=== PATIENT | female | born 1935 | race Caucasian/White ===

== ENCOUNTER 2020-10-29 13:35 | Emergency (ER) | payer MEDICARE, SELFPAY ==
--- NOTE | ~2020-10-29 | XR_ITS ---
EXAMINATION: XR chest 2V 10/29/2020 16:36 INDICATION: Weakness PROCEDURE: PA and lateral views of the chest COMPARISON: 12/28/2015 FINDINGS: . Left basilar atelectasis. No focal pneumonia, edema or pneumothorax. The cardiomediastina l silhouette is within normal limits. There are no pleural effusions. There is no pneumothorax susp ected. IMPRESSION: 1: Left basilar atelectasis. Reviewed, dictated and finalized at location B.
[2020-10-29 13:56] VITALS: BP 146/75; PULSE 70; RESP 18; TEMP 36.6; O2SAT 98
--- NOTE | 2020-10-29 14:00 | ECG_ITS ---
Measurements Intervals [place] Rate: 65 P: 24 DE: 171 QRS: -21 QRSD: 96 T: 19 QT: 384 QTc: 402 Interpretive Statements SINUS RHYTHM DELAYED PRECORDIAL R/S TRANSITION LOW QRS VOLTAGE IN PRECORDIAL LEADS VOLTAGE CRITERIA FOR LVH BORDERLINE ECG Electronically Signed On 10-29-2020 14:27:01 CDT by Jerrell Valdez D.O.
[2020-10-29 16:41] LABS: Add Urine Microscopic? YES; Appearance Urine Clear (Clear); Bilirubin Urine Negative (Negative); Blood Urine 1+ (Negative); Color Urine Yellow (Yellow); Glucose Urine UA Negative (Negative); Ketones Urine Negative (Negative); Leukocyte Esterase Ur Negative LEU/UL (Negative); Nitrate Urine Negative (Negative); Protein Urine Negative (Negative); Specific Grav Ur 1.014 (1.001-1.035); Squamous Epithelial Cell Urine Few /hpf (Few); Urobilinogen Urine Negative mg/dL (<2.0); WBC Urine 0-3 /hpf
--- NOTE | 2020-10-29 17:33 | ED.GENADULT ---
HPI - General Adult General Chief complaint: Unspecified Stated complaint: tired, l arm pain Time Seen by Provider: 10/29/20 16:06 History of Present Illness HPI narrative: 85 yo female presents with vague symptoms. She reports that she just hasn't felt right today. This includes fatigue and nausea. She also had some pain in the left side of her neck and shoulder. She ws concerned that this may be heart related. The pain is worse with arm and head movement. No SOB, chest pain. Related Data Home Medications Medication Instructions Recorded Confirmed atorvastatin 10 mg tablet 10 mg PO DAILY 05/29/19 01/06/20 isosorbide mononitrate 30 mg 30 mg PO DAILY 05/29/19 01/06/20 tablet,extended release 24 hr warfarin 5 mg tablet 5 mg PO [id number] 05/29/19 01/06/20 Allergies Allergy/AdvReac Type Severity Reaction Status Date / Time No Known Allergies Allergy Unknown Verified 02/03/20 14:39 Review of Systems Review of Systems: All systems reviewed & are unremarkable except as noted in HPI and below Constitutional: Constitutional: Denies chills and Denies fever(s) ENT: Reports dizziness Cardiovascular: Cardiovascular: Denies chest pain Respiratory: Respiratory: Denies dyspnea Gastrointestinal: Gastrointestinal: Denies diarrhea and Reports nausea Genitourinary: Genitourinary: Reports no additional female genitourinary complaints Musculoskeletal: Musculoskeletal: Denies back pain Neurologic: Reports weakness PMFSH Past Medical History Medical History Anemia, unspecified Chronic kidney disease, stage 3 (moderate) Essential (primary) hypertension Hypothyroidism Leg ulcer, left Lymphedema Mixed hyperlipidemia Onychomycosis Paroxysmal atrial fibrillation Type 2 diabetes mellitus without complications Family History Family History Mother Cerebrovascular accident Family history of coronary artery disease Other Family history of cardiovascular disease Social History Social History Smoking status: Never smoker Second hand tobacco smoke exposure: No Alcohol intake: never Gender identity (if verbalized by the patient): Female Exam Const: General: healthy appearing and no acute distress Nutritional Appearance: overweight Orientation/consciousness: patient oriented x3 HENMT: Head: normal to inspection Neck: Neck: normal visual inspection Chest: Chest palpation & inspection: tenderness Resp: Effort & Inspection: normal respiratory effort Auscultation: clear to auscultation bilaterally Cardio: Rate: regular rate Rhythm: regular rhythm GI: Inspection: non-distended GI Palp: No Tenderness to palpation present (GI) Skin: General skin exam: normal color Neuro: General: patient oriented x3 Cranial nerves: Yes CN's II-XII intact bilaterally Cognition (Neuro): normal cognition Speech: normal speech Motor exam (neuro): 5/5 motor strength present throughout Extrem: General: normal to inspection Course Vital Signs Vital signs: Vital Signs Temperature 36.6 C 10/29/20 13:56 Pulse Rate 70 10/29/20 13:56 Respiratory Rate 18 10/29/20 13:56 Blood Pressure 146/75 H 10/29/20 13:56 Pulse Oximetry 98 10/29/20 13:56 Temperature 36.6 C 10/29/20 13:56 Pulse Rate 63 10/29/20 18:03 Respiratory Rate 12 10/29/20 18:03 Blood Pressure 145/70 H 10/29/20 18:03 Pulse Oximetry 99 10/29/20 18:03 Medical Decision Making MDM Narrative Medical decision making narrative: Symptoms do not sound cardiac. Labs and vitals reassuring Vital Signs Vital Signs: Vital Signs Temperature 36.6 C 10/29/20 13:56 Pulse Rate 70 10/29/20 13:56 Respiratory Rate 18 10/29/20 13:56 Blood Pressure 146/75 H 10/29/20 13:56 Pulse Oximetry 98 10/29/20 13:56 Temperature 36.6 C 10/29/20 13:56 Pulse Rate
[2020-10-29 17:42] LABS: Basophils Percent Auto 0.4 % (0.2-1.2); Eosinophils Absolute Auto 0.2 K/mm3 (0-0.3); Hematocrit 40.6 % (37.0-47.0); Hemoglobin 12.5 g/dL (12.0-15.0); Immature Granulocyte Absolute 0.02 K/mm3 (0.00-0.031); Immature Granulocyte Percent A 0.3 % (0-0.5); Lymphocytes Absolute Auto 1.29 K/mm3 (0.9-3.2); Lymphocytes Percent Auto 16.3 % (18.3-44.2); Mean Corpuscular HGB Conc 30.8 g/dl (32-36); Mean Corpuscular Hemoglobin 26.4 pg (26-34); Mean Corpuscular Volume 85.7 fl (80-100); Mean Platelet Volume 11.1 fl (7.4-10.4); Monocytes Absolute Auto 0.5 K/mm3 (0.1-0.6); Monocytes Percent Auto 6.3 % (2.6-8.5); Neutrophils Absolute Auto 5.9 K/mm3 (1.3-6.7); Neutrophils Percent Auto 74.7 % (45.5-73.1); Platelet Count Result 220 k/mm3 (150-375); Red Blood Count 4.74 M/mm3 (4.2-5.4); Red Cell Distribution Width 15.6 % (11.5-14.5); White Blood Count 7.9 K/mm3 (4.5-10.0)
[2020-10-29 17:51] LABS: Alanine Aminotransferase 14 U/L (4-35); Albumin Level 4.1 g/dL (3.5-5.1); Alkaline Phosphatase 127 U/L (38-126); Anion Gap 5 mmol/L (8-16); Aspartate Amino Transferase 24 U/L (14-36); Bilirubin,Total 0.4 mg/dL (0.2-1.3); Blood Urea Nitrogen 24 mg/dL (7-17); Carbon Dioxide 31 mmol/L (22-30); Chloride 107 mmol/L (98-107); Estimated CRCL calculation 41 ml/min; Estimated Glomerular Filt Rate 53; Glucose 88 mg/dL (65-105); Potassium 4.3 mmol/L (3.4-5.0); Sodium 143 mmol/L (137-145)
[2020-10-29 17:53] LABS: INR 1.9; Prothrombin Time 22.2 Seconds (11.1-14.7)
[2020-10-29 17:54] LABS: Partial Thromboplastin Time 31.3 SECONDS (22.3-36.8)
[2020-10-29 18:03] VITALS: BP 145/70; PULSE 63; RESP 12; O2SAT 99
[2020-10-29 18:03] LABS: Troponin I < 0.012 ng/mL (0.000-0.034)
== END 2020-10-29 19:23 | disposition home or self-care (01) ==
PROVIDERS: Emergency Provider Emergency Medicine; PCP Family Medicine
DX: M79.602 Pain in left arm (principal); E11.22 Type 2 diabetes mellitus with diabetic chronic kidney disease; I12.9 Hypertensive chronic kidney disease with stage 1 through stage 4 chronic kidney disease, or unspecified chronic kidney disease; N18.30 Chronic kidney disease, stage 3 unspecified; Z79.84 Long term (current) use of oral hypoglycemic drugs; E03.9 Hypothyroidism, unspecified; I89.0 Lymphedema, not elsewhere classified; I48.0 Paroxysmal atrial fibrillation; Z79.01 Long term (current) use of anticoagulants; Z86.2 Personal history of diseases of the blood and blood-forming organs and certain disorders involving the immune mechanism; R94.31 Abnormal electrocardiogram [ECG] [EKG]; R91.8 Other nonspecific abnormal finding of lung field
CPT/HCPCS: 36415; 71046; 80053; 81001; 84484; 85025; 85610; 85730; 93005; 99283

== ENCOUNTER 2020-12-19 14:22 | Emergency (ER) | payer MEDICARE, SELFPAY ==
[2020-12-19 14:40] VITALS: BP 138/62; PULSE 90; RESP 16; TEMP 36.1; O2SAT 98
--- NOTE | 2020-12-19 15:49 | ED.GENADULT ---
HPI - General Adult General Chief complaint: Wound/Laceration Stated complaint: cut my hand 1.5 days ago, on blood thinners Time Seen by Provider: 12/19/20 14:35 Source: patient and RN notes reviewed Mode of arrival: ambulatory Limitations: no limitations History of Present Illness HPI narrative: Patient is a 85-year-old female who presents with wound to the right hand dorsal surface base of thumb where her puppy bit her causing a skin tear, patient notes mild aching pain and notes that she has had some oozing of blood secondary to being on warfarin which she checks at home and was 2 in the last week. Patient denies other complaints notes her tetanus is not up-to-date Related Data Home Medications Medication Instructions Recorded Confirmed atorvastatin 12/19/20 12/19/20 gabapentin 12/19/20 glimepiride mg 12/19/20 isosorbide mononitrate mg PO 12/19/20 levothyroxine 12/19/20 oxybutynin chloride mg PO 12/19/20 quinapril mg 12/19/20 warfarin 12/19/20 warfarin 12/19/20 Allergies Allergy/AdvReac Type Severity Reaction Status Date / Time No Known Allergies Allergy Unknown Verified 11/09/20 15:10 Review of Systems Review of Systems: All systems reviewed & are unremarkable except as noted in HPI and below PMFSH Past Medical History Medical History Anemia, unspecified BMI greater than 40 Chronic ITP (idiopathic thrombocytopenia) Chronic kidney disease, stage 3 (moderate) Essential (primary) hypertension Hypothyroidism Leg ulcer, left Lymphedema Mixed hyperlipidemia Onychomycosis Paroxysmal atrial fibrillation Type 2 diabetes mellitus without complications Family History Family History Mother Cerebrovascular accident Family history of coronary artery disease Other Family history of cardiovascular disease Social History Social History Smoking status: Never smoker Second hand tobacco smoke exposure: No Alcohol intake: never Gender identity (if verbalized by the patient): Female Exam Narrative: GENERAL: Well-appearing, well-nourished, and in no acute distress. HEAD: Normocephalic, atraumatic. EYES: PERRLA and EOMI. ENT: Nares clear, no rhinorrhea or epistaxis. Mucous membranes moist. CHEST: Clear to auscultation. No respiratory distress. No wheezes rales or rhonchi HEART: Regular rate and rhythm. No murmur heard. EXTREMITIES: Normal range of motion. No edema. SKIN: Warm, dry, no rash. Half centimeter flap skin tear of the dorsal surface right hand proximal of the thumb no erythema no lymphangitic streaking NEURO: No focal deficits. Alert and oriented x3. Neurovascularly intact. Capillary refill less than 2 PSYCH: Normal mood and affect. Course Course Emergency Course: Patient in the room in no distress aware of case findings treatment plan and diagnosis agreeing to follow-up as instructed Vital Signs Vital signs: Vital Signs Temperature 97 F L 12/19/20 14:40 Pulse Rate 90 12/19/20 14:40 Respiratory Rate 16 12/19/20 14:40 Blood Pressure 138/62 12/19/20 14:40 Pulse Oximetry 98 12/19/20 14:40 Temperature 97 F L 12/19/20 14:40 Pulse Rate 90 12/19/20 14:40 Respiratory Rate 16 12/19/20 14:40 Blood Pressure 138/62 12/19/20 14:40 Pulse Oximetry 98 12/19/20 14:40 Procedures Other Procedure Procedure 1: Other Procedure: Patient with skin tear that had Surgicel placed on it hemostasis achieved Lukas wrap and Coban applied Medical Decision Making MDM Narrative Medical decision making narrative: Patients injury or pain is consistent with musculoskeletal etiology. No signs of neurological or vascular compromise on exam. Compartments and tisues are soft without signs of compartment syndrome. Pain is felt appropriate for further evaluation on an outpatient basis. Tetanus update
[2020-12-19] MEDS: TETANUS,DIPHTHERIA,AC PERTUSSIS ADULT (0.5 ML) BOOSTRIX IM (16:08)
== END 2020-12-19 16:15 | disposition home or self-care (01) ==
PROVIDERS: Emergency Provider Emergency Medicine; PCP Family Medicine
DX: S61.451A Open bite of right hand, initial encounter (principal); Z23 Encounter for immunization; I12.9 Hypertensive chronic kidney disease with stage 1 through stage 4 chronic kidney disease, or unspecified chronic kidney disease; E11.22 Type 2 diabetes mellitus with diabetic chronic kidney disease; N18.30 Chronic kidney disease, stage 3 unspecified; I48.0 Paroxysmal atrial fibrillation; D69.3 Immune thrombocytopenic purpura; E03.9 Hypothyroidism, unspecified; E78.2 Mixed hyperlipidemia; Z79.01 Long term (current) use of anticoagulants; Z86.2 Personal history of diseases of the blood and blood-forming organs and certain disorders involving the immune mechanism; W54.0XXA Bitten by dog, initial encounter
CPT/HCPCS: 12001; 90471; 90715; 99282

== ENCOUNTER 2021-02-04 17:52 | Emergency (ER) | payer MEDICARE, SELFPAY ==
--- NOTE | ~2021-02-04 | XR_ITS ---
XR toe 2nd LT min 2V DATE: 02/04/2021 20:38 INDICATION: Wound after stubbing toe TECHNIQUE: 3 views COMPARISON: None FINDINGS: There is diffuse osteopenia. There is soft tissue swelling of the forefoot. There is osteoarthritis at first metatarsophalangeal joint and multiple interphalangeal joints. No fracture or dislocation, periosteal reaction or bone destruction of the second toe is detected. IMPRESSION: Osteopenia, soft tissue swelling Osteoarthritis No fracture or dislocation, periosteal reaction or bone destruction is detected Reviewed, dictated and finalized at location A.
[2021-02-04 18:20] VITALS: BP 221/69; PULSE 60; RESP 20; TEMP 36.6; O2SAT 97
--- NOTE | 2021-02-04 19:15 | PC.NURSE ---
Pt's son Timothy Luna called by this RN at pt's request. Will call him for ride home for pt on d/c. [phone]
--- NOTE | 2021-02-04 20:31 | ED.LOWEXIN ---
HPI - Extremity Injury (Lower) General Chief Complaint: Extremity Injury, Lower Stated Complaint: l foot bleeding Time Seen by Provider: 02/04/21 19:52 Source: patient Mode of arrival: wheelchair Limitations: no limitations History of Present Illness HPI Narrative: This is an 85 year old female who presents for evaluation of left second toe bleeding. She thinks she hit her toe on her wheel chair today. She noticed bleeding from a blood blister under her left 2nd toe nail . She takes warfarin and she reports her INR today was 2.2. She denies weakness, dizziness. She has mild pain to her toe. Related Data Home Medications Medication Instructions Recorded Confirmed atorvastatin 12/19/20 01/07/21 gabapentin 12/19/20 01/07/21 glimepiride mg 12/19/20 01/07/21 isosorbide mononitrate mg PO 12/19/20 01/07/21 levothyroxine 12/19/20 01/07/21 oxybutynin chloride mg PO 12/19/20 01/07/21 quinapril mg 12/19/20 01/07/21 warfarin 12/19/20 01/07/21 warfarin 12/19/20 01/07/21 Allergies Allergy/AdvReac Type Severity Reaction Status Date / Time No Known Allergies Allergy Unknown Verified 02/04/21 14:50 Review of Systems Review of Systems: All systems reviewed & are unremarkable except as noted in HPI and below PMFSH Past Medical History Medical History Anemia, unspecified BMI greater than 40 Chronic ITP (idiopathic thrombocytopenia) Chronic kidney disease, stage 3 (moderate) Essential (primary) hypertension Hematochezia Hypothyroidism Leg ulcer, left Lymphedema Mixed hyperlipidemia Onychomycosis Paroxysmal atrial fibrillation Type 2 diabetes mellitus without complications Family History Family History Mother Cerebrovascular accident Family history of coronary artery disease Other Family history of cardiovascular disease Social History Social History Smoking status: Never smoker Second hand tobacco smoke exposure: No Alcohol intake: never Substance use: never Substance use type: does not use Gender identity (if verbalized by the patient): Female Spiritual care concerns: No Exam Const: General: alert Nutritional Appearance: obese Orientation/consciousness: patient oriented x3 Eyes: EOM: EOMs intact bilaterally Resp: Effort & Inspection: normal respiratory effort Neuro: General: patient oriented x3 and moves all extremities Extrem: Other: long toe nails, left second toe with blister with blood. Psych: Mental Status: mental status grossly normal Affect: normal affect Course Reevaluation(s) Reevaluation #1: I discussed with patient xray did not show any fractures. She has not acute bleeding. I discussed with patient she will need to follow up with a photographic laboratory technician for evaluation of her toe nail. . She will need to watch for infection. She reports INR 2.2 . She understands that toe nail is likely going to fall off. Date: 02/04/21 Time: 21:49 Vital Signs Vital signs: Vital Signs Temperature 97.9 F 02/04/21 18:20 Pulse Rate 60 02/04/21 18:20 Respiratory Rate 20 02/04/21 18:20 Blood Pressure 221/69 H 02/04/21 18:20 Pulse Oximetry 97 02/04/21 18:20 Temperature 97.9 F 02/04/21 18:20 Pulse Rate 63 02/04/21 22:42 Respiratory Rate 18 02/04/21 22:42 Blood Pressure 189/89 H 02/04/21 22:42 Pulse Oximetry 97 02/04/21 22:42 MDM - Extremity Injury (Lower) Imaging Data Radiologist's impression: ITS Impressions Toe X-Ray 02/04/21 20:43 IMPRESSION: Osteopenia, soft tissue swelling Osteoarthritis No fracture or dislocation, periosteal reaction or bone destruction is detected Discharge Plan Discharge Clinical Impression: Hematoma of toe of left foot Patient Disposition: Home, Self-Care Condition: Stable Instructions: Antibio
[2021-02-04 22:42] VITALS: BP 189/89; PULSE 63; RESP 18; O2SAT 97
== END 2021-02-04 22:44 | disposition home or self-care (01) ==
PROVIDERS: Emergency Provider General Practice; PCP Family Medicine
DX: S90.32XA Contusion of left foot, initial encounter (principal); I12.9 Hypertensive chronic kidney disease with stage 1 through stage 4 chronic kidney disease, or unspecified chronic kidney disease; E11.22 Type 2 diabetes mellitus with diabetic chronic kidney disease; N18.30 Chronic kidney disease, stage 3 unspecified; E03.9 Hypothyroidism, unspecified; E78.2 Mixed hyperlipidemia; I48.0 Paroxysmal atrial fibrillation; Z79.01 Long term (current) use of anticoagulants; Z79.899 Other long term (current) drug therapy; X58.XXXA Exposure to other specified factors, initial encounter
CPT/HCPCS: 73660; 99283

== ENCOUNTER 2021-02-14 01:00 | Day surgery (SDC) | payer MEDICARE, SELFPAY ==
[2021-02-04 14:43] VITALS: BMI 41.2
[2021-02-14 09:12] LABS: Glucose Point of Care 105 mg/dl (65-105)
--- NOTE | 2021-02-14 09:12 | P.PNAN_ITS ---
Anes - Initial Pre Proc Eval Procedure: Operation Date: 02/14/21 09:45 Proposed Procedures p Colonoscopy - Walker Alejandro MD Date/Time: 02/14/21 09:12 Surgeon: Walker Alejandro MD Pre Op Diagnosis: constipation, positive cologuard Patient Data Age: 85 Gender: F Height: 1.63 m Weight: 109 kg Allergies Allergy/AdvReac Type Severity Reaction Status Date / Time No Known Allergies Allergy Unknown Verified 02/14/21 09:13 Home Medications Medication Instructions Recorded Confirmed Type atorvastatin 10 mg PO DAILY 12/19/20 02/09/21 History gabapentin 300 mg PO BID 12/19/20 02/09/21 History glimepiride 2 mg PO DAILY 12/19/20 02/09/21 History isosorbide mononitrate 30 mg PO DAILY 12/19/20 02/09/21 History levothyroxine 50 mcg PO DAILY 12/19/20 02/09/21 History oxybutynin chloride 5 mg PO DAILY 12/19/20 02/09/21 History quinapril 20 mg PO DAILY 12/19/20 02/09/21 History warfarin 1 mg PO DIRECTED 12/19/20 02/09/21 History warfarin 4 mg PO DIRECTED 12/19/20 02/09/21 History alprazolam 0.25 mg PO BID PRN 02/09/21 02/09/21 History Laboratory Tests 02/14/21 09:06 POC Capillary Glucose 105 mg/dl mg/dl (65-105) Patient hx anesthesia problems: none Family hx anesthesia problems: none Results Review: All pre-operative results and documents have been reviewed as part of the pre-operative evaluation. [facility] Past Medical History Medical History Anemia, unspecified BMI greater than 40 Chronic ITP (idiopathic thrombocytopenia) Chronic kidney disease, stage 3 (moderate) Essential (primary) hypertension Hematochezia Hypothyroidism Leg ulcer, left Lymphedema Mixed hyperlipidemia Onychomycosis Paroxysmal atrial fibrillation Type 2 diabetes mellitus without complications Family History Family History Mother Cerebrovascular accident Family history of coronary artery disease Other Family history of cardiovascular disease Social History Social History Smoking status: Never smoker Second hand tobacco smoke exposure: No Alcohol intake: never Substance use: never Substance use type: does not use Living arrangements: alone Gender identity (if verbalized by the patient): Female Spiritual care concerns: No Anes - Eval Final PreProcedure Day of Procedure 02/14/21 09:12 Patient weight: morbidly obese Heart: regular rate and rhythm Lungs: clear to auscultation Airway: Mallampati scale class II Neurological: alert and oriented Last oral intake: >/= 8 hours ASA classification: III Emergent: no Anesthetic plan: proceed Anesthesia type and monitoring: general GIVS and standard monitoring Results Review: All pre-operative results and documents have been reviewed as part of the pre-operative evaluation. Informed Consent: The patient's anesthetic plan and its attendant risks and benefits were discussed with the patient/family/POA. Questions were solicited and answers provided to the satisfaction of the patient/family/POA.
[2021-02-14] MEDS: LACTATED RINGERS 1,000 ML 150 ML IV CONT (09:13)
[2021-02-14 09:15] VITALS: BP 195/76; PULSE 63; RESP 18; TEMP 36.2; O2SAT 89; BMI 41.4
--- NOTE | 2021-02-14 09:18 | SUR.PREOP ---
Pt's blood pressure elevated. Dr. Pittman (anesthesiologist) notified. No new orders recieved.
--- NOTE | 2021-02-14 09:30 | PM.HPGS ---
History of Present Illness History of Present Illness Consent: Risks, benefits, and alternatives have been discussed and questions answered. Patient agrees to proceed with procedure. Chief complaint: constipation, positive cologuard Narrative: Maria Luna is a 85 year old female with change in bowel habits lately more constipation and also occult blood in stool. Last colonoscopy 20 years ago. Review of Systems Constitutional: Constitutional: Denies headache(s) and Denies weakness Eyes: Eyes: Denies blurry vision ENT: Reports Normal hearing present, Denies headache(s) and Denies neck pain Cardiovascular: Cardiovascular: Denies chest pain and Denies dyspnea Respiratory: Respiratory: Denies dyspnea Gastrointestinal: Gastrointestinal: Reports no additional gastrointestinal complaints Genitourinary: Genitourinary: Denies dysuria Musculoskeletal: Musculoskeletal: Denies neck pain Integumentary/Breasts: Skin/Breast: Denies dry skin Neurologic: Reports Normal hearing present, Denies headache(s) and Denies weakness Psychiatric: Psychiatric: Denies anxiety Endocrine: Endocrine: Denies change in body appearance Hematologic/Lymphatic: Hematologic/Lymphatic: Denies easy bleeding Allergic/Immunologic: Allergic/Immunologic: Denies urticaria PMFSH Past Medical History Medical History (Updated 02/14/21 @ 09:31 by Walker Alejandro MD) Anemia, unspecified BMI greater than 40 Change in bowel movement Chronic ITP (idiopathic thrombocytopenia) Chronic kidney disease, stage 3 (moderate) Essential (primary) hypertension Hematochezia Hypothyroidism Leg ulcer, left Lymphedema Mixed hyperlipidemia Occult blood in stools Onychomycosis Paroxysmal atrial fibrillation Type 2 diabetes mellitus without complications Family History Family History Mother Cerebrovascular accident Family history of coronary artery disease Other Family history of cardiovascular disease Social History Social History Smoking status: Never smoker Second hand tobacco smoke exposure: No Alcohol intake: never Substance use: never Substance use type: does not use Living arrangements: alone Gender identity (if verbalized by the patient): Female Spiritual care concerns: No Meds Home Medications and Allergies Home Medications Medication Instructions Recorded Confirmed Type atorvastatin 10 mg PO DAILY 12/19/20 02/09/21 History gabapentin 300 mg PO BID 12/19/20 02/09/21 History glimepiride 2 mg PO DAILY 12/19/20 02/09/21 History isosorbide mononitrate 30 mg PO DAILY 12/19/20 02/09/21 History levothyroxine 50 mcg PO DAILY 12/19/20 02/09/21 History oxybutynin chloride 5 mg PO DAILY 12/19/20 02/09/21 History quinapril 20 mg PO DAILY 12/19/20 02/09/21 History warfarin 1 mg PO DIRECTED 12/19/20 02/09/21 History warfarin 4 mg PO DIRECTED 12/19/20 02/09/21 History alprazolam 0.25 mg PO BID PRN 02/09/21 02/09/21 History Allergies Allergy/AdvReac Type Severity Reaction Status Date / Time No Known Allergies Allergy Unknown Verified 02/14/21 09:13 Vital Signs Vital Signs - 24 hr 02/14/21 09:15 Temperature 97.1 F L Pulse Rate 63 Respiratory Rate 18 Blood Pressure 195/76 H Pulse Oximetry 89 L Exam Const: General: comfortable and no acute distress HENMT: General nose exam: Normal nares present Eyes: General: appearance normal, both eyes and all related structures Neck: Neck: no JVD Resp: Auscultation: clear to auscultation bilaterally Cardio: Rate: regular rate Rhythm: regular rhythm GI: Inspection: non-distended GI Palp: Yes Soft to palpation Skin: General skin exam: normal color Neuro: General: gait normal Speech: normal speech Extrem: General: normal to inspection Psych: Mental Status: mental status grossly normal Assessment and Plan Assessment and plan (1) Rafaela
[2021-02-14 09:54] VITALS: BP 117/79; PULSE 65; RESP 16; O2SAT 100
[2021-02-14 10:04] VITALS: BP 133/82; PULSE 68; RESP 23; O2SAT 100
[2021-02-14 10:14] VITALS: BP 184/99; PULSE 61; RESP 26; O2SAT 100
== END 2021-02-14 10:28 | disposition home or self-care (01) ==
PROVIDERS: PCP Family Medicine; Visit Provider Internal Medicine Gastroenterology
PROC: 0DJD8ZZ Inspection of Lower Intestinal Tract, Via Natural or Artificial Opening Endoscopic (ICD-10-PCS; CPT 45378; principal; 2021-02-14 09:45)
DX: R19.4 Change in bowel habit (principal); R19.5 Other fecal abnormalities; K57.30 Diverticulosis of large intestine without perforation or abscess without bleeding; K64.8 Other hemorrhoids; D64.9 Anemia, unspecified; E03.9 Hypothyroidism, unspecified; Z79.01 Long term (current) use of anticoagulants; I48.0 Paroxysmal atrial fibrillation; I89.0 Lymphedema, not elsewhere classified; D69.3 Immune thrombocytopenic purpura; B35.1 Tinea unguium; E78.2 Mixed hyperlipidemia; E11.22 Type 2 diabetes mellitus with diabetic chronic kidney disease; I12.9 Hypertensive chronic kidney disease with stage 1 through stage 4 chronic kidney disease, or unspecified chronic kidney disease; N18.30 Chronic kidney disease, stage 3 unspecified; E66.01 Morbid (severe) obesity due to excess calories; Z68.41 Body mass index [BMI] 40.0-44.9, adult
CPT/HCPCS: 45378; 82948; J2704; J7120

== ENCOUNTER 2022-03-28 13:17 | Outpatient (CLI) | payer MEDICARE, SELFPAY ==
--- NOTE | ~2022-03-28 | XR_ITS ---
EXAMINATION: XR chest 2V Exam Date/Time: 03/28/2022 13:45 ENTERPRISE RECORDS ANALYST HISTORY: R05.9 - Cough, SINUS DRAINAGE Comparison: 10/29/2020. RESULT: Lines, tubes, and devices: Cholecystectomy clips. Lungs and pleura: Senescent and possibly emphysematous change. No focal consolidation. Bibasilar sca r/atelectasis. Cardiomediastinal silhouette: Stable. Other: No acute osseous or upper abdominal finding. IMPRESSION: No acute cardiopulmonary process. Reviewed, dictated and finalized at location K. RPRISE RECORDS ANALYST
== END 2022-03-28 13:18 | disposition home or self-care (01) ==
PROVIDERS: PCP Family Medicine; Visit Provider Nurse Practitioner Family
DX: R05.9 Cough, unspecified (principal)
CPT/HCPCS: 71046

== ENCOUNTER 2023-03-28 10:00 | Outpatient (RCR) | payer MEDICARE, SELFPAY ==
--- NOTE | 2023-02-28 11:50 | OPREHPOC ---
Outpatient Therapy Plan of Care This is a Multidisciplinary Plan of Care that may contain components documented by all disciplines (PT, OT, and ST.) ST Problem 1 ST Problem #[address] Goal 1 Goal Patient will participate in home program in order to increase carryover of compensatory strategies into natural environment. Target Visit 4 ST Goal 2 Goal Patient will participate in stroke education due to increased risk factors (i.e. family history, HTN, diabetes). Target Visit [address] Problem #[address] Goal 1 Goal Patient will participate in short term memory tasks with 70% accuracy when provided with verbal cues and use of compensatory memory strategies. Target Visit 4 ST Goal 2 Goal Patient will learn compensatory memory strategies and implement in tasks with 80% accuracy independently. Target Visit [address] Problem #[address] Goal 1 Goal Patient will participate in word-finding tasks with 70% accuracy when provided verbal cues and use of word-finding compensatory strategies. Target Visit 4 ST Goal 2 Goal Patient will learn and implement word-finding strategies (describe appearance, function, location, etc) with 80% accuracy independently Target Visit 4
--- NOTE | 2023-02-28 11:51 | STOPEVAL1 ---
Assessment and note entered by Kianna Allen INSTRUMENTATION AND CONTROL TECHNICIAN Evaluation Information Assessment Status Evaluation Diagnosis Cognitive impairment Onset 3-4 months ago Subjective Information Patient arrived to the clinic with her daughter and was propelled to treatment room by wheelchair. Patient alert and attentive throughout entire evaluation. Reported Pain Level Pain Score 0: Self Report Assessment ST Clinical Summary Maria Luna is an 87 year old female who was referred for a speech-language evaluation due to recent cognitive decline. Patient lives independently and completes most cleaning and laundry at home. Her severe visual deficits are a barrier to other ADLs she can complete independently. Her daughter lives next door and her son also lives close; patient is dependent on her children to complete medication and finance tasks as well as provide meals, do shopping, etc. Patient accompanied to evaluation with her daughter who lives next door. Per self and daughter's report, patient has had a significant decline in word-finding and memory loss within the last 3-4 months. Patient and daughter deny any stroke or trauma to the brain. Patient reports her decline started at the time of her last sinus infection, but her daughter believes it started before that time. Patient has a family history of Alzheimer's disease and CVA; while patient has not had a stroke, her doctor reported that a small TIA could have happened and resulted in cognitive impairment. A dementia diagnosis has also been explored, but she has never been formally diagnosed. Patient and daughter were educated on normal age-related cognitive decline vs. rapid cognitive decline caused by other factors ( dementia, CVA, etc). Patient's daughter was also encouraged to explore any medication changes that occurred at the time of cognitive decline; side effects of medications could be a contributing factor to deficits and other medications could be explored. Patient completed informal testing to determine strengths and weaknesses in language and cognition . Patient was within n
[2023-03-07 10:00] VITALS: O2SAT 80
--- NOTE | 2023-03-28 11:46 | STOPDC ---
Assessment and note entered by [facility] [place] Evaluation Information Assessment Status Discharge Reported Pain Level Pain Score 0: Self Report Assessment ST Clinical Summary Maria Luna is an 87 year old female who was referred for a speech-language evaluation due to recent cognitive decline. Patient lives independently and completes most cleaning and laundry at home. Maria and her son and daughter have received education regarding dementia and compensatory memory strategies to use to improve verbal expression and cognitive functioning. Additionally , Maria and her family have received education regarding signs and symptoms of strokes due to her having several risk factors. Maria will discharge from skilled ST services on this date due to meeting all set goals in use of compensatory memory and word-finding strategies. Per self report and report from her son, patient is able to carry over strategies at home when communicating to family and friends on the phone. Recommended to consult with physician about dementia diagnosis and any subsequent treatment. Thank you for this referral. Plan of Care ST Services Indicated No
== END 2023-03-28 14:53 | disposition home or self-care (01) ==
LOC: ANHST 10:00
PROVIDERS: PCP Family Medicine; Visit Provider Family Medicine
DX: R47.01 Aphasia (principal); R41.3 Other amnesia
CPT/HCPCS: 92507; 92523

== ENCOUNTER 2023-06-28 18:28 | Inpatient (IN) | payer MEDICARE, SELFPAY ==
[2023-06-28] VITALS (11 sets, daily range): BP systolic 119–208; BP diastolic 63–102; PULSE 57–66; RESP 16–26; TEMP 36.7; O2SAT 100
--- NOTE | ~2023-06-28 | MR_ITS ---
MRI of the brain Clinical History: Confusion Technique: Axial and sagittal T1-weighted images were acquired. These were followed by axial T2-weigh mary anne, diffusion weighted, gradient, and FLAIR images. Findings: There is no acute infarct, intracranial hemorrhage, or mass lesion. There are moderate painter bottom can microvascular ischemic changes in the periventricular white matter bilaterally. Ventricles and subarachnoid spaces are dilated. No intraluminal mass seen. Paranasal sinuses and mast oid air cells are clear. Major intracranial flow voids are intact. Sagittal midline structures are intact. IMPRESSION: No acute abnormality. Moderate chronic microvascular ischemic change. Reviewed, dictated and finalized at location . DEVELOPER FOR DEAF ADULTS
--- NOTE | ~2023-06-28 | US_ITS ---
EXAMINATION: US carotid duplex BI DATE: 06/29/2023 16:09 INDICATION: Syncope TECHNIQUE: Grayscale, color Doppler, and pulsed Doppler images of the cervical carotid arteries were obtained. The degree of vessel stenosis is placed in one of the following categories: normal, <50%, 5 0-69%, >=70% but less than near-occlusion, near-occlusion, or total occlusion. Note that percent sten osis relative to normal distal artery lumen diameter is indirectly measured from velocity measurement s as described by Melvin, et al. Radiology 2003; 229:340-346. COMPARISON: CT dated 04/27/2024 FINDINGS: RIGHT: The right common carotid artery (CCA) peak systolic velocity (PSV) is 76 cm/s. The right internal car otid artery (ICA) PSV is 124 cm/s. The right ICA end-diastolic velocity (EDV) is 124 cm/s. The right ICA/CCA PSV ratio is 1.6. Grayscale and color Doppler images yield an estimate of <50% diameter reduc tion from plaque in the ICA. The external carotid artery (ECA) PSV is 115 cm/s. There is antegrade fl ow in the right vertebral artery. LEFT: The left CCA PSV is 95 cm/s. The left ICA PSV is 102 cm/s. The left ICA EDV is 16 cm/s. The left ICA/ CCA PSV ratio is 1.1. Grayscale and color Doppler images yield an estimate of <50% diameter reduction from plaque in the ICA. The ECA PSV is 104 cm/s. There is antegrade flow in the left vertebral arter y. IMPRESSION: 1. <50% stenosis in the right internal carotid artery. 2. <50% stenosis in the left internal carotid artery. 3. Cardiac arrhythmia is present. Correlate with EKG. Reviewed, dictated and finalized at location A. ER REPAIRER
--- NOTE | ~2023-06-28 | XR_ITS ---
Right ankle Technique: AP and lateral views were obtained. Clinical History: Pain Findings: No acute fracture or dislocation is seen. Osseous alignment is anatomic. Ankle mortise and other visualized joint spaces are preserved. Questionable small linear foreign bodies at the plantar aspect of the foot at the proximal fifth metatarsal region. Impression: No acute fracture or dislocation seen. Possible small linear foreign bodies versus calcifications in the plantar aspect of the foot at the p roximal fifth metatarsal region. Reviewed, dictated and finalized at location M. T FERMENTATION ATTENDANT Impression: No acute fracture or dislocation seen. Possible small linear foreign bodies versus calcifications in the plantar aspec t of the foot at the proximal fifth metatarsal region.
--- NOTE | ~2023-06-28 | CT_ITS ---
EXAMINATION: CT facial & cervical spine wo DATE: 06/28/2023 19:37 INDICATION: Head injury. TECHNIQUE: Computed tomography (CT) of the maxillofacial region and cervical spine was performed with out intravenous contrast. Automated exposure control and iterative reconstruction technique were empl oyed. The dose-length product was 543.29 mGy-cm. COMPARISON: None FINDINGS: MAXILLOFACIAL CT: There is left frontal scalp soft tissue swelling. There is anteroposterior elongation of the ocular g lobes. There are changes of right-sided scleral banding procedure. There are likely changes of ocular lens replacement surgeries. There is mild mucosal thickening in the paranasal sinuses. The mastoid a ir cells are normal. Bone alignment is normal. No fracture. CERVICAL SPINE CT: There is 5 degrees levocurvature of cervicothoracic spine. Vertebral body heights are normal. There i s mildly decreased disc height at C3-C4 and C4-C5 and severely decreased disc height at C5-C6 and C6- C7. The following disc levels are specifically discussed: C2-C3: There is mild bilateral uncovertebral joint osteoarthritis. There is mild right facet joint os teoarthritis. There is ankylosis of left facet joint with mild hypertrophy. There is mild left neural foraminal stenosis. There is no central canal stenosis. C3-C4: There is mild bilateral uncovertebral joint hypertrophy. There is mild right facet joint osteo arthritis. There is ankylosis of left facet joint with moderate hypertrophy. There is mild left neura l foraminal stenosis. There is no central canal stenosis. C4-C5: There is mild bilateral uncovertebral joint osteoarthritis. There is severe bilateral facet kiara int osteoarthritis. There is mild bilateral neural foraminal stenosis. There is mild central canal st enosis. C5-C6: There is severe bilateral uncovertebral joint osteoarthritis. There is mild right and severe l eft facet joint osteoarthritis. There is mild bilateral neural foraminal stenosis. There is mild cent ral canal stenosis. C6-C7: There is ankylosis of the uncovertebral joints with severe hypertrophy. There is mild bilatera l facet joint osteoarthritis. There is mild bilateral neural foraminal stenosis. There is no central canal stenosis. C7-T1: There is no uncovertebral joint osteoarthritis. There is severe bilateral facet joint osteoart hritis. There is mild bilateral neural foraminal stenosis. There is no central canal stenosis. IMPRESSION: 1. No fracture. I called this result to Vaishnavi Molina at 7:49 PM. 2. Severe cervical spondylosis. Reviewed, dictated and finalized at location E. O TAPE DUPLICATOR
--- NOTE | ~2023-06-28 | XR_ITS ---
EXAMINATION: XR chest 1V portable DATE: 06/28/2023 21:21 INDICATION: Cough. Weakness. TECHNIQUE: A single frontal view of the chest was obtained. COMPARISON: Chest 2 views 03/28/2022 FINDINGS: There is no pneumonia, pleural effusion, or pneumothorax. The heart size is normal. There i s a small hiatal hernia. Surgical clips in the right upper quadrant are likely from cholecystectomy. IMPRESSION: 1. Small hiatal hernia. Reviewed, dictated and finalized at location E. LUTION REP IMPRESSION: 1. Small hiatal hernia.
--- NOTE | ~2023-06-28 | CT_ITS ---
EXAMINATION: CT brain wo con DATE: 06/28/2023 19:36 INDICATION: Syncope. TECHNIQUE: Computed tomography (CT) of the head was performed without intravenous contrast. The mA wa s adjusted according to patient size. Iterative reconstruction technique was employed. The dose-lengt h product was 681.00 mGy-cm. COMPARISON: Head CT 02/14/16 FINDINGS: There is no intracranial hemorrhage, acute infarction, or abnormal intracranial mass lesion . There are scattered areas of low attenuation in the cerebral white matter. The ventricles are ora l in size. There is left frontal scalp soft tissue swelling. There is anteroposterior elongation of t he ocular globes. There are changes of right-sided scleral banding procedure. There are likely change s of ocular lens replacement surgeries. The mastoid air cells are normal. There is mild mucosal thick ening in the ethmoid sinuses. IMPRESSION: 1. Moderate nonspecific cerebral white matter disease, which likely represents chronic small vessel i schemic disease, worsened from 02/14/2016. I called this result to Vaishnavi Molina at 7:49 PM. Reviewed, dictated and finalized at location E. EE SAMPLER IMPRESSION: 1. Moderate nonspecific cerebral white matter disease, which likely represents chronic small vessel ischemic disease, worsened from 02/14/2016. I called this r esult to Vaishnavi Molina at 7:49 PM.
--- NOTE | 2023-06-28 18:49 | ECG_ITS ---
Measurements Intervals Branch Rate: 60 P: -40 DE: 150 QRS: -21 QRSD: 92 T: 16 QT: 418 QTc: 421 Interpretive Statements SINUS RHYTHM MODERATE VOLTAGE CRITERIA FOR LVH, CONSIDER NORMAL VARIANT [MEETS CRITERIA IN ONE OF: R(aVL), S(V1), R(V5), R(V5/V6)+S(V1)] CONSIDER PREVIOUS INFERIOR CA ABNORMAL ECG COMPARED TO ECG 10/29/2020 14:07:12 NO SIGNIFICANT CHANGE Electronically Signed On 06-29-2023 7:11:43 LASTING MACHINE OPERATOR by Mario Quiroz M.D.
[2023-06-28 19:19] LABS: Basophils Absolute Auto 0.1 K/mm3 (0.0-0.1); Basophils Percent Auto 0.4 % (0.2-1.2); Eosinophils Percent Auto 0.2 % (0-4.4); Hematocrit 40.9 % (37.0-47.0); Hemoglobin 12.8 g/dL (12.0-15.0); Immature Granulocyte Absolute 0.03 K/mm3 (0.00-0.031); Immature Granulocyte Percent A 0.3 % (0-0.5); Lymphocytes Absolute Auto 0.96 K/mm3 (0.9-3.2); Lymphocytes Percent Auto 8.5 % (18.3-44.2); Mean Corpuscular HGB Conc 31.3 g/dl (32-36); Mean Corpuscular Hemoglobin 26.2 pg (26-34); Mean Corpuscular Volume 83.8 fl (80-100); Monocytes Absolute Auto 0.5 K/mm3 (0.1-0.6); Monocytes Percent Auto 4.2 % (2.6-8.5); Neutrophils Absolute Auto 9.8 K/mm3 (1.3-6.7); Neutrophils Percent Auto 86.4 % (45.5-73.1); Platelet Count Result 234 k/mm3 (150-375); Red Blood Count 4.88 M/mm3 (4.2-5.4); Red Cell Distribution Width 14.2 % (11.5-14.5); White Blood Count 11.3 K/mm3 (4.5-10.0)
[2023-06-28 19:28] LABS: Alanine Aminotransferase 19 U/L (6-35); Albumin Level 4.2 g/dL (3.5-5.1); Alkaline Phosphatase 133 U/L (38-126); Anion Gap 12 mmol/L (8-16); Aspartate Amino Transferase 32 U/L (14-36); Bilirubin,Total 0.8 mg/dL (0.2-1.3); Blood Urea Nitrogen 47 mg/dL (7-17); Calcium 9.8 mg/dL (8.4-10.2); Carbon Dioxide 20 mmol/L (22-30); Chloride 106 mmol/L (98-107); Creatine Kinase 90 U/L (30-135); Estimated CRCL calculation 20 ml/min; Estimated Glomerular Filt Rate 25; Glucose 162 mg/dL (65-110); Magnesium 1.9 mg/dL (1.6-2.3); Potassium 4.3 mmol/L (3.4-5.0); Sodium 138 mmol/L (137-145)
[2023-06-28 19:38] LABS: Troponin I < 0.012 ng/mL (0.000-0.034)
[2023-06-28 21:04] LABS: INR 3.2; Partial Thromboplastin Time 36.7 SECONDS (22.3-36.8); Prothrombin Time 35.7 Seconds (11.1-14.7)
[2023-06-28] MEDS: SODIUM CHLORIDE 0.9% IV 500 ML 999 ML IV CONT (21:55)
[2023-06-28 21:56] LABS: Appearance Urine Clear (Clear); Bacteria Urine None Seen /hpf; Bilirubin Urine Negative (Negative); Blood Urine Negative (Negative); Color Urine Yellow (Yellow); Glucose Urine UA Negative (Negative); Hyaline Casts Urine Present /lpf; Ketones Urine Negative (Negative); Leukocyte Esterase Ur Negative LEU/UL (Negative); Need Manual Microscopic Reviewed; Nitrate Urine Negative (Negative); Protein Urine Trace mg/dL (Negative); RBC Urine 0-2 /hpf (0-2); Specific Grav Ur 1.016 (1.001-1.035); Squamous Epithelial Cell Urine None seen /hpf (Few); WBC Urine 0-5 /hpf; pH Urine 5.5 (5.0-9.0)
[2023-06-28 21:57] LABS: Add Urine Microscopic? YES
[2023-06-28 21:59] LABS: Influenza A QL RT-PCR Negative (Negative); Influenza B QL RT-PCR Negative (Negative); RSV RNA, RT-PCR Negative (Negative); SARS-CoV-2 RNA PCR Negative (Negative)
--- NOTE | 2023-06-28 23:29 | PM.IMHP ---
H&P: HPI History of Present Illness Date/Time: 06/28/23 23:29 Chief Complaint: syncope Narrative: This is an 87-year-old female with past medical history significant for hypertension, congestive heart failure, type 2 diabetes mellitus, on chronic anticoagulation. For paroxysmal atrial fibrillation. Patient presents to the emergency room after having a syncopal episode while sitting at the table. Patient sustained trauma to the forehead on her weight down and developed hematoma. She is unsure if there was any loss of consciousness, patient has been her usual state of health up until this point denies any lightheadedness, vertigo, palpitations, chest pain, no fevers no rigors no chills no nausea no vomiting no diarrhea. Preliminary workup was significant for chemistry panel BUN [address] of the head neck and chest x-ray did not show acute abnormalities. Patient is been placed in observation for further evaluation management and treatment. EXAMINATION: CT brain wo con DATE: 06/28/2023 19:36 INDICATION: Syncope. TECHNIQUE: Computed tomography (CT) of the head was performed without intravenous contrast. The mA was adjusted according to patient size. Iterative reconstruction technique was employed. The dose-length product was 681.00 mGy-cm. COMPARISON: Head CT 02/14/16 FINDINGS: There is no intracranial hemorrhage, acute infarction, or abnormal intracranial mass lesion. There are scattered areas of low attenuation in the cerebral white matter. The ventricles are normal in size. There is left frontal scalp soft tissue swelling. There is anteroposterior elongation of the ocular globes. There are changes of right-sided scleral banding procedure. There are likely changes of ocular lens replacement surgeries. The mastoid air cells are normal. There is mild mucosal thickening in the ethmoid sinuses. IMPRESSION: 1. Moderate nonspecific cerebral white matter disease, which likely represents chronic small vessel ischemic disease, worsened from 02/14/2016. I called this result to Vaishnavi Molina at 7:49 PM. EXAMINATION: XR chest 1V portable DATE: 06/28/2023 21:21 INDICATION: Cough. Weakness. TECHNIQUE: A single frontal view of the chest was obtained. COMPARISON: Chest 2 views 03/28/2022 FINDINGS: There is no pneumonia, pleural effusion, or pneumothorax. The heart size is normal. There is a small hiatal hernia. Surgical clips in the right upper quadrant are likely from cholecystectomy. IMPRESSION: 1. Small hiatal hernia. EXAMINATION: CT facial & cervical spine wo DATE: 06/28/2023 19:37 INDICATION: Head injury. TECHNIQUE: Computed tomography (CT) of the maxillofacial region and cervical spine was performed without intravenous contrast. Automated exposure control and iterative reconstruction technique were employed. The dose-length product was 543.29 mGy-cm. COMPARISON: None FINDINGS: MAXILLOFACIAL CT: There is left frontal scalp soft tissue swelling. There is anteroposterior elongation of the ocular globes. There are changes of right-sided scleral banding procedure. There are likely changes of ocular lens replacement surgeries. There is mild mucosal thickening in the paranasal sinuses. The mastoid air cells are normal. Bone alignment is normal. No fracture. CERVICAL SPINE CT: There is 5 degrees levocurvature of cervicothoracic spine. Vertebral body heights are normal. There is mildly decreased disc height at C3-C4 and C4-C5 and severely decreased disc height at C5-C6 and C6-C7. The following disc levels are specifically discussed: C2-C3: There is mild bilateral uncovertebral joint osteoarthritis. There is mild right facet joint osteoarthritis. There is ankylosis of left facet joint with mild hypertrophy. There is mild left neural foraminal stenosis. There is no central canal stenosis. C3-C4: There is mild bilateral uncovertebral joint hypertrophy. There is mild right facet joint osteoarthritis. There is ankyl
--- NOTE | 2023-06-28 23:52 | ED.GENADULT ---
HPI - General Adult General Chief complaint: Syncope Stated complaint: syncopal episode. Found on floor unknown down time Time Seen by Provider: 06/28/23 20:41 History of Present Illness HPI narrative: Patient is a 87-year-old female who presents emergency department with chief complaint of syncopal episode. The patient was sitting at her kitchen table started feel lightheaded and then fell to the ground patient reports that then she felt as though she needs some nutrition and decided to start eating blueberries the patient reports that she has had another episode of passing out recently but was not seen after worse. Patient states that she has a contusion to her forehead and reports that she has had no chest pain no shortness of breath no urinary symptoms. Related Data Allergies Allergy/AdvReac Type Severity Reaction Status Date / Time nitrofurantoin Allergy Intermediate Rash Verified 06/07/23 10:13 Review of Systems Review of Systems: A 10 system review of systems was completed on the patient and is negative except for what is stated in the HPI. Nursing and ancillary documentation was reviewed. [facility] Past Medical History Medical History Adult BMI 39.0-39.9 kg/sq m Anemia, unspecified Aphasia BMI 38.0-38.9,adult BMI greater than 40 Change in bowel movement Chronic ITP (idiopathic thrombocytopenia) Chronic kidney disease, stage 3 (moderate) Colonoscopy planned Depression Diabetes with neurologic complications Diabetic neuropathy Essential (primary) hypertension Forgetfulness Hematochezia Hematuria Hx of idiopathic thrombocytopenic purpura Hypothyroidism Left knee DJD Leg ulcer, left Lymphedema Memory loss Mixed hyperlipidemia Morbid (severe) obesity due to excess calories Occult blood in stools Onychomycosis Paroxysmal atrial fibrillation 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 Family History Family History Mother Cerebrovascular accident Family history of coronary artery disease Heart disease Father Cancer Tobacco abuse Sibling Acute myocardial infarction Heart disease Tobacco abuse Alcohol abuse Other Family history of cardiovascular disease Social History Social History Smoking status: Never smoker Second hand tobacco smoke exposure: Yes Alcohol intake: never Substance use: never Substance use type: does not use Do You Feel Safe in your Home?: Yes Lack of Transportation: No Lack of Food: Never True Current Housing: I Have Housing Concerned About Future Housing: No Difficulty Paying Gas/Electric Bills: No Difficulty Paying for Meds: No Currently Unemployed: No Education: High School Diploma/GED Difficulty w/ Childcare or Family Care: No Living arrangements: alone Occupation/Education: retired 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 Gender identity (if verbalized by the patient): Female Spiritual care concerns: No Exam Narrative: GENERAL: Well-appearing, well-nourished, and in no acute distress. HEAD: Normocephalic, contusion present to the left forehead. EYES: PERRLA and EOMI. ENT: Nares clear, no rhinorrhea or epistaxis. Mucous membranes moist. NECK: Supple. CHEST: Clear to auscultation. No respiratory distress. HEART: Regular rate and rhythm. No murmur heard. Normal peripheral pulses. ABDOMEN: Soft, nontender, nondistended, normal active bowel sounds. EXTREMITIES: Normal range of motion. No edema. SKIN: Warm, dry, no rash. NEURO: No focal deficits. Alert and oriented x3. PSYCH: Normal mood and affect. Course Vital Signs Vital signs: Vital Signs Temperature 36.7 C 06/28/23 18:33 Pulse Rate 60 06/28/23 18:33 Respira
[2023-06-29] VITALS (14 sets, daily range): BP systolic 121–180; BP diastolic 53–72; PULSE 58–84; RESP 16–17; TEMP 36.4–36.8; O2SAT 98–100; BMI 39.2
[2023-06-29] MEDS: SODIUM CHLORIDE 0.9% IV 1,000 ML 100 ML IV CONT ×2 (00:59→19:24)
--- NOTE | 2023-06-29 02:34 | ADMGEN ---
This patient, Maria Luna, was admitted to 2 Medical Room 249-01. Patient/family oriented to hospital policies and general routines including ID bracelet, bed and alarms, visiting hours, pain management, procedures, bathroom and other care routines, personal items, smoking policy, room service/diet, and visiting hours. Information on how to activate the Rapid Response Team has been discussed. Patient/Family are encouraged to report perceived risks to care and to ask questions if they do not understand what they are told or what they should do.
[2023-06-29 08:36] LABS: Hematocrit 36.3 % (37.0-47.0); Hemoglobin 11.3 g/dL (12.0-15.0); Mean Corpuscular HGB Conc 31.1 g/dl (32-36); Mean Corpuscular Hemoglobin 26.3 pg (26-34); Mean Corpuscular Volume 84.6 fl (80-100); Mean Platelet Volume 11.6 fl (7.4-10.4); Platelet Count Result 205 k/mm3 (150-375); Red Blood Count 4.29 M/mm3 (4.2-5.4); Red Cell Distribution Width 14.3 % (11.5-14.5); White Blood Count 8.5 K/mm3 (4.5-10.0)
[2023-06-29 08:45] LABS: INR 3.1; Prothrombin Time 34.9 Seconds (11.1-14.7)
[2023-06-29 08:57] LABS: Alanine Aminotransferase 17 U/L (6-35); Albumin Level 3.3 g/dL (3.5-5.1); Alkaline Phosphatase 100 U/L (38-126); Anion Gap 8 mmol/L (8-16); Aspartate Amino Transferase 30 U/L (14-36); Blood Urea Nitrogen 44 mg/dL (7-17); Calcium 8.8 mg/dL (8.4-10.2); Carbon Dioxide 23 mmol/L (22-30); Chloride 109 mmol/L (98-107); Estimated CRCL calculation 22 ml/min; Estimated Glomerular Filt Rate 30; Glucose 116 mg/dL (65-110); Potassium 3.9 mmol/L (3.4-5.0); Sodium 140 mmol/L (137-145)
[2023-06-29] MEDS: oxyBUTYnin CHLORIDE XL 5 MG TAB.ER.24 PO (09:35)
[2023-06-29] MEDS: busPIRone HCL 10 MG TABLET PO ×2 (09:35→18:30)
[2023-06-29] MEDS: LEVOTHYROXINE SODIUM 50 MCG TABLET PO (09:35)
[2023-06-29] MEDS: ISOSORBIDE MONONITRATE 30 MG TAB.ER.24H PO (09:35)
[2023-06-29] MEDS: GABAPENTIN 300 MG CAPSULE 600 MG PO ×2 (09:35→18:31)
--- NOTE | 2023-06-29 11:37 | PM.IMPN ---
Progress Note: A&P Assessment and Plan (1) Syncope: Code(s): R55 - Syncope and collapse Status: Acute (2) Paroxysmal atrial fibrillation: Code(s): I48.0 - Paroxysmal atrial fibrillation Status: Acute (3) Chronic kidney disease, stage 3 (moderate): Qualifiers: Chronic kidney disease stage 3 subtype: stage 3a (GFR 45-59) Qualified Code(s): N18.31 - Chronic kidney disease, stage 3a Code(s): N18.3 - Chronic kidney disease, stage 3 (moderate) Status: Acute (4) Chronic venous stasis: Code(s): I87.8 - Other specified disorders of veins Status: Acute (5) Chronic ITP (idiopathic thrombocytopenia): Code(s): D69.3 - Immune thrombocytopenic purpura Status: Acute (6) Diabetic neuropathy: Qualifiers: Diabetes mellitus type: type 2 Diabetes mellitus complication detail: diabetic polyneuropathy Qualified Code(s): E11.42 - Type 2 diabetes mellitus with diabetic polyneuropathy Code(s): E11.40 - Type 2 diabetes mellitus with diabetic neuropathy, unspecified Status: Acute (7) CHESTER (acute kidney injury): Code(s): N17.9 - Acute kidney failure, unspecified Status: Acute Plan Syncope/worsening confusion -TIA?? -CT head no acute issues/small vessel -Carotid Doppler pending -orthostatics -neurology consulted -MRI head? -may need event monitor at discharge -PT/OT evaulation CKD 3 Acute on chronic renal failure -Gentle IV hydration. -Avoid nephrotoxic drugs. -Monitor antihypertensive drug therapy. -Avoid NSAIDs. -Routine CMP monitoring GFR. -Monitor electrolytes especially potassium. -Antibiotic doses depending on creatinine clearance. -Pharmacy does medications. -Cr close to baseline -Routine follow-up with Nephrology as an outpatient. Paroxysomal AFIB -Holding Warfarin due to head injury from fall Diabetes -Accu-Cheks a.c. HS -sliding scale insulin -hold oral diabetic medications -lipid panel pending -Diabetic diet -consult to dietitian -encourage lifestyle modifications and weight loss -Optimize Lukas inhibitors and statins. -Watch for hypoglycemia/hypoglycemic protocol ordered Code status: Full code per patient DVT prophylaxis: Coumadin held/SCD Stress ulcer prophylaxis: Protonix 40 daily PT/OT notes: PT/OT Pending Disposition: Patient admitted to the medical-surgical unit due to syncopal episode at home with fall and worsening confusion. Spoke with patient's daughter states patient is becoming more confused over the last few months and fall risk and home PT OT pending evaluation daughter would prefer the patient go home with home health states she lives next door. neurology to see for any further recommendations also may need an event monitor at discharge. -Patient's previous records reviewed on admission -ER notes reviewed in detail on admission -discussed all findings and current treatment plan with patient/Family/POA -Consultations reviewed for recommendations -Patient's disposition for safe discharge discussed with family independence case manager Dictation performed by [employer] direct speech recognition software, therefore consulting technical manager variants and typographical errors may occur. Time Spent With Patient Time with patient: 25 - 35 minutes Subjective Date/time seen: 06/29/23 11:37 Interval history: Chief Complaint: syncope Narrative: This is an 87-year-old female with past medical history significant for hypertension, congestive heart failure, type 2 diabetes mellitus, on chronic anticoagulation.? For paroxysmal atrial fibrillation.? Patient presents to the emergency room after having a syncopal episode while sitting at the table.? Patient sustained trauma to the forehead on her weight down and developed hematoma.? She is unsure if there was any loss of consciousness, patient has been her usual state of health up until this point denies any lightheadedness, v
[2023-06-29 12:31] LABS: Glucose Point of Care 138 mg/dl (65-105)
[2023-06-29 12:38] LABS: Cholesterol 110 mg/dL (0-200); HDL Direct 53 mg/dL; Triglycerides 69 mg/dL (<150)
[2023-06-29 12:49] LABS: LDL Cholesterol Direct 46 mg/dL
[2023-06-29] MEDS: LACTULOSE 20 GM/30 ML UDC PO ×2 (13:09→18:30)
[2023-06-29 17:15] LABS: Glucose Point of Care 149 mg/dl (65-105)
[2023-06-29 20:03] LABS: Glucose Point of Care 142 mg/dl (65-105)
[2023-06-30] VITALS (9 sets, daily range): BP systolic 138–155; BP diastolic 58–63; PULSE 60–68; RESP 14–18; TEMP 36.4–37.1; O2SAT 98–100
[2023-06-30 05:06] LABS: Basophils Absolute Auto 0.1 K/mm3 (0.0-0.1); Basophils Percent Auto 0.7 % (0.2-1.2); Eosinophils Absolute Auto 0.1 K/mm3 (0-0.3); Eosinophils Percent Auto 1.9 % (0-4.4); Hematocrit 35.5 % (37.0-47.0); Immature Granulocyte Absolute 0.02 K/mm3 (0.00-0.031); Immature Granulocyte Percent A 0.3 % (0-0.5); Lymphocytes Absolute Auto 1.58 K/mm3 (0.9-3.2); Lymphocytes Percent Auto 21.7 % (18.3-44.2); Mean Corpuscular Hemoglobin 26.6 pg (26-34); Monocytes Absolute Auto 0.6 K/mm3 (0.1-0.6); Monocytes Percent Auto 8.5 % (2.6-8.5); Neutrophils Absolute Auto 4.9 K/mm3 (1.3-6.7); Neutrophils Percent Auto 66.9 % (45.5-73.1); Platelet Count Result 205 k/mm3 (150-375); Red Blood Count 4.13 M/mm3 (4.2-5.4); Red Cell Distribution Width 14.4 % (11.5-14.5); White Blood Count 7.3 K/mm3 (4.5-10.0)
[2023-06-30 05:26] LABS: Anion Gap 5 mmol/L (8-16); Blood Urea Nitrogen 33 mg/dL (7-17); Calcium 8.3 mg/dL (8.4-10.2); Carbon Dioxide 23 mmol/L (22-30); Chloride 110 mmol/L (98-107); Estimated CRCL calculation 29 ml/min; Estimated Glomerular Filt Rate 42; Glucose 107 mg/dL (65-110); Potassium 3.6 mmol/L (3.4-5.0); Sodium 138 mmol/L (137-145)
[2023-06-30] MEDS: LACTULOSE 20 GM/30 ML UDC PO ×2 (05:42→11:26)
[2023-06-30] MEDS: LEVOTHYROXINE SODIUM 50 MCG TABLET PO (05:42)
[2023-06-30] MEDS: SODIUM CHLORIDE 0.9% IV 1,000 ML 100 ML IV CONT (05:42)
[2023-06-30 07:49] LABS: Glucose Point of Care 107 mg/dl (65-105)
[2023-06-30] MEDS: ISOSORBIDE MONONITRATE 30 MG TAB.ER.24H PO (09:00)
[2023-06-30] MEDS: GABAPENTIN 300 MG CAPSULE 600 MG PO ×2 (09:00→17:08)
[2023-06-30] MEDS: busPIRone HCL 10 MG TABLET PO ×2 (09:00→17:08)
[2023-06-30] MEDS: oxyBUTYnin CHLORIDE XL 5 MG TAB.ER.24 PO (09:00)
--- NOTE | 2023-06-30 11:17 | PM.IMPN ---
Progress Note: A&P Assessment and Plan (1) Syncope: Code(s): R55 - Syncope and collapse Status: Acute (2) Paroxysmal atrial fibrillation: Code(s): I48.0 - Paroxysmal atrial fibrillation Status: Acute (3) Chronic kidney disease, stage 3 (moderate): Qualifiers: Chronic kidney disease stage 3 subtype: stage 3a (GFR 45-59) Qualified Code(s): N18.31 - Chronic kidney disease, stage 3a Code(s): N18.3 - Chronic kidney disease, stage 3 (moderate) Status: Acute (4) Chronic venous stasis: Code(s): I87.8 - Other specified disorders of veins Status: Acute (5) Chronic ITP (idiopathic thrombocytopenia): Code(s): D69.3 - Immune thrombocytopenic purpura Status: Acute (6) Diabetic neuropathy: Qualifiers: Diabetes mellitus type: type 2 Diabetes mellitus complication detail: diabetic polyneuropathy Qualified Code(s): E11.42 - Type 2 diabetes mellitus with diabetic polyneuropathy Code(s): E11.40 - Type 2 diabetes mellitus with diabetic neuropathy, unspecified Status: Acute (7) CHESTER (acute kidney injury): Code(s): N17.9 - Acute kidney failure, unspecified Status: Acute Plan Syncope/worsening confusion -TIA vs worsening dementia -CT head no acute issues/small vessel -Carotid Doppler <50% bilateral -MR brain pending -orthostatics -neurology consulted -may need event monitor at discharge -PT/OT evaluation CKD 3 Acute on chronic renal failure -Gentle IV hydration. -Avoid nephrotoxic drugs. -Monitor antihypertensive drug therapy. -Avoid NSAIDs. -Routine CMP monitoring GFR. -Monitor electrolytes especially potassium. -Antibiotic doses depending on creatinine clearance. -Pharmacy does medications. -Cr at baseline -Routine follow-up with Nephrology as an outpatient. Paroxysomal AFIB -Holding Warfarin due to head injury from fall -need to discuss risk vs benefits of continued AC due to frequent falls Diabetes -Accu-Cheks a.c. HS -sliding scale insulin -hold oral diabetic medications -lipid panel pending -Diabetic diet -consult to dietitian -encourage lifestyle modifications and weight loss -Optimize Lukas inhibitors and statins. -Watch for hypoglycemia/hypoglycemic protocol ordered Code status: Full code per patient DVT prophylaxis: Coumadin held/SCD Stress ulcer prophylaxis: Protonix 40 daily PT/OT notes: PT/OT Pending Disposition: Patient admitted to the medical-surgical unit due to syncopal episode at home with fall (blacking out) and worsening confusion. Spoke with patient's daughter states patient is becoming more confused over the last few months and fall risk and home PT OT pending evaluation daughter would prefer the patient go home with home health states she lives next door. neurology to see for any further recommendations also may need an event monitor at discharge. -Patient's previous records reviewed on admission -ER notes reviewed in detail on admission -discussed all findings and current treatment plan with patient/Family/POA -Consultations reviewed for recommendations -Patient's disposition for safe discharge discussed with case aide Dictation performed by [employer] direct speech recognition software, therefore photo equipment technician variants and typographical errors may occur. Time Spent With Patient Time with patient: 15 - 25 minutes Subjective Date/time seen: 06/30/23 11:17 Interval history: Chief Complaint: syncope Narrative: This is an 87-year-old female with past medical history significant for hypertension, congestive heart failure, type 2 diabetes mellitus, on chronic anticoagulation.? For paroxysmal atrial fibrillation.? Patient presents to the emergency room after having a syncopal episode while sitting at the table.? Patient sustained trauma to the forehead on her weight down and developed hematoma.? She is unsure if there was any
[2023-06-30 11:41] LABS: Glucose Point of Care 168 mg/dl (65-105)
--- NOTE | 2023-06-30 12:57 | WPDNEURCNPN ---
Assessment and Plan Assessment and plan (1) Syncope: Code(s): R55 - Syncope and collapse Status: Acute (2) Diabetes with neurologic complications: Qualifiers: Diabetes mellitus type: type 2 Diabetes mellitus custodial insulin use: without custodial use Diabetes mellitus complication detail: with polyneuropathy Qualified Code(s): E11.42 - Type 2 diabetes mellitus with diabetic polyneuropathy Code(s): E11.49 - Type 2 diabetes mellitus with other diabetic neurological complication Status: Acute (3) Memory loss: Code(s): R41.3 - Other amnesia Status: Acute (4) Paroxysmal atrial fibrillation: Code(s): I48.0 - Paroxysmal atrial fibrillation Status: Acute Plan syncopal episode, could very well be vasovagal ,paroxysmal atrial fibrillation by history and is already on Coumadin,Ongoing history of immune thrombocytopenic purpura but the CT scan of the head is negative the bleed, MRI is pending. Consult date: 06/30/23 HPI: Maria Luna is a 87 year old female Admitted to the hospital through the emergency room with syncopal episode when she was found on floor for unclear duration. Reportedly she was sitting at her kitchen table, started feeling lightheaded and then she fell to the ground she has had another episode of passing out recently when she says sustained a small contusion to her forehead, she is allergic to nitrofurantoin she has ongoing history of chronic ITP, diabetes mellitus, with diabetic neuropathy, hypertension, she is never a smoker never alcohol intake , initial exam in the emergency room grossly nonfocal with normal vital signs, EKG without atrial fibrillation CT of the head without bleed CT of the cervical spine without fracture routine CBC normal BMP with bloody BUN 47 creatinine 1.9 blood sugar 162 negative for influenza a influenza B RSV and COVID, carotid Doppler study negative except the cardiac arrhythmia and MRI pending, CT of the cervical spine with severe cervical spondylosis [facility] Past Medical History Medical History Adult BMI 39.0-39.9 kg/sq m Anemia, unspecified Aphasia BMI 38.0-38.9,adult BMI greater than 40 Change in bowel movement Chronic ITP (idiopathic thrombocytopenia) Chronic kidney disease, stage 3 (moderate) Colonoscopy planned Depression Diabetes with neurologic complications Diabetic neuropathy Essential (primary) hypertension Forgetfulness Hematochezia Hematuria Hx of idiopathic thrombocytopenic purpura Hypothyroidism Left knee DJD Leg ulcer, left Lymphedema Memory loss Mixed hyperlipidemia Morbid (severe) obesity due to excess calories Occult blood in stools Onychomycosis Paroxysmal atrial fibrillation 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 Family History Family History Mother Cerebrovascular accident Family history of coronary artery disease Heart disease Father Cancer Tobacco abuse Sibling Acute myocardial infarction Heart disease Tobacco abuse Alcohol abuse Other Family history of cardiovascular disease Social History Social History Smoking status: Never smoker Second hand tobacco smoke exposure: Yes Alcohol intake: never Substance use: never Substance use type: does not use Do You Feel Safe in your Home?: Yes Lack of Transportation: No Lack of Food: Never True Current Housing: I Have Housing Concerned About Future Housing: No Difficulty Paying Gas/Electric Bills: No Difficulty Paying for Meds: No Currently Unemployed: No Education: High School Diploma/GED Difficulty w/ Childcare or Family Care: No Living arrangements: alone Occupation/Education: retired 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 Gender giovanni
[2023-06-30 17:08] LABS: Glucose Point of Care 125 mg/dl (65-105)
[2023-06-30 21:19] LABS: Glucose Point of Care 167 mg/dl (65-105)
[2023-07-01] VITALS (7 sets, daily range): BP systolic 148–166; BP diastolic 60; PULSE 57–81; RESP 18–20; TEMP 36.6; O2SAT 98
[2023-07-01] MEDS: SODIUM CHLORIDE 0.9% IV 1,000 ML 100 ML IV CONT ×2 (03:40→15:01)
[2023-07-01] MEDS: LEVOTHYROXINE SODIUM 50 MCG TABLET PO (05:52)
[2023-07-01 07:44] LABS: Glucose Point of Care 105 mg/dl (65-105)
[2023-07-01] MEDS: GABAPENTIN 300 MG CAPSULE 600 MG PO (08:44)
[2023-07-01] MEDS: ISOSORBIDE MONONITRATE 30 MG TAB.ER.24H PO (08:44)
[2023-07-01] MEDS: oxyBUTYnin CHLORIDE XL 5 MG TAB.ER.24 PO (08:44)
[2023-07-01] MEDS: busPIRone HCL 10 MG TABLET PO (08:44)
--- NOTE | 2023-07-01 12:04 | PM.IMPN ---
Progress Note: A&P Assessment and Plan (1) Syncope: Code(s): R55 - Syncope and collapse Status: Acute (2) Paroxysmal atrial fibrillation: Code(s): I48.0 - Paroxysmal atrial fibrillation Status: Acute (3) Chronic kidney disease, stage 3 (moderate): Qualifiers: Chronic kidney disease stage 3 subtype: stage 3a (GFR 45-59) Qualified Code(s): N18.31 - Chronic kidney disease, stage 3a Code(s): N18.3 - Chronic kidney disease, stage 3 (moderate) Status: Acute (4) Chronic venous stasis: Code(s): I87.8 - Other specified disorders of veins Status: Acute (5) Chronic ITP (idiopathic thrombocytopenia): Code(s): D69.3 - Immune thrombocytopenic purpura Status: Acute (6) Diabetic neuropathy: Qualifiers: Diabetes mellitus type: type 2 Diabetes mellitus complication detail: diabetic polyneuropathy Qualified Code(s): E11.42 - Type 2 diabetes mellitus with diabetic polyneuropathy Code(s): E11.40 - Type 2 diabetes mellitus with diabetic neuropathy, unspecified Status: Acute (7) CHESTER (acute kidney injury): Code(s): N17.9 - Acute kidney failure, unspecified Status: Acute Plan Syncope/worsening confusion -TIA vs worsening dementia -CT head no acute issues/small vessel -Carotid Doppler <50% bilateral -MR brain pending -orthostatics -neurology consulted -may need event monitor at discharge -PT/OT evaluation CKD 3 Acute on chronic renal failure -Gentle IV hydration. -Avoid nephrotoxic drugs. -Monitor antihypertensive drug therapy. -Avoid NSAIDs. -Routine CMP monitoring GFR. -Monitor electrolytes especially potassium. -Antibiotic doses depending on creatinine clearance. -Pharmacy does medications. -Cr at baseline -Routine follow-up with Nephrology as an outpatient. Paroxysomal AFIB -Holding Warfarin due to head injury from fall -need to discuss risk vs benefits of continued AC due to frequent falls Diabetes -Accu-Cheks a.c. HS -sliding scale insulin -hold oral diabetic medications -lipid panel pending -Diabetic diet -consult to dietitian -encourage lifestyle modifications and weight loss -Optimize Lukas inhibitors and statins. -Watch for hypoglycemia/hypoglycemic protocol ordered Code status: Full code per patient DVT prophylaxis: Coumadin held/SCD Stress ulcer prophylaxis: Protonix 40 daily PT/OT notes: PT/OT Pending Disposition: Patient admitted to the medical-surgical unit due to syncopal episode at home with fall (blacking out) and worsening confusion. Spoke with patient's daughter states patient is becoming more confused over the last few months and fall risk and home PT OT pending evaluation daughter would prefer the patient go home with home health states she lives next door. neurology to see for any further recommendations also may need an event monitor at discharge. -Patient's previous records reviewed on admission -ER notes reviewed in detail on admission -discussed all findings and current treatment plan with patient/Family/POA -Consultations reviewed for recommendations -Patient's disposition for safe discharge discussed with test case developer Dictation performed by [employer] direct speech recognition software, therefore tool design drafter variants and typographical errors may occur. Subjective Date/time seen: 07/01/23 12:04 Interval history: Chief Complaint: syncope Narrative: This is an 87-year-old female with past medical history significant for hypertension, congestive heart failure, type 2 diabetes mellitus, on chronic anticoagulation.? For paroxysmal atrial fibrillation.? Patient presents to the emergency room after having a syncopal episode while sitting at the table.? Patient sustained trauma to the forehead on her weight down and developed hematoma.? She is unsure if there was any loss of consciousness, patient has been her usual state of h
[2023-07-01 12:27] LABS: Glucose Point of Care 149 mg/dl (65-105)
[2023-07-01 13:37] LABS: Hematocrit 35.8 % (37.0-47.0); Hemoglobin 10.7 g/dL (12.0-15.0); Mean Corpuscular HGB Conc 29.9 g/dl (32-36); Mean Corpuscular Hemoglobin 26.8 pg (26-34); Mean Corpuscular Volume 89.7 fl (80-100); Mean Platelet Volume 11.7 fl (7.4-10.4); Platelet Count Result 218 k/mm3 (150-375); Red Blood Count 3.99 M/mm3 (4.2-5.4); Red Cell Distribution Width 14.5 % (11.5-14.5); White Blood Count 8.1 K/mm3 (4.5-10.0)
[2023-07-01 13:47] LABS: Alanine Aminotransferase 21 U/L (6-35); Albumin Level 3.2 g/dL (3.5-5.1); Alkaline Phosphatase 79 U/L (38-126); Anion Gap 4 mmol/L (8-16); Aspartate Amino Transferase 27 U/L (14-36); Bilirubin,Total 0.8 mg/dL (0.2-1.3); Blood Urea Nitrogen 25 mg/dL (7-17); Calcium 8.2 mg/dL (8.4-10.2); Carbon Dioxide 22 mmol/L (22-30); Chloride 112 mmol/L (98-107); Estimated CRCL calculation 32 ml/min; Estimated Glomerular Filt Rate 47; Glucose 165 mg/dL (65-110); Potassium 4.2 mmol/L (3.4-5.0); Sodium 138 mmol/L (137-145)
--- NOTE | 2023-07-01 15:48 | PM.DS ---
DS: Admitting Diagnosis Discharge Date 07/01/2023 Admitting Diagnosis Fall/AMS DS: Discharge Diagnosis Discharge Diagnosis (1) Syncope: Code(s): R55 - Syncope and collapse Status: Acute (2) Paroxysmal atrial fibrillation: Code(s): I48.0 - Paroxysmal atrial fibrillation Status: Acute (3) Chronic kidney disease, stage 3 (moderate): Qualifiers: Chronic kidney disease stage 3 subtype: stage 3a (GFR 45-59) Qualified Code(s): N18.31 - Chronic kidney disease, stage 3a Code(s): N18.3 - Chronic kidney disease, stage 3 (moderate) Status: Acute (4) Chronic venous stasis: Code(s): I87.8 - Other specified disorders of veins Status: Acute (5) Chronic ITP (idiopathic thrombocytopenia): Code(s): D69.3 - Immune thrombocytopenic purpura Status: Acute (6) Diabetic neuropathy: Qualifiers: Diabetes mellitus type: type 2 Diabetes mellitus complication detail: diabetic polyneuropathy Qualified Code(s): E11.42 - Type 2 diabetes mellitus with diabetic polyneuropathy Code(s): E11.40 - Type 2 diabetes mellitus with diabetic neuropathy, unspecified Status: Acute (7) CHESTER (acute kidney injury): Code(s): N17.9 - Acute kidney failure, unspecified Status: Acute (8) Dementia: Qualifiers: Dementia type: vascular dementia Dementia severity: moderate Dementia behavioral or psychological symptom: without behavioral, psychotic, or mood disturbance or anxiety Qualified Code(s): F01.B0 - Vascular dementia, moderate, without behavioral disturbance, psychotic disturbance, mood disturbance, and anxiety Code(s): F03.90 - Unspecified dementia, unspecified severity, without behavioral disturbance, psychotic disturbance, mood disturbance, and anxiety Status: Acute DS: Summary Hospital Course Reason for hospitalization: Fall/AMS Hospital Course: This is an 87-year-old female with past medical history significant for hypertension, congestive heart failure, type 2 diabetes mellitus, on chronic anticoagulation.? For paroxysmal atrial fibrillation.? Patient presents to the emergency room after having a syncopal episode while sitting at the table.? Patient sustained trauma to the forehead on her weight down and developed hematoma.? She is unsure if there was any loss of consciousness, patient has been her usual state of health up until this point denies any lightheadedness, vertigo, palpitations, chest pain, no fevers no rigors no chills no nausea no vomiting no diarrhea.? Preliminary workup was significant for chemistry panel BUN [address] of the head neck and chest x-ray did not show acute abnormalities.? Patient is been placed in observation for further evaluation management and treatment. 06/29: Patient in no acute distress but does report she is having difficulty urinating and defecating.? Patient with mild to moderate confusion spoke with patient daughter Colette, patient does have some confusion but reports it has worsened over the last few months.? Colette also reported patient was ambulatory living on own but has had a decline in her activity and ability to ambulate.? Patient states she doesn't remember falling or hitting her head.? CT does show small vessel ischemia, neurology consulted MRI brain??.? Patient multiple blackout episodes per daughter. 06/30: Patient continues with confusion, worsening dementia vs worsening vessel ischemia.? Neurology consulted will get MRI.? Will need to discuss with daughter risk vs benefits of patient continuing AC (coumadin) if patient returning home due to frequent falls. 07/01: Discharge Patient back to baseline peer daughter MRI with no acute issues showed Moderate chronic microvascular ischemic change. Spoke with daughter regarding patient confusion still requested to bring patient home with home health and will get an aid to assist if patient continues to decline mentally recommended
[2023-07-01 17:01] LABS: Glucose Point of Care 137 mg/dl (65-105)
== END 2023-07-01 18:20 | disposition home health service (06) | DRG 312 ==
LOC: ANHED 06-29 → ANH2MED 06-29 00:50
PROVIDERS: Emergency Medicine; Admitting Provider Internal Medicine; Emergency Provider Emergency Medicine; PCP Family Medicine; Visit Provider Nurse Practitioner Family
DX: R55 Syncope and collapse (principal); D69.3 Immune thrombocytopenic purpura; I13.0 Hypertensive heart and chronic kidney disease with heart failure and stage 1 through stage 4 chronic kidney disease, or unspecified chronic kidney disease; N17.9 Acute kidney failure, unspecified; I48.0 Paroxysmal atrial fibrillation; E11.22 Type 2 diabetes mellitus with diabetic chronic kidney disease; N18.31 Chronic kidney disease, stage 3a; E11.42 Type 2 diabetes mellitus with diabetic polyneuropathy; S00.83XA Contusion of other part of head, initial encounter; W19.XXXA Unspecified fall, initial encounter; F03.90 Unspecified dementia, unspecified severity, without behavioral disturbance, psychotic disturbance, mood disturbance, and anxiety; Z20.822 Contact with and (suspected) exposure to COVID-19; I50.9 Heart failure, unspecified; D64.9 Anemia, unspecified; E03.9 Hypothyroidism, unspecified; M17.12 Unilateral primary osteoarthritis, left knee; I87.8 Other specified disorders of veins; E78.2 Mixed hyperlipidemia; E66.01 Morbid (severe) obesity due to excess calories; Z68.39 Body mass index [BMI] 39.0-39.9, adult; Z79.01 Long term (current) use of anticoagulants
CPT/HCPCS: 36415; 70450; 70486; 70551; 71045; 72125; 73600; 80048; 80053; 80061; 81001; 82550; 82948; 83735; 84484; 85025; 85027; 85610; 85730; 87637; 93005; 93880; 96360; 97110; 97161; 97166; 97530; 97535; 99285; A9270; G0378; J7030; J7040

== ENCOUNTER 2024-02-02 16:57 | Inpatient (IN) | payer MEDICARE, SELFPAY ==
[2024-02-02] VITALS (18 sets, daily range): BP systolic 92–182; BP diastolic 45–135; PULSE 58–82; RESP 13–33; TEMP 36.6; O2SAT 96–100
--- NOTE | ~2024-02-02 | XR_ITS ---
EXAMINATION: XR hip BI 2V w AP pelvis DATE: 02/03/2024 13:02 INDICATION: Hip pain and bruising post fall TECHNIQUE: Anteroposterior view of the pelvis and anteroposterior and frog-leg lateral views of the l eft hip and anteroposterior and frog-leg lateral views of the right hip and were obtained. COMPARISON: None. FINDINGS: Bone alignment is normal. No fracture. Moderate osteoarthritis at the right hip and sacroiliac joint and mild osteoarthritis at the left hip and sacroiliac joint. Severe lower lumbar spondylosis. Multip le phleboliths in the pelvis. IMPRESSION: 1. No acute osseous abnormality. 2. 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 Reviewed, dictated and finalized at location A.
--- NOTE | ~2024-02-02 | CT_ITS ---
CT brain wo con Ordering provider: Landon Salvador MD History: 88 years Female with . glf . Comparison: None. Technique: CT of the head without contrast. Radiation reduction technique utilized.The dose-length product was 681 mGy-cm. FINDINGS: BRAIN PARENCHYMA AND CSF SPACES: Mild leukoaraiosis and diffuse cortical atrophy. Mild atheromatous d isease. No midline shift, mass effect or hemorrhage. The brain parenchyma and CSF spaces are otherwi se normal. VISUALIZED PARANASAL SINUSES: Well aerated. MASTOIDS: Well aerated. BONES: The bones appear intact. SOFT TISSUES: Visualized nasopharynx is normal. Superficial soft tissues are normal. Right orbital band is seen. IMPRESSION: No acute intracranial findings. Reviewed, dictated and finalized at location A.
--- NOTE | ~2024-02-02 | XR_ITS ---
XR chest 1V portable Ordering provider: Jet Sanabria MD History: 88 years Female with . weakness, falls . Comparison: June 28, 2023 FINDINGS: MEDIASTINUM: The cardiac silhouette is slightly enlarged. Prominent franklin. LUNGS: No pneumothorax. Blunting of the left costophrenic angle which may indicate atelectasis with p leural effusion. OTHER: No free air under the diaphragm. Degenerative changes of the spine. Dextroscoliosis. IMPRESSION: Blunting of the left costophrenic angle suggestive of atelectasis versus pleural effusion. Reviewed, dictated and finalized at location A. IMPRESSION: Blunting of the left costophrenic angle suggestive of atelectasis versus pleura l effusion.
--- NOTE | ~2024-02-02 | XR_ITS ---
EXAMINATION: XR knee RT 3V DATE: 02/03/2024 13:02 INDICATION: Right knee pain post fall TECHNIQUE: AP, oblique and crosstable lateral views of the right knee were obtained COMPARISON: 08/01/2022 FINDINGS: Alignment is normal. No fracture. Osteoarthritis with at least moderate to severe joint space narrow ing and small marginal osteophytes at the medial compartment. Mild osteoarthritis at the patellofemor al compartment. Moderate-sized right knee joint effusion without layering lipohemarthrosis. Soft tiss ues are otherwise unremarkable. IMPRESSION: 1. Moderate to severe medial compartment and mild patellofemoral compartment osteoarthritis with no a cute osseous abnormality. 2. Moderate-sized right knee joint effusion. Reviewed, dictated and finalized at location A. IMPRESSION: 1. Moderate to severe medial compartment and mild patellofemoral compartment os teoarthritis with no acute osseous abnormality. 2. Moderate-sized right knee joint effusion.
--- NOTE | ~2024-02-02 | CT_ITS ---
CT cervical spine wo con Ordering provider: Landon Salvador History: . glf . Comparison: None. Technique: CT of the cervical spine was performed without contrast. Sagittal and coronal reformatted images were also obtained and reviewed. Automated exposure control and iterative reconstruction barb hnique were employed. The dose-length product was 363.12 mGy-cm. FINDINGS: VERTEBRAE: No subluxation or acute fracture. The occipital condyles are intact. DISC SPACES: Narrowing of the disc C3-C4, C5-C6 and C6-C7. Multilevel facet joint disease. Multilevel uncovertebral joint osteoarthritic changes. Bilateral narrowing of the foramina at the level of C5-C 6 and C6-C7. PARASPINOUS SOFT TISSUES: Bilateral atheromatous calcifications IMPRESSION: No acute osseous abnormality cervical spine. Reviewed, dictated and finalized at location A.
--- NOTE | ~2024-02-02 | CT_ITS ---
CT abdomen pelvis wo con Ordering provider: Jet Sanabria MD History: 88 years Female with . abdominal pain . Comparison: December 28, 2015 Technique: CT abdomen and pelvis without IV and without oral contrast. Automated exposure control and iterative reconstruction technique were employed. The dose-length product was 1066.59 mGy-cm. Findings: VISUALIZED LOWER CHEST: Normal. UPPER ABDOMINAL ORGANS: Liver: Normal. Gallbladder: Status post cholecystectomy. Spleen: Normal. Stomach/duodenum: Small sliding hiatus hernia. Pancreas: Atrophic. Adrenals: Normal. Kidneys: Normal. PELVIC ORGANS: The bladder is normal. BOWEL AND MESENTERY: Colon: Mild sigmoid diverticulosis without diverticulitis. Normal appendix. Small Bowel: Normal. No obstruction. Peritoneum/mesentery: No free air or free fluid. No mesenteric lymphadenopathy. RETROPERITONEUM: Mild atheromatous disease of the abdominal aorta. IVC filter is seen. No retroperit miguel lymphadenopathy. MUSCULOSKELETAL: Superficial soft tissues defect in the anterior abdominal wall with fat content: Prominent vessels in the area anterior to the symphysis pubis and labia area. Otherwise, The superficial soft tissues are normal. Bones: Age appropriate degenerative changes of the spine. Bilateral hip osteoarthritic changes. IMPRESSION: 1. No acute abdominal process with no evidence of appendicitis, diverticulitis or intestinal obstruc tion. 2. Prominent vessels in the area of the symphysis pubis and labia. Clinical correlation advised. 3. Sliding hiatus hernia. 4. Atrophic pancreas. Reviewed, dictated and finalized at location A. IMPRESSION: 1. No acute abdominal process with no evidence of appendicitis, diverticulitis or intestinal obstruction. 2. Prominent vessels in the area of the symphysis pubis and labia. Clinical co rrelation advised. 3. Sliding hiatus hernia. 4. Atrophic pancreas.
--- NOTE | 2024-02-02 17:29 | PC.NURSE ---
patient arrived with soiled pants. while doing nima-care on patient, bruising was noted to the anterior right thigh. patient also now complains of pain to right buttock area and bilateral knees. no increased pain on palpation and does not complain of pain elsewhere. skin breakdown was also noted to the coccyx area. new depends applied to patient after doing nima-care.
[2024-02-02 20:09] LABS: Basophils Absolute Auto 0.1 K/mm3 (0.0-0.1); Basophils Percent Auto 0.3 % (0.2-1.2); Immature Granulocyte Absolute 0.06 K/mm3 (0.00-0.031); Immature Granulocyte Percent A 0.3 % (0-0.5); Lymphocytes Absolute Auto 0.94 K/mm3 (0.9-3.2); Lymphocytes Percent Auto 5.4 % (18.3-44.2); Mean Corpuscular HGB Conc 32.4 g/dl (32-36); Mean Corpuscular Hemoglobin 27.3 pg (26-34); Mean Corpuscular Volume 84.1 fl (80-100); Mean Platelet Volume 11.3 fl (7.4-10.4); Monocytes Absolute Auto 0.9 K/mm3 (0.1-0.6); Monocytes Percent Auto 5.3 % (2.6-8.5); Neutrophils Absolute Auto 15.3 K/mm3 (1.3-6.7); Neutrophils Percent Auto 88.7 % (45.5-73.1); Platelet Count Result 250 k/mm3 (150-375); Red Cell Distribution Width 14.3 % (11.5-14.5); White Blood Count 17.3 K/mm3 (4.5-10.0)
[2024-02-02 20:19] LABS: Sodium 134 mmol/L (137-145)
[2024-02-02 20:20] LABS: INR 2.2; Lactic Acid Reflex 1.8 mmol/L (0.7-2.0); Partial Thromboplastin Time 29.4 Seconds (22.3-36.8); Prothrombin Time 25.1 Seconds (11.1-14.7)
[2024-02-02 20:33] LABS: Alanine Aminotransferase 16 U/L (6-35); Alkaline Phosphatase 119 U/L (38-126); Anion Gap 7 mmol/L (4-12); Aspartate Amino Transferase 45 U/L (14-36); Bilirubin,Total 1.2 mg/dL (0.2-1.3); Blood Urea Nitrogen 35 mg/dL (7-17); Calcium 9.3 mg/dL (8.4-10.2); Carbon Dioxide 28 mmol/L (22-30); Chloride 99 mmol/L (98-107); Creatine Kinase 529 U/L (30-135); Estimated CRCL calculation 27 ml/min; Estimated Glomerular Filt Rate 35; Glucose 120 mg/dL (65-110); Magnesium 1.8 mg/dL (1.6-2.3); NT Pro B Type Natriuretic Pept 1490 pg/mL (19.9-100); Troponin I 0.065 ng/mL (0.000-0.034)
[2024-02-02 20:43] LABS: Procalcitonin 0.1 ng/mL
[2024-02-02 21:19] LABS: Add Urine Microscopic? YES; Appearance Urine Clear (Clear); Bacteria Urine None Seen /hpf; Bilirubin Urine Negative (Negative); Blood Urine Negative (Negative); Color Urine Yellow (Yellow); Glucose Urine UA Negative (Negative); Ketones Urine Negative (Negative); Leukocyte Esterase Ur Trace LEU/UL (Negative); Nitrate Urine Negative (Negative); Protein Urine Negative (Negative); RBC Urine 0-2 /hpf (0-2); Squamous Epithelial Cell Urine None Seen /hpf (Few); Urobilinogen Urine 0.2 mg/dL (<2.0); WBC Urine 0-5 /hpf (0-3)
--- NOTE | 2024-02-02 23:00 | ED.GENADULT ---
HPI - General Adult General Chief complaint: Fall Stated complaint: hypotensive, glf Time Seen by Provider: 02/02/24 19:18 History of Present Illness HPI narrative: patient 88-year-old female who presents emergency department with chief complaint of fall patient was walking and had a ground level fall may have had a syncopal episode the patient does have prior history of dementia is on anticoagulants for prior blood clot patient reports he has had no chest pain reports no shortness of breath reports she did lay on the ground for a period of time Related Data Allergies Allergy/AdvReac Type Severity Reaction Status Date / Time nitrofurantoin Allergy Intermediate Rash Verified 08/30/23 09:32 Review of Systems Review of Systems: A 10 system review of systems was completed on the patient and is negative except for what is stated in the HPI. Nursing and ancillary documentation was reviewed. [facility] Past Medical History Medical History Adult BMI 39.0-39.9 kg/sq m Anemia, unspecified Aphasia BMI 37.0-37.9, adult BMI 38.0-38.9,adult BMI greater than 40 Change in bowel movement Chronic ITP (idiopathic thrombocytopenia) Chronic kidney disease, stage 3 (moderate) Colonoscopy planned Depression Diabetes with neurologic complications Diabetic neuropathy Essential (primary) hypertension Forgetfulness Head trauma Hematochezia Hematuria Hx of idiopathic thrombocytopenic purpura Hypothyroidism Left knee DJD Leg ulcer, left Lymphedema Memory loss Mixed hyperlipidemia Morbid (severe) obesity due to excess calories Occult blood in stools Onychomycosis Paroxysmal atrial fibrillation Recurrent UTI Rhinorrhea 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 Family History Family History Mother Cerebrovascular accident Family history of coronary artery disease Heart disease Father Cancer Tobacco abuse Sibling Acute myocardial infarction Heart disease Tobacco abuse Alcohol abuse Other Family history of cardiovascular disease Social History Social History Smoking status: Never smoker Second hand tobacco smoke exposure: Yes Alcohol intake: never Substance use: never Substance use type: does not use Do You Feel Safe in your Home?: Yes Lack of Transportation: No Lack of Food: Never True Current Housing: I Have Housing Concerned About Future Housing: No Difficulty Paying Gas/Electric Bills: No Difficulty Paying for Meds: No Currently Unemployed: No Education: High School Diploma/GED Difficulty w/ Childcare or Family Care: No Living arrangements: alone Occupation/Education: retired 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 Gender identity (if verbalized by the patient): Female Spiritual care concerns: No Exam Narrative: GENERAL: Well-appearing, well-nourished, and in no acute distress. HEAD: Normocephalic, abrasion present to the scalp. EYES: PERRLA and EOMI. ENT: Nares clear, no rhinorrhea or epistaxis. Mucous membranes moist. NECK: Supple. CHEST: Clear to auscultation. No respiratory distress. HEART: Regular rate and rhythm. No murmur heard. Normal peripheral pulses. ABDOMEN: Soft, nontender, nondistended, normal active bowel sounds. EXTREMITIES: Normal range of motion. No edema. SKIN: Warm, dry, no rash. NEURO: No focal deficits. Alert and oriented to baseline, confused. PSYCH: Normal mood and affect. Course Vital Signs Vital signs: Vital Signs Temperature 36.6 C 02/02/24 16:55 Pulse Rate 65 02/02/24 16:55 Respiratory Rate 18 02/02/24 16:55 Blood Pressure 92/45 L 02/02/24 16:55 Pulse Oximetry 96 02/02/24 16:55 Oxygen Delivery Room Air
--- NOTE | 2024-02-02 23:28 | ECG_ITS ---
Test Date: 2024-02-02 23:54:25 Measurements Intervals [place] Rate: 81 P: 8 HI: 179 QRS: -22 QRSD: 89 T: -1 QT: 368 QTc: 428 Interpretive Statements SINUS RHYTHM WITH OCCASIONAL SUPRAVENTRICULAR PREMATURE COMPLEXES VOLTAGE CRITERIA FOR LVH CONSIDER ANTERIOR INFARCT, AGE INDETERMINATE INFERIOR INFARCT, AGE INDETERMINATE BORDERLINE T WAVE ABNORMALITY- LATERAL LEADS BASELINE ARTIFACT- I, II, III, AVR, AVL, AVF, V1, V4-V6 ABNORMAL ECG No previous ECG available for comparison Electronically Signed On 02-03-2024 06:40:21 CDT by Jerrell Valdez D.O.
--- NOTE | 2024-02-02 23:45 | PC.NURSE ---
care and report given to TIO Edward. all questions answered.
[2024-02-03] VITALS (18 sets, daily range): BP systolic 116–182; BP diastolic 47–81; PULSE 60–96; RESP 16–20; TEMP 36.4–37.2; O2SAT 91–100; BMI 38.5
--- NOTE | 2024-02-03 01:03 | PM.IMHP ---
H&P: HPI History of Present Illness Date/Time: 02/03/24 01:03 Chief Complaint: Fall at home Narrative: Ms. Luna is a pleasant 88-year-old female who presents after a fall at home. She carries a diagnosis of multiple medical comorbidities including hypertension, CHF, CKD stage 3, pem-armmesv-qiwjddyla diabetes mellitus, paroxysmal atrial fibrillation on chronic warfarin. In the ER her son and daughter Mati and Maria T are present. Maria T provides history. The patient also has vision problems due to cataracts and retinal detachment, hearing problems, dementia, functioning independently at home but becoming intermittently confused. Daughter down lives next door. Patient uses a walker at baseline for ambulation. The patient was sitting on the toilet and when she got up she does not know she tripped or fainted, denies seizure activity, however she did fall and hit the back of her head. She does not remember anything other than crawling around in eventually calling her daughter. Daughter reports it must have been about an hour that the patient was on the floor. Patient currently has no complaints except for generalized body aches from falling. ER evaluation demonstrated comfortable female elderly with blood pressure 144/70, heart rate rate 64, pulse ox 100% on room air. WBC 17.3, hemoglobin 12.0, INR 2.2, sodium 134, BUN 35, serum creatinine 1.4, glucose 120, lactic acid 1.8, magnesium 1.8, AST 45, CK 529, troponin 0.065, BNP 1 490, EKG without acute ischemia, procalcitonin 0.1, urinalysis unremarkable, head CT without acute intracranial findings, chest x-ray with blunting of the left costophrenic angle, cervical spine CT no osseous abnormalities, CT abdomen pelvis with sliding hiatal hernia, atrophic pancreas, otherwise no acute abdominal process. She had abrasion on the back of her head superior to the occiput. She was given a Colace enema, placed on sodium chloride 100 cc/hour. Review of Systems Review of Systems: All systems reviewed & are unremarkable except as noted in HPI and below (Subjective) [facility] Past Medical History Medical History Adult BMI 39.0-39.9 kg/sq m Anemia, unspecified Aphasia BMI 37.0-37.9, adult BMI 38.0-38.9,adult BMI greater than 40 Change in bowel movement Chronic ITP (idiopathic thrombocytopenia) Chronic kidney disease, stage 3 (moderate) Colonoscopy planned Depression Diabetes with neurologic complications Diabetic neuropathy Essential (primary) hypertension Forgetfulness Head trauma Hematochezia Hematuria Hx of idiopathic thrombocytopenic purpura Hypothyroidism Left knee DJD Leg ulcer, left Lymphedema Memory loss Mixed hyperlipidemia Morbid (severe) obesity due to excess calories Occult blood in stools Onychomycosis Paroxysmal atrial fibrillation Recurrent UTI Rhinorrhea 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 Family History Family History Mother Cerebrovascular accident Family history of coronary artery disease Heart disease Father Cancer Tobacco abuse Sibling Acute myocardial infarction Heart disease Tobacco abuse Alcohol abuse Other Family history of cardiovascular disease Social History Social History Smoking status: Never smoker Second hand tobacco smoke exposure: Yes Alcohol intake: never Substance use: never Substance use type: does not use Do You Feel Safe in your Home?: Yes Lack of Transportation: No Lack of Food: Never True Current Housing: I Have Housing Concerned About Future Housing: No Difficulty Paying Gas/Electric Bills: No Difficulty Paying for Meds: No Currently Unemployed: No Education: High School Diploma/GED Difficulty w/ Childcare or Family Care: No
[2024-02-03] MEDS: SODIUM CHLORIDE 0.9% IV 1,000 ML 100 ML IV CONT ×2 (01:23→11:25)
--- NOTE | 2024-02-03 02:21 | PC.NURSE ---
This patient, Maria Luna, was admitted to IMU Room 204-01 at 0045. Patient/family oriented to hospital policies and general routines including ID bracelet, bed and alarms, visiting hours, pain management, procedures, bathroom and other care routines, personal items, smoking policy, room service/diet, and visiting hours. Information on how to activate the Rapid Response Team has been discussed. Patient/Family are encouraged to report perceived risks to care and to ask questions if they do not understand what they are told or what they should do.
[2024-02-03 03:26] LABS: Troponin I 0.075 ng/mL (0.000-0.034)
[2024-02-03] MEDS: LEVOTHYROXINE SODIUM 50 MCG TABLET PO (06:23)
[2024-02-03 06:42] LABS: Anion Gap 6 mmol/L (4-12); Blood Urea Nitrogen 36 mg/dL (7-17); Calcium 8.6 mg/dL (8.4-10.2); Carbon Dioxide 27 mmol/L (22-30); Chloride 106 mmol/L (98-107); Creatine Kinase 674 U/L (30-135); Estimated CRCL calculation 24 ml/min; Estimated Glomerular Filt Rate 35; Glucose 122 mg/dL (65-110); Magnesium 1.9 mg/dL (1.6-2.3); Potassium 4.1 mmol/L (3.4-5.0); Sodium 139 mmol/L (137-145)
[2024-02-03 06:43] LABS: INR 2.1; Prothrombin Time 24.5 Seconds (11.1-14.7)
[2024-02-03 06:54] LABS: Troponin I 0.064 ng/mL (0.000-0.034)
[2024-02-03 08:16] LABS: Glucose Point of Care 109 mg/dl (65-105)
[2024-02-03] MEDS: GABAPENTIN 300 MG CAPSULE 600 MG PO ×2 (08:16→20:05)
[2024-02-03] MEDS: ASPIRIN 81 MG CHEWABLE TABLET PO (08:16)
[2024-02-03] MEDS: busPIRone HCL 10 MG TABLET PO ×2 (08:16→16:17)
[2024-02-03] MEDS: lisinopriL 20 MG TABLET PO (08:16)
[2024-02-03] MEDS: TOLNAFTATE 1% POWDER 45 GM BTL 1 APPLIC TOPICAL ×2 (08:17→20:06)
[2024-02-03] MEDS: ACETAMINOPHEN 325 MG TABLET 650 MG PO (08:17)
[2024-02-03] MEDS: ISOSORBIDE MONONITRATE 30 MG TAB.ER.24H PO (08:17)
[2024-02-03 09:43] LABS: Thyroid Stimulating Hormone Reflex 0.863 uIU/mL (0.465-4.68)
[2024-02-03 10:13] LABS: Folic Acid 14.4 ng/mL (2.76->20)
--- NOTE | 2024-02-03 11:50 | PM.IMPN ---
Progress Note: A&P Assessment and Plan (1) Ground-level fall: Code(s): W18.30XA - Fall on same level, unspecified, initial encounter Status: Acute Assessment and Plan: The patient was sitting on the toilet and when she got up and fell hitting the back of her head. Dtr reports that she was on the floor for about 1 hour. Patient has vision problems due to cataracts and retinal detachment, hearing problems and dementia. She lives alone with family nearby. Patient uses a walker at baseline for ambulation. Head CT without acute intracranial findings. CXR with blunting of the left costophrenic angle Cervical spine CT showing no osseous abnormalities CT abdomen pelvis with sliding hiatal hernia, atrophic pancreas but no acute abdominal process. Consider dehydration causing weakness or syncopal episode. Orthostatic vital signs. IV fluids started. Murmur appreciated so will check echo PT/OT ordered. Check right knee and hip xrays. Check TSH and B12. (2) Elevated troponin: Code(s): R79.89 - Other specified abnormal findings of blood chemistry Status: Acute Assessment and Plan: Elevated troponin at 0.065 which is likely due to demand ischemia. Could also be related to rhabdo No acute evidence of ischemia on EKG. Repeat troponin flat Continue tele Check Echo. (3) Dementia: Qualifiers: Dementia behavioral or psychological symptom: without behavioral, psychotic, or mood disturbance or anxiety Dementia severity: moderate Dementia type: vascular dementia Qualified Code(s): F01.B0 - Vascular dementia, moderate, without behavioral disturbance, psychotic disturbance, mood disturbance, and anxiety Code(s): F03.90 - Unspecified dementia, unspecified severity, without behavioral disturbance, psychotic disturbance, mood disturbance, and anxiety Status: Acute Assessment and Plan: Patient typically A&O x3 but this waxes and wanes and sometimes she becomes confused. Not on medical therapy for dementia (4) Paroxysmal atrial fibrillation: Code(s): I48.0 - Paroxysmal atrial fibrillation Status: Acute Assessment and Plan: She has pAFib on Coumadin. Not on rate or rhythm controlling agents. Patient previously saw Dr. Frey who has now left the [facility] cardiology group. The patient has not been able to arrange to see a new digital press operator She is certainly a fall risk. Dr. Frey was discussing Watchman device. INR 2.2. EKG showing normal sinus, LVH, age indeterminate anterior and inferior infarct and borderling lateral T wave changes. Warfarin was held. Resume Warfarin and will discuss options with patient and family (5) Rhabdomyolysis: Code(s): M62.82 - Rhabdomyolysis Status: Acute Assessment and Plan: The patient was sitting on the toilet and when she got up and fell hitting the back of her head. Dtr reports that she was on the floor for about 1 hour. TCK mildly elevated at 529. UA showing no blood. Repeat slightly higher at 674. Stop Lipitor. Trend (6) Diabetes with neurologic complications: Qualifiers: Diabetes mellitus type: type 2 Diabetes mellitus emt intermediate insulin use: without emt intermediate use Diabetes mellitus complication detail: with polyneuropathy Qualified Code(s): E11.42 - Type 2 diabetes mellitus with diabetic polyneuropathy Code(s): E11.49 - Type 2 diabetes mellitus with other diabetic neurological complication Status: Acute Assessment and Plan: The patient's blood glucose was reviewed on 02/02 Glucose remains reasonably well controlled. Continue AccuCheks covering with sliding scale. Hypoglycemia protocol available as needed. Continue to monitor (7) Chronic kidney disease, stage 3 (moderate): Qualifiers: Chronic kidney disease stage 3 subtype: stage 3a (GFR 45-59) Qualified Code(s): N18.31 - Chronic kidney disease, stage 3a Code(s): N18.3 - Chroni
[2024-02-03 13:32] LABS: Glucose Point of Care 202 mg/dl (65-105)
[2024-02-03] MEDS: INSULIN ASPART (*BKC) 100 UNITS/ML SUB-Q (16:17)
[2024-02-03] MEDS: EUCERIN CREAM 120 GM JAR 1 APPLIC TOPICAL (16:17)
[2024-02-03 16:36] LABS: Glucose Point of Care 129 mg/dl (65-105)
--- NOTE | 2024-02-03 16:36 | PCOTNOTE ---
Attempted to see pt. for occupational therapy evaluation. Pt. is confused and resistant to participate. Nursing present and aware. Following.
[2024-02-03] MEDS: WARFARIN (*PBKC) 4 MG TABLET PO (18:38)
[2024-02-03 20:35] LABS: Glucose Point of Care 129 mg/dl (65-105)
[2024-02-04] VITALS (17 sets, daily range): BP systolic 122–175; BP diastolic 45–78; PULSE 61–91; RESP 12–20; TEMP 36.3–38.3; O2SAT 91–98; BMI 38.5
--- NOTE | 2024-02-04 | ECHO_ITS ---
Patient Info Name: Maria Luna Age: 88 years : 1935 Gender: Female Ht: 60 in Wt: 198 lbs BSA: 2.00 m2 HR: 72 bpm BP: 175 / 78 mmHg Heart Rhythm: Sinus Rhythm Technical Quality: Fair Exam Date: 02/04/2024 11:08 AM Exam Location: Echo Lab Patient Status: Inpatient Admit Date: 02/02/2024 Staff Ordering Physician: Jet Ragsdale MD Do All Operator: Esa Lechuga RDCS Attending Provider: Vanessa Doty MD Exam Type: CA echo doppler color flow Study Info Indications - murmur, syncope Complete two-dimensional, color flow and Doppler transthoracic echocardiogram is performed. Summary 1. Complete two-dimensional, color flow and Doppler transthoracic echocardiogram is performed. 2. Left ventricular chamber dimension is normal. 3. Left ventricular systolic function is normal, estimated at 60-65%. 4. The left ventricular diastolic function is grade I diastolic dysfunction. 5. E/e' 10 is mildly elevated. 6. Left atrial chamber dimension is mildly enlarged. 7. The aortic valve is not well visualized. Cannot determine number of aortic valve leaflets. 8. There is mild aortic valve stenosis based on a peak velocity of 227 cm/s, mean gradient of 13 mmHg, and aortic valve area of 1.6 cm2. 9. The mitral valve has moderately calcified annulus. 10. No pulmonary hypertension, estimated pulmonary arterial systolic pressure is 26 mmHg. Left Ventricle E/e' 10 is mildly elevated. Left ventricular chamber dimension is normal. Left ventricular systolic function is normal, estimated at 60-65%. The left ventricular diastolic function is grade I diastolic dysfunction. Right Ventricle Right ventricular systolic function is normal. and with normal TAPSE 2.8 cm. Right ventricular chamber dimension is normal. Left Atria Left atrial chamber dimension is mildly enlarged. Right Atria Right atrial chamber dimension is normal. Aortic Valve The aortic valve is not well visualized. Cannot determine number of aortic valve leaflets. There is mild aortic valve stenosis based on a peak velocity of 227 cm/s, mean gradient of 13 mmHg, and aortic valve area of 1.6 cm2. There is moderate aortic valve sclerosis. There is no aortic valve regurgitation. Pulmonic Valve There is no pulmonic regurgitation. Mitral Valve The mitral valve has moderately calcified annulus. There is no mitral valve stenosis. There is no mitral valve regurgitation. Tricuspid Valve There is no tricuspid valve regurgitation. No pulmonary hypertension, estimated pulmonary arterial systolic pressure is 26 mmHg. Pericardium/Pleural There is no pericardial effusion. Inferior Vena Cava Normal inferior vena cava with >50% collapse upon inspiration consistent with normal right atrial pressure, 5 mmHg. Aorta The aortic root size at the sinus of Valsalva is normal. Left Ventricular Outflow Tract Name Value Normal LVOT 2D LVOT Diameter 1.8 cm LVOT Doppler LVOT Peak Gradient 6 mmHg LVOT Mean Gradient 4 mmHg LVOT VTI 32 cm LVOT VTI/AV VTI Ratio 0.6 LVOT Stroke Volume 82 ml LVOT CO
[2024-02-04 05:11] LABS: Basophils Percent Auto 0.3 % (0.2-1.2); Eosinophils Percent Auto 0.2 % (0-4.4); Hematocrit 35.1 % (37.0-47.0); Hemoglobin 10.9 g/dL (12.0-15.0); Immature Granulocyte Absolute 0.03 K/mm3 (0.00-0.031); Immature Granulocyte Percent A 0.3 % (0-0.5); Lymphocytes Absolute Auto 1.14 K/mm3 (0.9-3.2); Lymphocytes Percent Auto 12.2 % (18.3-44.2); Mean Corpuscular HGB Conc 31.1 g/dl (32-36); Mean Corpuscular Hemoglobin 26.7 pg (26-34); Mean Platelet Volume 11.5 fl (7.4-10.4); Monocytes Absolute Auto 0.9 K/mm3 (0.1-0.6); Monocytes Percent Auto 9.8 % (2.6-8.5); Neutrophils Absolute Auto 7.2 K/mm3 (1.3-6.7); Neutrophils Percent Auto 77.2 % (45.5-73.1); Platelet Count Result 198 k/mm3 (150-375); Red Blood Count 4.08 M/mm3 (4.2-5.4); Red Cell Distribution Width 14.5 % (11.5-14.5); White Blood Count 9.3 K/mm3 (4.5-10.0)
[2024-02-04 05:20] LABS: Hemoglobin A1C 6.2 % (<5.7); INR 2.5; Prothrombin Time 27.8 Seconds (11.1-14.7)
[2024-02-04 05:30] LABS: Alanine Aminotransferase 18 U/L (6-35); Albumin Level 3.4 g/dL (3.5-5.1); Alkaline Phosphatase 91 U/L (38-126); Anion Gap 7 mmol/L (4-12); Aspartate Amino Transferase 38 U/L (14-36); Bilirubin,Total 1.4 mg/dL (0.2-1.3); Blood Urea Nitrogen 25 mg/dL (7-17); Calcium 8.5 mg/dL (8.4-10.2); Carbon Dioxide 25 mmol/L (22-30); Chloride 107 mmol/L (98-107); Creatine Kinase 489 U/L (30-135); Estimated CRCL calculation 31 ml/min; Estimated Glomerular Filt Rate 47; Glucose 127 mg/dL (65-110); Potassium 3.7 mmol/L (3.4-5.0); Sodium 139 mmol/L (137-145)
[2024-02-04 05:40] LABS: Procalcitonin 0.3 ng/mL
[2024-02-04] MEDS: LEVOTHYROXINE SODIUM 50 MCG TABLET PO (06:37)
[2024-02-04 07:06] LABS: Glucose Point of Care 120 mg/dl (65-105)
[2024-02-04] MEDS: ISOSORBIDE MONONITRATE 30 MG TAB.ER.24H PO (09:38)
[2024-02-04] MEDS: ASPIRIN 81 MG CHEWABLE TABLET PO (09:38)
[2024-02-04] MEDS: lisinopriL 20 MG TABLET PO (09:38)
[2024-02-04] MEDS: busPIRone HCL 10 MG TABLET PO ×2 (09:38→17:33)
[2024-02-04] MEDS: GABAPENTIN 300 MG CAPSULE 600 MG PO ×2 (09:38→20:47)
[2024-02-04] MEDS: EUCERIN CREAM 120 GM JAR 1 APPLIC TOPICAL ×2 (09:39→17:34)
[2024-02-04] MEDS: TOLNAFTATE 1% POWDER 45 GM BTL 1 APPLIC TOPICAL ×2 (09:54→20:48)
[2024-02-04 10:47] LABS: Glucose Point of Care 157 mg/dl (65-105)
--- NOTE | 2024-02-04 11:19 | PCPTNOTE ---
attempted PT eval, pt is confused on situation and her current location stating she is in her kitchen and repeated tried to grab the bed rail stating her phone is caught , will follow as pt is less confused and able to participate in evaluation
[2024-02-04 16:19] LABS: Glucose Point of Care 165 mg/dl (65-105)
--- NOTE | 2024-02-04 16:57 | PM.IMPN ---
Progress Note: A&P Assessment and Plan (1) Ground-level fall: Code(s): W18.30XA - Fall on same level, unspecified, initial encounter Status: Acute Assessment and Plan: The patient was sitting on the toilet and when she got up and fell hitting the back of her head. Dtr reports that she was on the floor for about 1 hour. Patient has vision problems due to cataracts and retinal detachment, hearing problems and dementia. She lives alone with family nearby. Patient uses a walker at baseline for ambulation. Head CT without acute intracranial findings. CXR with blunting of the left costophrenic angle Cervical spine CT showing no osseous abnormalities CT abdomen pelvis with sliding hiatal hernia, atrophic pancreas but no acute abdominal process. No lower lung issues by CT TSH okay. B12 low end of normal. Folate normal. Consider dehydration causing HoTN (BP 92/45 on admission). Orthostatic? May have fallen due to pain from severe Rt knee OA resulting in fall. She is confused to unclear what transpired exactly. Orthostatic vital signs. IV fluids started. Murmur appreciated; Echo showing normal systolic function with EF of 60-65%, grade 1 diastolic dysfunction mild aortic stenosis. The aortic valve was not well visualized. PT/OT ordered. SNF vs home with home health Discussed with dtr (2) Elevated troponin: Code(s): R79.89 - Other specified abnormal findings of blood chemistry Status: Acute Assessment and Plan: Elevated troponin at 0.065 which is likely due to demand ischemia. Could also be related to rhabdo No acute evidence of ischemia on EKG. Echo as above. Repeat troponin flat Continue tele (3) Dementia: Qualifiers: Dementia type: vascular dementia Dementia severity: moderate Dementia behavioral or psychological symptom: without behavioral, psychotic, or mood disturbance or anxiety Qualified Code(s): F01.B0 - Vascular dementia, moderate, without behavioral disturbance, psychotic disturbance, mood disturbance, and anxiety Code(s): F03.90 - Unspecified dementia, unspecified severity, without behavioral disturbance, psychotic disturbance, mood disturbance, and anxiety Status: Acute Assessment and Plan: Patient typically A&O x3 but this waxes and wanes and sometimes she becomes confused. Not on medical therapy for dementia She is more confused here due to change in environment. (4) Paroxysmal atrial fibrillation: Code(s): I48.0 - Paroxysmal atrial fibrillation Status: Acute Assessment and Plan: She has pAFib on Coumadin. Not on rate or rhythm controlling agents. Patient previously saw Dr. Frey who has now left the [facility] cardiology group. The patient has not been able to arrange to see a new steam shovel engineer She is certainly a fall risk. Dr. Frey was discussing Watchman device. INR 2.2. EKG showing normal sinus, LVH, age indeterminate anterior and inferior infarct and borderling lateral T wave changes. Warfarin was held. Warfarin resumed and INR therapeutic. Will discuss options with patient and family (5) Rhabdomyolysis: Code(s): M62.82 - Rhabdomyolysis Status: Acute Assessment and Plan: The patient was sitting on the toilet and when she got up and fell hitting the back of her head. Dtr reports that she was on the floor for about 1 hour. TCK mildly elevated at 529. UA showing no blood. Repeat TCK 489 Holding Lipitor. Trend (6) Diabetes with neurologic complications: Qualifiers: Diabetes mellitus type: type 2 Diabetes mellitus ocean transportation intermediary insulin use: without ocean transportation intermediary use Diabetes mellitus complication detail: with polyneuropathy Qualified Code(s): E11.42 - Type 2 diabetes mellitus with diabetic polyneuropathy Code(s): E11.49 - Type 2 diabetes mellitus with other diabetic neurological complication Status: Acute Assessment and Plan: A1c 6.2. The patient's blood glucose was revi
[2024-02-04] MEDS: WARFARIN (*PBKC) 4 MG TABLET PO (17:33)
[2024-02-04] MEDS: ACETAMINOPHEN 325 MG TABLET 650 MG PO (17:42)
[2024-02-04 20:49] LABS: Glucose Point of Care 140 mg/dl (65-105)
[2024-02-05] VITALS (13 sets, daily range): BP systolic 145–208; BP diastolic 57–107; PULSE 61–79; RESP 16–20; TEMP 36.4–36.6; O2SAT 92–100; BMI 10.0
[2024-02-05 05:25] LABS: INR 2.7; Prothrombin Time 29.3 Seconds (11.1-14.7)
[2024-02-05 05:30] LABS: Anion Gap 10 mmol/L (4-12); Blood Urea Nitrogen 22 mg/dL (7-17); Carbon Dioxide 25 mmol/L (22-30); Chloride 105 mmol/L (98-107); Estimated CRCL calculation 32 ml/min; Estimated Glomerular Filt Rate 47; Glucose 110 mg/dL (65-110); Potassium 3.8 mmol/L (3.4-5.0); Sodium 140 mmol/L (137-145)
[2024-02-05] MEDS: amLODIPine BESYLATE 5 MG TABLET PO (08:31)
[2024-02-05] MEDS: ISOSORBIDE MONONITRATE 30 MG TAB.ER.24H PO (08:31)
[2024-02-05] MEDS: GABAPENTIN 300 MG CAPSULE 600 MG PO ×2 (08:31→20:29)
[2024-02-05] MEDS: busPIRone HCL 10 MG TABLET PO ×2 (08:31→17:20)
[2024-02-05] MEDS: lisinopriL 20 MG TABLET PO (08:31)
[2024-02-05] MEDS: ASPIRIN 81 MG CHEWABLE TABLET PO (08:31)
[2024-02-05] MEDS: TOLNAFTATE 1% POWDER 45 GM BTL 1 APPLIC TOPICAL ×2 (08:32→20:30)
[2024-02-05] MEDS: EUCERIN CREAM 120 GM JAR 1 APPLIC TOPICAL ×2 (08:33→17:22)
[2024-02-05 08:48] LABS: Glucose Point of Care 106 mg/dl (65-105)
[2024-02-05] MEDS: ACETAMINOPHEN 325 MG TABLET 650 MG PO (09:52)
[2024-02-05 11:33] LABS: Glucose Point of Care 205 mg/dl (65-105)
[2024-02-05] MEDS: INSULIN ASPART (*BKC) 100 UNITS/ML SUB-Q (11:58)
--- NOTE | 2024-02-05 15:38 | PM.IMPN ---
Progress Note: A&P Assessment and Plan (1) Fever: Code(s): R50.9 - Fever, unspecified Status: Acute Assessment and Plan: Patient had fever to 101 last night. WBC was 17K on admisison but normalized without abx. UA negative on admission. CXR showing blunting of the left costophrenic angle o/w clear. CT Abd/Pelvis negative for acute process. Doubt VTE since on Coumadin with therapeutic INR. Consider atelectasis. Right knee clinically does not appear inflamed. Follow off abx for now. (2) Ground-level fall: Code(s): W18.30XA - Fall on same level, unspecified, initial encounter Status: Acute Assessment and Plan: The patient was sitting on the toilet and when she got up and fell hitting the back of her head. Dtr reports that she was on the floor for about 1 hour. Patient has vision problems due to cataracts and retinal detachment, hearing problems and dementia. She lives alone with family nearby. Patient uses a walker at baseline for ambulation. Head CT without acute intracranial findings. CXR with blunting of the left costophrenic angle Cervical spine CT showing no osseous abnormalities CT abdomen pelvis with sliding hiatal hernia, atrophic pancreas but no acute abdominal process. No lower lung issues by CT TSH okay. B12 low end of normal (MMA ordered). Folate normal. Consider dehydration causing HoTN (BP 92/45 on admission). Orthostatic? May have fallen due to pain from severe Rt knee OA resulting in fall. She is confused to unclear what transpired exactly. Orthostatic vital signs. She received IV fluids but now off. Echo showing normal systolic function with EF of 60-65%, grade 1 diastolic dysfunction mild aortic stenosis. PT/OT. Plan for home with home health (3) Elevated troponin: Code(s): R79.89 - Other specified abnormal findings of blood chemistry Status: Acute Assessment and Plan: Elevated troponin at 0.065 which is likely due to demand ischemia. Could also be related to rhabdo No acute evidence of ischemia on EKG. Echo as above. Repeat troponin flat Continue tele (4) Dementia: Qualifiers: Dementia behavioral or psychological symptom: without behavioral, psychotic, or mood disturbance or anxiety Dementia severity: moderate Dementia type: vascular dementia Qualified Code(s): F01.B0 - Vascular dementia, moderate, without behavioral disturbance, psychotic disturbance, mood disturbance, and anxiety Code(s): F03.90 - Unspecified dementia, unspecified severity, without behavioral disturbance, psychotic disturbance, mood disturbance, and anxiety Status: Acute Assessment and Plan: Patient typically A&O x3 but this waxes and wanes and sometimes she becomes confused. Not on medical therapy for dementia She is more confused here due to change in environment. (5) Paroxysmal atrial fibrillation: Code(s): I48.0 - Paroxysmal atrial fibrillation Status: Acute Assessment and Plan: She has pAFib on Coumadin. Not on rate or rhythm controlling agents. Patient previously saw Dr. Frey who has now left the [facility] cardiology group. The patient has not been able to arrange to see a new gas producer She is certainly a fall risk. Dr. Frey was discussing Watchman device. INR 2.7. EKG showing normal sinus, LVH, age indeterminate anterior and inferior infarct and borderling lateral T wave changes. Warfarin resumed and INR therapeutic. Discuss options with patient and family about risks/benefits of Coumadin (6) Rhabdomyolysis: Code(s): M62.82 - Rhabdomyolysis Status: Acute Assessment and Plan: The patient was sitting on the toilet and when she got up and fell hitting the back of her head. Dtr reports that she was on the floor for about 1 hour. TCK mildly elevated at 529. UA showing no blood. Repeat TCK 489 Holding Lipitor. (7) Diabetes with neurologic complications: Qualifiers: Diab
[2024-02-05 16:29] LABS: Glucose Point of Care 133 mg/dl (65-105)
[2024-02-05] MEDS: WARFARIN (*PBKC) 5 MG TABLET PO (17:22)
[2024-02-05 21:19] LABS: Glucose Point of Care 118 mg/dl (65-105)
[2024-02-06] VITALS (11 sets, daily range): BP systolic 120–174; BP diastolic 56–68; PULSE 58–76; RESP 16–20; TEMP 36.1–37.1; O2SAT 97–100
[2024-02-06] MEDS: LEVOTHYROXINE SODIUM 50 MCG TABLET PO (05:22)
[2024-02-06 05:34] LABS: Basophils Percent Auto 0.6 % (0.2-1.2); Eosinophils Absolute Auto 0.1 K/mm3 (0-0.3); Immature Granulocyte Absolute 0.02 K/mm3 (0.00-0.031); Immature Granulocyte Percent A 0.3 % (0-0.5); Lymphocytes Absolute Auto 0.93 K/mm3 (0.9-3.2); Lymphocytes Percent Auto 13.2 % (18.3-44.2); Mean Corpuscular HGB Conc 30.3 g/dl (32-36); Mean Corpuscular Hemoglobin 27.3 pg (26-34); Mean Corpuscular Volume 90.2 fl (80-100); Mean Platelet Volume 11.8 fl (7.4-10.4); Monocytes Absolute Auto 0.5 K/mm3 (0.1-0.6); Monocytes Percent Auto 7.2 % (2.6-8.5); Neutrophils Absolute Auto 5.4 K/mm3 (1.3-6.7); Neutrophils Percent Auto 76.7 % (45.5-73.1); Platelet Count Result 216 k/mm3 (150-375); Red Blood Count 3.66 M/mm3 (4.2-5.4); Red Cell Distribution Width 14.3 % (11.5-14.5)
[2024-02-06 05:46] LABS: INR 2.8; Prothrombin Time 29.4 Seconds (11.1-14.7)
[2024-02-06 05:54] LABS: Albumin Level 3.4 g/dL (3.5-5.1); Anion Gap 8 mmol/L (4-12); Blood Urea Nitrogen 24 mg/dL (7-17); Calcium 8.5 mg/dL (8.4-10.2); Carbon Dioxide 23 mmol/L (22-30); Chloride 107 mmol/L (98-107); Estimated CRCL calculation 37 ml/min; Estimated Glomerular Filt Rate 59; Glucose 117 mg/dL (65-110); Phosphorus 3.1 mg/dL (2.5-4.5); Potassium 3.7 mmol/L (3.4-5.0); Sodium 138 mmol/L (137-145)
[2024-02-06 06:19] LABS: CRP 14.3 mg/dL (<1.0)
[2024-02-06 06:42] LABS: Procalcitonin 0.2 ng/mL
[2024-02-06] MEDS: GABAPENTIN 300 MG CAPSULE 600 MG PO ×2 (08:11→20:58)
[2024-02-06] MEDS: ISOSORBIDE MONONITRATE 30 MG TAB.ER.24H PO (08:11)
[2024-02-06] MEDS: lisinopriL 20 MG TABLET PO (08:11)
[2024-02-06] MEDS: amLODIPine BESYLATE 5 MG TABLET PO (08:11)
[2024-02-06] MEDS: ASPIRIN 81 MG CHEWABLE TABLET PO (08:11)
[2024-02-06] MEDS: busPIRone HCL 10 MG TABLET PO ×2 (08:11→17:16)
[2024-02-06] MEDS: EUCERIN CREAM 120 GM JAR 1 APPLIC TOPICAL ×2 (08:12→17:16)
[2024-02-06] MEDS: TOLNAFTATE 1% POWDER 45 GM BTL 1 APPLIC TOPICAL ×2 (08:12→20:59)
[2024-02-06 08:20] LABS: Glucose Point of Care 114 mg/dl (65-105)
[2024-02-06 09:34] LABS: Creatine Kinase 140 U/L (30-135)
--- NOTE | 2024-02-06 10:13 | WPDCDIQUERY2 ---
CDI Query Clarification Request Documentation Clarification Request Rhabdomyolysis was documented. Please clarify type of rhabdomyolysis if known: -Traumatic or muscle compression -Non-traumatic exertional -Non-traumatic nonexertional -Unknown/other-please specify <Hina Gallagher RN - Last Filed: 02/06/24 10:17> Clarified Diagnosis Clarified Diagnosis: Dx: Traumatic rhabdomyolysis <Richard Wilder MD - Last Filed: 02/06/24 17:26>
[2024-02-06 11:53] LABS: Glucose Point of Care 115 mg/dl (65-105)
[2024-02-06 16:55] LABS: Glucose Point of Care 118 mg/dl (65-105)
[2024-02-06] MEDS: WARFARIN (*PBKC) 4 MG TABLET PO (17:16)
--- NOTE | 2024-02-06 17:45 | PC.NURSE ---
This patient, Maria Luna, was received from [ ] on 02/06/24 at 1835. Patient/family oriented to unit policies and routines
--- NOTE | 2024-02-06 17:45 | PC.NURSE ---
This patient, Maria Luna, was received from IMU on 02/06/24 at 1745. Patient/family oriented to unit policies and routines
--- NOTE | 2024-02-06 18:24 | PM.IMPN ---
Progress Note: A&P Assessment and Plan (1) Fever: Code(s): R50.9 - Fever, unspecified Status: Acute Assessment and Plan: Resolved... Patient has been afebrile over last 24 hrs UA negative on admission. CXR showing blunting of the left costophrenic angle o/w clear. CT Abd/Pelvis negative for acute process. Doubt VTE since on Coumadin with therapeutic INR. Consider atelectasis. Right knee clinically does not appear inflamed. Follow off abx for now. Leukocytosis has resolved 17.3 -> 7 (2) Ground-level fall: Code(s): W18.30XA - Fall on same level, unspecified, initial encounter Status: Acute Assessment and Plan: The patient was sitting on the toilet and when she got up and fell hitting the back of her head. Dtr reports that she was on the floor for about 1 hour. Patient has vision problems due to cataracts and retinal detachment, hearing problems and dementia. She lives alone with family nearby. Patient uses a walker at baseline for ambulation. Head CT without acute intracranial findings. CXR with blunting of the left costophrenic angle Cervical spine CT showing no osseous abnormalities CT abdomen pelvis with sliding hiatal hernia, atrophic pancreas but no acute abdominal process. No lower lung issues by CT TSH okay. B12 low end of normal (MMA ordered). Folate normal. Consider dehydration causing HoTN (BP 92/45 on admission). Orthostatic? May have fallen due to pain from severe Rt knee OA resulting in fall. She is confused to unclear what transpired exactly. Orthostatic vital signs. She received IV fluids but now off. Echo showing normal systolic function with EF of 60-65%, grade 1 diastolic dysfunction mild aortic stenosis. PT/OT recommending fdc facility placement (3) Elevated troponin: Code(s): R79.89 - Other specified abnormal findings of blood chemistry Status: Acute Assessment and Plan: Elevated troponin at 0.065 which is likely due to demand ischemia. Could also be related to rhabdo No acute evidence of ischemia on EKG. Echo as above. Repeat troponin flat Continue tele (4) Dementia: Qualifiers: Dementia type: vascular dementia Dementia severity: moderate Dementia behavioral or psychological symptom: without behavioral, psychotic, or mood disturbance or anxiety Qualified Code(s): F01.B0 - Vascular dementia, moderate, without behavioral disturbance, psychotic disturbance, mood disturbance, and anxiety Code(s): F03.90 - Unspecified dementia, unspecified severity, without behavioral disturbance, psychotic disturbance, mood disturbance, and anxiety Status: Acute Assessment and Plan: Patient typically A&O x3 but this waxes and wanes and sometimes she becomes confused. Patient started on low-dose memantine for dementia She is more confused here due to change in environment (5) Paroxysmal atrial fibrillation: Code(s): I48.0 - Paroxysmal atrial fibrillation Status: Acute Assessment and Plan: She has pAFib on Coumadin. Not on rate or rhythm controlling agents. Patient previously saw Dr. Frey who has now left the [facility] cardiology group. The patient has not been able to arrange to see a new certified hyperbaric technologist She is certainly a fall risk. Dr. Frey was discussing Watchman device. INR 2.7. EKG showing normal sinus, LVH, age indeterminate anterior and inferior infarct and borderling lateral T wave changes. Warfarin resumed and INR therapeutic. Discuss options with patient and family about risks/benefits of Coumadin (6) Rhabdomyolysis: Code(s): M62.82 - Rhabdomyolysis Status: Acute Assessment and Plan: The patient was sitting on the toilet and when she got up and fell hitting the back of her head. Dtr reports that she was on the floor for about 1 hour. TCK mildly elevated at 529 on admission. UA showing no blood. CPK improved with gentle hydration CPK level today in 140 (7) Diab
[2024-02-06] MEDS: SODIUM CHLORIDE 0.9% IV 1,000 ML 75 ML IV CONT (18:42)
[2024-02-07] VITALS (9 sets, daily range): BP systolic 134–179; BP diastolic 53–68; PULSE 61–79; RESP 14–20; TEMP 36.8–37.1; O2SAT 98–100
[2024-02-07 05:29] LABS: Glucose Point of Care 139 mg/dl (65-105)
[2024-02-07] MEDS: LEVOTHYROXINE SODIUM 50 MCG TABLET PO (06:17)
[2024-02-07 08:00] LABS: Glucose Point of Care 110 mg/dl (65-105)
[2024-02-07] MEDS: amLODIPine BESYLATE 5 MG TABLET PO (08:26)
[2024-02-07] MEDS: TOLNAFTATE 1% POWDER 45 GM BTL 1 APPLIC TOPICAL ×2 (08:26→20:00)
[2024-02-07] MEDS: busPIRone HCL 10 MG TABLET PO ×2 (08:26→17:10)
[2024-02-07] MEDS: lisinopriL 20 MG TABLET PO (08:26)
[2024-02-07] MEDS: ASPIRIN 81 MG CHEWABLE TABLET PO (08:26)
[2024-02-07] MEDS: ISOSORBIDE MONONITRATE 30 MG TAB.ER.24H PO (08:26)
[2024-02-07] MEDS: GABAPENTIN 300 MG CAPSULE 600 MG PO ×2 (08:26→20:00)
[2024-02-07] MEDS: EUCERIN CREAM 120 GM JAR 1 APPLIC TOPICAL ×2 (08:27→17:11)
[2024-02-07 09:39] LABS: Basophils Percent Auto 0.6 % (0.2-1.2); Eosinophils Absolute Auto 0.3 K/mm3 (0-0.3); Hematocrit 33.9 % (37.0-47.0); Hemoglobin 10.6 g/dL (12.0-15.0); Immature Granulocyte Absolute 0.03 K/mm3 (0.00-0.031); Immature Granulocyte Percent A 0.4 % (0-0.5); Lymphocytes Absolute Auto 1.39 K/mm3 (0.9-3.2); Lymphocytes Percent Auto 20.1 % (18.3-44.2); Mean Corpuscular HGB Conc 31.3 g/dl (32-36); Mean Corpuscular Volume 86.5 fl (80-100); Monocytes Absolute Auto 0.4 K/mm3 (0.1-0.6); Monocytes Percent Auto 6.2 % (2.6-8.5); Neutrophils Absolute Auto 4.8 K/mm3 (1.3-6.7); Neutrophils Percent Auto 68.7 % (45.5-73.1); Platelet Count Result 280 k/mm3 (150-375); Red Blood Count 3.92 M/mm3 (4.2-5.4); Red Cell Distribution Width 14.4 % (11.5-14.5); White Blood Count 6.9 K/mm3 (4.5-10.0)
[2024-02-07 09:51] LABS: Anion Gap 6 mmol/L (4-12); Blood Urea Nitrogen 36 mg/dL (7-17); CRP 7.1 mg/dL (<1.0); Calcium 8.8 mg/dL (8.4-10.2); Carbon Dioxide 27 mmol/L (22-30); Chloride 103 mmol/L (98-107); Estimated CRCL calculation 31 ml/min; Estimated Glomerular Filt Rate 47; Glucose 135 mg/dL (65-110); Sodium 136 mmol/L (137-145)
[2024-02-07 09:58] LABS: INR 2.6; Prothrombin Time 28.2 Seconds (11.1-14.7)
[2024-02-07] MEDS: SODIUM CHLORIDE 0.9% IV 1,000 ML 75 ML IV CONT (10:41)
[2024-02-07 11:37] LABS: Creatine Kinase 61 U/L (30-135)
[2024-02-07 12:07] LABS: Glucose Point of Care 180 mg/dl (65-105)
--- NOTE | 2024-02-07 15:50 | PM.IMPN ---
Progress Note: A&P Assessment and Plan (1) Fever: Code(s): R50.9 - Fever, unspecified Status: Acute Assessment and Plan: Resolved... Patient has been afebrile over last 60+ hrs UA negative on admission. CXR showing blunting of the left costophrenic angle o/w clear. CT Abd/Pelvis negative for acute process. Doubt VTE since on Coumadin with therapeutic INR. Consider atelectasis. Right knee clinically does not appear inflamed. Follow off abx for now. Leukocytosis has resolved 17.3 -> 6.9 (2) Ground-level fall: Code(s): W18.30XA - Fall on same level, unspecified, initial encounter Status: Acute Assessment and Plan: The patient was sitting on the toilet and when she got up and fell hitting the back of her head. Dtr reports that she was on the floor for about 1 hour. Patient has vision problems due to cataracts and retinal detachment, hearing problems and dementia. She lives alone with family nearby. Patient uses a walker at baseline for ambulation. Head CT without acute intracranial findings. CXR with blunting of the left costophrenic angle Cervical spine CT showing no osseous abnormalities CT abdomen pelvis with sliding hiatal hernia, atrophic pancreas but no acute abdominal process. No lower lung issues by CT TSH okay. B12 low end of normal (MMA ordered). Folate normal. Consider dehydration causing HoTN (BP 92/45 on admission). Orthostatic? May have fallen due to pain from severe Rt knee OA resulting in fall. She is confused to unclear what transpired exactly. Orthostatic vital signs. She received IV fluids but now off. Echo showing normal systolic function with EF of 60-65%, grade 1 diastolic dysfunction mild aortic stenosis. PT/OT recommending intermediate facility placement which family is adamantly refusing Multiple DMEs are being arranged for patient transfer to daughter's home with home healthcare (3) Elevated troponin: Code(s): R79.89 - Other specified abnormal findings of blood chemistry Status: Acute Assessment and Plan: Elevated troponin at 0.065 which is likely due to demand ischemia. Could also be related to rhabdo No acute evidence of ischemia on EKG. Echo as above. Repeat troponin flat Continue tele (4) Dementia: Qualifiers: Dementia type: vascular dementia Dementia severity: moderate Dementia behavioral or psychological symptom: without behavioral, psychotic, or mood disturbance or anxiety Qualified Code(s): F01.B0 - Vascular dementia, moderate, without behavioral disturbance, psychotic disturbance, mood disturbance, and anxiety Code(s): F03.90 - Unspecified dementia, unspecified severity, without behavioral disturbance, psychotic disturbance, mood disturbance, and anxiety Status: Acute Assessment and Plan: Patient typically A&O x3 but this waxes and wanes and sometimes she becomes confused. Patient started on low-dose memantine for dementia She is more confused here due to change in environment (5) Paroxysmal atrial fibrillation: Code(s): I48.0 - Paroxysmal atrial fibrillation Status: Acute Assessment and Plan: She has pAFib on Coumadin. Not on rate or rhythm controlling agents. Patient previously saw Dr. Frey who has now left the [facility] cardiology group. The patient has not been able to arrange to see a new product director She is certainly a fall risk. Dr. Frey was discussing Watchman device. INR therapeutic at 2.6. EKG showing normal sinus, LVH, age indeterminate anterior and inferior infarct and borderling lateral T wave changes. Warfarin resumed and INR therapeutic. Discussed options with patient and family about risks/benefits of Coumadin (6) Rhabdomyolysis: Code(s): M62.82 - Rhabdomyolysis Status: Acute Assessment and Plan: The patient was sitting on the toilet and when she got up and fell hitting the back of her head. Dtr reports that she was on the floor for a
[2024-02-07 16:51] LABS: Glucose Point of Care 145 mg/dl (65-105)
[2024-02-07] MEDS: MEMANTINE 5 MG TABLET PO (17:10)
[2024-02-07] MEDS: WARFARIN (*PBKC) 5 MG TABLET PO (17:13)
[2024-02-07] MEDS: ACETAMINOPHEN 325 MG TABLET 650 MG PO (19:59)
[2024-02-08] VITALS (7 sets, daily range): BP systolic 120–158; BP diastolic 55–74; PULSE 60–74; RESP 14–22; TEMP 37.1–37.2; O2SAT 99–100
[2024-02-08] MEDS: SODIUM CHLORIDE 0.9% IV 1,000 ML 75 ML IV CONT (01:55)
[2024-02-08] MEDS: LEVOTHYROXINE SODIUM 50 MCG TABLET PO (06:06)
[2024-02-08 06:49] LABS: Anion Gap 5 mmol/L (4-12); Blood Urea Nitrogen 53 mg/dL (7-17); CRP 4.2 mg/dL (<1.0); Calcium 8.6 mg/dL (8.4-10.2); Carbon Dioxide 27 mmol/L (22-30); Chloride 102 mmol/L (98-107); Estimated CRCL calculation 29 ml/min; Estimated Glomerular Filt Rate 42; Glucose 127 mg/dL (65-110); Potassium 4.3 mmol/L (3.4-5.0); Sodium 134 mmol/L (137-145)
[2024-02-08 06:56] LABS: INR 2.7; Prothrombin Time 28.9 Seconds (11.1-14.7)
[2024-02-08 07:55] LABS: Glucose Point of Care 162 mg/dl (65-105)
[2024-02-08 08:07] LABS: Glucose Point of Care 138 mg/dl (65-105)
[2024-02-08] MEDS: ASPIRIN 81 MG CHEWABLE TABLET PO (09:33)
[2024-02-08] MEDS: GABAPENTIN 300 MG CAPSULE 600 MG PO (09:33)
[2024-02-08] MEDS: lisinopriL 20 MG TABLET PO (09:33)
[2024-02-08] MEDS: busPIRone HCL 10 MG TABLET PO (09:33)
[2024-02-08] MEDS: ISOSORBIDE MONONITRATE 30 MG TAB.ER.24H PO (09:33)
[2024-02-08] MEDS: MEMANTINE 5 MG TABLET PO (09:33)
[2024-02-08] MEDS: EUCERIN CREAM 120 GM JAR 1 APPLIC TOPICAL (09:34)
[2024-02-08] MEDS: TOLNAFTATE 1% POWDER 45 GM BTL 1 APPLIC TOPICAL (09:34)
[2024-02-08] MEDS: amLODIPine BESYLATE 5 MG TABLET PO (09:34)
[2024-02-08 10:57] LABS: Methylmalonic Acid 194 nmol/L (85-423)
[2024-02-08 11:57] LABS: Glucose Point of Care 188 mg/dl (65-105)
--- NOTE | 2024-02-08 13:55 | PM.DS ---
DS: Admitting Diagnosis Discharge Date 02/08/2024 Admitting Diagnosis fall DS: Discharge Diagnosis Discharge Diagnosis (1) Fever: Code(s): R50.9 - Fever, unspecified Status: Acute (2) Ground-level fall: Code(s): W18.30XA - Fall on same level, unspecified, initial encounter Status: Acute (3) Elevated troponin: Code(s): R79.89 - Other specified abnormal findings of blood chemistry Status: Acute (4) Dementia: Qualifiers: Dementia type: vascular dementia Dementia severity: moderate Dementia behavioral or psychological symptom: without behavioral, psychotic, or mood disturbance or anxiety Qualified Code(s): F01.B0 - Vascular dementia, moderate, without behavioral disturbance, psychotic disturbance, mood disturbance, and anxiety Code(s): F03.90 - Unspecified dementia, unspecified severity, without behavioral disturbance, psychotic disturbance, mood disturbance, and anxiety Status: Acute (5) Paroxysmal atrial fibrillation: Code(s): I48.0 - Paroxysmal atrial fibrillation Status: Acute (6) Rhabdomyolysis: Code(s): M62.82 - Rhabdomyolysis Status: Acute (7) Diabetes with neurologic complications: Qualifiers: Diabetes mellitus type: type 2 Diabetes mellitus long lines operator insulin use: without shelter use Diabetes mellitus complication detail: with polyneuropathy Qualified Code(s): E11.42 - Type 2 diabetes mellitus with diabetic polyneuropathy Code(s): E11.49 - Type 2 diabetes mellitus with other diabetic neurological complication Status: Acute (8) Chronic kidney disease, stage 3 (moderate): Qualifiers: Chronic kidney disease stage 3 subtype: stage 3a (GFR 45-59) Qualified Code(s): N18.31 - Chronic kidney disease, stage 3a Code(s): N18.3 - Chronic kidney disease, stage 3 (moderate) Status: Acute (9) Essential (primary) hypertension: Code(s): I10 - Essential (primary) hypertension Status: Acute DS: Summary Hospital Course Hospital Course: This is a an 88-year-old female who presented with a fall. the patient was sitting on the toilet and when she got up and fell hitting the back of her head. Daughter reported that she was on the floor for about an hour. Patient had vision problems due to cataracts and retinal detachment hearing problems and dementia. She lives alone with family nearby. Patient uses a walker at baseline for ambulation. Head CT without acute intracranial abnormalities. Chest x-ray with blunting of the left costophrenic angle. Cervical spine CT showed no osseous abnormalities. CT abdomen pelvis with sliding hiatal hernia atrophy pancreatic as but no acute abdominal process. No lower lung issues by CT. TSH was okay. B12 lower end of normal. methylmalonic acid normal Folate normal. Echo showing normal systolic function with EF 60 65% grade 1 diastolic dysfunction and mild aortic stenosis. PT OT was consulted and recommended fdc facility however family adamantly refusing. Multiple DME is arranged for patient discharge home with home healthcare. The patient was also febrile initially. Leukocytosis of 17.3 on admission which resolved. Was monitored off antibiotics as no infectious source was evident. Elevated troponin at 0.065 likely demand ischemia. Echo as noted above. Repeat troponin remained flat. Dementia patient started on low-dose memantine. Proximal atrial fibrillation on Coumadin. Consideration of Watchman device as an outpatient basis INR therapeutic. Discussion of the risk and benefits of Coumadin with fall risk discussed with the family Rhabdomyolysis CPK mildly elevated at 529 on admission. Type 2 diabetes with neuropathy A1c at 6.2 CKD stage 3 continue to be monitored during the hospital stay and remained stable. Hypertension blood pressure monitored and adjustment of the blood pressure medication were done DVT prophylaxis on Coumadin
[2024-02-08 15:42] LABS: Toxigenic C. Diff NEGATIVE (NEGATIVE)
--- NOTE | 2024-02-08 16:47 | PC.NURSE ---
Discharge instructions given over the phone. This RN spoke to daughter Maria T about, medications, home health, DC instructions and notified daughter that EMS was putting patient on stretcher and patient would be headed home shortly.
== END 2024-02-08 16:40 | disposition home health service (06) | DRG 565 ==
LOC: ANHED 23:30 → ANHIMU 23:57 → ANH3MEDSUR 02-06 17:51
PROVIDERS: Family Medicine; Internal Medicine; Physician Assistant; Admitting Provider General Practice; Emergency Provider Emergency Medicine; PCP Family Medicine; Visit Provider Internal Medicine
DX: T79.6XXA Traumatic ischemia of muscle, initial encounter (principal); I13.0 Hypertensive heart and chronic kidney disease with heart failure and stage 1 through stage 4 chronic kidney disease, or unspecified chronic kidney disease; I24.89 Other forms of acute ischemic heart disease; W18.12XA Fall from or off toilet with subsequent striking against object, initial encounter; R50.9 Fever, unspecified; E11.22 Type 2 diabetes mellitus with diabetic chronic kidney disease; E66.01 Morbid (severe) obesity due to excess calories; E03.9 Hypothyroidism, unspecified; E11.40 Type 2 diabetes mellitus with diabetic neuropathy, unspecified; E78.2 Mixed hyperlipidemia; F03.90 Unspecified dementia, unspecified severity, without behavioral disturbance, psychotic disturbance, mood disturbance, and anxiety; H91.90 Unspecified hearing loss, unspecified ear; I35.0 Nonrheumatic aortic (valve) stenosis; I87.8 Other specified disorders of veins; I50.9 Heart failure, unspecified; I48.0 Paroxysmal atrial fibrillation; K44.9 Diaphragmatic hernia without obstruction or gangrene; N18.31 Chronic kidney disease, stage 3a; Z68.39 Body mass index [BMI] 39.0-39.9, adult; Z79.01 Long term (current) use of anticoagulants; Z79.84 Long term (current) use of oral hypoglycemic drugs
CPT/HCPCS: 36415; 70450; 71045; 72125; 73521; 73562; 74176; 80048; 80053; 80069; 81001; 82550; 82607; 82746; 82948; 83036; 83605; 83735; 83880; 83921; 84145; 84443; 84484; 85025; 85610; 85730; 86140; 87493; 93005; 93306; 97110; 97162; 97165; 97530; 97535; 99285; A9270; G0378; J1815; J7030

== ENCOUNTER 2024-02-18 11:18 | Inpatient (IN) | payer MEDICARE, SELFPAY ==
[2024-02-18] VITALS (7 sets, daily range): BP systolic 131–190; BP diastolic 58–78; PULSE 59–115; RESP 16–20; TEMP 36.2–36.5; O2SAT 96–100; BMI 34.7
--- NOTE | ~2024-02-18 | XR_ITS ---
EXAMINATION: XR chest 2V DATE: 02/18/2024 12:09 INDICATION: Syncope. TECHNIQUE: Frontal and lateral views of the chest were obtained. COMPARISON: Chest view 02/02/2024, CT abdomen and pelvis 02/02/2024 FINDINGS: There is stable mild elevation of left hemidiaphragm. There are trace pleural effusions. No pneumothorax. The heart size is normal. Surgical clips in the right upper quadrant are likely from c holecystectomy. IMPRESSION: 1. Trace pleural effusions. Reviewed, dictated and finalized at location A. IMPRESSION: 1. Trace pleural effusions.
--- NOTE | ~2024-02-18 | CT_ITS ---
Noncontrast CT scan of the cervical spine Technique: Multiple contiguous axial [address] images of the cervical spine were obtained and rec onstructed in 2D sagittal and coronal planes on the acquisition scanner. Dose reduction technique was used on this scan by utilizing automated exposure control, adjustment of the mA and/or kV according to patient size. The dose-length product (DLP) was 389.83 mGy-cm. Clinical History: Pain COMPARISON: 02/02/2024 Findings: No fractures or dislocations. There is fusion of the left C2-C3 and C3-C4 facet joints. Th ere is advanced degenerative disc narrowing at C5-C6 and C6-C7. There is moderate degenerative disc n arrowing at C3-C4 and C4-C5. There are moderate to advanced facet joint degenerative changes in the r emainder of the facet joints and cervical spine. Possible minimal left neural foraminal narrowing at C3-C4. Probable mild right neural foraminal narrowing at C4-C5. There is bilateral neural foraminal n arrowing at C5-C6. No prevertebral soft tissue swelling. Impression: No fracture or subluxation of the cervical spine. Stable degenerative changes, as noted above. Reviewed, dictated and finalized at location . Impression: No fracture or subluxation of the cervical spine. Stable degenerative changes, as noted above.
--- NOTE | ~2024-02-18 | CT_ITS ---
CTA brain carotid Ordering provider: Pastor Cartwright MD History: . syncope, left neck echymosis . Comparison: February 02, 2024 Technique: CT angiogram head and neck was performed following timed intravenous injection of contrast . Thin slice axial images and reformatted coronal images were obtained. Three dimensional reformatted images of the brain were also obtained using a [email or web address] workstation. Radiation reduction technique ut ilized.The dose-length product was 1650.52 mGy-- FINDINGS: HEAD: --ANTERIOR AND MIDDLE CEREBRAL ARTERIES AND BRANCHES: Normal caliber and contour. --INTERNAL CAROTID ARTERIES: Mild atheromatous disease but no significant stenosis. No occlusion. --BASILAR ARTERY AND BRANCHES: Normal caliber and contour. No atheromatous disease. --POSTERIOR CEREBRAL ARTERIES: The distal branches are not well demonstrated. Otherwise, Normal calib er and contour --POSTERIOR COMMUNICATING ARTERIES: Not visualized which is probably related to congenital absence or small size. --ANEURYSM: None visualized. --BRAIN: Brain atrophy with deep white matter ischemic changes. --BONES AND SUPERFICIAL SOFT TISSUES: Normal --PARANASAL SINUSES AND MASTOIDS: Well aerated. Increased anteroposterior diameter of both thyroid lobes. Band is seen in the right orbit. Congenital ly NECK: --RIGHT CERVICAL CAROTID SYSTEM: Mild atheromatous disease of the carotid bulb and proximal internal carotid artery without significant stenosis. Percent stenosis per NASCET criteria is 70% No carotid dissection. Otherwise, no significant atheromatous disease or stenosis of the cervical carotid system . --LEFT CERVICAL CAROTID SYSTEM: Mild atheromatous disease of the carotid bulb and proximal internal c arotid artery without significant stenosis. Percent stenosis per NASCET criteria is 40% No carotid d issection. Otherwise, no significant atheromatous disease or stenosis of the cervical carotid system. --VERTEBRAL ARTERIES: Normal caliber and contour. There is --VISUALIZED AORTIC ARCH AND BRANCHING VESSELS: Mild atheromatous disease but no significant stenosis . --SOFT TISSUES: Normal. --CERVICAL SPINE: Age appropriate degenerative changes. IMPRESSION: 1. CTA neck. Percent stenosis per NASCET criteria is 70% on the right side and 40% on the left side . 2. No intracranial occlusion or significant stenosis seen. 3. The distal branches of the posterior cerebral arteries are not well demonstrated. Reviewed, dictated and finalized at location A. IMPRESSION: 1. CTA neck. Percent stenosis per NASCET criteria is 70% on the right side an d 40% on the left side. 2. No intracranial occlusion or significant stenosis seen. 3. The distal branches of the posterior cerebral arteries are not well demonst rated.
--- NOTE | 2024-02-18 11:27 | ECG_ITS ---
Test Date: 2024-02-18 12:15:40 Measurements Intervals [place] Rate: 65 P: -14 HI: 192 QRS: -19 QRSD: 88 T: 1 QT: 389 QTc: 407 Interpretive Statements SINUS RHYTHM VOLTAGE CRITERIA FOR LV INFERIOR INFARCT, AGE INDETERMINATE CONSIDER ANTERIOR INFARCT, AGE INDETERMINATE BASELINE ARTIFACT- I, II, III, AVR, AVL, AVF, V1-V6 ABNORMAL ECG Compared to ECG 02/02/2024 23:54:25 NO SIGNIFICANT CHANGE Electronically Signed On 02-18-2024 13:40:54 CDT by Jerrell Valdez D.O.
[2024-02-18 11:58] LABS: Basophils Absolute Auto 0.1 K/mm3 (0.0-0.1); Basophils Percent Auto 0.4 % (0.2-1.2); Eosinophils Absolute Auto 0.1 K/mm3 (0-0.3); Eosinophils Percent Auto 1.2 % (0-4.4); Immature Granulocyte Absolute 0.05 K/mm3 (0.00-0.031); Immature Granulocyte Percent A 0.4 % (0-0.5); Lymphocytes Absolute Auto 1.55 K/mm3 (0.9-3.2); Lymphocytes Percent Auto 13.7 % (18.3-44.2); Mean Corpuscular HGB Conc 31.4 g/dl (32-36); Mean Corpuscular Hemoglobin 27.4 pg (26-34); Mean Corpuscular Volume 87.3 fl (80-100); Mean Platelet Volume 10.8 fl (7.4-10.4); Monocytes Absolute Auto 0.5 K/mm3 (0.1-0.6); Monocytes Percent Auto 4.6 % (2.6-8.5); Neutrophils Percent Auto 79.7 % (45.5-73.1); Platelet Count Result 348 k/mm3 (150-375); Red Blood Count 4.01 M/mm3 (4.2-5.4); Red Cell Distribution Width 15.4 % (11.5-14.5); White Blood Count 11.3 K/mm3 (4.5-10.0)
[2024-02-18 12:09] LABS: Alanine Aminotransferase 15 U/L (6-35); Albumin Level 3.8 g/dL (3.5-5.1); Alkaline Phosphatase 115 U/L (38-126); Anion Gap 8 mmol/L (4-12); Aspartate Amino Transferase 23 U/L (14-36); Bilirubin,Total 0.5 mg/dL (0.2-1.3); Blood Urea Nitrogen 27 mg/dL (7-17); Carbon Dioxide 24 mmol/L (22-30); Chloride 107 mmol/L (98-107); Estimated CRCL calculation 31 ml/min; Estimated Glomerular Filt Rate 47; Glucose 166 mg/dL (65-110); Potassium 4.2 mmol/L (3.4-5.0); Sodium 139 mmol/L (137-145)
--- NOTE | 2024-02-18 12:35 | ED.DIZZY ---
HPI - Dizziness General Chief Complaint: Syncope Stated Complaint: possible syncope Time Seen by Provider: 02/18/24 11:59 History of Present Illness HPI Narrative: 88-year-old female presented to the emergency department for evaluation for frequent syncopal episodes including an episode today. Patient states that she woke up this morning and had no complaints. Patient states she was able to get a breakfast and dress herself. Patient reports she was sitting at table with her daughter when she rested her head on the table. She states that her daughter was unable to wake her up and ultimately called 911. Daughter states that the patient was having some confusion last night, the patient did complain of burning with urination this morning and states that the syncopal episode this morning lasted approximately 1 minute but states the patient remained in her wheelchair and had no falls or injuries. Patient had a recent hospital admission from 02/02-02/07 and patient has been at home and doing well since that Related Data Home Medications Medication Instructions Recorded Confirmed gabapentin 300 mg capsule 600 mg PO Q12H 02/03/24 02/18/24 metformin 500 mg tablet,extended 500 mg PO QPM 02/03/24 02/18/24 release 24 hr warfarin 1 mg tablet 1 mg PO QTUTHSA 02/03/24 02/18/24 warfarin 4 mg tablet 4 mg PO QPM 02/03/24 02/18/24 Allergies Allergy/AdvReac Type Severity Reaction Status Date / Time nitrofurantoin Allergy Intermediate Rash Verified 02/18/24 17:41 Review of Systems Review of Systems: All systems reviewed & are unremarkable except as noted in HPI and below PMFSH Past Medical History Medical History Anemia Anticoagulant long-term use Aphasia Bilateral carotid artery stenosis 70% right and 40% left internal carotid artery stenosis on CTA of the neck on 02/18/2024. Chronic idiopathic thrombocytopenia Chronic kidney disease, stage 3 (moderate) Deep venous thrombosis (2010) Degenerative disc disease Dementia Depression Diabetic neuropathy Diastolic dysfunction Echocardiogram 02/08/2024 showed normal LV function with an EF estimated at 60 to 65% and grade 1 diastolic dysfunction. Essential (primary) hypertension Hypothyroidism Mixed hyperlipidemia Onychomycosis Paroxysmal atrial fibrillation Type 2 diabetes mellitus Surgical History Surgical History History of cholecystectomy History of hysterectomy Family History Family History Mother Cerebrovascular accident Family history of coronary artery disease Heart disease Father Cancer Tobacco abuse Sibling Acute myocardial infarction Heart disease Tobacco abuse Alcohol abuse Other Family history of cardiovascular disease Social History Social History Social History: Surrogate medical decision maker: Maria T Luna, daughter Code status: Full code. Smoking status: Never smoker Second hand tobacco smoke exposure: Yes Alcohol intake: never Substance use: never Substance use type: does not use Do You Feel Safe in your Home?: Yes Lack of Transportation: No Lack of Food: Never True Current Housing: I Have Housing Concerned About Future Housing: No Difficulty Paying Gas/Electric Bills: No Difficulty Paying for Meds: No Currently Unemployed: No Education: High School Diploma/GED Difficulty w/ Childcare or Family Care: No Living arrangements: alone Additional living arrangements comments: Lives in [place]. 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 Spiritual care concerns: No Exam Narrative: APPEARANCE: Ill-appearing HEAD: normocephalic, atraumatic.
[2024-02-18 15:09] LABS: Add Urine Microscopic? YES; Appearance Urine Clear (Clear); Bacteria Urine None Seen /hpf; Bilirubin Urine Negative (Negative); Blood Urine 1+ (Negative); Color Urine Yellow (Yellow); Glucose Urine UA Negative (Negative); Ketones Urine Negative (Negative); Leukocyte Esterase Ur 2+ LEU/UL (Negative); Nitrate Urine Negative (Negative); Protein Urine Trace mg/dL (Negative); Squamous Epithelial Cell Urine None Seen /hpf (Few); Urobilinogen Urine 0.2 mg/dL (<2.0); WBC Urine >100 /hpf (0-3)
--- NOTE | 2024-02-18 16:40 | PM.IMHP ---
H&P: HPI History of Present Illness Date/Time: 02/18/24 16:40 Chief Complaint: Syncope. Narrative: This is an 88-year-old female with history of syncope, dementia, paroxysmal atrial fibrillation on chronic anticoagulation, bilateral carotid artery stenosis, diastolic dysfunction, hypertension, hyperlipidemia, hypothyroidism, type 2 diabetes mellitus, and chronic kidney disease stage 3 who presented to the emergency department via EMS from home for evaluation after syncopal episode. The patient provides the following history. She was discharged from the hospital about a week and half ago after being admitted with rhabdomyolysis after a fall. She has reportedly been in her usual state of health since that time. Today she ate breakfast and while still seated the table she put her head on the table to rest. Daughter states that she was unable to wake the patient up for a brief period of time and she called 911. The patient being she may have felt a bit lightheaded before this occurred but cannot say for certain. She denies lightheadedness, dizziness, chest pain, shortness of breath, nausea, vomiting, and sweats. UA was abnormal and she thinks she may have had some dysuria. In the ED: Vital signs were stable on arrival to the emergency department. Labs were significant for WBC count of 11.3, hemoglobin 11.0, platelet 348, BUN 27, creatinine 1.10. Urinalysis was positive for 1+ blood, 2+ leukocyte esterase, 3 to 5 RBC, and greater than 100 WBCs. No bacteria was seen on microscopy. Head and neck CTA showed no intracranial occlusion or significant stenosis and 70% right and 40% left-sided internal carotid artery stenosis. Cervical spine CT was without acute findings and showed stable degenerative changes. Chest x-ray revealed trace pleural effusions. She was given ceftriaxone 1 g for possible UTI and is being admitted in this setting for close monitoring. Review of Systems Review of Systems: 12 systems were reviewed and are negative except for as per HPI. [facility] Past Medical History Medical History Anemia Anticoagulant long-term use Aphasia Bilateral carotid artery stenosis 70% right and 40% left internal carotid artery stenosis on CTA of the neck on 02/18/2024. Chronic idiopathic thrombocytopenia Chronic kidney disease, stage 3 (moderate) Deep venous thrombosis (2010) Degenerative disc disease Dementia Depression Diabetic neuropathy Diastolic dysfunction Echocardiogram 02/08/2024 showed normal LV function with an EF estimated at 60 to 65% and grade 1 diastolic dysfunction. Essential (primary) hypertension Hypothyroidism Mixed hyperlipidemia Onychomycosis Paroxysmal atrial fibrillation Type 2 diabetes mellitus Surgical History Surgical History History of cholecystectomy History of hysterectomy Family History Family History Mother Cerebrovascular accident Family history of coronary artery disease Heart disease Father Cancer Tobacco abuse Sibling Acute myocardial infarction Heart disease Tobacco abuse Alcohol abuse Other Family history of cardiovascular disease Social History Social History Social History: Surrogate medical decision maker: Maria T Luna, daughter Code status: Full code. Smoking status: Never smoker Second hand tobacco smoke exposure: Yes Alcohol intake: never Substance use: never Substance use type: does not use Do You Feel Safe in your Home?: Yes Lack of Transportation: No Lack of Food: Never True Current Housing: I Have Housing Concerned About Future Housing: No Difficulty Paying Gas/Electric Bills: No Difficulty Paying for Meds: No Currently Unemployed: No Education: High School Dip
--- NOTE | 2024-02-18 17:29 | ADMGEN ---
This patient, Maria Luna, was admitted to Medical Room 349-01. Patient/family oriented to hospital policies and general routines including ID bracelet, bed and alarms, visiting hours, pain management, procedures, bathroom and other care routines, personal items, smoking policy, room service/diet, and visiting hours. Information on how to activate the Rapid Response Team has been discussed. Patient/Family are encouraged to report perceived risks to care and to ask questions if they do not understand what they are told or what they should do.
[2024-02-18 17:35] LABS: Glucose Point of Care 95 mg/dl (65-105)
[2024-02-18 19:38] LABS: INR 3.4; Prothrombin Time 34.4 Seconds (11.1-14.7)
[2024-02-19] VITALS (12 sets, daily range): BP systolic 113–171; BP diastolic 48–93; PULSE 63–85; RESP 16–20; TEMP 36.4–37.2; O2SAT 97–99
[2024-02-19] MEDS: LEVOTHYROXINE SODIUM 50 MCG TABLET PO (05:14)
[2024-02-19 05:29] LABS: Glucose Point of Care 117 mg/dl (65-105)
[2024-02-19 06:49] LABS: Hematocrit 35.7 % (37.0-47.0); Hemoglobin 10.9 g/dL (12.0-15.0); Mean Corpuscular HGB Conc 30.5 g/dl (32-36); Mean Corpuscular Hemoglobin 26.5 pg (26-34); Mean Corpuscular Volume 86.9 fl (80-100); Mean Platelet Volume 10.1 fl (7.4-10.4); Platelet Count Result 311 k/mm3 (150-375); Red Blood Count 4.11 M/mm3 (4.2-5.4); Red Cell Distribution Width 15.6 % (11.5-14.5); White Blood Count 8.3 K/mm3 (4.5-10.0)
[2024-02-19 07:00] LABS: Anion Gap 6 mmol/L (4-12); Blood Urea Nitrogen 22 mg/dL (7-17); Carbon Dioxide 25 mmol/L (22-30); Chloride 108 mmol/L (98-107); Estimated CRCL calculation 34 ml/min; Estimated Glomerular Filt Rate 52; Glucose 110 mg/dL (65-110); Magnesium 2.1 mg/dL (1.6-2.3); Potassium 4.3 mmol/L (3.4-5.0); Sodium 139 mmol/L (137-145)
[2024-02-19 07:04] LABS: INR 3.1; Prothrombin Time 32.6 Seconds (11.1-14.7)
[2024-02-19 08:17] LABS: Glucose Point of Care 110 mg/dl (65-105)
--- NOTE | 2024-02-19 09:19 | PM.CNCAR ---
Assessment and Plan Assessment and plan (1) Syncope and collapse: Code(s): R55 - Syncope and collapse Status: Acute Assessment and Plan: Presents to the hospital following a syncopal event. She reports more frequent syncope lately. No specific syncopal prodrome. She wore a traffic monitor specialist earlier this year which did not show any tachyarrhythmias, significant bradycardia, or pauses. Telemetry during this admission has been unrevealing as well. However, in the absence of another explanation for her syncope, recommend implantation of loop recorder for ongoing monitor for an arrhythmogenic etiology of her syncope. (2) Paroxysmal atrial fibrillation: Code(s): I48.0 - Paroxysmal atrial fibrillation Status: Acute Assessment and Plan: Longstanding history of paroxysmal atrial fibrillation. Not on any rate controlling agents. She takes coumadin for cardioembolic risk reduction. Since she has been having frequent syncope and falls she has been referred to Dr. Mosley for consideration of LAAO. (3) Anticoagulant long-term use: Code(s): Z79.01 - shelter (current) use of anticoagulants Status: Acute Assessment and Plan: As above. Continue warfarin for now, INR goal 2.0-3.0 (4) Diastolic dysfunction: Code(s): I51.89 - Other ill-defined heart diseases Status: Acute Assessment and Plan: No clinical signs of decompensated heart failure currently. History of Present Illness History of Present Illness Consult date/time: 02/19/24 09:19 Requesting physician: Ailin Johnson PA-C Consult reason: Other (syncope) Reason For Visit: Syncope/UTI Narrative: Maria Luna is an 88 year old female with paroxysmal atrial fibrillation, mild aortic stenosis, coronary artery disease, and syncope. This is a patient who follows in our office with Dr. Mosley. She comes to the hospital following a syncopal episode. Patient describes sitting at the table when she began to feel like she needed to lay her head down on the table and subsequently lost consciousness. Patient states her daughter who was present was unable to wake her. She does not recall any other symptoms associated with this though the patient is somewhat of a poor historian as she has some underlying dementia. However, she states she has been having episodes similar to this more frequently as of late. She wore a 30 day traffic monitor specialist in July of this year because of syncope but the monitor was unrevealing. At the time of my evaluation she is lying comfortably in bed and has no active complaints. Review of Systems Review of Systems: All systems reviewed & are unremarkable except as noted in HPI and below PMFSH Past Medical History Medical History Anemia Anticoagulant long-term use Aphasia Bilateral carotid artery stenosis 70% right and 40% left internal carotid artery stenosis on CTA of the neck on 02/18/2024. Chronic idiopathic thrombocytopenia Chronic kidney disease, stage 3 (moderate) Deep venous thrombosis (2010) Degenerative disc disease Dementia Depression Diabetic neuropathy Diastolic dysfunction Echocardiogram 02/08/2024 showed normal LV function with an EF estimated at 60 to 65% and grade 1 diastolic dysfunction. Essential (primary) hypertension Hypothyroidism Mixed hyperlipidemia Onychomycosis Paroxysmal atrial fibrillation Type 2 diabetes mellitus Surgical History Surgical History History of cholecystectomy History of hysterectomy Family History Family History Mother Cerebrovascular accident Family history of coronary artery disease Heart disease Father Cancer Tobacco abuse Sibling Acute myocardial infarction Heart disease Tobacco abuse Alcohol abuse
[2024-02-19] MEDS: amLODIPine BESYLATE 5 MG TABLET PO (09:57)
[2024-02-19] MEDS: MEMANTINE 5 MG TABLET PO (09:57)
[2024-02-19] MEDS: ATORVASTATIN 10 MG TABLET PO (09:57)
[2024-02-19] MEDS: busPIRone HCL 10 MG TABLET PO ×2 (09:57→17:51)
[2024-02-19] MEDS: GABAPENTIN 300 MG CAPSULE 600 MG PO ×2 (09:57→20:40)
[2024-02-19] MEDS: lisinopriL 20 MG TABLET PO (09:57)
[2024-02-19] MEDS: ISOSORBIDE MONONITRATE 30 MG TAB.ER.24H PO (09:57)
--- NOTE | 2024-02-19 11:13 | PM.IMPN ---
Progress Note: A&P Assessment and Plan (1) Syncope: Code(s): R55 - Syncope and collapse Status: Acute Assessment and Plan: The patient has a history of syncope and has had workups for that as recent as spring. She has bilateral internal carotid artery stenosis though it is not severe enough for surgery and it is unlikely that this is causing her episodes of syncope. Vertebral arteries were of normal caliber. Most recent echocardiogram showed normal LV systolic function and grade 1 diastolic dysfunction. It is plausible that she could be having cardiac dysrhythmias that were not caught on telemetry during previous hospitalizations and an event monitor may be appropriate on discharge however would consider loop recorder implantation as well as is seems to be a recurrent problem. Consult Cardiology for their opinion. Check orthostatic vital signs. 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 Mosley for consideration of LAAO -cardiology saw her and ok to Continue warfarin for now, INR goal 2.0-3.0 - she takes 4 mg at pm and 1 mg tu,th,sat for a total of 5 mg - since INR is a little high-3.1- for simplicity-will restart it at 4 mg - trend INR (3) Bilateral carotid artery stenosis: Code(s): I65.23 - Occlusion and stenosis of bilateral carotid arteries Status: Acute (4) Abnormal urinalysis: Code(s): R82.90 - Unspecified abnormal findings in urine Status: Acute Assessment and Plan: Urinalysis is abnormal and she has been started on ceftriaxone, pending urine culture, however it is difficult to say whether not she is truly symptomatic. (5) Chronic kidney disease, stage 3 (moderate): Qualifiers: Chronic kidney disease stage 3 subtype: stage 3a (GFR 45-59) Qualified Code(s): N18.31 - Chronic kidney disease, stage 3a Code(s): N18.3 - Chronic kidney disease, stage 3 (moderate) Status: Acute (6) Dementia: Qualifiers: Dementia behavioral or psychological symptom: without behavioral, psychotic, or mood disturbance or anxiety Dementia severity: moderate Dementia type: vascular dementia Qualified Code(s): F01.B0 - Vascular dementia, moderate, without behavioral disturbance, psychotic disturbance, mood disturbance, and anxiety Code(s): F03.90 - Unspecified dementia, unspecified severity, without behavioral disturbance, psychotic disturbance, mood disturbance, and anxiety Status: Acute (7) Diastolic dysfunction: Code(s): I51.89 - Other ill-defined heart diseases Status: Acute (8) Essential (primary) hypertension: Code(s): I10 - Essential (primary) hypertension Status: Acute (9) Hypothyroidism: Code(s): E03.9 - Hypothyroidism, unspecified Status: Acute Assessment and Plan: Continue levothyroxine and check TSH. (10) Paroxysmal atrial fibrillation: Code(s): I48.0 - Paroxysmal atrial fibrillation Status: Acute Assessment and Plan: The patient presented to the emergency department for evaluation after syncopal episode while sitting at the kitchen table as detailed in HPI. Labs, imaging, EKG, and all reports were personally reviewed. The patient has a history of syncope and has had workups for that as recent as spring. She has bilateral internal carotid artery stenosis though it is not severe enough for surgery and it is unlikely that this is causing her episodes of syncope. Vertebral arteries were of normal caliber. Most recent echocardiogram showed normal LV systolic function and grade 1 diastolic dysfunction. Her glucose was 133 EMS arrival. It is plausible that she could be having cardiac dysrhythmias that were not caught on telemetry during
[2024-02-19 11:49] LABS: Glucose Point of Care 235 mg/dl (65-105)
[2024-02-19] MEDS: INSULIN ASPART (*BKC) 100 UNITS/ML SUB-Q (12:26)
[2024-02-19 17:42] LABS: Glucose Point of Care 115 mg/dl (65-105)
[2024-02-19] MEDS: WARFARIN (*PBKC) 4 MG TABLET PO (17:53)
[2024-02-19 21:10] LABS: Glucose Point of Care 125 mg/dl (65-105)
[2024-02-20] VITALS (10 sets, daily range): BP systolic 151–192; BP diastolic 59–77; PULSE 64–98; RESP 18; TEMP 36.3–36.9; O2SAT 95–98
[2024-02-20] MEDS: ACETAMINOPHEN 325 MG TABLET 650 MG PO (05:13)
[2024-02-20] MEDS: LEVOTHYROXINE SODIUM 50 MCG TABLET PO (05:14)
[2024-02-20 06:36] LABS: INR 3.1; Prothrombin Time 31.9 Seconds (11.1-14.7)
[2024-02-20 08:01] LABS: Glucose Point of Care 115 mg/dl (65-105)
--- NOTE | 2024-02-20 09:19 | PM.IMPN ---
Progress Note: A&P Assessment and Plan (1) Syncope: Code(s): R55 - Syncope and collapse Status: Acute Assessment and Plan: Patient has a history of syncope and has had workups for that as recent as spring. - She has bilateral internal carotid artery stenosis though it is not severe enough for surgery and it is unlikely that this is causing her episodes of syncope. - Vertebral arteries were of normal caliber. - Head Neck CTA: 1. CTA neck. Percent stenosis per NASCET criteria is 70% on the right side and 40% on the left side. 2. No intracranial occlusion or significant stenosis seen. 3. The distal branches of the posterior cerebral arteries are not well demonstrated. - C spine CT: No fracture or subluxation of the cervical spine. Stable degenerative changes, as noted above. - echocardiogram 02/04/2024 showed normal LV systolic function of 60-65% and grade 1 diastolic dysfunction. Possible that she could be having cardiac dysrhythmias that were not caught on telemetry during previous hospitalizations and an event monitor may be appropriate on discharge however would consider loop recorder implantation as well as is seems to be a recurrent problem. Cardiology consulted She wore a hospital monitor earlier this year which did not show any tachyarrhythmias, significant bradycardia, or pauses. Telemetry during this admission has been unrevealing as well. However, in the absence of another explanation for her syncope, recommend implantation of loop recorder for ongoing monitor for an arrhythmogenic etiology of her syncope. Check orthostatic vital signs. Continue to monitor on telemetry 02/19: Patient is noted to be on a large dose of gabapentin. Reviewed EMR and she was started on 600 mg BID in Jun 2023, not long after starting this medication patient started presenting with syncope and increased confusion. (2) Paroxysmal atrial fibrillation: Code(s): I48.0 - Paroxysmal atrial fibrillation Status: Acute Assessment and Plan: Chronic, not on any rate controlling medications. However she is on warfarin for anticoagulation. Cardiology consulted, Since she has been having frequent syncope and falls she has been referred to Dr. Mosley for consideration of LAAO. -cardiology saw her and ok to Continue warfarin for now, INR goal 2.0-3.0 - she takes 4 mg at pm and 1 mg ,,sat for a total of 5 mg - since INR is a little high-3.1- for simplicity-will restart it at 4 mg - trend INR (3) Anticoagulant long-term use: Code(s): Z79.01 - longterm (current) use of anticoagulants Status: Acute Assessment and Plan: on coumadin at home Since she has been having frequent syncope and falls she has been referred to Dr. Mosley for consideration of LAAO -cardiology saw her and ok to Continue warfarin for now, INR goal 2.0-3.0 - she takes 4 mg at pm and 1 mg ,th,sat for a total of 5 mg - since INR is a little high-3.1- for simplicity-will restart it at 4 mg - trend INR (4) Acute UTI: Code(s): N39.0 - Urinary tract infection, site not specified Status: Acute Assessment and Plan: - UA:clear appearance with 1+ blood, negative nitrates, 2+ leukocytes, 3-5 RBC, >100 WBC - UC obtained on 02/17: Ecoli pansensitive - no previous micro to be reviewed - started on Rocephin, transitioned to PO Keflex on 02/19 (5) Chronic kidney disease, stage 3 (moderate): Qualifiers: Chronic kidney disease stage 3 subtype: stage 3a (GFR 45-59) Qualified Code(s): N18.31 - Chronic kidney disease, stage 3a Code(s): N18.3 - Chronic kidney disease, stage 3 (moderate) Status: Acute Assessment and Plan: BUN/Cr 27/1.10 on admission. Baseline Cr appears 1.0-1.4. - BUN/Cr 26/0.9 - Monitor I/O - Avoid nephrotoxic medications - Renally dose medications (6) Essential (primary) hypertension: Code(s): I10 - Essential (primary) hypertension Status:
[2024-02-20 09:22] LABS: Basophils Absolute Auto 0.1 K/mm3 (0.0-0.1); Basophils Percent Auto 0.6 % (0.2-1.2); Eosinophils Absolute Auto 0.1 K/mm3 (0-0.3); Eosinophils Percent Auto 1.1 % (0-4.4); Hematocrit 34.8 % (37.0-47.0); Hemoglobin 10.9 g/dL (12.0-15.0); Immature Granulocyte Absolute 0.05 K/mm3 (0.00-0.031); Immature Granulocyte Percent A 0.6 % (0-0.5); Lymphocytes Absolute Auto 1.07 K/mm3 (0.9-3.2); Lymphocytes Percent Auto 12.6 % (18.3-44.2); Mean Corpuscular HGB Conc 31.3 g/dl (32-36); Mean Corpuscular Hemoglobin 26.8 pg (26-34); Mean Corpuscular Volume 85.7 fl (80-100); Mean Platelet Volume 10.8 fl (7.4-10.4); Monocytes Absolute Auto 0.8 K/mm3 (0.1-0.6); Monocytes Percent Auto 9.2 % (2.6-8.5); Neutrophils Absolute Auto 6.5 K/mm3 (1.3-6.7); Neutrophils Percent Auto 75.9 % (45.5-73.1); Platelet Count Result 321 k/mm3 (150-375); Red Blood Count 4.06 M/mm3 (4.2-5.4); Red Cell Distribution Width 15.4 % (11.5-14.5); White Blood Count 8.5 K/mm3 (4.5-10.0)
[2024-02-20 09:56] LABS: Alanine Aminotransferase 14 U/L (6-35); Albumin Level 3.3 g/dL (3.5-5.1); Alkaline Phosphatase 106 U/L (38-126); Anion Gap 8 mmol/L (4-12); Aspartate Amino Transferase 21 U/L (14-36); Bilirubin,Total 0.7 mg/dL (0.2-1.3); Blood Urea Nitrogen 26 mg/dL (7-17); Calcium 8.8 mg/dL (8.4-10.2); Carbon Dioxide 23 mmol/L (22-30); Chloride 109 mmol/L (98-107); Estimated CRCL calculation 38 ml/min; Estimated Glomerular Filt Rate 59; Glucose 109 mg/dL (65-110); Potassium 4.3 mmol/L (3.4-5.0); Sodium 140 mmol/L (137-145)
--- NOTE | 2024-02-20 10:28 | PCPTNOTE ---
Attempted PT evaluation, pt going for procedure. Will follow.
--- NOTE | 2024-02-20 10:45 | PM.PNCARD ---
Progress Note: A&P Assessment and Plan (1) Syncope: Code(s): R55 - Syncope and collapse Status: Acute Plan 88-year-old lady with intermittent syncope. Outpatient Holter monitoring did not disclose any problematic arrhythmias and loop recorder has been recommended. The patient is taking warfarin for systemic anticoagulation and INR today is therapeutic. This needs to be held for least several days before implantation of a loop recorder in order to avoid pocket hematoma. The patient is otherwise seems to be stable hemodynamically and is in sinus rhythm. If she remains in the hospital we can do this LINQ implant when her INR is normal. She is stable otherwise for discharge to home and this can be done as an outpatient as well. Mario Quiroz MD [facility] Subjective Date/time seen: Date of service: 02/20/24 10:45 Interval history: 88-year-old female with history of syncope, dementia, paroxysmal atrial fibrillation on chronic anticoagulation, bilateral carotid artery stenosis, diastolic dysfunction, hypertension, hyperlipidemia, hypothyroidism, type 2 diabetes mellitus, and chronic kidney disease stage 3 who presented to the emergency department via EMS from home for evaluation after syncopal episode. 02/20/2024: Patient is comfortable in the cardiac cath technologist holding area anticipating implantation of [employer] LINQ loop recorder. She is in sinus rhythm and is comfortable although confused. Review of chart indicates INR is still therapeutic. Exam Const: General: comfortable, no acute distress, alert and awake Other: Memory deficit alert and responsive but not oriented HENMT: Head: normal to inspection Eyes: General: appearance normal, both eyes and all related structures Pupils: Equal, round and reactive pupils present Neck: Neck: normal visual inspection, supple and no JVD Carotids: bruit Resp: Effort & Inspection: normal respiratory effort Auscultation: clear to auscultation bilaterally Cardio: Rate: regular rate Rhythm: regular rhythm Heart sounds: S1 normal heart sound present, S2 normal heart sound present and Murmur heart sound present systolic GI: Auscultation: normal bowel sounds Skin: General skin exam: normal color Neuro: General: patient oriented x3 Cranial nerves: Yes Equal, round and reactive pupils present Extrem: General: normal to inspection Other: no edema Psych: Appearance: grossly normal Mental Status: mental status grossly normal Objective Data Vital Signs Vital Signs: Vital Signs - 24 hr 02/19/24 13:56 02/19/24 12:00 02/19/24 16:00 Temperature 36.4 C Pulse Rate 68 85 75 Respiratory Rate 16 Blood Pressure 113/48 L Pulse Oximetry 97 Oxygen Delivery 02/19/24 20:44 02/19/24 20:48 02/19/24 20:00 Temperature 37.2 C Pulse Rate 79 75 78 Respiratory Rate 16 Blood Pressure 148/58 H 158/90 H Pulse Oximetry 97 Oxygen Delivery 02/19/24 20:00 02/20/24 05:11 02/20/24 00:00 Temperature 36.6 C Pulse Rate 81 72 Respiratory Rate 18 Blood Pressure 158/76 H Pulse Oximetry 96 Oxygen Delivery Room Air 02/20/24 04:00 02/20/24 08:00 Temperature 36.3 C L Pulse Rate 92 82 Respiratory Rate 18 Blood Pressure 192/77 H Pulse Oximetry 98 Oxygen Delivery Intake/Output Intake/Output: Intake & Output 02/17/24 02/18/24 02/19/24 02/20/24 23:59 23:59 23:59 23:59 Intake Total 290 1246 400 Output Total 150 1900 Balance 290 1096 -1500 Meds/Results Medications: Active Medications Generic Name Dose Route Start Last Admin Trade Name Freq PRN Reason Stop Dose Admin Acetaminophen 650 mg 02/18/24 16:58 02/20/24 05:13 Acetaminophen 325 Mg Tablet PO 650 mg Q6H PRN Administration Mild Pain (1-3) or Fever Amlodipine Besylate 5 mg 02/19/24 09:00 02/19/24 09:57 Amlodipine Besylate 5 Mg Tablet PO 5 mg DAILY GAVIN Administration Atorvastatin Calcium 10 mg 02/19/24 09:00 02/19/24 09:57
[2024-02-20] MEDS: MEMANTINE 5 MG TABLET PO (11:23)
[2024-02-20] MEDS: ATORVASTATIN 10 MG TABLET PO (11:23)
[2024-02-20] MEDS: GABAPENTIN 300 MG CAPSULE 600 MG PO (11:23)
[2024-02-20] MEDS: ISOSORBIDE MONONITRATE 30 MG TAB.ER.24H PO (11:23)
[2024-02-20] MEDS: busPIRone HCL 10 MG TABLET PO ×2 (11:23→17:12)
[2024-02-20] MEDS: amLODIPine BESYLATE 5 MG TABLET PO (11:23)
[2024-02-20] MEDS: lisinopriL 20 MG TABLET PO (11:24)
[2024-02-20 11:25] LABS: Glucose Point of Care 126 mg/dl (65-105)
[2024-02-20 16:55] LABS: Glucose Point of Care 123 mg/dl (65-105)
[2024-02-20] MEDS: GABAPENTIN 300 MG CAPSULE PO (21:28)
[2024-02-20 22:39] LABS: Glucose Point of Care 150 mg/dl (65-105)
[2024-02-21] VITALS (10 sets, daily range): BP systolic 107–168; BP diastolic 48–63; PULSE 66–91; RESP 16–18; TEMP 36.3–37; O2SAT 96–100
[2024-02-21] MEDS: LEVOTHYROXINE SODIUM 50 MCG TABLET PO (05:30)
[2024-02-21 06:59] LABS: Basophils Percent Auto 0.4 % (0.2-1.2); Eosinophils Absolute Auto 0.1 K/mm3 (0-0.3); Eosinophils Percent Auto 0.6 % (0-4.4); Hematocrit 34.4 % (37.0-47.0); Hemoglobin 10.6 g/dL (12.0-15.0); Immature Granulocyte Absolute 0.03 K/mm3 (0.00-0.031); Immature Granulocyte Percent A 0.3 % (0-0.5); Lymphocytes Absolute Auto 1.18 K/mm3 (0.9-3.2); Lymphocytes Percent Auto 12.5 % (18.3-44.2); Mean Corpuscular HGB Conc 30.8 g/dl (32-36); Mean Corpuscular Hemoglobin 26.9 pg (26-34); Mean Corpuscular Volume 87.3 fl (80-100); Mean Platelet Volume 10.4 fl (7.4-10.4); Monocytes Absolute Auto 0.8 K/mm3 (0.1-0.6); Monocytes Percent Auto 8.4 % (2.6-8.5); Neutrophils Absolute Auto 7.3 K/mm3 (1.3-6.7); Neutrophils Percent Auto 77.8 % (45.5-73.1); Platelet Count Result 315 k/mm3 (150-375); Red Blood Count 3.94 M/mm3 (4.2-5.4); Red Cell Distribution Width 15.4 % (11.5-14.5); White Blood Count 9.4 K/mm3 (4.5-10.0)
[2024-02-21 07:11] LABS: Alanine Aminotransferase 13 U/L (6-35); Albumin Level 3.5 g/dL (3.5-5.1); Alkaline Phosphatase 102 U/L (38-126); Anion Gap 7 mmol/L (4-12); Aspartate Amino Transferase 21 U/L (14-36); Bilirubin,Total 0.7 mg/dL (0.2-1.3); Blood Urea Nitrogen 25 mg/dL (7-17); Calcium 8.8 mg/dL (8.4-10.2); Carbon Dioxide 26 mmol/L (22-30); Chloride 106 mmol/L (98-107); Estimated CRCL calculation 27 ml/min; Estimated Glomerular Filt Rate 39; Glucose 130 mg/dL (65-110); Potassium 4.4 mmol/L (3.4-5.0); Sodium 139 mmol/L (137-145)
[2024-02-21 07:20] LABS: INR 2.7; Prothrombin Time 29.2 Seconds (11.1-14.7)
[2024-02-21] MEDS: MEMANTINE 5 MG TABLET PO (08:05)
[2024-02-21] MEDS: ISOSORBIDE MONONITRATE 30 MG TAB.ER.24H PO (08:05)
[2024-02-21] MEDS: lisinopriL 20 MG TABLET PO (08:05)
[2024-02-21] MEDS: GABAPENTIN 300 MG CAPSULE PO ×2 (08:05→20:41)
[2024-02-21] MEDS: amLODIPine BESYLATE 5 MG TABLET PO ×2 (08:06→12:43)
[2024-02-21] MEDS: CEPHALEXIN 500 MG CAPSULE PO ×2 (08:06→20:41)
[2024-02-21] MEDS: busPIRone HCL 10 MG TABLET PO ×2 (08:06→17:10)
[2024-02-21] MEDS: ATORVASTATIN 10 MG TABLET PO (08:06)
[2024-02-21 08:34] LABS: Glucose Point of Care 109 mg/dl (65-105)
--- NOTE | 2024-02-21 08:47 | PM.IMPN ---
Progress Note: A&P Assessment and Plan (1) Syncope: Code(s): R55 - Syncope and collapse Status: Acute Assessment and Plan: Patient has a history of syncope and has had workups for that as recent as spring. - She has bilateral internal carotid artery stenosis though it is not severe enough for surgery and it is unlikely that this is causing her episodes of syncope. - Vertebral arteries were of normal caliber. - Head Neck CTA: 1. CTA neck. Percent stenosis per NASCET criteria is 70% on the right side and 40% on the left side. 2. No intracranial occlusion or significant stenosis seen. 3. The distal branches of the posterior cerebral arteries are not well demonstrated. - C spine CT: No fracture or subluxation of the cervical spine. Stable degenerative changes, as noted above. - echocardiogram 02/04/2024 showed normal LV systolic function of 60-65% and grade 1 diastolic dysfunction. Possible that she could be having cardiac dysrhythmias that were not caught on telemetry during previous hospitalizations and an event monitor may be appropriate on discharge however would consider loop recorder implantation as well as is seems to be a recurrent problem. Cardiology consulted She wore a monitor technician earlier this year which did not show any tachyarrhythmias, significant bradycardia, or pauses. Telemetry during this admission has been unrevealing as well. However, in the absence of another explanation for her syncope, recommend implantation of loop recorder for ongoing monitor for an arrhythmogenic etiology of her syncope. Check orthostatic vital signs. Continue to monitor on telemetry 02/19: Patient is noted to be on a large dose of gabapentin. Reviewed EMR and she was started on 600 mg BID in Jun 2023, not long after starting this medication patient started presenting with syncope and increased confusion. 02/20: Patient remains AOx1 but appears more awake per RN. Will continue her dose of gabapentin and monitor. (2) Paroxysmal atrial fibrillation: Code(s): I48.0 - Paroxysmal atrial fibrillation Status: Acute Assessment and Plan: Chronic, not on any rate controlling medications. However she is on warfarin for anticoagulation. Cardiology consulted, Since she has been having frequent syncope and falls she has been referred to Dr. Mosley for consideration of LAAO. -cardiology saw her and ok to Continue warfarin for now, INR goal 2.0-3.0 - she takes 4 mg at pm and 1 mg tu,th,sat for a total of 5 mg - since INR is a little high-3.1- for simplicity-will restart it at 4 mg - INR 2.7 on am labs (3) Anticoagulant long-term use: Code(s): Z79.01 - [facility] (current) use of anticoagulants Status: Acute Assessment and Plan: on coumadin at home Since she has been having frequent syncope and falls she has been referred to Dr. Mosley for consideration of LAAO -cardiology saw her and ok to Continue warfarin for now, INR goal 2.0-3.0 - she takes 4 mg at pm and 1 mg tu,th,sat for a total of 5 mg - since INR is a little high-3.1- for simplicity-will restart it at 4 mg - INR 2.7 on am labs (4) Acute UTI: Code(s): N39.0 - Urinary tract infection, site not specified Status: Acute Assessment and Plan: - UA:clear appearance with 1+ blood, negative nitrates, 2+ leukocytes, 3-5 RBC, >100 WBC - UC obtained on 02/17: Ecoli pansensitive - no previous micro to be reviewed - started on Rocephin, transitioned to PO Keflex on 02/19. Course to be completed on 02/23. (5) Chronic kidney disease, stage 3 (moderate): Qualifiers: Chronic kidney disease stage 3 subtype: stage 3a (GFR 45-59) Qualified Code(s): N18.31 - Chronic kidney disease, stage 3a Code(s): N18.3 - Chronic kidney disease, stage 3 (moderate) Status: Acute Assessment and Plan: BUN/Cr 27/1.10 on admission. Baseline Cr appears 1.0-1.4. - BUN/Cr 25/1.3 - Monitor I/O and elect
[2024-02-21 12:01] LABS: Glucose Point of Care 177 mg/dl (65-105)
[2024-02-21] MEDS: SODIUM CHLORIDE 0.9% IV 1,000 ML 75 ML IV CONT (12:44)
[2024-02-21 17:10] LABS: Glucose Point of Care 114 mg/dl (65-105)
[2024-02-21 20:46] LABS: Glucose Point of Care 183 mg/dl (65-105)
[2024-02-22] VITALS (9 sets, daily range): BP systolic 125–153; BP diastolic 49–70; PULSE 61–87; RESP 16–20; TEMP 36–36.8; O2SAT 98–100
[2024-02-22] MEDS: SODIUM CHLORIDE 0.9% IV 1,000 ML 75 ML IV CONT (00:50)
[2024-02-22] MEDS: LEVOTHYROXINE SODIUM 50 MCG TABLET PO (05:37)
[2024-02-22 06:01] LABS: Basophils Absolute Auto 0.1 K/mm3 (0.0-0.1); Basophils Percent Auto 0.6 % (0.2-1.2); Eosinophils Absolute Auto 0.2 K/mm3 (0-0.3); Eosinophils Percent Auto 1.7 % (0-4.4); Hematocrit 34.9 % (37.0-47.0); Hemoglobin 10.6 g/dL (12.0-15.0); Immature Granulocyte Absolute 0.03 K/mm3 (0.00-0.031); Immature Granulocyte Percent A 0.3 % (0-0.5); Lymphocytes Absolute Auto 1.54 K/mm3 (0.9-3.2); Lymphocytes Percent Auto 17.6 % (18.3-44.2); Mean Corpuscular HGB Conc 30.4 g/dl (32-36); Mean Corpuscular Hemoglobin 26.6 pg (26-34); Mean Corpuscular Volume 87.5 fl (80-100); Mean Platelet Volume 11.3 fl (7.4-10.4); Monocytes Absolute Auto 0.7 K/mm3 (0.1-0.6); Monocytes Percent Auto 8.4 % (2.6-8.5); Neutrophils Absolute Auto 6.3 K/mm3 (1.3-6.7); Neutrophils Percent Auto 71.4 % (45.5-73.1); Platelet Count Result 296 k/mm3 (150-375); Red Blood Count 3.99 M/mm3 (4.2-5.4); Red Cell Distribution Width 15.3 % (11.5-14.5); White Blood Count 8.8 K/mm3 (4.5-10.0)
[2024-02-22 06:10] LABS: Alanine Aminotransferase 13 U/L (6-35); Albumin Level 3.5 g/dL (3.5-5.1); Alkaline Phosphatase 106 U/L (38-126); Anion Gap 5 mmol/L (4-12); Aspartate Amino Transferase 19 U/L (14-36); Bilirubin,Total 0.7 mg/dL (0.2-1.3); Blood Urea Nitrogen 35 mg/dL (7-17); Calcium 8.7 mg/dL (8.4-10.2); Carbon Dioxide 25 mmol/L (22-30); Chloride 109 mmol/L (98-107); Estimated CRCL calculation 27 ml/min; Estimated Glomerular Filt Rate 39; Glucose 115 mg/dL (65-110); INR 2.2; Potassium 4.1 mmol/L (3.4-5.0); Prothrombin Time 24.3 Seconds (11.1-14.7); Sodium 139 mmol/L (137-145)
--- NOTE | 2024-02-22 07:48 | PM.IMPN ---
Progress Note: A&P Assessment and Plan (1) Syncope: Code(s): R55 - Syncope and collapse Status: Acute Assessment and Plan: Patient has a history of syncope and has had workups for that as recent as spring. - She has bilateral internal carotid artery stenosis though it is not severe enough for surgery and it is unlikely that this is causing her episodes of syncope. - Vertebral arteries were of normal caliber. - Head Neck CTA: 1. CTA neck. Percent stenosis per NASCET criteria is 70% on the right side and 40% on the left side. 2. No intracranial occlusion or significant stenosis seen. 3. The distal branches of the posterior cerebral arteries are not well demonstrated. - C spine CT: No fracture or subluxation of the cervical spine. Stable degenerative changes, as noted above. - echocardiogram 02/04/2024 showed normal LV systolic function of 60-65% and grade 1 diastolic dysfunction. Possible that she could be having cardiac dysrhythmias that were not caught on telemetry during previous hospitalizations and an event monitor may be appropriate on discharge however would consider loop recorder implantation as well as is seems to be a recurrent problem. Cardiology consulted She wore a cement and concrete plant worker earlier this year which did not show any tachyarrhythmias, significant bradycardia, or pauses. Telemetry during this admission has been unrevealing as well. However, in the absence of another explanation for her syncope, recommend implantation of loop recorder for ongoing monitor for an arrhythmogenic etiology of her syncope. Check orthostatic vital signs. Continue to monitor on telemetry 02/19: Patient is noted to be on a large dose of gabapentin. Reviewed EMR and she was started on 600 mg BID in Jun 2023, not long after starting this medication patient started presenting with syncope and increased confusion. 02/20: Patient remains AOx1 but appears more awake per RN. Will continue her dose of gabapentin and monitor. 02/21: Patient is AOx1. Very alert sitting up in her chair holding conversation. (2) Paroxysmal atrial fibrillation: Code(s): I48.0 - Paroxysmal atrial fibrillation Status: Acute Assessment and Plan: Chronic, not on any rate controlling medications. However she is on warfarin for anticoagulation. Cardiology consulted, Since she has been having frequent syncope and falls she has been referred to Dr. Mosley for consideration of LAAO. - she takes 4 mg at pm and 1 mg ,th,sat for a total of 5 mg - since INR is a little high-3.1- for simplicity-will restart it at 4 mg - INR 2.2 on am labs 02/21: Spoke with cardiology MARINE EQUIPMENT RESEARCH ENGINEER about patients warfarin. Will continue to hold at this time with plan for her to undergo loop recorder placement outpatient next week. Patient is to hold her warfarin until that time. (3) Anticoagulant long-term use: Code(s): Z79.01 - shelter (current) use of anticoagulants Status: Acute Assessment and Plan: on coumadin at home Since she has been having frequent syncope and falls she has been referred to Dr. Mosley for consideration of LAAO - INR 2.2 on am labs 02/21: Spoke with cardiology MARINE EQUIPMENT RESEARCH ENGINEER about patients warfarin. Will continue to hold at this time with plan for her to undergo loop recorder placement outpatient next week. Patient is to hold her warfarin until that time. (4) Acute UTI: Code(s): N39.0 - Urinary tract infection, site not specified Status: Acute Assessment and Plan: - UA:clear appearance with 1+ blood, negative nitrates, 2+ leukocytes, 3-5 RBC, >100 WBC - UC obtained on 02/17: Ecoli pansensitive - no previous micro to be reviewed - started on Rocephin, transitioned to PO Keflex on 02/19. Course to be completed on 02/23. (5) Chronic kidney disease, stage 3 (moderate): Qualifiers: Chronic kidney disease stage 3 subtype: stage 3a (GFR 45-59) Qualified Code(s): N18.31 - Chronic kidney disea
[2024-02-22 08:01] LABS: Glucose Point of Care 94 mg/dl (65-105)
[2024-02-22] MEDS: lisinopriL 20 MG TABLET PO (10:45)
[2024-02-22] MEDS: amLODIPine BESYLATE 10 MG TABLET PO (10:45)
[2024-02-22] MEDS: CEPHALEXIN 500 MG CAPSULE PO ×2 (10:46→20:24)
[2024-02-22] MEDS: GABAPENTIN 300 MG CAPSULE PO ×2 (10:46→20:25)
[2024-02-22] MEDS: ATORVASTATIN 10 MG TABLET PO (10:46)
[2024-02-22] MEDS: MEMANTINE 5 MG TABLET PO (10:46)
[2024-02-22] MEDS: ISOSORBIDE MONONITRATE 30 MG TAB.ER.24H PO (10:46)
[2024-02-22] MEDS: busPIRone HCL 10 MG TABLET PO ×2 (10:46→17:34)
[2024-02-22 11:53] LABS: Glucose Point of Care 159 mg/dl (65-105)
[2024-02-22 16:44] LABS: Glucose Point of Care 123 mg/dl (65-105)
[2024-02-22] MEDS: ACETAMINOPHEN 325 MG TABLET 650 MG PO (17:34)
[2024-02-23] VITALS: PULSE 56
[2024-02-23 04:00] VITALS: PULSE 60
[2024-02-23 05:49] LABS: Basophils Absolute Auto 0.1 K/mm3 (0.0-0.1); Basophils Percent Auto 0.7 % (0.2-1.2); Eosinophils Absolute Auto 0.2 K/mm3 (0-0.3); Eosinophils Percent Auto 2.7 % (0-4.4); Hematocrit 32.4 % (37.0-47.0); Hemoglobin 10.1 g/dL (12.0-15.0); Immature Granulocyte Absolute 0.02 K/mm3 (0.00-0.031); Immature Granulocyte Percent A 0.3 % (0-0.5); Lymphocytes Absolute Auto 1.16 K/mm3 (0.9-3.2); Lymphocytes Percent Auto 16.6 % (18.3-44.2); Mean Corpuscular HGB Conc 31.2 g/dl (32-36); Mean Corpuscular Hemoglobin 27.3 pg (26-34); Mean Corpuscular Volume 87.6 fl (80-100); Mean Platelet Volume 10.4 fl (7.4-10.4); Monocytes Absolute Auto 0.7 K/mm3 (0.1-0.6); Monocytes Percent Auto 9.5 % (2.6-8.5); Neutrophils Absolute Auto 4.9 K/mm3 (1.3-6.7); Neutrophils Percent Auto 70.2 % (45.5-73.1); Platelet Count Result 314 k/mm3 (150-375); Red Cell Distribution Width 15.3 % (11.5-14.5)
[2024-02-23] MEDS: LEVOTHYROXINE SODIUM 50 MCG TABLET PO (05:56)
[2024-02-23 05:59] LABS: INR 1.7; Prothrombin Time 20.2 Seconds (11.1-14.7)
[2024-02-23 06:00] VITALS: BP 152/72; PULSE 61; RESP 20; TEMP 36.1; O2SAT 100
[2024-02-23 06:01] LABS: Alanine Aminotransferase 13 U/L (6-35); Albumin Level 3.5 g/dL (3.5-5.1); Alkaline Phosphatase 96 U/L (38-126); Anion Gap 7 mmol/L (4-12); Aspartate Amino Transferase 22 U/L (14-36); Bilirubin,Total 0.6 mg/dL (0.2-1.3); Blood Urea Nitrogen 30 mg/dL (7-17); Calcium 8.9 mg/dL (8.4-10.2); Carbon Dioxide 23 mmol/L (22-30); Chloride 109 mmol/L (98-107); Estimated CRCL calculation 43 ml/min; Estimated Glomerular Filt Rate > 60; Glucose 112 mg/dL (65-110); Potassium 4.1 mmol/L (3.4-5.0); Sodium 139 mmol/L (137-145)
[2024-02-23 08:00] VITALS: PULSE 60
[2024-02-23 08:11] LABS: Glucose Point of Care 172 mg/dl (65-105)
[2024-02-23 08:40] LABS: Glucose Point of Care 117 mg/dl (65-105)
[2024-02-23] MEDS: MEMANTINE 5 MG TABLET PO (09:28)
[2024-02-23] MEDS: lisinopriL 20 MG TABLET PO (09:28)
[2024-02-23] MEDS: ATORVASTATIN 10 MG TABLET PO (09:29)
[2024-02-23] MEDS: amLODIPine BESYLATE 10 MG TABLET PO (09:29)
[2024-02-23] MEDS: ISOSORBIDE MONONITRATE 30 MG TAB.ER.24H PO (09:29)
[2024-02-23] MEDS: busPIRone HCL 10 MG TABLET PO ×2 (09:29→18:07)
[2024-02-23] MEDS: CEPHALEXIN 500 MG CAPSULE PO (09:29)
[2024-02-23] MEDS: GABAPENTIN 300 MG CAPSULE PO (09:29)
--- NOTE | 2024-02-23 09:39 | PM.IMPN ---
Progress Note: A&P Assessment and Plan (1) Syncope: Code(s): R55 - Syncope and collapse Status: Acute Assessment and Plan: Patient has a history of syncope and has had workups for that as recent as spring. - She has bilateral internal carotid artery stenosis though it is not severe enough for surgery and it is unlikely that this is causing her episodes of syncope. - Vertebral arteries were of normal caliber. - Head Neck CTA: 1. CTA neck. Percent stenosis per NASCET criteria is 70% on the right side and 40% on the left side. 2. No intracranial occlusion or significant stenosis seen. 3. The distal branches of the posterior cerebral arteries are not well demonstrated. - C spine CT: No fracture or subluxation of the cervical spine. Stable degenerative changes, as noted above. - echocardiogram 02/04/2024 showed normal LV systolic function of 60-65% and grade 1 diastolic dysfunction. Possible that she could be having cardiac dysrhythmias that were not caught on telemetry during previous hospitalizations and an event monitor may be appropriate on discharge however would consider loop recorder implantation as well as is seems to be a recurrent problem. Cardiology consulted She wore a per assessment nurse earlier this year which did not show any tachyarrhythmias, significant bradycardia, or pauses. Telemetry during this admission has been unrevealing as well. However, in the absence of another explanation for her syncope, recommend implantation of loop recorder for ongoing monitor for an arrhythmogenic etiology of her syncope. Check orthostatic vital signs. Continue to monitor on telemetry 02/19: Patient is noted to be on a large dose of gabapentin. Reviewed EMR and she was started on 600 mg BID in Jun 2023, not long after starting this medication patient started presenting with syncope and increased confusion. 02/20: Patient remains AOx1 but appears more awake per RN. Will continue her dose of gabapentin and monitor. 02/21: Patient is AOx1. Very alert sitting up in her chair holding conversation. (2) Paroxysmal atrial fibrillation: Code(s): I48.0 - Paroxysmal atrial fibrillation Status: Acute Assessment and Plan: Chronic, not on any rate controlling medications. However she is on warfarin for anticoagulation. Cardiology consulted, Since she has been having frequent syncope and falls she has been referred to Dr. Mosley for consideration of LAAO. - she takes 4 mg at pm and 1 mg ,th,sat for a total of 5 mg - since INR is a little high-3.1- for simplicity-will restart it at 4 mg - INR 2.2 on am labs 02/21: Spoke with cardiology SHOWER DOORS AND PANELS FABRICATOR about patients warfarin. Will continue to hold at this time with plan for her to undergo loop recorder placement outpatient next week. Patient is to hold her warfarin until that time. (3) Anticoagulant long-term use: Code(s): Z79.01 - alf (current) use of anticoagulants Status: Acute Assessment and Plan: on coumadin at home Since she has been having frequent syncope and falls she has been referred to Dr. Mosley for consideration of LAAO - INR 2.2 on am labs 02/21: Spoke with cardiology SHOWER DOORS [employer] PANELS FABRICATOR about patients warfarin. Will continue to hold at this time with plan for her to undergo loop recorder placement outpatient next week. Patient is to hold her warfarin until that time. (4) Acute UTI: Code(s): N39.0 - Urinary tract infection, site not specified Status: Acute Assessment and Plan: - UA:clear appearance with 1+ blood, negative nitrates, 2+ leukocytes, 3-5 RBC, >100 WBC - UC obtained on 02/17: Ecoli pansensitive - no previous micro to be reviewed - started on Rocephin, transitioned to PO Keflex on 02/19. Course to be completed on 02/23. (5) Chronic kidney disease, stage 3 (moderate): Qualifiers: Chronic kidney disease stage 3 subtype: stage 3a (GFR 45-59) Qualified Code(s): N18.31 - Chronic kidney disea
--- NOTE | 2024-02-23 11:36 | PM.DS ---
DS: Admitting Diagnosis Discharge Date 02/22 Admitting Diagnosis syncope DS: Discharge Diagnosis Discharge Diagnosis (1) Syncope: Code(s): R55 - Syncope and collapse Status: Acute Assessment and Plan: Patient has a history of syncope and has had workups for that as recent as spring. - She has bilateral internal carotid artery stenosis though it is not severe enough for surgery and it is unlikely that this is causing her episodes of syncope. - Vertebral arteries were of normal caliber. - Head Neck CTA: 1. CTA neck. Percent stenosis per NASCET criteria is 70% on the right side and 40% on the left side. 2. No intracranial occlusion or significant stenosis seen. 3. The distal branches of the posterior cerebral arteries are not well demonstrated. - C spine CT: No fracture or subluxation of the cervical spine. Stable degenerative changes, as noted above. - echocardiogram 02/04/2024 showed normal LV systolic function of 60-65% and grade 1 diastolic dysfunction. Possible that she could be having cardiac dysrhythmias that were not caught on telemetry during previous hospitalizations and an event monitor may be appropriate on discharge however would consider loop recorder implantation as well as is seems to be a recurrent problem. Cardiology consulted She wore a traffic monitor specialist earlier this year which did not show any tachyarrhythmias, significant bradycardia, or pauses. Telemetry during this admission has been unrevealing as well. However, in the absence of another explanation for her syncope, recommend implantation of loop recorder for ongoing monitor for an arrhythmogenic etiology of her syncope. Check orthostatic vital signs. Continue to monitor on telemetry 02/19: Patient is noted to be on a large dose of gabapentin. Reviewed EMR and she was started on 600 mg BID in Jun 2023, not long after starting this medication patient started presenting with syncope and increased confusion. 02/20: Patient remains AOx1 but appears more awake per RN. Will continue her dose of gabapentin and monitor. 02/21: Patient is AOx1. Very alert sitting up in her chair holding conversation. (2) Paroxysmal atrial fibrillation: Code(s): I48.0 - Paroxysmal atrial fibrillation Status: Acute Assessment and Plan: Chronic, not on any rate controlling medications. However she is on warfarin for anticoagulation. Cardiology consulted, Since she has been having frequent syncope and falls she has been referred to Dr. Mosley for consideration of LAAO. - she takes 4 mg at pm and 1 mg ,th,sat for a total of 5 mg - since INR is a little high-3.1- for simplicity-will restart it at 4 mg - INR 2.2 on am labs 02/21: Spoke with cardiology [employer] about patients warfarin. Will continue to hold at this time with plan for her to undergo loop recorder placement outpatient next week. Patient is to hold her warfarin until that time. (3) Anticoagulant long-term use: Code(s): Z79.01 - detention (current) use of anticoagulants Status: Acute Assessment and Plan: on coumadin at home Since she has been having frequent syncope and falls she has been referred to Dr. Mosley for consideration of LAAO - INR 2.2 on am labs 02/21: Spoke with cardiology [employer] about patients warfarin. Will continue to hold at this time with plan for her to undergo loop recorder placement outpatient next week. Patient is to hold her warfarin until that time. (4) Acute UTI: Code(s): N39.0 - Urinary tract infection, site not specified Status: Acute Assessment and Plan: - UA:clear appearance with 1+ blood, negative nitrates, 2+ leukocytes, 3-5 RBC, >100 WBC - UC obtained on 02/17: Ecoli pansensitive - no previous micro to be reviewed - started on Rocephin, transitioned to PO Keflex on 02/19. Course to be completed on 02/23. (5) Chronic kidney disease, stage 3 (moderate): Qualifiers: Chronic kidney disease sta
[2024-02-23 11:59] LABS: Glucose Point of Care 147 mg/dl (65-105)
[2024-02-23 12:00] VITALS: PULSE 60
[2024-02-23 13:45] VITALS: BP 121/56; PULSE 66; RESP 28; TEMP 36.1; O2SAT 100
--- NOTE | 2024-02-23 15:27 | PC.NURSE ---
Pt to travel to [facility] by [facility] trip #[id number]. ETA [id number] 02/23/24.
[2024-02-23 17:17] LABS: Glucose Point of Care 124 mg/dl (65-105)
== END 2024-02-23 19:38 | DRG 690 ==
LOC: ANHED 15:28 → ANH3MED 16:47
PROVIDERS: Emergency Medicine; Physician Assistant; Student in an Organized Health Care Education/Training Program; Admitting Provider General Practice; Emergency Provider Emergency Medicine; PCP Family Medicine; Visit Provider Nurse Practitioner
DX: N39.0 Urinary tract infection, site not specified (principal); Z16.30 Resistance to unspecified antimicrobial drugs; I65.23 Occlusion and stenosis of bilateral carotid arteries; I13.10 Hypertensive heart and chronic kidney disease without heart failure, with stage 1 through stage 4 chronic kidney disease, or unspecified chronic kidney disease; N18.31 Chronic kidney disease, stage 3a; R55 Syncope and collapse; B96.20 Unspecified Escherichia coli [E. coli] as the cause of diseases classified elsewhere; D63.1 Anemia in chronic kidney disease; E03.9 Hypothyroidism, unspecified; E11.22 Type 2 diabetes mellitus with diabetic chronic kidney disease; E11.42 Type 2 diabetes mellitus with diabetic polyneuropathy; E78.2 Mixed hyperlipidemia; F03.90 Unspecified dementia, unspecified severity, without behavioral disturbance, psychotic disturbance, mood disturbance, and anxiety; I48.0 Paroxysmal atrial fibrillation; Z79.01 Long term (current) use of anticoagulants; Z79.84 Long term (current) use of oral hypoglycemic drugs; Z86.718 Personal history of other venous thrombosis and embolism
CPT/HCPCS: 36415; 70496; 70498; 71046; 72125; 80048; 80053; 81001; 82948; 83735; 84443; 85025; 85027; 85610; 87077; 87086; 87088; 87186; 93005; 96361; 96365; 96376; 97110; 97161; 97165; 97530; 97535; 99285; A9270; G0378; J0696; J1815; J7030; Q9967

== ENCOUNTER 2024-03-12 03:57 | Day surgery (SDC) | payer MEDICARE, SELFPAY ==
[2024-03-11 18:56] VITALS: BMI 34.7
[2024-03-12 07:45] VITALS: BP 188/58; PULSE 60; RESP 16; TEMP 36.6; O2SAT 100
[2024-03-12 08:52] VITALS: BP 194/62; PULSE 57; RESP 16; O2SAT 100
[2024-03-12 08:57] VITALS: BP 192/57; PULSE 63; RESP 18; O2SAT 98
--- NOTE | 2024-03-12 09:07 | WPDCARDPROC ---
Cardiac Cath Procedure Note Date of procedure:: 03/12/24 Performing physician:: Mario Quiroz MD Indication:: Recurrent syncope Brief clinical history:: This is an 88-year-old woman with a history of paroxysmal atrial fib, currently in sinus rhythm. She has been having episodes of syncope with falling which have been unexplained. Outpatient monitor has not demonstrated any arrhythmias. Because of ongoing episodes of syncope with falling a loop recorder implant has been recommended and scheduled for this morning. Patient's anticoagulation with warfarin was stopped on 02/23/2024 Procedure Procedure performed:: Implantation of Medtronic LINQ loop recorder Sedation/Medication given:: No sedation Access site:: Left anterior chest wall Estimated blood loss:: None Procedure note:: Patient was brought to the cardiac nitriles lab technician holding area where the left anterior chest wall was prepped and draped in the sterile fashion. A bhavana was made using the sterile marker in the 4th intercostal space in the midclavicular line. Following a sterile prep 20 cc of 1% lidocaine was injected at the insertion site for local anesthesia. The LINQ insertion kit was then opened and the puncture blade was used to create the stab wound for the insertion. The insertion tool was then advanced through the puncture site inferior to that without difficulty. The Medtronic LINQ loop recorder was then deployed in this tracked easily and without difficulty. Following him with the deployment of the device the analyzer was used with a very good ECG quality and good telemetry R-wave amplitude is 0.38. Findings:: Patient received a Medtronic LINQ2 loop recorder [id number] serial number [id number]. Conclusion:: Successful uncomplicated implantation of Medtronic LINQ loop recorder for evaluation of recurrent syncope which has been unexplained in this 88-year-old lady who also has a diagnosis of paroxysmal atrial fib. Mario Quiroz MD [facility] Assessment and Plan Assessment and plan (1) Syncope: Code(s): R55 - Syncope and collapse Status: Acute
== END 2024-03-12 09:25 | disposition home or self-care (01) ==
PROVIDERS: PCP Family Medicine; Visit Provider Specialist
PROC: (CPT 33285; principal; 2024-03-12 08:30)
DX: R55 Syncope and collapse (principal); I48.0 Paroxysmal atrial fibrillation; E11.40 Type 2 diabetes mellitus with diabetic neuropathy, unspecified; I13.0 Hypertensive heart and chronic kidney disease with heart failure and stage 1 through stage 4 chronic kidney disease, or unspecified chronic kidney disease; N18.30 Chronic kidney disease, stage 3 unspecified; I50.30 Unspecified diastolic (congestive) heart failure; I11.9 Hypertensive heart disease without heart failure; E03.9 Hypothyroidism, unspecified; F32.A Depression, unspecified; E78.2 Mixed hyperlipidemia; K21.9 Gastro-esophageal reflux disease without esophagitis; D64.9 Anemia, unspecified; I65.23 Occlusion and stenosis of bilateral carotid arteries; D69.3 Immune thrombocytopenic purpura; I34.0 Nonrheumatic mitral (valve) insufficiency; I25.10 Atherosclerotic heart disease of native coronary artery without angina pectoris; F03.90 Unspecified dementia, unspecified severity, without behavioral disturbance, psychotic disturbance, mood disturbance, and anxiety; R29.6 Repeated falls; Z79.84 Long term (current) use of oral hypoglycemic drugs; Z79.01 Long term (current) use of anticoagulants; Z79.82 Long term (current) use of aspirin; Z98.890 Other specified postprocedural states; Z90.49 Acquired absence of other specified parts of digestive tract; Z86.718 Personal history of other venous thrombosis and embolism; Z86.79 Personal history of other diseases of the circulatory system; Z80.9 Family history of malignant neoplasm, unspecified; Z82.49 Family history of ischemic heart disease and other diseases of the circulatory system
CPT/HCPCS: 33285; C1764; J2003

== ENCOUNTER 2024-07-10 11:31 | Inpatient (IN) | payer MEDICARE, SELFPAY ==
[2024-07-10] VITALS (13 sets, daily range): BP systolic 123–182; BP diastolic 62–106; PULSE 62–99; RESP 11–28; TEMP 35.8–36.6; O2SAT 92–100; BMI 32.4
--- NOTE | ~2024-07-10 | US_ITS ---
EXAMINATION: US carotid duplex BI DATE: 07/10/2024 21:55 INDICATION: Syncope. TECHNIQUE: Grayscale, color Doppler, and pulsed Doppler images of the cervical carotid arteries were obtained. The degree of vessel stenosis is placed in one of the following categories: normal, <50%, 5 0-69%, >=70% but less than near-occlusion, near-occlusion, or total occlusion. Note that percent sten osis relative to normal distal artery lumen diameter is indirectly measured from velocity measurement s as described by Melvin, et al. Radiology 2003; [id number]. COMPARISON: Ultrasound 06/29/2023, CTA 02/18/24 FINDINGS: RIGHT: The right common carotid artery (CCA) peak systolic velocity (PSV) is 57 cm/s. The right internal car otid artery (ICA) PSV is 177 cm/s. The right ICA end-diastolic velocity (EDV) is 9 cm/s. The right IC A/CCA PSV ratio is 3.1. Grayscale and color Doppler images yield an estimate of >=50% diameter reduct ion from plaque in the ICA. There is antegrade flow in the right vertebral artery. LEFT: The left CCA PSV is 93 cm/s. The left ICA PSV is 91 cm/s. The left ICA EDV is 13 cm/s. The left ICA/C CA PSV ratio is 1.0. Grayscale and color Doppler images yield an estimate of <50% diameter reduction from plaque in the ICA. There is antegrade flow in the left vertebral artery. IMPRESSION: 1. 50-69% stenosis in the right internal carotid artery. 2. <50% stenosis in the left internal carotid artery. Reviewed, dictated and finalized at location A. R AND CHASSIS INSPECTOR
--- NOTE | ~2024-07-10 | CT_ITS ---
EXAMINATION: CT brain wo con DATE: 07/10/2024 12:29 INDICATION: Altered mental status TECHNIQUE: Computed tomography (CT) of the head was performed without intravenous contrast. Sagittal and coronal reconstructions were performed. The mA was adjusted according to patient size. Iterative reconstruction technique was employed. The dose-length product was 681.00 mGy-cm. COMPARISON: head CT dated 02/18/24 FINDINGS: No acute intracranial hemorrhage, acute infarction or abnormal extra axial fluid collection. There is moderate scattered white matter hypoattenuation consistent with chronic small vessel ischemic diseas e. Symmetric prominence of the sulci and ventricles consistent with mild age-appropriate diffuse cere bral volume loss. No mass/mass effect. Changes of bilateral intraocular lens replacement. There is al so been right-sided scleral banding procedure. Mild mucosal thickening the bilateral ethmoid sinuses. Mastoid air cells and middle ear cavities are clear. IMPRESSION: 1. Stable appearance of age-related changes in the brain. No acute intracranial process. Reviewed, dictated and finalized at location A. MENT STAPLER
--- NOTE | ~2024-07-10 | XR_ITS ---
XR chest 1V 07/10/2024 12:32 Indication: Weakness Procedure: AP portable chest Comparison: Comparison to multiple prior studies sequentially, with oldest reviewed study dated 12/2021. Findings: Heart size normal. No focal air space disease, pulmonary edema, pleural effusion or suspect ed pneumothorax. Impression: 1: No acute cardiopulmonary disease. Reviewed, dictated and finalized at location B. METER PROVER Impression: 1: No acute cardiopulmonary disease.
--- NOTE | ~2024-07-10 | CT_ITS ---
EXAMINATION: CT thoracic lumbar wo con DATE: 07/12/2024 06:49 INDICATION: TECHNIQUE: Computed tomography (CT) of the thoracic and lumbar spine was performed without intravenou s contrast. Sagittal and coronal reconstructions were performed. Automated exposure control and itera tive reconstruction technique were employed. The dose-length product was 1803.09 mGy-cm. COMPARISON: Two-view chest radiograph dated 02/18/[address] of the cervical spine as well as abdomen and pelvis dated 02/02/24 FINDINGS: Thoracic spine: 15 degree lower thoracic dextroscoliosis. Mild thoracic kyphosis. Chronic mild anterior wedging at T1 and minimally at T12. No acute fracture. Multilevel mild to moderate disc height loss throughout the thoracic spine with bridging osteophytes at multiple levels consistent with diffuse idiopathic skele scout hyperostosis (DISH). No central canal stenosis. Multilevel moderate to severe thoracic facet oste oarthritis with mild neural foraminal stenosis at a few neural foramina on both the left and right. P aravertebral soft tissues are unremarkable. Visualized portions of the lungs are clear. Heart size is normal. Atherosclerotic coronary artery calcifications and aortic valve calcification. Thoracic aort a is normal in caliber. Small sliding-type hiatal hernia. No pathologically enlarged mediastinal or h ilar lymphadenopathy. Lumbar spine: 15 degree lumbar levoscoliosis. 2 mm retrolisthesis L2 on L3. Vertebral body heights are normal. No f racture. Severe disc height loss at L2-L3 and L4-L5, moderate to severe disc height loss at L3-L4 and moderate disc height loss at L1-L2 and L5-S1. Disc bulges or posterior disc osteophyte complexes res ulting in mild central canal stenosis from T12-L1 through L4-L5. Disc bulge without significant centr al canal stenosis at L5-S1. Multilevel moderate to severe lumbar facet osteoarthritis. There is moder ate neural foraminal stenosis on the right at L1-L2 and bilaterally at L2-L3 through L4-L5. Mild sten osis at the remaining lumbar neural foramina. Moderate bilateral sacroiliac osteoarthritis. Cholecyst ectomy clips at the gallbladder fossa. Infrarenal IVC filter. Normal caliber abdominal aorta. There a re diverticula along the visualized sigmoid colon without adjacent from trace stranding to suggest di verticulitis. IMPRESSION: 1. Mild S-shaped scoliosis of the lumbar and lower thoracic spine with moderate thoracic and severe l umbar spondylosis. 2. Chronic compression fracture at T1 and minimal likely physiologic anterior wedging at T12. No acut e osseous abnormality. 3. Infrarenal IVC filter. Reviewed, dictated and finalized at location A. ER CONTROL SUPERVISOR IMPRESSION: 1. Mild S-shaped scoliosis of the lumbar and lower thoracic spine with moderate thoracic and severe lumbar spondylosis. 2. Chronic compression fracture at T1 and minimal likely physiologic anterior w edging at T12. No acute osseous abnormality. 3. Infrarenal IVC filter.
--- NOTE | ~2024-07-10 | MR_ITS ---
EXAMINATION: MR brain/brain stem wo/w con DATE: 07/11/2024 12:30 INDICATION: Syncope and confusion TECHNIQUE: Magnetic resonance imaging (MRI) of the brain and brainstem was performed without and with 18 mL Multihance intravenous contrast. Sequences included sagittal and axial T1-weighted SE, axial d iffusion-weighted FS SE, axial T2*-weighted GRE, axial T2-weighted FLAIR, and axial T2-weighted FSE. Postcontrast axial and coronal T1-weighted SE was obtained. Apparent diffusion coefficient (ADC) maps were created. COMPARISON: None. FINDINGS: There are no areas of restricted diffusion to suggest acute infarction. No intracranial hemorrhage or abnormal intracranial mass lesion. Moderate scattered areas of nonspecific increased T2-weighted sig nal intensity in the cerebral white matter, predominantly involving the deep and periventricular whit e matter which within normal limits for age and likely sequela of chronic small vessel ischemic disea se.. There are no intraparenchymal signal abnormalities seen on the other pulse sequences. The ventri cles are symmetric and normal in size. There are no abnormal extra-axial fluid collections. Flow void s are seen in the cerebral arteries on the T2-weighted sequences consistent with their expected paten cy. Changes of bilateral intraocular lens replacement. Mild mucosal thickening the bilateral ethmoid sinuses. There is a chronic 8 x 7 mm likely complex nonenhancing cystic lesion in the right carotid w ith dependently layering low signal noted of calcium high attenuation on prior noncontrast head CT da mary anne 07/10/2024 which is been present dating back to CT dated 02/14/2016. There are no areas of abnormal enhancement on the post contrast images. IMPRESSION: 1. Normal aging brain with moderate scattered nonspecific periventricular predominant white matter T2 hyperintensity consistent with chronic small vessel ischemic disease. No acute intracranial process or abnormally enhancing brain lesions. Reviewed, dictated and finalized at location A. AL COORDINATOR IMPRESSION: 1. Normal aging brain with moderate scattered nonspecific periventricular predo minant white matter T2 hyperintensity consistent with chronic small vessel isch emic disease. No acute intracranial process or abnormally enhancing brain lesio ns.
--- NOTE | ~2024-07-10 | US_ITS ---
EXAM: RENAL ULTRASOUND HISTORY: [place] COMPARISON: None FINDINGS: RIGHT KIDNEY: 10.2 x 4.7 x 4.5 cm. The parenchyma of the right kidney is increased in echogenicity. No hydronephrosis or bulky renal calculi. LEFT KIDNEY: 11.3 x 5.8 x 4.0 cm No hydronephrosis or renal calculi. The parenchyma of the left kidney is increased in echogenicity. BLADDER: Minimally distended, with bilateral ureteral jets visualized IMPRESSION: No hydronephrosis or renal calculi. Findings suggesting medical renal disease. Reviewed, dictated and finalized at location A. TYPE OPERATOR
--- NOTE | 2024-07-10 12:06 | ECG_ITS ---
Test Date: 2024-07-10 11:57:05 Measurements Intervals [place] Rate: 67 P: 0 [place]: 0 QRS: -27 QRSD: 89 T: 12 QT: 389 QTc: 413 Interpretive Statements SINUS RHYTHM VOLTAGE CRITERIA FOR LVH CONSIDER ANTERIOR INFARCT, AGE INDETERMINATE INFERIOR INFARCT, AGE INDETERMINATE BASELINE ARTIFACT- I, II, III, AVR, AVL, AVF, V1-V6 ABNORMAL ECG Compared to ECG 02/18/2024 12:15:40 NO SIGNIFICANT CHANGE Electronically Signed On 07-10-2024 12:50:16 TECHNICAL SUPPORT PROFESSIONAL by Jerrell Valdez D.O.
--- NOTE | 2024-07-10 12:07 | ED_ITS ---
HPI - Altered Mental Status General Chief Complaint: Altered Mental Status Stated Complaint: AMS Time Seen by Provider: 07/10/24 12:06 Source: patient and EMS Mode of arrival: EMS Limitations: no limitations History of Present Illness HPI narrative: 88 years old white female came from home by ambulance. Daughter called the ambulance, reporting that patient have change of mental status, patient had recent history of UTI and currently on cephalic seen for the last few days. Daughter reported that the patient been feeling weak, unable to stand daughter reports that patient been having history of multiple syncopal attacks and her family physician is aware of it, patient did not have any syncope in the last few days. 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 Patient was told by her family physician that she is probably need MRI of the brain Related Data Home Medications ?Medication ?Instructions ?Recorded ?Confirmed ?Last Taken ?Type gabapentin 300 mg capsule 600 mg PO Q12H 02/03/24 03/11/24 03/11/24 History Allergies Allergy/AdvReac Type Severity Reaction Status Date / Time nitrofurantoin Allergy Intermediate Rash Verified 03/11/24 18:26 aspirin AdvReac Other Verified 03/11/24 19:17 Review of Systems 2 Review of Systems: All systems reviewed & are unremarkable except as noted in HPI and below PMFSH Past Medical History Medical History Head trauma COVID Diastolic dysfunction Echocardiogram 02/08/2024 showed normal LV function with an EF estimated at 60 to 65% and grade 1 diastolic dysfunction. Bilateral carotid artery stenosis 70% right and 40% left internal carotid artery stenosis on CTA of the neck on 02/18/2024. Deep venous thrombosis (2010) Type 2 diabetes mellitus Degenerative disc disease Chronic idiopathic thrombocytopenia Anemia Dementia Depression Aphasia Diabetic neuropathy Anticoagulant long-term use Onychomycosis Chronic kidney disease, stage 3 (moderate) Essential (primary) hypertension Mixed hyperlipidemia Hypothyroidism Paroxysmal atrial fibrillation Surgical History Surgical History History of hysterectomy History of cholecystectomy Family History Family History Mother Cerebrovascular accident Family history of coronary artery disease Heart disease Father Cancer Tobacco abuse Sibling Acute myocardial infarction Heart disease Tobacco abuse Alcohol abuse Other Family history of cardiovascular disease Social History Social History Social History: Surrogate medical decision maker: Maria T Luna, daughter Code status: Full code. Smoking packs per day: 0 Smoking cigarettes per day: 0.0 Smoking status: Never smoker Second hand tobacco smoke exposure: Yes Alcohol intake: never Substance use: never Substance use type: does not use Do You Feel Safe in your Home?: Yes Lack of Transportation: No Lack of Food: Never True Current Housing: I Have Housing Concerned About Future Housing: No Difficulty Paying Gas/Electric Bills: No Difficulty Paying for Meds: No Currently Unemployed: No Education: High School Diploma/GED Difficulty w/ Childcare or Family Care: No Living arrangements: alone Additional living arrangements comments: in rehab stay currently. Lives next to daughter. 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 Spiritual care concerns: No Exam 2 Narrative: General appearance: Well-developed, well-nourished, not in any pain or distress Skin: Within normal limit Head: Normocephalic, nontraumatic Eyes: Clear conjunctiva ENT: Oropharynx normal, ears normal, nose normal Neck: Supple, nontender Chest and respiratory: Airway patent, no respiratory distress, no accessory muscle use Heart: Regular rate/rhythm Abdomen: Soft, nontender, no organomegaly, quiet bowel sounds Vascular: Normal peripheral pulses, normal capillary refill. Musculoskeletal: Limited range of motion of the right knee because of chronic pain, patient denies any new complaint today compared to the past. Neurologic: Alert and oriented to her name, age and the name of the president. Course Vital Signs Vital signs: Vital Signs Temperature 35.8 C L 07/10/24 11:45 Pulse Rate 68 07/10/24 11:45 Respiratory Rate 28 H 07/10/24 11:45 Blood Pressure 160/89 H 07/10/24 11:45 Pulse Oximetry 100 07/10/24 11:45 Oxygen Delivery Room Air 07/10/24 11:45 Temperature 35.8 C L 07/10/24 11:45 Pulse Rate 62 07/10/24 13:31 Respiratory Rate 11 L 07/10/24 13:31 Blood Pressure 182/82 H 07/10/24 13:31 Pulse Oximetry 99 07/10/24 12:35 Oxygen Delivery Room Air 07/10/24 12:02 MDM - Altered Mental Status MDM Narrative Medical decision making narrative: Patient came with weakness Vital signs showing blood pressure 160/89, respiration 28, temperature 35.8? otherwise within normal limit Physical examination showing trouble flexing removing right knee because of chronic pain/arthritis, legally blind patient, heard to hear Differential diagnosis include urinary tract infection upper respiratory viral infection pneumonia electrolyte imbalance dehydration Blood workup today includes CBC, CMP, troponin, blood culture, lactic acid showed INR 2.1, otherwise within normal limit Urinalysis showed no evidence of infection Chest x-ray showed no acute abnormalities Respiratory panel showed negative for COVID flu and RSV EKG on arrival showed normal sinus rhythm at 67 beats per minute consider anterior infarct care, age indeterminate, inferior infarct, age indeterminate, abnormal EKG compared to EKG on January [address] head without contrast showed no acute abnormalities Differential Diagnosis Differential diagnosis: Likely other (As above) Medical Records Attestation: I reviewed the patient's medical records. Lab Data Attestation: I reviewed the patient's lab results. 07/10/24 13:40 07/10/24 13:39 Labs: Lab Results 07/10/24 07/10/24 07/10/24 Range/Units 11:49 13:09 13:39 WBC (4.5-10.0) K/mm3 RBC (4.2-5.4) M/mm3 Hgb (12.0-15.0) g/dL Hct (37.0-47.0) % MCV (80-100) fl MCH (26-34) pg MCHC (32-36) g/dl RDW (11.5-14.5) % Plt Count (150-375) k/mm3 MPV (7.4-10.4) fl Immature Gran % (Auto) (0-0.5) % Neut % (Auto) (45.5-73.1) % Lymph % (Auto) (18.3-44.2) % [place] % (Auto) (2.6-8.5) % Eos % (Auto) (0-4.4) % Baso % (Auto) (0.2-1.2) % Lymph # (Auto) (0.9-3.2) K/mm3 [place] # (Auto) (0.1-0.6) K/mm3 Eos # (Auto) (0-0.3) K/mm3 Baso # (Auto) (0.0-0.1) K/mm3 Abs Immat Gran (auto) (0.00-0.031) K/mm3 Absolute Neuts (auto) (1.3-6.7) K/mm3 Absolute Nucleated RBC (0.0-0.012) K/mm3 Nucleated RBC % (0.0-0.2) % PT 23.5 H (11.1-14.7) Seconds INR 2.1 APTT 29.5 (22.3-36.8) Seconds Sodium 144 (137-145) mmol/L Potassium 4.4 (3.4-5.0) mmol/L Chloride 108 H (98-107) mmol/L Carbon Dioxide 23 (22-30) mmol/L Anion Gap 13 H (4-12) mmol/L BUN 22 H (7-17) mg/dL Creatinine 0.92 (0.7-1.0) mg/dL Estim Creat Clear Calc 39 ml/min Estimated GFR 57 L (59 - ) Glucose 105 (65-110) mg/dL POC Capillary Glucose 94 (65-105) mg/dl Lactic Acid (0.7-2.0) mmol/L Calcium 10.0 (8.4-10.2) mg/dL Total Bilirubin 1.1 (0.2-1.3) mg/dL AST 21 (14-36) U/L ALT 12 (6-35) U/L Alkaline Phosphatase 125 (38-126) U/L C-Reactive Protein < 0.5 (<1.0) mg/dL Total Protein 8.0 (6.3-8.2) g/dL Albumin 4.3 (3.5-5.1) g/dL Urine Color Yellow (Yellow) Urine Appearance Clear (Clear) Urine pH 5.5 (5.0-9.0) Ur Specific [place] 1.011 (1.001-1.035) Urine Protein Trace (Negative) mg/dL Urine Glucose (UA) Negative (Negative) mg/dL Urine Ketones Negative (Negative) mg/dL Ur Blood (Man) Negative (Negative) Urine Nitrate Negative (Negative) Urine Bilirubin Negative (Negative) Urine Urobilinogen 0.2 (<2.0) mg/dL Leukocyte Esterase Rfl Negative (Negative) CHRISTIANO/UL Urine RBC 0-2 (0-2) /hpf Urine WBC 0-5 (0-3) /hpf Ur Squamous Epith Cells None seen (Few) /hpf Urine Bacteria None seen /hpf Urine Casts 0-2 Influenza A (RT-PCR) Negative (Negative) Influenza B (RT-PCR) Negative (Negative) RSV (RT-PCR) Negative (Negative) SARS-CoV-2 RNA (RT-PCR) Negative (Negative) 07/10/24 Range/Units 13:40 WBC 8.7 (4.5-10.0) K/mm3 RBC 5.38 (4.2-5.4) M/mm3 Hgb 14.4 D (12.0-15.0) g/dL Hct 45.1 (37.0-47.0) % MCV 83.8 (80-100) fl MCH 26.8 (26-34) pg MCHC 31.9 L (32-36) g/dl RDW 15.0 H (11.5-14.5) % Plt Count 259 (150-375) k/mm3 MPV 11.7 H (7.4-10.4) fl Immature Gran % (Auto) 0.2 (0-0.5) % Neut % (Auto) 75.2 H (45.5-73.1) % Lymph % (Auto) 16.6 L (18.3-44.2) % [place] % (Auto) 6.4 (2.6-8.5) % Eos % (Auto) 1.0 (0-4.4) % Baso % (Auto) 0.6 (0.2-1.2) % Lymph # (Auto) 1.44 (0.9-3.2) K/mm3 [place] # (Auto) 0.6 (0.1-0.6) K/mm3 Eos # (Auto) 0.1 (0-0.3) K/mm3 Baso # (Auto) 0.1 (0.0-0.1) K/mm3 Abs Immat Gran (auto) 0.02 (0.00-0.031) K/mm3 Absolute Neuts (auto) 6.5 (1.3-6.7) K/mm3 Absolute Nucleated RBC 0.000 (0.0-0.012) K/mm3 Nucleated RBC % 0.0 (0.0-0.2) % PT (11.1-14.7) Seconds INR APTT (22.3-36.8) Seconds Sodium (137-145) mmol/L Potassium (3.4-5.0) mmol/L Chloride (98-107) mmol/L Carbon Dioxide (22-30) mmol/L Anion Gap (4-12) mmol/L BUN (7-17) mg/dL Creatinine (0.7-1.0) mg/dL Estim Creat Clear Calc ml/min Estimated GFR (59 - ) Glucose (65-110) mg/dL POC Capillary Glucose (65-105) mg/dl Lactic Acid 1.3 (0.7-2.0) mmol/L Calcium (8.4-10.2) mg/dL Total Bilirubin (0.2-1.3) mg/dL AST (14-36) U/L ALT (6-35) U/L Alkaline Phosphatase (38-126) U/L C-Reactive Protein (<1.0) mg/dL Total Protein (6.3-8.2) g/dL Albumin (3.5-5.1) g/dL Urine Color (Yellow) Urine Appearance (Clear) Urine pH (5.0-9.0) Ur Specific [place] (1.001-1.035) Urine Protein (Negative) mg/dL Urine Glucose (UA) (Negative) mg/dL Urine Ketones (Negative) mg/dL Ur Blood (Man) (Negative) Urine Nitrate (Negative) Urine Bilirubin (Negative) Urine Urobilinogen (<2.0) mg/dL Leukocyte Esterase Rfl (Negative) CHRISTIANO/UL Urine RBC (0-2) /hpf Urine WBC (0-3) /hpf Ur Squamous Epith Cells (Few) /hpf Urine Bacteria /hpf Urine Casts Influenza A (RT-PCR) (Negative) Influenza B (RT-PCR) (Negative) RSV (RT-PCR) (Negative) SARS-CoV-2 RNA (RT-PCR) (Negative) Imaging Data Attestation: I personally reviewed and interpreted this imaging study as follows: Radiologist's impression: Impressions Head CT 07/10/24 12:45 IMPRESSION: 1. Stable appearance of age-related changes in the brain. No acute intracranial process. Chest X-Ray 07/10/24 12:58 Impression: 1: No acute cardiopulmonary disease. ECG Data EKG #1: Attestation: I personally reviewed and interpreted this ECG as follows: ECG completion date: 07/10/24 Interpretation: Normal sinus rhythm at 67 beats per minute, consider anterior infarct, age indeterminate, inferior infarct, age indeterminate, abnormal EKG, compared to January 2024 no significant changes Critical Care Time Critical Care Time Critical Care Time: No Discharge Plan Discharge Patient Disposition: Still a Patient Patient Language: Bermudian Prescriptions: No Action gabapentin 300 mg capsule 600 mg PO Q12H levothyroxine 50 mcg tablet 50 mcg PO DAILY Qty: 90 3RF atorvastatin 10 mg tablet 10 mg PO DAILY Qty: 90 3RF isosorbide mononitrate 30 mg tablet extended release 24 hr 30 mg PO DAILY Qty: 90 3RF buspirone 10 mg tablet 10 mg PO BID Qty: 180 1RF benazepril 20 mg tablet 20 mg PO DAILY Qty: 90 3RF amlodipine [Norvasc] 5 mg tablet 5 mg PO DAILY Qty: 90 1RF warfarin [Jantoven] 1 mg tablet See Rx Instructions .ROUTE .COMPLEX Qty: 90 0RF Dose Instruction: TAKE 1 TABLET DAILY; TO BE TAKEN WITH THE 4MG Rx Instructions: TAKE 1 TABLET DAILY; TO BE TAKEN WITH THE 4MG metformin 500 mg tablet extended release 24 hr See Rx Instructions .ROUTE .COMPLEX Qty: 90 1RF Dose Instruction: TAKE 1 TABLET AT 5:00PM Rx Instructions: TAKE 1 TABLET AT 5:00PM warfarin [Jantoven] 4 mg tablet 4 mg PO DAILY Qty: 90 0RF memantine 10 mg tablet 10 mg PO BID Qty: 180 1RF cephalexin 500 mg tablet 500 mg PO TID 7 Days Qty: 21 0RF Follow-up/Referrals: Sundeep Sotelo MD [Primary Care Provider] - Quality Stroke Scale Stroke Scale 1: Stroke scale date:: 07/10/24 1a Level of consciousness: alert-0 1b Level of consciousness questions: answers both correctly-0 1c Level of consciousness commands: obeys both correctly-0 2 Best gaze: normal-0 3 Visual: bilateral hemianopia-3 4 Facial palsy: normal-0 5a Motor: left arm: no drift-0 5b Motor: right arm: no drift-0 6a Motor: left leg: no drift-0 6b Motor: right leg: no drift-0 7 Limb ataxia: absent-0 8 Sensory: normal-0 9 Best language: no aphasia-0 10 Dysarthria: normal-0 11 Extinction and inattention: no abnormality-0 Level:: 3 Comment: Patient is legally blind
--- OUTSIDE RECORDS SUMMARY | 2024-07-10 12:16 | XMS_ITS | Clinical Summary ---
Author Organization [facility] Address [address] [place] [address] Care Team Providers Care Tail Sawyer Name Role Phone Sundeep Sotelo MD Primary Care Provider [phone] Fariba Pearl RN Unavailable [phone] Source Comments [facility],non-owned Affiliates and Associated Physician Practices is amultiple site organization consisting of ambulatory clinics and hospital sitesin [place], [place], [place] and [place]. This disclosure is being madepursuant to the Care Everywhere program and may not contain all information available regarding this patient. Last updated 18.[facility] [employer] Allergies No known active allergies Medications * Be aware that medications may not be up to date on this document. Alwaysverify current medications with the patient. Medication Sig Dispensed Refills Start Date End Date Status atorvastatin (LIPITOR) 10 MG tablet 09/29/2015 Active glimepiride (AMARYL) 2 MG tablet 11/02/2013 Active metoprolol succinate XL 24hr (TOPROL XL) 25 MG tablet 25 mg every 2 days 10/13/2015 Active quinapril (ACCUPRIL) 20 MG tablet 10/11/2015 Active raNITIdine (ZANTAC) 300 MG tablet 300 mg at bedtime 10/13/2015 Acti ve trospium ER 24hr (SANCTURA XR) 60 MG capsule 12/01/2015 Active levothyroxine (SYNTHROID) 25 MCG tablet Take 1 Tab by mouth Active oxyCODONE-acetaminophe n (PERCOCET) 5-325 MG tablet Take 1 Tab by mouth every 6 hours as needed for Pain 50 Tab 0 01/30/2016 Active docusate sodium (COLACE) 100 MG capsule Take 1 Cap by mouth 2 times daily 60 Cap 0 01/30/2016 Active Active Problems Problem Noted Date Diagnosed Date Endometrial cancer Social History Tobacco Use Types Packs/Day Years Used Date Smoking Tobacco: Never Smokeless Tobacco: Never Alcohol Use Standard Drinks/Week Comments No 0 (1 standard drink = 0.6 oz pur e alcohol) Sex and Gender Information Value Date Recorded Sex Assigned at Not on file Gender Identity Not on file Sexual Orientation Not on file Last Filed Vital Signs Vital Sign Reading Time Taken Comments Blood Pressure 136/84 02/08/2016 9:37 AM CDT Pulse 80 01/30/2016 9:01 AM CDT Temperature 36.8 C (98.2 F) 01/30/2016 9:01 AM CDT Respiratory Rate 20 01/30/2016 9:01 AM CDT Oxygen Saturation 96% 01/30/2016 9:01 AM CDT Inhaled Oxygen Concentration - - Weight 112.5 kg (248 lb) 02/08/2016 9:37 AM CDT Height 162.6 cm (5' 4 ) 02/08/2016 9:37 AM CDT Body Mass Index 42.57 02/08/2016 9:37 AM CDT Plan of Treatment Health Maintenance Due Date Last Done Comments BONE DENSITY TESTING 1934 DTAP/TDAP/TD VACCINES (1 - Tdap) 1953 PNEUMOCOCCAL VACCINE 50+ (1 of 1 - PCV) 1984 ZOSTER VACCINE (1 of 2) 1984 Respiratory Syncytial Virus (RSV) Vaccine Pt: or over 60 yrs (1 - 1-dose 75+ series) 2009 COVID-19 VACCINE ( - 2023-2 5 season) 2024 INFLUENZA VACCINE (#1) 2024 DEPRESSION SCREENING 05/21/2024 MEDICARE AWV CALENDAR YEAR 2024 HEPATITIS B VACCINE Aged Out No longe r eligible based on patient's age to complete this topic HIB VACCINE Aged Out No longer eligi ble based on patient's age to complete this topic HPV VACCINE Aged Out No longer eligi ble based on patient's age to complete this topic MENINGOCOCCAL (Group B) VACCINE Aged Out No longer eligible based on patient's age to complete this topic MENINGOCOCCAL VACCINE Aged Out No bob jessica eligible based on patient's age to complete this topic Advance Directives Documents on File Type Date Recorded Patient Cashier Greeter Expl anation Adv Directive/Living Will/POA 01/31/2016 10:22 PM * Full Code (Latest Code Status on File) Date Activated Date Inactivated Comments 01/27/2016 8:57 PM 01/30/2016 2:13 PM Care Teams Tail Sawyer Relationship Specialty Start Date End Date Sundeep Sotelo MD [address] [place] [address] PCP - General Family Medicine 01/27/16 Fariba Pearl, RN External Grinder 01/28/16
--- OUTSIDE RECORDS SUMMARY | 2024-07-10 12:16 | XMS_ITS | Patient Health Summary ---
Author Organization [facility] Address [address] [place] [address] Care Team Providers Care Dietetics Professor Name Role Phone Sundeep Sotelo MD Primary Care Provider [phone] Fariba Pearl RN Unavailable [phone] Note from [facility],non-owned Affiliates and Associated Physician Practices is amultiple site organization consisting of ambulatory clinics and hospital sitesin [place], [place], [place] and [place]. This disclosure is being madepursuant to the Care Everywhere program and may not contain all information available regarding this patient. Last updated 18.[facility] Allergies No known active allergies Medications * Be aware that medications may not be up to date on this document. Alwaysverify current medications with the patient. * atorvastatin (LIPITOR) 10 MG tablet(Started 09/29/2015) * glimepiride (AMARYL) 2 MG tablet(Started 11/02/2013) * metoprolol succinate XL 24hr (TOPROL XL) 25 MG tablet(Started 10/13/2015) 25 mg every 2 days * quinapril (ACCUPRIL) 20 MG tablet(Started 10/11/2015) * raNITIdine (ZANTAC) 300 MG tablet(Started 10/13/2015) 300 mg at bedtime * trospium ER 24hr (SANCTURA XR) 60 MG capsule(Started 12/01/2015) * levothyroxine (SYNTHROID) 25 MCG tablet Take 1 Tab by mouth * oxyCODONE-acetaminophen (PERCOCET) 5-325 MG tablet(Started 01/30/2016) Take 1 Tab by mouth every 6 hours as needed for Pain * docusate sodium (COLACE) 100 MG capsule(Started 01/30/2016) Take 1 Cap by mouth 2 times daily Active Problems Problem Noted Date Diagnosed Date [...] Mass Index 42.57 02/08/2016 9:37 AM CDT Procedures * CARDIAC RHYTHM STRIP ORDER(Performed 02/05/2016) * CARDIAC EKG ORDER(Performed 02/01/2016) * APHERESIS/TRANSFUSION ORDER(Performed 02/01/2016) * IMAGING/RADIOLOGY/XRAY RESULTS ORDER(Performed 02/01/2016) * GLUCOSE - POINT OF CARE(Performed 01/30/2016) * LAB HISTORICAL RESULTS-ONBASE(Performed 01/30/2016) * GLUCOSE - POINT OF CARE(Performed 01/29/2016) * GLUCOSE - POINT OF CARE(Performed 01/29/2016) * GLUCOSE - POINT OF CARE(Performed 01/29/2016) * GLUCOSE - POINT OF CARE(Performed 01/29/2016) * GLUCOSE - POINT OF CARE(Performed 01/28/2016) * CREATININE URINE RANDOM(Performed 01/28/2016) * SODIUM URINE RANDOM(Performed 01/28/2016) * BASIC METABOLIC PANEL (CALCIUM TOTAL)(Performed 01/28/2016) * GLUCOSE - POINT OF CARE(Performed 01/28/2016) * GLUCOSE - POINT OF CARE(Performed 01/28/2016) * GLUCOSE - POINT OF CARE(Performed 01/28/2016) * BASIC METABOLIC PANEL (CALCIUM TOTAL)(Performed 01/28/2016) Performed for Endometrial cancer (HCC) * CBC W AUTO DIFFERENTIAL(Performed 01/28/2016) Performed for Endometrial cancer (HCC) * GLUCOSE - POINT OF CARE(Performed 01/27/2016) * GLUCOSE - POINT OF CARE(Performed 01/27/2016) * PATHOLOGY TISSUE EXAM (STL)(Performed 01/27/2016) Performed for Endometrial cancer (HCC) * HYSTERECTOMY VAGINAL (TVH)(Performed 01/27/2016) Performed for Endometrial cancer (HCC) * HYSTERECTOMY ABDOMINAL WITH SALPINGO/OOPHORECTOMY(Performed 01/27/2016) Performed for Endometrial cancer (HCC) * GLUCOSE - POINT OF CARE(Performed 01/27/2016) * TYPE + SCREEN PANEL(Performed 01/27/2016) * PATHOLOGY/GENETICS HISTORICAL-ONBASE(Performed 01/27/2016) * TYPE + SCREEN PANEL(Performed 01/06/2016) Performed for Preop testing * PT-INR(Performed 01/06/2016) Performed for Preop testing * CANCER ANTIGEN (CA)125 BLOOD(Performed 01/06/2016) Performed for Preop testing * COMPREHENSIVE METABOLIC PANEL(Performed 01/06/2016) Performed for Preop testing * CBC W AUTO DIFFERENTIAL(Performed 01/06/2016) Performed for Preop testing * BLOOD TYPE VERIFICATION(Performed 01/06/2016) * EKG 12-LEAD(Performed 01/06/2016) Performed for Preop testing * LAB HISTORICAL RESULTS-ONBASE(Performed 01/06/2016) * PATHOLOGY/GENETICS HISTORICAL-ONBASE(Performed 12/22/2015) * CULTURE FUNGUS SKIN HAIR NAILS(Performed 02/21/2013) * CULTURE AEROBIC(Performed 02/21/2013) * CULTURE AEROBIC(Performed 01/27/2013) * CULTURE AEROBIC(Performed 01/24/2013) * VAS CAROTID DUPLEX BILATERAL(Performed 01/21/2013) * CULTURE WOUND+GRAM STAIN(Performed 01/07/2013) Results * CARDIAC RHYTHM STRIP ORDER (02/05/2016 5:05 AM CDT) Narrative 02/05/2016 5:05 AM CDT Ordered by an unspecified provider. Scanned Document CARDIAC SERVICES ORD ERABLES * CARDIAC EKG ORDER (02/01/2016 2:44 AM CDT) Narrative 02/01/2016 2:44 AM CDT Ordered by an unspecified provider. Scanned Document CARDIAC SERVICES ORD ERABLES * IMAGING/RADIOLOGY/XRAY RESULTS ORDER (02/01/2016 2:43 AM CDT) Anatomical Region Laterality Modality Other Narrative 02/01/2016 2:43 AM CDT Ordered by an unspecified provider. Scanned Document IMAGING * APHERESIS/TRANSFUSION ORDER (02/01/2016 2:43 AM CDT) Narrative 02/01/2016 2:43 AM CDT Ordered by an unspecified provider. Scanned Document NURSING - VITAL SIGN S AND ASSESSMENT * (ABNORMAL) GLUCOSE - POINT OF CARE (01/30/2016 8:09 AM CDT) Only the most recent of12 resultswithin the time period is included. Glucose WB/POC 109(H) 70 - 106 mg/dL 01/30/2016 6:20 PM CDT [facility] Blood BLOOD SPECIMEN / Unknown 01/30/2016 8:09 AM CDT 01/30/2016 6:20 PM CDT Gómez Fu MD LAB - POINT OF CARE ORDERABLES Performing Organization Address City/[facility]/ZIP Co de Phone Number [facility] [address] [place] [address] * LAB HISTORICAL RESULTS-ONBASE (01/30/2016) Only the most recent of2 resultswithin the time period is included. 01/30/2016 Historical Provider LAB - CHEMISTRY O RDERABLES [place] [id number] [address] * SODIUM URINE RANDOM (01/28/2016 6:48 PM CDT) Sodium Urine 15 mmol/L 01/28/2016 7:18 PM CDT [facility] Urine URINE SPECIMEN OBTAINED BY CLEAN CATCH PROCEDURE / Unknown Collection / Unknown 01/28/2016 6:48 PM CDT 01/28/2016 6:58 PM CDT Trevin Magdaleno MD LAB - URINE CHEM ISTRY ORDERABLES Performing Organization Address [facility]/ZIP Co de Phone Number [facility] [address] [place] [id number] * CREATININE URINE RANDOM (01/28/2016 6:48 PM CDT) Creatinine Urine 80 mg/dL 01/28/2016 7:17 PM CDT [facility] Urine URINE SPECIMEN OBTAINED BY CLEAN CATCH PROCEDURE / Unknown Collection / Unknown 01/28/2016 6:48 PM CDT 01/28/2016 6:58 PM CDT Trevin Magdaleno MD LAB - URINE CHEM ISTRY ORDERABLES Performing Organization Address [facility] de Phone Number [facility] [address] [place] [address] * (ABNORMAL) BASIC METABOLIC PANEL (CALCIUM TOTAL) (01/28/2016 6:16 PM CDT) Only the most recent of2 resultswithin the time period is included. Glucose 136(H) 74 - 106 mg/dL 01/28/2016 6:41 PM CDT [facility] Sodium 138 136 - 145 mmol/L 01/28/2016 6:41 PM CDT [facility] Potassium 4.1 3.5 - 5.1 mmol/L 01/28/2016 6:41 PM CDT [facility] Chloride 104 98 - 107 mmol/L 01/28/2016 6:41 PM CDT [facility] CO2 24 22 - 31 mmol/L 01/28/2016 6:41 PM CDT [facility] Calcium 8.0(L) 8.5 - 10.1 mg/dL 01/28/2016 6:41 PM CDT [facility] Anion Gap 10 5 - 20 mmol/L 01/28/2016 6:41 PM CDT [facility] BUN 26(H) 7 - 21 mg/dL 01/28/2016 6:41 PM CDT [facility] Creatinine 1.10 0.50 - 1.30 mg/dL 01/28/2016 6:41 PM CDT [facility] eGFR by MDRD 48 mL/min/1.7 3m2 01/28/2016 6:41 PM CDT [facility] eGFR by MDRD 58 mL/min/1.7 3m2 01/28/2016 6:41 PM CDT [facility] Blood BLOOD SPECIMEN / Unknown Lab Venipuncture / Unknown 01/28/2016 6:16 PM CDT 01/28/2016 6:19 PM CDT Trevin Magdaleno MD LAB - CHEMISTRY ORDERABLES [facility] [address] [place], [place] [id number] * (ABNORMAL) CBC W AUTO DIFFERENTIAL (01/28/2016 6:38 AM CDT) Only the most recent of2 resultswithin the time period is included. WBC 18.2(H) 4.4 - 10.7 x10E9/L 01/28/2016 6:55 AM CDT [facility] WBC Corrected x10E9/L 01/28/2016 6:55 AM CDT [facility] RBC 3.83 3.80 - 5.20 x10E12/L 01/28/2016 6:55 AM CDT [facility] Hemoglobin 9.3(L) 12.0 - 15.6 gm/dL 01/28/2016 6:55 AM CDT [facility] Hematocrit 30.7(L) 35.9 - 45.5 % 01/28/2016 6:55 AM CDT [facility] MCV 80.2(L) 80.7 - 98.3 fl 01/28/2016 6:55 AM CDT [facility] MCH 24.3(L) 26.7 - 34.0 pg 01/28/2016 6:55 AM CDT [facility] MCHC 30.3(L) 30.8 - 35.9 gm/dL 01/28/2016 6:55 AM CDT [facility] Platelet Count 225 153 - 416 x10E9/L 01/28/2016 6:55 AM CDT [facility] RDW-CV 14.7 12.1 - 14.9 % 01/28/2016 6:55 AM CDT [facility] MPV 11.6 9.4 - 12.9 fl 01/28/2016 6:55 AM CDT [facility] Neutrophils % 91.1(H) 44.0 - 73.0 % 01/28/2016 6:55 AM CDT [facility] Lymphocytes % 3.0(L) 20.0 - 43.0 % 01/28/2016 6:55 AM CDT [facility] Monocytes % 4.8(L) 5.0 - 13.0 % 01/28/2016 6:55 AM CDT [facility] Eosinophils % 0.0 0.0 - 6.0 % 01/28/2016 6:55 AM CDT [facility] Basophils % 0.1 0.0 - 2.0 % 01/28/2016 6:55 AM CDT [facility] Immature Granulocytes 1.0 0 - 1 % 01/28/2016 6:55 AM [facility] Neutrophil Absolute 16.60(H) 2.01 - 7.14 x10E9/L 01/28/2016 6:55 AM CDT [facility] Lymphocytes Absolute 0.54(L) 1.07 - 3.94 x10E9/L 01/28/2016 6:55 AM CDT [facility] Monocytes Absolute 0.88 0.26 - 1.07 x10E9/L 01/28/2016 6:55 AM CDT [facility] Eosinophils Absolute 0.00 0 - 0.47 x10E9/L 01/28/2016 6:55 AM CDT [facility] Basophils Absolute 0.02 0 - 0.08 x10E9/L 01/28/2016 6:55 AM T [facility] Immature Granulocytes Absolute 0.19(H) 0.00 - 0.06 x10E9/L 01/28/2016 6:55 AM T [facility] nRBC Auto 0 /100 WBC 01/28/2016 6:55 AM [facility] Blood BLOOD SPECIMEN / Unknown Lab Venipuncture / Unknown 01/28/2016 6:38 AM CDT 01/28/2016 6:50 AM CDT Trevin Magdaleno MD LAB - HEMATOLOGY ORDERABLES [facility] [address] [place] [address] * GROSS + MICRO EXAM (STL) (01/27/2016 5:46 PM CDT) Case Report Surgical Pathology Report Case: [id number] Authorizing Provider: Gómez Fu MD Collected: 01/27/2016 05:46 PM Ordering Location: [facility] Received: 01/28/2016 05:38 AM Pathologist: Sara Lozano MD Specimens: A) - Vulva, Vulvar nodule B) - Uterus, uterus, cervix, bilateral tubes and ovaries = 1125 grams 02/01/2016 11:51 AM CDT [facility] Final Diagnosis 1. Vulva, left, nodule, resection: -- No pathologic diagnosis -- No dysplasia 2. Uterus with cervix and bilateral ovaries and fallopian tubes, bilateral hysterectomy and salpingo-oophorec brendon: -- Cervix: Negative for dysplasia and chronic cervicitis -- Endometrium:Negat alyssa for malignancy, Complex hyperplasia with focal and mild atypia -- Myometrium: leiomyomata, adenomyosis -- Serosa: No pathologic diagnosis -- Ovaries, bilateral: No pathologic diagnosis -- Fallopian tubes, bilateral: no pathologic diagnosis 02/01/2016 11:51 AM CDT [facility] Gross Description The specimen is received in two containers in formalin for gross and microscopic examination labeled with the patient's name, Maria Luna I . Specimen A, vulva, consists of a portion of devlin pale hair-bearing tissue measuring 1.2 cm x 1 cm and in a depth of 0.8 cm. The surgical margin is inked in blue. The specimen is trisected and entirely submitted in cassette A1. Specimen B, uterus, cervix, bilateral ovaries and tubes, consists of a uterus with cervix, bilateral ovaries and fallopian tubes weighing 1050 grams and measuring 17 cm x 12 cm x 10 cm. The cervix measures 6 cm in length x 2 cm in diameter. The serosa has a pink-duenas dull surface, and on the left lateral side, there is an annular white discoloration measuring 6 cm x 6 cm. There is one firm, white nodule on the anterior serosa measuring 1 cm x 1 cm. The left ovary weighs 8 grams and measures 2.3 cm x 1.5 cm x 0.5 cm and the left fallopian tube measures 5 cm x 0.5 cm. The right ovary weighs 9.2 grams and measures 2.5 cm x 1 cm x 0.5 cm and the right fallopian tube measures 5 cm in length x 0.5 cm in diameter. The slit-like os is probe patent and measures 1.8 cm. The specimen is bivalved. The endocervical canal measures 5 cm in length x 1.5 cm in diameter. The anterior side of the uterus is larger than the posterior side. The specimen is serially sectioned revealing a white, firm mass with a whorling architecture, consistent with leiomyoma measuring 16 cm x 10 cm x 10 cm and it covers the majority of the anterior surface of the myometrium and uterus. The leiomyoma comes within 0.2 cm of the anterior serosa. The cervix, ovaries and fallopian tubes are not involved by leiomyoma. The endometrial canal measures 6 cm x 3 cm. The myometrium measures 3 cm in the greatest dimension. There is a soft, yellow tissue in the anterior and posterior endometrium, measures 4 cm x 3 cm, and in a depth of 1.5 cm in the myometrium. This tissue comes within 0.5 cm from the nearest serosal surface, and 2.0 from the cervix. Bilateral ovaries and fallopian tubes have a normal architecture. The specimen is submitted as follows: B1 and B2 - anterior cervix, B3 and B4 - posterior cervix, B5 - section of leiomyoma with attached serosa, B6 and B7 - two customer sales representative sections from the leiomyoma, B8 - customer sales representative section of the leiomyoma to the endometrial cavity, B9 - anterior serosa, B10 - anterior myometrium, B11 - one customer sales representative section of the anterior endometrial cavity, B12 - one customer sales representative section of anterior endomyometrium, B13, B14 and B15 - full thickness customer sales representative sections of the posterior endomyometrium with tumor, B16 - one customer sales representative section of the right ovary and fallopian tube, B17 - one customer sales representative section of the left ovary and fallopian tube. B18-B21 - More sections from anterior endometrium PD/na 02/01/2016 11:51 AM T [facility] Microscopic Description Section from the vulvar nodule shows stratified squamous epithelium with no dysplasia. Sections from the uterus showed multiple fascicles with whorling pattern and no atypia nor coagulative necrosis consistent with leiomyoma, greatest measurement 16 cm on the anterior segment of the uterus. Section of the cervix showed stratified squamous epithelium with no dysplasia. Section of both anterior and posterior endometrium showed complex endometrial hyperplasia with focal and mild atypia. No malignancy is present. Section of myometrium showed multiple areas of endometrial glands with associated stroma. Section of bilateral ovaries and fallopian tubes show no pathologic diagnosis. PD/scs 02/01/2016 11:51 AM CDT [facility] Pathology/Cytology ENTIRE VULVA / Unknown 01/27/2016 5:46 PM CDT 01/28/2016 5:38 AM CDT Miscellaneous samples (specimen) ENTIRE UTERUS / Unknown 01/27/2016 6:20 PM CDT 01/28/2016 5:38 AM CDT Gómez Fu MD LAB - PATHOLOGY/CYT OLOGY ORDERABLES Performing Organization Address City/[facility] Co de Phone Number [facility] [address] [place] [address] * TYPE + SCREEN PANEL (01/27/2016 11:51 AM CDT) Only the most recent of2 resultswithin the time period is included. ABO A 01/27/2016 1:04 PM CDT [facility] Rh Type Positive 01/27/2016 1:04 PM CDT [facility] Comment:History check perfor med. No retype required. Antibody Screen Negative 01/27/2016 1:04 PM CDT [facility] Miscellaneous samples (specimen) BLOOD SPECIMEN / Unknown Venipuncture / Unknown 01/27/2016 11:51 AM CDT 01/27/2016 12:00 PM CDT Gómez Fu MD LAB - BLOOD BANK OR DERABLES Performing Organization Address City/[facility] Co de Phone Number [facility] [address] [place] [address] * PATHOLOGY/GENETICS HISTORICAL-ONBASE (01/27/2016) Only the most recent of2 resultswithin the time period is included. 01/27/2016 Historical Provider LAB - CHEMISTRY O [facility] [address] * CA 125 BLOOD (01/06/2016 12:31 PM CDT) CA 125 32.5 0.0 - 38.1 U/mL 01/08/2016 5:13 AM CDT [facility] ([facility]) Comment:Mark ECLIA methodol ogy Blood specimen (specimen) BLOOD SPECIMEN / Unknown Venipuncture / Unknown 01/06/2016 12:31 PM CDT 01/06/2016 1:08 PM CDT Narrative [facility] ([facility]) - 01/08/2016 5:13 AM CDT Performed at: [address] [place] [id number] Roll Over Loader: Pop Trujillo PhD, Phone: [phone] Gómez Fu MD LAB - CHEMISTRY MAHENDRA HENSLEY Performing Organization Address City/[facility]/ZIP Co de Phone Number [facility] ([facility]) [address] [place] [address] * PT-INR (01/06/2016 12:31 PM CDT) PT 9.9 9.5 - 11.6 sec 01/06/2016 1:29 PM CDT [facility] INR 1.0 0.9 - 1.1 01/06/2016 1:29 PM CDT [facility] Blood BLOOD SPECIMEN / Unknown Venipuncture / Unknown 01/06/2016 12:31 PM CDT 01/06/2016 1:08 PM CDT Narrative [facility] - 01/06/2016 1:29 PM CDT Conventional Warfarin Anticoagulant Therapy: INR Reference Range: 2.0-3.0 Intensive Warfarin Anticoagulant Therapy: INR Reference Range: 2.5-3.5 Gómez Fu MD LAB - COAGULATION O RDERABLES [facility] [address] [place] [address] * (ABNORMAL) COMPREHENSIVE METABOLIC PANEL (01/06/2016 12:31 PM CDT) Glucose 147(H) 74 - 106 mg/dL 01/06/2016 1:30 PM CDT [facility] Sodium 141 136 - 145 mmol/L 01/06/2016 1:30 PM CDT [facility] Potassium 4.4 3.5 - 5.1 mmol/L 01/06/2016 1:30 PM CDT [facility] Chloride 107 98 - 107 mmol/L 01/06/2016 1:30 PM CDT [facility] CO2 27 22 - 31 mmol/L 01/06/2016 1:30 PM CDT [facility] Calcium 8.7 8.5 - 10.1 mg/dL 01/06/2016 1:30 PM CDT [facility] Anion Gap 7 5 - 20 mmol/L 01/06/2016 1:30 PM CDT [facility] BUN 28(H) 7 - 21 mg/dL 01/06/2016 1:30 PM CDT [facility] Creatinine 1.10 0.50 - 1.30 mg/dL 01/06/2016 1:30 PM CDT [facility] Alkaline Phosphatase 127(H) 38 - 126 U/L 01/06/2016 1:30 PM CDT [facility] ALT 16 13 - 61 U/L 01/06/2016 1:30 PM CDT [facility] Comment:See reference range update AST 12 5 - 40 U/L 01/06/2016 1:30 PM CDT [facility] Protein Total 7.0 6.4 - 8.2 gm/dL 01/06/2016 1:30 PM CDT [facility] Albumin 3.1(L) 3.4 - 5.0 gm/dL 01/06/2016 1:30 PM CDT [facility] Bilirubin Total 0.5 0.2 - 1.0 mg/dL 01/06/2016 1:30 PM CDT [facility] eGFR by MDRD 48 mL/min/1.7 3m2 01/06/2016 1:30 PM CDT [facility] eGFR by MDRD 58 mL/min/1.7 3m2 01/06/2016 1:30 PM CDT [facility] Blood BLOOD SPECIMEN / Unknown Venipuncture / Unknown 01/06/2016 12:31 PM CDT 01/06/2016 1:08 PM CDT Gómez Fu MD LAB - CHEMISTRY ORD ERABLES Performing Organization Address [facility] Co de Phone Number [facility] [address] [place] [address] * BLOOD TYPE VERIFICATION (01/06/2016 12:25 PM CDT) ABO A 01/06/2016 2:45 PM CDT [facility] Rh Type Positive 01/06/2016 2:45 PM CDT [facility] Miscellaneous samples (specimen) BLOOD SPECIMEN / Unknown Venipuncture / Unknown 01/06/2016 12:25 PM CDT 01/06/2016 1:37 PM CDT Gómez Fu MD LAB - BLOOD BANK OR DERABLES Performing Organization Address [facility] Co de Phone Number [facility] [address] * EKG 12-LEAD (01/06/2016 11:52 AM CDT) Ventricular Rate 66 BPM [facility] Atrial Rate 66 BPM [facility] P-R Interval 156 ms [facility] QRS Duration ms 90 ms [facility] Q-T Interval ms 380 ms [facility] QTC Calculation (Bezet) 398 ms [facility] Calculated P [place] 45 degrees [facility] Calculated R [place] -14 degrees [facility] Calculated T [place] 2 degrees [facility] Interpretation EKG NORMAL SINUS RHYTHM MINIMAL VOLTAGE CRITERIA FOR LVH, MAY BE NORMAL VARIANT INFERIOR INFARCT , AGE UNDETERMINED ABNORMAL ECG Confirmed by Vanda Mancilla ([id number]) on 01/07/2016 8:21:25 AM [facility] 01/06/2016 11:5 2 AM CDT 01/07/2016 8:21 AM CDT Gómez Fu MD ECG ORDERABLES Performing Organization Address [facility] Phone Number [facility] * CULTURE AEROBIC (02/21/2013 1:00 PM CDT) Only the most recent of3 resultswithin the time period is included. Culture SEE NOTE [facility] ([facility]) Comment: CULTURE, AEROBIC BACTERIA MICRO NUMBER: [id number] TEST STATUS: FINAL SPECIMEN SOURCE: GROIN SPECIMEN QUALITY: ADEQUATE RESULT: Growth of skin susan (note: Growth does not include S. aureus, beta-hemolytic Streptococci or P. aeruginosa). Test Performed at: [facility] [address] HITESH BARONE DO, MPH 02/21/2013 1:00 PM CDT 01/25/2013 4:52 AM CDT Vikki Gamble MD LAB - MICROBIOLOGY O RDERAJOHNY Performing Organization Address [facility] Phone Number [facility] ([facility]) * CULTURE FUNGUS SKIN HAIR NAILS (02/21/2013 1:00 PM CDT) Culture Fungus SEE NOTE [facility] ([facility]) Comment: CULTURE, FUNGUS, SKIN, HAIR OR NAILS MICRO NUMBER: [id number] TEST STATUS: FINAL SPECIMEN SOURCE: GROIN SPECIMEN QUALITY: ADEQUATE RESULT: No fungal growth at 4 Weeks NO COLLECTION DATE RECEIVED. WE HAVE USED THE DATE THE SPECIMEN WAS RECEIVED BY THIS LABORATORY THE COLLECTION DATE. IF THIS IS INCORRECT, PLEASE CONTACT CLIENT SERVICES. PHONE NUMBER: [phone] Test Performed at: [facility] [address] HITESH BARONE DO, MPH Skin (tissue) specimen (specimen) 02/21/2013 1:00 PM CDT 01/25/2013 4:52 AM CDT Narrative [facility] ([facility]) - 02/21/2013 1:00 PM CDT groin Specimen Type->Skin Vikki Gamble MD LAB - MICROBIOLOGY O RDERABLES Performing Organization Address [facility] de Phone Number [facility] ([facility]) * VAS CAROTID DUPLEX BILATERAL (01/21/2013 2:25 PM CDT) Anatomical Region Laterality Modality Other Latanya Kaplan APRN-CRIMINAL PSYCHOLOGIST VASCULAR LAB OR DERABLES * CULTURE WOUND+GRAM STAIN (01/07/2013 5:21 PM CDT) Culture Wound MODERATE GROWTH OF GRAM NEGATIVE BACILLI BEING IDENTIFIED. GRAM NEGATIVE BACILLI IDENTIFIED [PSEUDOMONAS AERUGINOSA]. [facility] Culture Results [facility] Organism ID PSEUDOMONAS AERUGINOSA [facility] Comment:PSEUDOMONAS AERUGINO SA Exudate specimen from wound (specimen) 01/07/2013 5:21 PM CDT 01/07/2013 5:35 PM CDT Narrative [facility] - 01/09/2013 11:25 AM CDT [facility]. SPECIMEN QUANTITY IS NOT SUFFICIENT TO ADD GRAM STAIN PER PROTOCOL. Organism Antibiotic Method Susceptibility Pseudomonas aeruginosa Amikacin CULTURE W OUND+GRAM STAIN <=2: Sensitive Pseudomonas aeruginosa Ceftazidime CULTURE W OUND+GRAM STAIN <=1: Sensitive Pseudomonas aeruginosa Ciprofloxacin CULTURE W OUND+GRAM STAIN <=0.25: Sensitive Pseudomonas aeruginosa Cefepime CULTURE W OUND+GRAM STAIN <=1: Sensitive Pseudomonas aeruginosa Gentamicin CULTURE W OUND+GRAM STAIN <=1: Sensitive Pseudomonas aeruginosa Imipenem CULTURE W OUND+GRAM STAIN 2: Sensitive Pseudomonas aeruginosa Tobramycin CULTURE W OUND+GRAM STAIN <=1: Sensitive Pseudomonas aeruginosa Piperacillin-tazobactam C ULTURE WOUND+GRAM STAIN <=4: Sensitive Latanya Kaplan APRN-CRIMINAL PSYCHOLOGIST LAB - MICROBIOL OGY ORDERABLES [address] [phone] Care Teams Dietetics Professor Relationship Specialty Start Date End Date Sundeep Sotelo MD [address] [place] [phone] PCP - General Family Medicine 01/27/16 Fariba Pearl, RN Artificial Fly Tier 01/28/16
--- OUTSIDE RECORDS SUMMARY | 2024-07-10 12:16 | XMS_ITS | Referral Summary ---
Author Organization [facility] Address [address] [facility] [place] [address] Care Team Providers Care Document Examiner Name Role Phone Sundeep Sotelo MD Primary Care Provider [phone] Fariba Pearl RN Unavailable Source Comments [facility],non-owned Affiliates and Associated Physician Practices is amultiple site organization consisting of ambulatory clinics and hospital sitesin [place], [place], [place] and [place]. This disclosure is being madepursuant to the Care Everywhere program and may not contain all information available regarding this patient. Last updated 18.[facility] Work4 Allergies No known active allergies Medications * [...] Mass Index 42.57 02/08/2016 9:37 AM CDT Functional Status Functional Status Response Date of Assess ment Is person deaf or have serious hearing difficult y? No 01/28/2016 Is person blind or have serious difficulty seein g? No 01/28/2016 Does person have serious dif ficulty walking/climbing stairs? Yes 01/28/2016 Does person have difficulty dressing/bathing? No 01/28/2016 Does person have difficulty doing errands alone? Yes 01/28/2016 Cognitive Status Response Date of Assessm ent Does person have difficulty concentrating/remembering/making decisions? No 01/28/2016 Plan of Treatment Not on file Advance Directives Documents on File Type Date Recorded Patient Linux Unix Engineer Expl anation Adv Directive/Living Will/POA 01/31/2016 10:22 PM * Full Code (Latest Code Status on File) Date Activated Date Inactivated Comments 01/27/2016 8:57 PM 01/30/2016 2:13 PM Care Teams Document Examiner Relationship Specialty Start Date End Date Sundeep Sotelo MD [address] [place] [address] PCP - General Family Medicine 01/27/16 Fariba Pearl, RN Embedded Software Engineer 01/28/16
--- OUTSIDE RECORDS SUMMARY | 2024-07-10 12:17 | XMS_ITS | Clinical Summary ---
Author Organization [facility] [address] Address [address] [place] [address] Care Team Providers Care Psychologist Industrial Organizational Name Role Phone Sundeep Sotelo MD Primary Care Provider [phone] Allergies Active Allergy Reactions Criticality Noted Date Comments Aspirin Other (See comments) High bleeding Nitrofurantoin Monohyd/M-Cryst Unknown 08/03 Medications warfarin (COUMADIN) 4 mg tablet take 1 tablet by oral route every day 0 0 3 Active warfarin (COUMADIN) 5 mg tablet take 1 tablet by ORAL route every day or as directed 0 0 3 Active aspirin 81 mg tablet Take 1 tablet (81 mg total) by mouth daily Active levothyroxine (SYNTHROID) 50 mcg tablet Take 1 tablet (50 mcg total) by mouth firmware software verification engineer before breakfast Active gabapentin (NEURONTIN) 300 mg capsule Take 1 capsule (300 mg total) by mouth 3 (three) times a day Active cholecalciferol (VITAMIN D-3) 5,000 unit capsule Take 1 capsule (5,000 Units total) by mouth daily Active oxybutynin XL (DITROPAN-XL) 5 mg 24 hr tablet Take 2.5 mg by mouth daily Active glipiZIDE (GLUCOTROL) 5 mg tablet Take 0.5 tablets (2.5 mg total) by mouth daily 2 Active furosemide (LASIX) 20 mg tablet Take 1 tablet (20 mg total) by mouth daily 90 tablet 3 2 08/02/19 25 Active Additional Information Patient not taking.Reported on 08/02/2023 isosorbide mononitrate ER (IMDUR) 30 mg 24 hr tablet Take one tablet by mouth daily 90 tablet 3 2 Active atorvastatin (LIPITOR) 10 mg tablet Take 1 tablet (10 mg total) by mouth daily 90 tablet 3 2 Active ALPRAZolam (XANAX) 0.25 mg tablet alprazolam 0.25 mg tablet TAKE 1 TABLET BY MOUTH TWICE DAILY NEEDED FOR ANXIETY Active benzonatate (TESSALON) 100 mg capsule TAKE 1 CAPSULE BY MOUTH THREE TIMES DAILY NEEDED FOR COUGH 2 Active cefuroxime (CEFTIN) 500 mg tablet Take 500 mg by mouth every 12 (twelve) hours 2 Active metFORMIN XR (GLUCOPHAGE XR) 500 mg 24 hr tablet 2 Active busPIRone (BUSPAR) 10 mg tablet 2 Active benazepriL (LOTENSIN) 20 mg tablet Take 1 tablet (20 mg total) by mouth daily 30 tablet 3 Active Active Problems Problem Noted Date Diagnosed Date Status post placement of implantable loop record er 04/28/2024 Overview (04/28/2024): Medtronic LINQ22 Loop Recorder. Dx; Syncope, PAF. DOI [facility]12[facility]20[facility] At high risk for falls 08/02/2023 Syncope and collapse 08/02/2023 Bradycardia 10/29/2019 Premature atrial contractions 02/19/2019 Chronic heart failure with p reserved ejection fraction ([facility]/HCC) 12/18/2018 Coronary artery disease invo lving [place] coronary artery of [place] heart with angina pectoris 01/16/2018 Hypertension associated with diabetes 01/16/2018 Morbid obesity with BMI of 40.0-44.9, adult 0 10/2016 Chronic anticoagulation 03/26/2017 Localized edema 03/26/2017 Mixed diabetic hyperlipidemi a associated with type 2 diabetes mellitus ([facility]) 03/26/2017 Lymphedema 09/18/2016 Overview (10/13/2016): Lymphedema Body mass index 40+ - severely obese 09/18/2016 Overview (10/13/2016): Morbid obesity with BMI of 40.0-44.9, adult Ventricular premature beats 09/29/2015 Overview (08/24/2016): PVC's (premature ventricular contractions) Paroxysmal atrial fibrillation (CMS/HCC) 016 Overview (08/25/2016): Paroxysmal atrial fibrillation History of immune thrombocytopenia 09/29/2015 Overview (08/25/2016): History of ITP Mitral valve insufficiency 09/29/2015 Overview (08/25/2016): Mitral valve insufficiency, unspecified etiology Chest pain at rest 03/30/2015 Overview (08/25/2016): Chest pain at rest High risk drug monitoring status 12/17/2013 Overview (08/25/2016): Chronic anticoagulation Idiopathic thrombocytopenic purpura 06/27/2012 Helicobacter pylori gastritis 06/27/2012 Hemolytic anemia 06/27/2012 Encounters Date Type Department Care Team Description 06/25/2024 Orders Only [facility] Cardiology [address] [facility] [address] [place] [phone] Sundeep Sotelo MD 06/16/2024 10:45 AM FUEL SYSTEM MAINTENANCE WORKER Ancillary Procedure [facility] Cardiology [address] [place] [address] [place] [phone] Paroxysmal atrial fibrillation (CMS/HCC) (HCC); Syncope and collapse; Status post placement of implantable loop recorder 05/05/2024 11:00 AM FUEL SYSTEM MAINTENANCE WORKER Ancillary Procedure [facility] Cardiology [address] [place] [address] [place] [phone] Paroxysmal atrial fibrillation (CMS/HCC) (HCC); Syncope and collapse; Status post placement of implantable loop recorder 04/28/2024 Orders Only [facility] Cardiology [address] [place] [address] [place] [phone] Lacho Molsey MD Paroxysmal atrial fibrillation (CMS/HCC) (HCC) (Primary Dx); Syncope and collapse; Status post placement of implantable loop recorder 04/21/2024 Telephone [facility] Cardiology [address] [place] [address] Mario Quiroz MD Medtronic device from Last 3 Months Surgical History Surgery Date Site/Laterality Comments OTHER SURGICAL HISTORY Valvular Heart Disease (Mild to mod eccentric MR): OTHER SURGICAL HISTORY DVT: LLE s/p IVC filter: Medical History Medical History Date Comments Hx Other Medical Valvular Heart Disease (Mild to mod eccentric MR) Hypertension Hypertension Chronic coronary artery disease Coronary Artery Disease Hx Other Medical DVT: LLE s/p IV C filter Adiposity Obesity Hypothyroidism Hypothyroidism Gastroesophageal reflux disease GERD Hx Other Medical Thrombocytopeni a, ITP Family History Medical History Relation Name Comments Cancer Father Cancer, unknown ; Valvular heart disease Mother Valvu lar heart disease; Relation Name Status Comments Father Mother Social History Tobacco Use Types Packs/Day Years Used Date Smoking Tobacco: Never Smokeless Tobacco: Never Tobacco Cessation:Counseling Given: Not Answered Alcohol Use Standard Drinks/Week Comments No 0 (1 standard drink = 0.6 oz pur e alcohol) Comments Unknown Sex and Gender Information Value Date Recorded Sex Assigned at Not on file Legal Sex Female 1:12 PM FUEL SYSTEM MAINTENANCE WORKER Gender Identity Not on file Sexual Orientation Not on file Obstetrics History Last Filed Vital Signs Vital Sign Reading Time Taken Comments Blood Pressure 122/62 10/05/2023 10:47 AM CDT Pulse 66 10/05/2023 10:47 AM CDT Temperature - - Respiratory Rate 16 03/03/2022 2:17 PM CDT Oxygen Saturation 97% 10/05/2023 10:47 AM CDT Inhaled Oxygen Concentration - - Weight 90.3 kg (199 lb) 10/05/2023 10:47 AM CDT Height 165.1 cm (5' 5 ) 10/05/2023 10:47 AM CDT Body Mass Index 33.12 10/05/2023 10:47 AM CDT Plan of Treatment Health Maintenance Due Date Last Done Comments Albumin Creatinine Ratio, Urine 1934 Depression Screening 1934 Fall Risk Assessment 1934 Hemoglobin A1C 1934 Dilated Eye Exam 1934 Foot Exam 1934 DTaP/Tdap/Td Vaccine (1 - Tdap) 1945 Hepatitis B Screening 1952 Zoster Vaccine (1 of 2) 1984 Well Visit 65+ 08/28/1999 eGFR 04/26/2018 04/26/2017 Pneumococcal vaccine 65+ (2 of 2 - PPSV23) 05/16/2019 03/21/2019 Lipid Panel 09/09/2023 09/08/2022, 03/10/2021, 06/24/2019, Additional history exists Influenza Vaccine (#1) 2024 , 03/21/2019, 03/05/2018, Additional history exists Procedures Procedure Name Priority Date/Time Associated Diagnosis Comments XR CHEST PA LATERAL 2 VIEWS Schedule Routine, Read Routine (OP Routine) 06/25/2024 11:59 AM FUEL SYSTEM MAINTENANCE WORKER DEVICE CHECK - REMOTE Routine 06/18/2024 7:28 AM FUEL SYSTEM MAINTENANCE WORKER Paroxysmal atrial fibrillation (CMS/HCC) (HCC) Syncope and collapse Status post placement of implantable loop recorder DEVICE CHECK - REMOTE Routine 05/22/2024 10:43 AM FUEL SYSTEM MAINTENANCE WORKER Paroxysmal atrial fibrillation (CMS/HCC) (HCC) Syncope and collapse Status post placement of implantable loop recorder POCT LIPID PANEL Routine 09/08/2022 2:39 PM CDT Mixed diabetic hyperlipidemia associated with type 2 diabetes mellitus (CMS/HCC) (HCC) BASIC METABOLIC PANEL Routine 04/26/2017 3:07 PM FUEL SYSTEM MAINTENANCE WORKER from Last 3 Months or Most Recently Relevant to Health Maintenance Results * XR Chest Pa Lateral 2 Views (06/25/2024 11:59 AM FUEL SYSTEM MAINTENANCE WORKER) Anatomical Region Laterality Modality Body, Chest N/A Radiographic Alondra ging us Eliot Sanabria MD IMG XR PROCEDURES Final Result * DEVICE CHECK - REMOTE (06/18/2024 7:28 AM FUEL SYSTEM MAINTENANCE WORKER) Anatomical Region Laterality Modality Other Narrative 07/04/2024 1:41 PM FUEL SYSTEM MAINTENANCE WORKER Medtronic REVEAL LinQ II implanted March 12, 2024 for syncope. Patient had a routine [facility] remote transmission of their implantable loop recorder on June 16, 2024. Medications: ASA 81 mg, Coumadin Interrogation of the patients device demonstrates that the Linq is functioning appropriately (0) Symptom events Auto Device detected events of, (0) Pause, (0) Bradycardia, (0) Tachy, (0) AT, (0) AF, Presenting Rhythm: Normal sinus rhythm at 60 bpm Battery: Good Plan: 1) Routine Remote with no new events. 2) Continue to monitor remotely. Dilshad Soledadraudel Device Adz Worker Lacho Mosley MD [facility] PROCEDURES F inal Result * DEVICE CHECK - REMOTE (05/22/2024 10:43 AM FUEL SYSTEM MAINTENANCE WORKER) Anatomical Region Laterality Modality Other Narrative 06/13/2024 10:29 AM FUEL SYSTEM MAINTENANCE WORKER KnockaTVtronic LINQ22 Loop Recorder. Dx; Syncope, PAF. DOI 03/12/2024-Gabriella. [facility] remote. Routine ILR remote. Normal device function. Battery function-Good. Presenting rhythm: VS, regular with PAC, 60-70 bpm. Medications: ASA 81 mg, Coumadin, Imdur, Lipitor. Counters since last scheduled transmission on 03/12/2024. No auto or patient recorded episodes noted. See scanned report. [facility] remote f/u 06/16/2024. Ivon Saenz RN Lacho Mosley MD [facility] PROCEDURES F inal Result * POCT lipid panel (09/08/2022 2:39 PM CDT) Cholesterol, POC 130 mg/dL HDL, POC 57 mg/dL Triglycerides, POC 121 mg/dL LDL Cholesterol POC 49 mg/dL Chol/HDL Ratio, POC 2.3 Non-HDL Cholesterol, POC 74 mg/dL Cholesterol Total, POC 130 mg/dL Capillary blood 09/08/2022 2 :39 PM CDT Corky Frey MD POINT OF CARE TEST ORDER DAPHNIE Final Result * (ABNORMAL) Basic metabolic panel (04/26/2017 3:07 PM FUEL SYSTEM MAINTENANCE WORKER) Glucose 94 65 - 99 mg/dL [facility] - 01 BUN 33(H) 8 - 27 mg/dL [facility] - 01 Creatinine, Serum 1.44(H) 0.57 - 1.00 mg/dL [facility] - 01 eGFR If NonAfricn Am 34(L) >59 mL/min/1.7 3 [facility] - 01 eGFR If Africn Am 39(L) >59 mL/min/1.7 3 [facility] - 01 BUN/creat ratio 23 12 - 28 [facility] - 01 Sodium 145(H) 134 - 144 mmol/L [facility] - 01 Potassium, sr 4.8 3.5 - 5.2 mmol/L [facility] - 01 Chloride 103 96 - 106 mmol/L [facility] - 01 CO2 23 18 - 29 mmol/L [facility] - 01 Calcium 9.5 8.7 - 10.3 mg/dL [facility] - 01 04/26/2017 3:07 PM FUEL SYSTEM MAINTENANCE WORKER 04/26/2017 Narrative [facility] - 04/27/2017 6:15 AM FUEL SYSTEM MAINTENANCE WORKER Performed at: - [address] [id number] License Clerk: Pop Trujillo PhD, Phone: [phone] us Corky Frey MD LAB BLOOD ORDERABLES Fin al Result [facility] - 01 from Last 3 Months or Most Recently Relevant to Health Maintenance Insurance AETNA MEDICARE AETNA MEDICARE Care Teams Psychologist Industrial Organizational Relationship Specialty Start Date End Date Sundeep Sotelo MD PCP - General 01/19/11
--- OUTSIDE RECORDS SUMMARY | 2024-07-10 12:17 | XMS_ITS | Clinical Summary ---
Author Organization [facility] Address [address] [place] [phone] Phone Care Team Providers Care Wastewater Manager Name Role Phone Sundeep Sotelo MD Primary Care Provider [phone] Allergies Active Allergy Reactions Criticality Noted Date Comments Aspirin Other (see comments) High 12/26/2018 bleeding Nitrofurantoin 04/18/2021 Medications Medication Sig Dispensed Refills Start Date End Date Status furosemide (LASIX) 20 MG tablet 1-2 daily 0 02/08/2018 Active oxybutynin (DITROPAN) 5 MG tablet 1 daily 0 02/08/2018 Active levothyroxine (SYNTHROID, LEVOTHROID) 50 MCG tablet 1 daily 0 02/08/2018 Active quinapril (ACCUPRIL) 20 MG tablet 1 daily 0 02/08/2018 Active silver sulfADIAZINE (SILVADENE) 1 % cream 1 apply bid 0 02/08/2018 Ac tive atorvastatin (LIPITOR) 10 MG tablet 1 daily 0 02/08/2018 Active warfarin (COUMADIN) 3 MG tablet TK 1 T PO QD 3 11/12/2018 Active betamethasone dipropionate (DIPROLENE) 0.05 % cream SONIA THIN LAYER EXT AA QD 0 12/20/2018 Active clotrimazole (LOTRIMIN) 1 % cream 0 12/20/2018 Active isosorbide mononitrate (IMDUR) 30 MG 24 hr tablet Take 30 mg by mouth daily 03/07/2018 Active gabapentin (NEURONTIN) 300 MG capsule 03/27/2019 Active cholecalciferol (D 5000) 125 MCG (5000 UT) capsule Take 5,000 Units by mouth daily Active busPIRone (BUSPAR) 10 MG tablet 09/21/2021 Active glipiZIDE (GLUCOTROL) 5 MG tablet Take 2.5 mg by mouth 1 (one) time each day 09/21/2021 Active metFORMIN XR 500 MG 24 hr tablet 08/18/2021 Active Active Problems Problem Noted Date Diagnosed Date Venous ulcer of lower extrem ity due to chronic peripheral venous hypertension 11/06/2019 Bradycardia 10/29/2019 Chronic kidney disease stage 3A 12/26/2018 Cancer of endometrium 12/26/2018 Chronic heart failure co-occ urrent with normal ejection fraction 12/18/2018 Type 2 diabetes mellitus wit h diabetic chronic kidney disease 02/11/2018 Essential (primary) hypertension 02/11/2018 Immune thrombocytopenic purpura 02/11/2018 Hematuria 02/11/2018 Malignant neoplasm of uterus 02/11/2018 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 02/11/2018 Acute embolism and thrombosi s of unspecified deep veins of left lower extremity 02/11/2018 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 02/11/2018 Hyperlipidemia 02/11/2018 Hypothyroidism 02/11/2018 Urinary tract infection 02/11/2018 Body mass index 40+ - severely obese 03/26/2017 Long-term current use of anticoagulant 7 Lymphedema 09/18/2016 Overview (12/26/2018): Lymphedema Mitral valve regurgitation 09/29/2015 Overview (12/26/2018): Mitral valve insufficiency, unspecified etiology Paroxysmal atrial fibrillation 09/29/2015 Overview (12/26/2018): Paroxysmal atrial fibrillation Immunizations Name Administration Dates Next Due Influenza TIV (IM) 02/02/2021,03/21/2019 Pneumococcal Conjugate 13-Valent 03/21/2019 Family History Medical History Relation Comments Malignant neoplastic disease Father Cerebrovascular accident Mother Kidney disease Neg Hx Relation Status Comments Father Mother Social History Tobacco Use Types Packs/Day Years Used Date Smoking Tobacco: Never Smokeless Tobacco: Never Alcohol Use Standard Drinks/Week Comments Not Currently 0 (1 standard drink = 0.6 oz pur e alcohol) Sex and Gender Information Value Date Recorded Sex Assigned at Not on file Gender Identity Not on file Sexual Orientation Not on file Last Filed Vital Signs Vital Sign Reading Time Taken Comments Blood Pressure 132/84 10/24/2021 1:27 PM CDT Pulse 60 10/24/2021 1:27 PM CDT Temperature 36.4 C (97.5 F) 10/24/2021 1:27 PM CDT Respiratory Rate - - Oxygen Saturation - - Inhaled Oxygen Concentration - - Weight 107 kg (235 lb) 10/24/2021 1:27 PM CDT Height 160 cm (5' 3 ) 10/24/2021 1:27 PM CDT Body Mass Index 41.63 10/24/2021 1:27 PM CDT Plan of Treatment Health Maintenance Due Date Last Done Comments Pneumococcal PPSV23/PCV13 65 + Years / High and Highest Risk (2 of 4 - PPSV23 or PCV20) 05/16/2019 03/21/2019 Influenza Vaccine (#1) 2024 02/02/2021, 2018 Care Teams Wastewater Manager Relationship Specialty Start Date End Date Sundeep Sotelo MD [address] [place] [address] PCP - General Family Medicine 12/26/18
--- OUTSIDE RECORDS SUMMARY | 2024-07-10 12:17 | XMS_ITS | Referral Summary ---
Author Organization [place] [address] Address [address] [place] [address] Care Team Providers Care Water Sponger Name Role Phone Sundeep Sotelo MD Primary Care Provider [phone] Encounters Date Type Department Care Team Description 06/25/2024 Orders Only [facility] Cardiology [address] [place] [address] Sundeep Sotelo MD 06/16/2024 10:45 AM LABOR ECONOMICS PROFESSOR Ancillary Procedure [facility] Cardiology [address] [place] [address] [place] [phone] Paroxysmal atrial fibrillation (CMS/HCC) (HCC); Syncope and collapse; Status post placement of implantable loop recorder 05/05/2024 11:00 AM LABOR ECONOMICS PROFESSOR Ancillary Procedure [facility] Cardiology [address] [place] [address] [place] [phone] Paroxysmal atrial fibrillation (CMS/HCC) (HCC); Syncope and collapse; Status post placement of implantable loop recorder 04/28/2024 Orders Only [facility] Cardiology [address] [place] [address] [place] [phone] Lacho Mosley MD Paroxysmal atrial fibrillation (CMS/HCC) (HCC) (Primary Dx); Syncope and collapse; Status post placement of implantable loop recorder 04/21/2024 Telephone [facility] Cardiology [address] [facility] [address] [place] [address] Mario Quiroz MD Medtronic device from Last 3 Months Allergies Active Allergy Reactions Criticality Noted Date [...] 1 tablet (50 mcg total) by mouth linen supervisor before breakfast Active gabapentin (NEURONTIN) 300 mg [...] mouth daily 90 tablet 3 2 08/02/19 Active Additional Information Patient not taking.Reported on [...] LINQ22 Loop Recorder. Dx; Syncope, PAF. DOI 03/12/2024-Fleissner. Ching remote. At high risk for falls 08/02/2023 Syncope and collapse 08/02/2023 Bradycardia 10/29/2019 Premature atrial contractions 02/19/2019 Chronic heart failure with p reserved ejection fraction ([facility]) 12/18/2018 Coronary artery disease invo lving [place] coronary artery of [place] heart with angina pectoris 01/16/2018 Hypertension associated with diabetes 01/16/2018 Morbid obesity with BMI of 40.0-44.9, adult 10/2016 Chronic anticoagulation 03/26/2017 Localized edema 03/26/2017 Mixed diabetic hyperlipidemi a associated with type 2 diabetes mellitus ([facility]) 03/26/2017 Lymphedema 09/18/2016 Overview (10/13/2016): Lymphedema Body mass index 40+ - severely obese 09/18/2016 Overview (10/13/2016): Morbid obesity with BMI of 40.0-44.9, adult Ventricular premature beats 09/29/2015 Overview (08/24/2016): PVC's (premature ventricular contractions) Paroxysmal atrial fibrillation ([facility]) 016 Overview (08/25/2016): Paroxysmal atrial fibrillation History of immune thrombocytopenia 09/29/2015 Overview (08/25/2016): History of ITP Mitral valve insufficiency 09/29/2015 Overview (08/25/2016): Mitral valve insufficiency, unspecified etiology Chest pain at rest 03/30/2015 Overview (08/25/2016): Chest pain at rest High risk drug monitoring status 12/17/2013 Overview (08/25/2016): Chronic anticoagulation Idiopathic thrombocytopenic purpura 06/27/2012 Helicobacter pylori gastritis 06/27/2012 Hemolytic anemia 06/27/2012 Social History Tobacco Use Types Packs/Day Years Used Date Smoking Tobacco: Never Smokeless Tobacco: Never Tobacco Cessation:Counseling Given: Not Answered Alcohol Use Standard Drinks/Week Comments No 0 (1 standard drink = 0.6 oz pur e alcohol) Comments Unknown Sex and Gender Information Value Date Recorded Sex Assigned at Not on file Legal Sex Female 1:12 PM LABOR ECONOMICS PROFESSOR Gender Identity Not on file Sexual Orientation [...] 10/05/2023 10:47 AM CDT Plan of Treatment Not on file Procedures Procedure Name Priority Date/Time Associated Diagnosis Comments XR CHEST PA LATERAL 2 VIEWS Schedule Routine, Read Routine (OP Routine) 06/25/2024 11:59 AM LABOR ECONOMICS PROFESSOR DEVICE CHECK - REMOTE Routine 06/18/2024 7:28 AM LABOR ECONOMICS PROFESSOR Paroxysmal atrial fibrillation (CMS/HCC) (HCC) Syncope and collapse Status post placement of implantable loop recorder DEVICE CHECK - REMOTE Routine 05/22/2024 10:43 AM LABOR ECONOMICS PROFESSOR Paroxysmal atrial fibrillation (CMS/HCC) (HCC) Syncope and collapse Status post placement of implantable loop recorder POCT LIPID PANEL Routine 09/08/2022 2:39 PM CDT Mixed diabetic hyperlipidemia associated with type 2 diabetes mellitus (CMS/HCC) (HCC) BASIC METABOLIC PANEL Routine 04/26/2017 3:07 PM LABOR ECONOMICS PROFESSOR from Last 3 Months or Most Recently Relevant to Health Maintenance Results * XR Chest Pa Lateral 2 Views (06/25/2024 11:59 AM LABOR ECONOMICS PROFESSOR) Anatomical Region Laterality Modality Body, Chest N/A Radiographic Alondra ging Result [facility] Eliot Sanabria MD IMG XR PROCEDURES Final Result * DEVICE CHECK - REMOTE (06/18/2024 7:28 AM LABOR ECONOMICS PROFESSOR) Anatomical Region Laterality Modality Other Narrative 07/04/2024 1:41 PM LABOR ECONOMICS PROFESSOR Medtronic REVEAL LinQ II implanted March 12, [...] events. 2) Continue to monitor remotely. Dilshad Corea Device Rework Machine Operator Result [facility] Lacho Mosley MD CV CARDIAC SERVICES PROCEDURES F inal Result * DEVICE CHECK - REMOTE (05/22/2024 10:43 AM LABOR ECONOMICS PROFESSOR) Anatomical Region Laterality Modality Other Narrative 06/13/2024 10:29 AM LABOR ECONOMICS PROFESSOR Medtronic LINQ22 Loop Recorder. Dx; Syncope, PAF. DOI 03/12/2024-Gabriella. [facility] remote. Routine ILR remote. Normal device function. Battery function-Good. Presenting rhythm: VS, regular with PAC, 60-70 bpm. Medications: ASA 81 mg, Coumadin, Imdur, Lipitor. Counters since last scheduled transmission on 03/12/2024. No auto or patient recorded episodes noted. See scanned report. [facility] remote f/u 06/16/2024. Ivon Saenz RN Result [facility] Lacho Mosley MD CV CARDIAC SERVICES PROCEDURES [...] (ABNORMAL) Basic metabolic panel (04/26/2017 3:07 PM LABOR ECONOMICS PROFESSOR) Glucose 94 65 - 99 mg/dL [facility] [...] mg/dL [facility] - 01 04/26/2017 3:07 PM LABOR ECONOMICS PROFESSOR 04/26/2017 Narrative [facility] - 04/27/2017 6:15 AM LABOR ECONOMICS PROFESSOR Performed at: 01 - [facility] [address] [id number] Radioisotope Technologist: Pop Trujillo PhD, Phone: [phone] Corky Frey MD LAB BLOOD ORDERABLES Fin al Result [facility] - 01 from Last 3 Months or Most Recently Relevant to Health Maintenance Insurance [employer] Care Teams Water Sponger Relationship Specialty Start Date End Date Sundeep Sotelo MD PCP - General 01/19/11
--- NOTE | 2024-07-10 13:13 | PC.NURSE ---
This kettle cook attempted to get blood cultures. Charge Nurse notified.
[2024-07-10 13:20] LABS: Add Urine Microscopic? YES; Appearance Urine Clear (Clear); Bacteria Urine None Seen /hpf; Bilirubin Urine Negative (Negative); Blood Urine Negative (Negative); Color Urine Yellow (Yellow); Glucose Urine UA Negative (Negative); Ketones Urine Negative (Negative); Leukocyte Esterase Ur Negative LEU/UL (Negative); Nitrate Urine Negative (Negative); Non Pathogenic Casts 0-2; Protein Urine Trace mg/dL (Negative); RBC Urine 0-2 /hpf (0-2); Specific Grav Ur 1.011 (1.001-1.035); Squamous Epithelial Cell Urine None Seen /hpf (Few); Urobilinogen Urine 0.2 mg/dL (<2.0); WBC Urine 0-5 /hpf (0-3); pH Urine 5.5 (5.0-9.0)
[2024-07-10 13:53] LABS: Influenza A QL RT-PCR Negative (Negative); Influenza B QL RT-PCR Negative (Negative); RSV RNA, RT-PCR Negative (Negative); SARS-CoV-2 RNA PCR Negative (Negative)
[2024-07-10 13:55] LABS: Glucose Point of Care 94 mg/dl (65-105)
[2024-07-10 14:02] LABS: Lactic Acid Reflex 1.3 mmol/L (0.7-2.0)
[2024-07-10 14:04] LABS: Alanine Aminotransferase 12 U/L (6-35); Albumin Level 4.3 g/dL (3.5-5.1); Alkaline Phosphatase 125 U/L (38-126); Anion Gap 13 mmol/L (4-12); Aspartate Amino Transferase 21 U/L (14-36); Bilirubin,Total 1.1 mg/dL (0.2-1.3); Blood Urea Nitrogen 22 mg/dL (7-17); Carbon Dioxide 23 mmol/L (22-30); Chloride 108 mmol/L (98-107); Estimated CRCL calculation 39 ml/min; Estimated Glomerular Filt Rate 57; Glucose 105 mg/dL (65-110); Potassium 4.4 mmol/L (3.4-5.0); Sodium 144 mmol/L (137-145)
[2024-07-10 14:08] LABS: Basophils Absolute Auto 0.1 K/mm3 (0.0-0.1); Basophils Percent Auto 0.6 % (0.2-1.2); Eosinophils Absolute Auto 0.1 K/mm3 (0-0.3); Hematocrit 45.1 % (37.0-47.0); Hemoglobin 14.4 g/dL (12.0-15.0); Immature Granulocyte Absolute 0.02 K/mm3 (0.00-0.031); Immature Granulocyte Percent A 0.2 % (0-0.5); Lymphocytes Absolute Auto 1.44 K/mm3 (0.9-3.2); Lymphocytes Percent Auto 16.6 % (18.3-44.2); Mean Corpuscular HGB Conc 31.9 g/dl (32-36); Mean Corpuscular Hemoglobin 26.8 pg (26-34); Mean Corpuscular Volume 83.8 fl (80-100); Mean Platelet Volume 11.7 fl (7.4-10.4); Monocytes Absolute Auto 0.6 K/mm3 (0.1-0.6); Monocytes Percent Auto 6.4 % (2.6-8.5); Neutrophils Absolute Auto 6.5 K/mm3 (1.3-6.7); Neutrophils Percent Auto 75.2 % (45.5-73.1); Platelet Count Result 259 k/mm3 (150-375); Red Blood Count 5.38 M/mm3 (4.2-5.4); White Blood Count 8.7 K/mm3 (4.5-10.0)
[2024-07-10 14:11] LABS: INR 2.1; Partial Thromboplastin Time 29.5 Seconds (22.3-36.8); Prothrombin Time 23.5 Seconds (11.1-14.7)
[2024-07-10 14:16] LABS: CRP < 0.5 mg/dL (<1.0)
[2024-07-10] MEDS: LORazepam INJ (*CRX) 2 MG/ML VIAL 0.5 MG IV PUSH (16:01)
[2024-07-10] MEDS: ACETAMINOPHEN 325 MG TABLET 650 MG PO ×2 (16:13→16:44)
[2024-07-10] MEDS: LACTATED RINGERS 1,000 ML 150 ML IV CONT (16:55)
[2024-07-10 17:38] LABS: Troponin I 0.013 ng/mL (0.000-0.034)
[2024-07-10 17:53] LABS: Amphetamine Screen Urine Negative (Negative); Barbiturate Screen Urine Negative (Negative); Benzodiazepines Screen Urine Negative (Negative); Cannabinoid Screen Urine Negative (Negative); Cocaine Screen Urine Negative (Negative); Methadone Screen Urine Negative (Negative); Opiate Screen Urine Negative (Negative); Phencyclidine Screen Urine Negative (Negative)
--- NOTE | 2024-07-10 19:29 | PM.IMHP ---
H&P: HPI History of Present Illness Date/Time: 07/10/24 19:29 Chief Complaint: Syncope Narrative: 88 y/o F presents here with syncope and AMS with PMH of diastolic dysfunction, DVT, diabetes, chronic idiopathic thrombocytopenia, legally blind, anemia, dementia, depression, CKD stage 3, hypertension, hyperlipidemia, hypothyroidism, and paroxysmal AFib. The patient presents here from home via EMS for further evaluation of altered mental status and syncope. HPI obtained through the patient's daughter, chart review, and ED provider report. The patient is not able to contribute reliably, currently A&Ox0-1. Patient initially developed symptoms approximately 1 week ago. Daughter reports that she has been becoming increasingly confused/ loopy and has had increased syncopal episodes over the past week. At baseline she has moderate dementia and will recognize her family, however may not know the date. She has been checking the patient's urine daily for a UTI. Initially home UA did not show infection, however her on Sunday she reports the test indicated a UTI. This report were called to her PCP and she was prescribed Keflex 500 t.i.d. She has received 4 doses with last dose Sunday night. A urine culture was not obtained for this infection. Despite antibiotic use the patient developed hallucinations yesterday. The daughter stated she was interacting with things that were not there. However, she became increasingly concerned and sought care today due to the increase in syncopal episodes. She reports she initially developed syncope in June of 2023. Occurrences were every few months -> one every few weeks -> this week she has passed out daily with max of 3 daily. She has a Dexcom in place and a loop recorder in place due to rule out dysrhythmia and hypoglycemia as etiology. The patient's blood sugar has been decreasing over the last week and she has had some readings in the 50s and 60s. The daughter reported that she can tell when the patient is about to pass out because she will become generally weak and her color will change (becomes very pale). The patient has eyes will roll back, she will have a loss of consciousness for anywhere up to a minute, almost as if she went to sleep, and the patient will wake up exhausted. The patient typically does not have any memory of these events and will have increased confusion after. Daughter is now concerned the syncopal episodes are neurological or possibly seizures due to the large increase in muscle movements with episodes in the past week. She also noted that these episodes may correlate with eating, stating that it appears to have been after meals frequently. Initial VS at presentation: 96.5? F, HR 68, RR 28, 160/89, and 100% on RA. ED workup showed: No leukocytosis, hemoglobin 14.4 (previously 10.1 in February of 2024), INR 2.1, creatinine 0.92 and GFR 57, lactic 1.3, initial troponin 0.013, CRP <0.5, TSH 1.53. UA unremarkable. UDS negative. Viral PCR negative. CXR showed no acute cardiopulmonary disease. Head CT showed stable appearance of age related changes in the brain, no acute intracranial process. Initial EKG showed sinus rhythm, rate 67, voltage criteria for LVH, consider inferior infarct age indeterminate, anterior infarct age indeterminate. Review of Systems Review of Systems: ROS unobtainable: Yes unobtainable due to mental status (Limited, A&O x1) [facility] Past Medical History Medical History (Updated 07/10/24 @ 22:07 by Belem Pat APRN) Lymphedema Peripheral artery disease Type 2 diabetes mellitus Head trauma COVID Diastolic dysfunction Echocardiogram 02/08/2024 showed normal LV function with an EF estimated at 60 to 65% and grade 1 diastolic dysfunction. Bilateral carotid artery stenosis 70% right and 40% left internal carotid artery stenosis on CTA of the neck on 02/18/2024. Deep venous thrombosis (2010) Degenerative disc disease Chronic idiopathic thrombocytopenia Anemia Dementia Depression Aphasia Diabetic neuropathy Anticoagulant long-term use Onychomycosis Chronic kidney disease, stage 3 (moderate) Essential (primary) hypertension Mixed hyperlipidemia Hypothyroidism Paroxysmal atrial fibrillation Surgical History Surgical History (Updated 07/10/24 @ 22:06 by Belem Pat APRN) History of cataract extraction History of hysterectomy History of cholecystectomy Family History Family History Mother Cerebrovascular accident Family history of coronary artery disease Heart disease Father Cancer Tobacco abuse Sibling Acute myocardial infarction Heart disease Tobacco abuse Alcohol abuse Other Family history of cardiovascular disease Social History Social History Social History: Surrogate medical decision maker: Maria T Luna, daughter Code status: Full code. Smoking packs per day: 0 Smoking cigarettes per day: 0.0 Smoking status: Never smoker Second hand tobacco smoke exposure: Yes Alcohol intake: never Substance use: never Substance use type: does not use Do You Feel Safe in your Home?: Yes Lack of Transportation: No Lack of Food: Never True Current Housing: I Have Housing Concerned About Future Housing: No Difficulty Paying Gas/Electric Bills: No Difficulty Paying for Meds: No Currently Unemployed: No Education: High School Diploma/GED Difficulty w/ Childcare or Family Care: No Living arrangements: alone Additional living arrangements comments: in rehab stay currently. Lives next to daughter. 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 Spiritual care concerns: No Meds Home Medications and Allergies Home Medications ?Medication ?Instructions ?Recorded ?Confirmed ?Type levothyroxine 50 mcg tablet 50 mcg PO DAILY #90 tabs 08/30/23 07/10/24 Rx atorvastatin 10 mg tablet 10 mg PO DAILY #90 tabs 10/23/23 07/10/24 Rx isosorbide mononitrate 30 mg 30 mg PO DAILY #90 tabs 10/30/23 07/10/24 Rx tablet,extended release 24 hr buspirone 10 mg tablet 10 mg PO BID #180 tabs 12/20/23 07/10/24 Rx benazepril 20 mg tablet 20 mg PO DAILY #90 tabs 01/28/24 07/10/24 Rx gabapentin 300 mg capsule 600 mg PO Q12H 02/03/24 07/10/24 History amlodipine 5 mg tablet (Norvasc) 5 mg PO DAILY #90 tabs 04/04/24 07/10/24 Rx warfarin 1 mg tablet (Jantoven) See Rx Instructions .Route 05/19/24 07/10/24 Rx .COMPLEX #90 tabs metformin 500 mg tablet,extended See Rx Instructions .Route 06/09/24 07/10/24 Rx release 24 hr .COMPLEX #90 tabs warfarin 4 mg tablet (Jantoven) 4 mg PO DAILY #90 tabs 06/20/24 07/10/24 Rx memantine 10 mg tablet 10 mg PO BID #180 tabs 06/28/24 07/10/24 Rx cephalexin 500 mg tablet 500 mg PO TID 7 days #21 tabs 07/08/24 07/10/24 Rx Allergies Allergy/AdvReac Type Severity Reaction Status Date / Time nitrofurantoin Allergy Intermediate Rash Verified 03/11/24 18:26 aspirin AdvReac Other Verified 03/11/24 19:17 Vital Signs Vital Signs - 24 hr 07/10/24 11:45 07/10/24 11:58 07/10/24 12:02 Temperature 96.5 F L Pulse Rate 68 69 Respiratory Rate 28 H Blood Pressure 160/89 H Pulse Oximetry 100 100 Oxygen Delivery Room Air Room Air 07/10/24 12:35 07/10/24 13:00 07/10/24 13:01 Temperature Pulse Rate 69 66 65 Respiratory Rate 16 14 16 Blood Pressure 175/85 H 179/62 H 179/62 H Pulse Oximetry 99 98 Oxygen Delivery 07/10/24 13:31 07/10/24 14:00 07/10/24 15:00 Temperature Pulse Rate 62 63 66 Respiratory Rate 11 L 16 16 Blood Pressure 182/82 H 182/82 H 152/106 H Pulse Oximetry 97 100 Oxygen Delivery 07/10/24 16:00 07/10/24 17:15 Temperature Pulse Rate 78 81 Respiratory Rate 16 14 Blood Pressure 123/103 H 135/101 H Pulse Oximetry 98 100 Oxygen Delivery Exam Const: General: comfortable and no acute distress Other: , female, elderly, nontoxic appearance HENMT: Face/Nose/Sinus: Normal nares present Mouth: Yes moist mucous membranes Other: +WRANGELL Eyes: General: appearance normal, both eyes and all related structures Sclera: sclerae normal Pupils: Equal, round and reactive pupils present EOM: EOMs intact bilaterally Other: Legally blind Resp: Effort & Inspection: normal respiratory effort Auscultation: clear to auscultation bilaterally Cardio: Rate: regular rate Rhythm: regular rhythm Other: S1-S2 present without murmur, rub, ectopy GI: Other: Abdomen soft, nondistended, and no particular expression or grimace with palpation. Skin: General skin exam: normal color and no rashes or lesions noted Wounds: no wounds Neuro: Other: A&Ox0. Does not answer questions correctly, will discuss people who are not present. Does not appear to be interacting with visual hallucinations. Moving all extremities. Unable to follow simple commands (example: After School Program Teacher fingers, pedal pushes). Fine tremor to bilateral hands, symmetric in amplitude, with movements (wringing towel) Extrem: General: normal to inspection Psych: Other: Poor insight and judgment. Restless. H&P: Results Labs Labs: Short CBC 07/10/24 Range/Units 13:40 WBC 8.7 (4.5-10.0) K/mm3 Hgb 14.4 D (12.0-15.0) g/dL Hct 45.1 (37.0-47.0) % Plt Count 259 (150-375) k/mm3 BMP 07/10/24 13:39 Sodium 144 Potassium 4.4 Chloride 108 H Carbon Dioxide 23 BUN 22 H Creatinine 0.92 Glucose 105 Calcium 10.0 Cardiac Enzymes 07/10/24 Range/Units 13:39 Troponin I 0.013 (0.000-0.034) ng/mL Liver Function 07/10/24 Range/Units 13:39 Total Bilirubin 1.1 (0.2-1.3) mg/dL AST 21 (14-36) U/L ALT 12 (6-35) U/L Alkaline Phosphatase 125 (38-126) U/L Albumin 4.3 (3.5-5.1) g/dL Urine 07/10/24 Range/Units 13:09 Urine Color Yellow (Yellow) Urine Appearance Clear (Clear) Urine pH 5.5 (5.0-9.0) Ur Specific [place] 1.011 (1.001-1.035) Urine Protein Trace (Negative) mg/dL Urine Glucose (UA) Negative (Negative) mg/dL Assessment and Plan Assessment and plan (1) Confusion: Code(s): R41.0 - Disorientation, unspecified Status: Acute Assessment and Plan: - head CT: Stable appearance of age related changes in the brain, no acute intracranial process. - UA unremarkable, recently started on Keflex for UTI. Will continue with ceftriaxone. - viral PCR negative - MRI brain/brainstem - neurological checks Q4H - telemetry monitoring Suspect alteration may be secondary to UTI, will continue treatment. (2) Syncope and collapse: Code(s): R55 - Syncope and collapse Status: Acute Assessment and Plan: - EKG, initial: Sinus rhythm, rate 67, voltage criteria for LVH, consider inferior infarct age indeterminate, inferior infarct age indeterminate, baseline artifact. When compared to EKG done on 02/18/2024, there are no significant changes. - head CT and CXR showed no acute findings - UDS and viral PCR negative - UA unremarkable, recently started on Keflex for UTI. Will continue antibiotics. - hemoglobin 14.4, increased from prior. May have some level of dehydration. IV fluids. - MR brain and US of carotids - echo, previous (01/2024): normal systolic function, EF 60-65%, and grade 1 diastolic dysfunction. no pulmonary hypertension. see report. - troponin 0.013, trend - consider cardiology consultation if dysrhythmia or bradycardia observed via telemetry - orthostatics Q shift - fall precautions - telemetry monitoring (3) Paroxysmal atrial fibrillation: Code(s): I48.0 - Paroxysmal atrial fibrillation Status: Chronic Assessment and Plan: - initial EKG showing sinus rhythm - continue home medications: Warfarin - telemetry monitoring (4) Hypothyroidism: Qualifiers: Hypothyroidism type: unspecified Qualified Code(s): E03.9 - Hypothyroidism, unspecified Code(s): E03.9 - Hypothyroidism, unspecified Status: Chronic Assessment and Plan: - TSH 1.53 on 07/10/2024 - continue home medications: levothyroxine 50 mcg daily (5) Type 2 diabetes mellitus: Qualifiers: Diabetes mellitus termite control servicer insulin use: without termite control servicer use Diabetes mellitus complication status: with kidney complications Diabetes mellitus complication detail: with chronic kidney disease Chronic kidney disease stage: stage 3 (moderate) Chronic kidney disease stage 3 subtype: stage 3a (GFR 45-59) Qualified Code(s): E11.22 - Type 2 diabetes mellitus with diabetic chronic kidney disease; N18.31 - Chronic kidney disease, stage 3a Code(s): E11.9 - Type 2 diabetes mellitus without complications Status: Acute Assessment and Plan: - Dexcom in place - hypoglycemia protocol - POC blood glucose ACHS - home medication: hold metformin in case of need for contrast - correct regimen ordered - high dose TIDWM, based off BMI - A1C ordered, previously 6.2% in January of 2024 (6) Chronic kidney disease, stage 3a: Code(s): N18.31 - Chronic kidney disease, stage 3a Status: Chronic Assessment and Plan: - creatinine 0.92 and GFR 57, previously 0.8 and GFR >60 on 02/23/2024 - trend renal function - trend electrolytes, correct as needed (7) Essential (primary) hypertension: Code(s): I10 - Essential (primary) hypertension Status: Chronic Assessment and Plan: - chronic, currently 140/90 - continue home medications: Amlodipine, Imdur - monitor Plan Diet: Heart healthy GI Prophylaxis: Not currently indicated DVT Prophylaxis: Warfarin Lines: Peripheral Code Status: Full code Quality VTE Prophylaxis VTE prophylaxis: pharmacologic ordered Hospitalist MIPS Advance Care Plan I have confirmed that the patient's Advanced Care Plan is present, code status is documented, or surrogate decision maker is listed in patient medical record.: Yes Medication Reconciliation I have utilized all available resources to obtain, update and review the patients current medications (includes all prescriptions, OTC, herbals, cannabis, and nutritional supplements).: Yes
--- NOTE | 2024-07-10 20:11 | ADMGEN ---
This patient, Maria Luna, was admitted to Medical Room 345-01. Patient/family oriented to hospital policies and general routines including ID bracelet, bed and alarms, visiting hours, pain management, procedures, bathroom and other care routines, personal items, smoking policy, room service/diet, and visiting hours. Report taken from TIO Lovett prior to transport Information on how to activate the Rapid Response Team has been discussed. Patient/Family are encouraged to report perceived risks to care and to ask questions if they do not understand what they are told or what they should do.
[2024-07-10 21:21] LABS: Troponin I 0.017 ng/mL (0.000-0.034)
--- NOTE | 2024-07-10 22:14 | PC.NURSE ---
Social Media Community Manager spoke with daughter by phone to confirm medications and medical history. Daughter requested dexcom be removed
[2024-07-10 22:22] LABS: Glucose Point of Care 110 mg/dl (65-105)
[2024-07-10] MEDS: busPIRone HCL 10 MG TABLET PO (22:50)
[2024-07-10] MEDS: WARFARIN (*PBKC) 4 MG TABLET PO (22:50)
[2024-07-10] MEDS: WARFARIN (*PBKC) 1 MG TABLET PO (22:50)
[2024-07-10] MEDS: GABAPENTIN 300 MG CAPSULE 600 MG PO (22:50)
[2024-07-10] MEDS: MEMANTINE 10 MG TABLET PO (22:50)
[2024-07-11] VITALS (12 sets, daily range): BP systolic 120–166; BP diastolic 58–92; PULSE 59–72; RESP 16–18; TEMP 35.9–36.8; O2SAT 97–100
[2024-07-11 00:02] LABS: Troponin I 0.021 ng/mL (0.000-0.034)
[2024-07-11] MEDS: LEVOTHYROXINE SODIUM 50 MCG TABLET PO (05:58)
[2024-07-11 06:13] LABS: Basophils Absolute Auto 0.1 K/mm3 (0.0-0.1); Basophils Percent Auto 0.6 % (0.2-1.2); Eosinophils Absolute Auto 0.1 K/mm3 (0-0.3); Eosinophils Percent Auto 0.8 % (0-4.4); Hematocrit 39.7 % (37.0-47.0); Hemoglobin 12.5 g/dL (12.0-15.0); Immature Granulocyte Absolute 0.03 K/mm3 (0.00-0.031); Immature Granulocyte Percent A 0.3 % (0-0.5); Lymphocytes Absolute Auto 1.76 K/mm3 (0.9-3.2); Lymphocytes Percent Auto 18.7 % (18.3-44.2); Mean Corpuscular HGB Conc 31.5 g/dl (32-36); Mean Corpuscular Hemoglobin 26.7 pg (26-34); Mean Corpuscular Volume 84.8 fl (80-100); Mean Platelet Volume 11.2 fl (7.4-10.4); Monocytes Absolute Auto 0.8 K/mm3 (0.1-0.6); Monocytes Percent Auto 8.3 % (2.6-8.5); Neutrophils Absolute Auto 6.7 K/mm3 (1.3-6.7); Neutrophils Percent Auto 71.3 % (45.5-73.1); Platelet Count Result 250 k/mm3 (150-375); Red Blood Count 4.68 M/mm3 (4.2-5.4); Red Cell Distribution Width 15.1 % (11.5-14.5); White Blood Count 9.4 K/mm3 (4.5-10.0)
[2024-07-11 06:20] LABS: Anion Gap 12 mmol/L (4-12); Blood Urea Nitrogen 24 mg/dL (7-17); Carbon Dioxide 21 mmol/L (22-30); Chloride 109 mmol/L (98-107); Estimated CRCL calculation 39 ml/min; Estimated Glomerular Filt Rate 59; Glucose 94 mg/dL (65-110); Potassium 4.5 mmol/L (3.4-5.0); Sodium 142 mmol/L (137-145)
[2024-07-11 06:22] LABS: INR 2.4
[2024-07-11 06:25] LABS: Hemoglobin A1C 5.8 % (<5.7)
--- NOTE | 2024-07-11 07:26 | PM.IMPN ---
Progress Note: A&P Assessment and Plan (1) Confusion: Code(s): R41.0 - Disorientation, unspecified Status: Acute Assessment and Plan: Daughter reports that she has been becoming increasingly confused and has had increased syncopal episodes over the past week. At baseline she has moderate dementia and will recognize her family, however may not know the date. On Sunday the patient had a home test indicating a UTI. This report was called to her PCP and she was prescribed Keflex 500 t.i.d. She has received 4 doses with last dose Sunday night. A urine culture was not obtained for this infection. Despite antibiotic use the patient developed hallucinations on 07/09. - head CT: Stable appearance of age related changes in the brain, no acute intracranial process. - UA unremarkable, recently started on Keflex for UTI. Will continue with ceftriaxone to complete the course. - viral PCR negative - MR brain: Normal aging brain with moderate scattered nonspecific periventricular predominant white matter T2 hyperintensity consistent with chronic small vessel ischemic disease. No acute intracranial process or abnormally enhancing brain lesions. - neurological checks Q4H - telemetry monitoring (2) Syncope and collapse: Code(s): R55 - Syncope and collapse Status: Acute Assessment and Plan: Initially developed syncope in June of 2023. At that time occurrences were every few months -> one every few weeks -> this week she has passed out daily with max of 3 daily. She has a Dexcom in place and a loop recorder in place due to rule out dysrhythmia and hypoglycemia as etiology. The patient's blood sugar has been decreasing over the last week and she has had some readings in the 50s and 60s. The daughter reported that she can tell when the patient is about to pass out because she will become generally weak and her color will change (becomes very pale). The patient has eyes will roll back, she will have a loss of consciousness for anywhere up to a minute, almost as if she went to sleep, and the patient will wake up exhausted. The patient typically does not have any memory of these events and will have increased confusion after. - EKG, initial: Sinus rhythm, rate 67, voltage criteria for LVH, consider inferior infarct age indeterminate, inferior infarct age indeterminate, baseline artifact. When compared to EKG done on 02/18/2024, there are no significant changes. - UDS and viral PCR negative - UA unremarkable, recently started on Keflex on 07/07 for UTI, remains on rocephin to complete the course - troponin negative x2 - hemoglobin 14.4, increased from prior. May have some level of dehydration. IV fluids. - head CT and CXR showed no acute findings - MR brain: Normal aging brain with moderate scattered nonspecific periventricular predominant white matter T2 hyperintensity consistent with chronic small vessel ischemic disease. No acute intracranial process or abnormally enhancing brain lesions. - US of carotids: 50-69% stenosis in the right internal carotid artery and <50% stenosis in the left internal carotid artery. - echo, previous (01/2024): normal systolic function, EF 60-65%, and grade 1 diastolic dysfunction. no pulmonary hypertension. see report. - orthostatics Q shift - fall precautions - telemetry monitoring - consider cardiology consultation if dysrhythmia or bradycardia observed via telemetry 07/11: Patient endorsing severe back pain and could not tolerate being rolled for further examination. Will obtain a CT of her thoracic and lumbar spine to further evaluate. (3) Paroxysmal atrial fibrillation: Code(s): I48.0 - Paroxysmal atrial fibrillation Status: Chronic Assessment and Plan: - initial EKG showing sinus rhythm - continue home medications: Warfarin - INR 2.4 - telemetry monitoring (4) Hypothyroidism: Qualifiers: Hypothyroidism type: unspecified Qualified Code(s): E03.9 - Hypothyroidism, unspecified Code(s): E03.9 - Hypothyroidism, unspecified Status: Chronic Assessment and Plan: - TSH 1.53 on 07/10/2024 - continue home medications: levothyroxine 50 mcg daily (5) Type 2 diabetes mellitus: Qualifiers: Chronic kidney disease stage: stage 3 (moderate) Chronic kidney disease stage 3 subtype: stage 3a (GFR 45-59) Diabetes mellitus complication detail: with chronic kidney disease Diabetes mellitus complication status: with kidney complications Diabetes mellitus terminal make up operator insulin use: without fdc use Qualified Code(s): E11.22 - Type 2 diabetes mellitus with diabetic chronic kidney disease; N18.31 - Chronic kidney disease, stage 3a Code(s): E11.9 - Type 2 diabetes mellitus without complications Status: Acute Assessment and Plan: - Dexcom in place - hypoglycemia protocol - POC blood glucose ACHS - home medication: hold metformin in case of need for contrast - correct regimen ordered - high dose TIDWM, based off BMI - A1C ordered, previously 6.2% in January of 2024 (6) Chronic kidney disease, stage 3a: Code(s): N18.31 - Chronic kidney disease, stage 3a Status: Chronic Assessment and Plan: - creatinine 0.92 and GFR 57, previously 0.8 and GFR >60 on 02/23/2024 - trend renal function - trend electrolytes, correct as needed - avoid nephrotoxic medications - renally dose medications (7) Essential (primary) hypertension: Code(s): I10 - Essential (primary) hypertension Status: Chronic Assessment and Plan: chronic, continue home medications - Amlodipine 5 mg daily - Benazepril 20 mg daily - Imdur 30 mg daily - Blood pressures remain stable, continue to monitor Plan Diet: Heart healthy GI Prophylaxis: Not currently indicated DVT Prophylaxis: Warfarin Lines: Peripheral Code Status: Full code Time Spent With Patient Time with patient: 25 - 35 minutes Subjective Date/time seen: 07/11/24 07:26 Interval history: 88 year old female with past medical history of diastolic dysfunction, DVT, diabetes, chronic idiopathic thrombocytopenia, legally blind, anemia, dementia, depression, CKD stage 3, hypertension, hyperlipidemia, hypothyroidism, and paroxysmal AFib presents to the hospital with syncope and AMS. Patient is pleasant lyign comfortably in bed. She is AOx2 (person, place) on assessment. She is noticeably confused during conversation but then will correct her self when she says something inappropriate such as called her daughter mom. She has no complaints at this time denying chest pain, shortness of breath, palpitaitons, nausea/vomiting and abdominal pain. She also denies feeling dizziness or lightheaded. She states that she has been falling often and is now having severe back pain more in the center of her back. She is unable to roll on exam and yells in pain with much movement. Will obtain a CT of her spine to further assess. Review of Systems Review of Systems: All systems reviewed & are unremarkable except as noted in HPI and below Exam Narrative: AF HR 64 RR 16 SpO2 97 BP 120/58 General: female in no acute respiratory distress who is nontoxic appearing, lying semi recumbent in bed. HEENT: Normocephalic. Atraumatic. Pupils equal round reactive to light. Extraocular movement intact. Sclera clear and anicteric. Patient is legally blind. No facial asymmetry. Chest: Lungs are clear to auscultation bilaterally. No wheezes or crackles. CV: Heart was regular rate and rhythm. S1-S2. No murmurs, gallops, or rubs. Abd: Abdomen was soft. Nontender. Nondistended. Positive bowel sounds. No organomegaly or masses. Ext: No clubbing, cyanosis, or edema. 2+ DP pulses bilaterally. Neuro: Patient is alert and oriented x2 (person, place). Cranial nerves intact. No upper extremity drift. Speech is clear. Objective Data Vital Signs Vital Signs: Vital Signs - 24 hr 07/10/24 11:45 07/10/24 11:58 07/10/24 12:02 Temperature 96.5 F L Pulse Rate 68 69 Respiratory Rate 28 H Blood Pressure 160/89 H Pulse Oximetry 100 100 Oxygen Delivery Room Air Room Air 07/10/24 12:35 07/10/24 13:00 07/10/24 13:01 Temperature Pulse Rate 69 66 65 Respiratory Rate 16 14 16 Blood Pressure 175/85 H 179/62 H 179/62 H Pulse Oximetry 99 98 Oxygen Delivery 07/10/24 13:31 07/10/24 14:00 07/10/24 15:00 Temperature Pulse Rate 62 63 66 Respiratory Rate 11 L 16 16 Blood Pressure 182/82 H 182/82 H 152/106 H Pulse Oximetry 97 100 Oxygen Delivery 07/10/24 16:00 07/10/24 17:15 07/10/24 19:23 Temperature 97.6 F Pulse Rate 78 81 95 Respiratory Rate 16 14 18 Blood Pressure 123/103 H 135/101 H 140/90 Pulse Oximetry 98 100 100 Oxygen Delivery 07/10/24 19:59 07/11/24 00:00 07/11/24 04:00 Temperature 97.8 F Pulse Rate 99 63 68 Respiratory Rate 20 Blood Pressure 164/86 H Pulse Oximetry 92 Oxygen Delivery 07/11/24 05:42 Temperature 97 F L Pulse Rate 72 Respiratory Rate 16 Blood Pressure 153/92 H Pulse Oximetry 100 Oxygen Delivery Meds/Results Medications: Active Medications Generic Name Dose Route Start Last Admin Trade Name Freq PRN Reason Stop Dose Admin Acetaminophen 650 mg 07/10/24 15:51 07/10/24 16:44 Acetaminophen 325 Mg Tablet PO 650 mg Q4H PRN Administration Mild Pain (1-3) or Fever Amlodipine Besylate 5 mg 07/11/24 09:00 Amlodipine Besylate 5 Mg Tablet PO DAILY [facility] Atorvastatin Calcium 10 mg 07/11/24 09:00 Atorvastatin 10 Mg Tablet PO DAILY [facility] Buspirone HCl 10 mg 07/10/24 22:25 07/10/24 22:50 Buspirone Hcl 10 Mg Tablet PO 10 mg BID GAVIN Administration Dextrose 12.5 gm 07/10/24 22:06 Dextrose 50% 25 Gm/50 Ml Syringe IV PUSH PRN PRN Hypoglycemia Protocol Gabapentin 600 mg 07/10/24 22:05 07/10/24 22:50 Gabapentin 300 Mg Capsule PO 600 mg Q12HR GAVIN Administration Glucagon 1 mg 07/10/24 22:06 Glucagon For Inj 1 Mg Vial IM PRN PRN Hypoglycemia Protocol Glucose 15 gm 07/10/24 22:06 Glucose Oral Gel 15 Gm Of Glucse In 37.5 Gm Tube PO PRN PRN Hypoglycemia Protocol Ceftriaxone Sodium 1 gm in 50 mls @ 100 mls/hr 07/10/24 20:00 07/10/24 20:18 Rocephin 1 Gm/Ns 50 Ml IVPB 100 mls/hr Q24H GAVIN Administration Dextrose 1,000 mls @ 100 mls/hr 07/10/24 22:06 Dextrose 5% 1,000 Ml IVPB PRN PRN Hypoglycemia Protocol Insulin Aspart 4 - 8 units 07/11/24 08:00 Insulin Aspart (*Bkc) 100 Units/Ml SUB-Q TIDWM [facility] Protocol Isosorbide Mononitrate 30 mg 07/11/24 09:00 Isosorbide Mononitrate 30 Mg Tab.Er.24h PO DAILY [facility] Levothyroxine Sodium 50 mcg 07/11/24 06:30 07/11/24 05:58 Levothyroxine Sodium 50 Mcg Tablet PO 50 mcg DAILY@0630 [facility] Administration Lisinopril 20 mg 07/11/24 09:00 Lisinopril 20 Mg Tablet PO DAILY [facility] Memantine 10 mg 07/10/24 22:25 07/10/24 22:50 Memantine 10 Mg Tablet PO 10 mg Q12HR GAVIN Administration Warfarin Sodium 1 mg 07/10/24 22:35 07/10/24 22:50 Warfarin (*Pbkc) 1 Mg Tablet PO 1 mg TuThSa@1700 [facility] Administration Warfarin Sodium 4 mg 07/10/24 22:35 07/10/24 22:50 Warfarin (*Pbkc) 4 Mg Tablet PO 4 mg DAILY@1700 GAVIN Administration Radiology Results: ITS Impressions Head CT 07/10/24 12:45 IMPRESSION: 1. Stable appearance of age-related changes in the brain. No acute intracranial process. Chest X-Ray 07/10/24 12:58 Impression: 1: No acute cardiopulmonary disease. Carotid Doppler Study 07/10/24 22:01 IMPRESSION: 1. 50-69% stenosis in the right internal carotid artery. 2. <50% stenosis in the left internal carotid artery. Labs Labs: Laboratory Results - last 24 hr 07/10/24 07/10/24 07/10/24 11:49 13:09 13:39 WBC RBC Hgb Hct MCV MCH MCHC RDW Plt Count MPV Immature Gran % (Auto) Neut % (Auto) Lymph % (Auto) [place] % (Auto) Eos % (Auto) Baso % (Auto) Lymph # (Auto) [place] # (Auto) Eos # (Auto) Baso # (Auto) Abs Immat Gran (auto) Absolute Neuts (auto) Absolute Nucleated RBC Nucleated RBC % PT 23.5 H INR 2.1 APTT 29.5 Sodium 144 Potassium 4.4 Chloride 108 H Carbon Dioxide 23 Anion Gap 13 H BUN 22 H Creatinine 0.92 Estim Creat Clear Calc 39 Estimated GFR 57 L Glucose 105 POC Capillary Glucose 94 Hemoglobin A1c Lactic Acid Calcium 10.0 Total Bilirubin 1.1 AST 21 ALT 12 Alkaline Phosphatase 125 Troponin I 0.013 C-Reactive Protein < 0.5 Total Protein 8.0 Albumin 4.3 TSH (Reflex) 1.530 Urine Color Yellow Urine Appearance Clear Urine pH 5.5 Ur Specific [place] 1.011 Urine Protein Trace Urine Glucose (UA) Negative Urine Ketones Negative Ur Blood (Man) Negative Urine Nitrate Negative Urine Bilirubin Negative Urine Urobilinogen 0.2 Leukocyte Esterase Rfl Negative Urine RBC 0-2 Urine WBC 0-5 Ur Squamous Epith Cells None seen Urine Bacteria None seen Urine Casts 0-2 Urine Opiates Screen Negative Urine Methadone Screen Negative Ur Barbiturates Screen Negative Ur Phencyclidine Scrn Negative Ur Amphetamine Screen Negative U Benzodiazepines Scrn Negative Urine Cocaine Screen Negative U Cannabinoids Screen Negative Influenza A (RT-PCR) Negative Influenza B (RT-PCR) Negative RSV (RT-PCR) Negative SARS-CoV-2 RNA (RT-PCR) Negative 07/10/24 07/10/24 07/10/24 13:40 20:55 22:19 WBC 8.7 RBC 5.38 Hgb 14.4 D Hct 45.1 MCV 83.8 MCH 26.8 MCHC 31.9 L RDW 15.0 H Plt Count 259 MPV 11.7 H Immature Gran % (Auto) 0.2 Neut % (Auto) 75.2 H Lymph % (Auto) 16.6 L [place] % (Auto) 6.4 Eos % (Auto) 1.0 Baso % (Auto) 0.6 Lymph # (Auto) 1.44 [place] # (Auto) 0.6 Eos # (Auto) 0.1 Baso # (Auto) 0.1 Abs Immat Gran (auto) 0.02 Absolute Neuts (auto) 6.5 Absolute Nucleated RBC 0.000 Nucleated RBC % 0.0 PT INR APTT Sodium Potassium Chloride Carbon Dioxide Anion Gap BUN Creatinine Estim Creat Clear Calc Estimated GFR Glucose POC Capillary Glucose 110 H Hemoglobin A1c Lactic Acid 1.3 Calcium Total Bilirubin AST ALT Alkaline Phosphatase Troponin I 0.017 D C-Reactive Protein Total Protein Albumin TSH (Reflex) Urine Color Urine Appearance Urine pH Ur Specific [place] Urine Protein Urine Glucose (UA) Urine Ketones Ur Blood (Man) Urine Nitrate Urine Bilirubin Urine Urobilinogen Leukocyte Esterase Rfl Urine RBC Urine WBC Ur Squamous Epith Cells Urine Bacteria Urine Casts Urine Opiates Screen Urine Methadone Screen Ur Barbiturates Screen Ur Phencyclidine Scrn Ur Amphetamine Screen U Benzodiazepines Scrn Urine Cocaine Screen U Cannabinoids Screen Influenza A (RT-PCR) Influenza B (RT-PCR) RSV (RT-PCR) SARS-CoV-2 RNA (RT-PCR) 07/10/24 07/11/24 23:37 05:42 WBC 9.4 RBC 4.68 Hgb 12.5 Hct 39.7 MCV 84.8 MCH 26.7 MCHC 31.5 L RDW 15.1 H Plt Count 250 MPV 11.2 H Immature Gran % (Auto) 0.3 Neut % (Auto) 71.3 Lymph % (Auto) 18.7 [place] % (Auto) 8.3 Eos % (Auto) 0.8 Baso % (Auto) 0.6 Lymph # (Auto) 1.76 [place] # (Auto) 0.8 H Eos # (Auto) 0.1 Baso # (Auto) 0.1 Abs Immat Gran (auto) 0.03 Absolute Neuts (auto) 6.7 Absolute Nucleated RBC 0.000 Nucleated RBC % 0.0 PT 26.0 H INR 2.4 APTT Sodium 142 Potassium 4.5 Chloride 109 H Carbon Dioxide 21 L Anion Gap 12 BUN 24 H Creatinine 0.90 Estim Creat Clear Calc 39 Estimated GFR 59 Glucose 94 POC Capillary Glucose Hemoglobin A1c 5.8 H Lactic Acid Calcium 9.0 Total Bilirubin AST ALT Alkaline Phosphatase Troponin I 0.021 D C-Reactive Protein Total Protein Albumin TSH (Reflex) Urine Color Urine Appearance Urine pH Ur Specific [place] Urine Protein Urine Glucose (UA) Urine Ketones Ur Blood (Man) Urine Nitrate Urine Bilirubin Urine Urobilinogen Leukocyte Esterase Rfl Urine RBC Urine WBC Ur Squamous Epith Cells Urine Bacteria Urine Casts Urine Opiates Screen Urine Methadone Screen Ur Barbiturates Screen Ur Phencyclidine Scrn Ur Amphetamine Screen U Benzodiazepines Scrn Urine Cocaine Screen U Cannabinoids Screen Influenza A (RT-PCR) Influenza B (RT-PCR) RSV (RT-PCR) SARS-CoV-2 RNA (RT-PCR) Quality VTE Prophylaxis VTE prophylaxis: pharmacologic ordered
[2024-07-11 07:55] LABS: Glucose Point of Care 98 mg/dl (65-105)
[2024-07-11] MEDS: GABAPENTIN 300 MG CAPSULE 600 MG PO ×2 (08:53→20:13)
[2024-07-11] MEDS: busPIRone HCL 10 MG TABLET PO ×2 (08:53→16:54)
[2024-07-11] MEDS: ATORVASTATIN 10 MG TABLET PO (08:53)
[2024-07-11] MEDS: ISOSORBIDE MONONITRATE 30 MG TAB.ER.24H PO (08:53)
[2024-07-11] MEDS: MEMANTINE 10 MG TABLET PO ×2 (08:53→20:13)
[2024-07-11] MEDS: lisinopriL 20 MG TABLET PO (08:54)
[2024-07-11] MEDS: amLODIPine BESYLATE 5 MG TABLET PO (08:54)
--- NOTE | 2024-07-11 10:46 | PCNEURO ---
EEG cancelled by ordering provider due to no available Neurologist to read the tracing.
[2024-07-11 16:52] LABS: Glucose Point of Care 136 mg/dl (65-105)
[2024-07-11] MEDS: WARFARIN (*PBKC) 4 MG TABLET PO (16:53)
[2024-07-12] VITALS (10 sets, daily range): BP systolic 93–113; BP diastolic 43–51; PULSE 56–80; RESP 16–18; TEMP 36.3–36.4; O2SAT 97–98
[2024-07-12 04:15] LABS: Glucose Point of Care 157 mg/dl (65-105)
[2024-07-12] MEDS: LEVOTHYROXINE SODIUM 50 MCG TABLET PO (06:19)
--- NOTE | 2024-07-12 07:22 | P.PNIM_ITS ---
Progress Note: A&P Assessment and Plan (1) Confusion: Code(s): R41.0 - Disorientation, unspecified Status: Acute Assessment and Plan: Daughter reports that she has been becoming increasingly confused and has had increased syncopal episodes over the past week. At baseline she has moderate dementia and will recognize her family, however may not know the date. On Sunday the patient had a home test indicating a UTI. This report was called to her PCP and she was prescribed Keflex 500 t.i.d. She has received 4 doses with last dose Sunday night. A urine culture was not obtained for this infection. Despite antibiotic use the patient developed hallucinations on 07/09. - head CT: Stable appearance of age related changes in the brain, no acute intracranial process. - UA unremarkable, recently started on Keflex for UTI. Will continue with ceftriaxone to complete the course. - viral PCR negative - MR brain: Normal aging brain with moderate scattered nonspecific periventricular predominant white matter T2 hyperintensity consistent with chronic small vessel ischemic disease. No acute intracranial process or abnormally enhancing brain lesions. - neurological checks Q4H - telemetry monitoring (2) Syncope and collapse: Code(s): R55 - Syncope and collapse Status: Acute Assessment and Plan: Initially developed syncope in June of 2023. At that time occurrences were every few months -> one every few weeks -> this week she has passed out daily with max of 3 daily. She has a Dexcom in place and a loop recorder in place due to rule out dysrhythmia and hypoglycemia as etiology. The patient's blood sugar has been decreasing over the last week and she has had some readings in the 50s and 60s. The daughter reported that she can tell when the patient is about to pass out because she will become generally weak and her color will change (becomes very pale). The patient has eyes will roll back, she will have a loss of consciousness for anywhere up to a minute, almost as if she went to sleep, and the patient will wake up exhausted. The patient typically does not have any memory of these events and will have increased confusion after. - EKG, initial: Sinus rhythm, rate 67, voltage criteria for LVH, consider inferior infarct age indeterminate, inferior infarct age indeterminate, baseline artifact. When compared to EKG done on 02/18/2024, there are no significant changes. - UDS and viral PCR negative - UA unremarkable, recently started on Keflex on 07/07 for UTI, remains on rocephin to complete the course - troponin negative x2 - hemoglobin 14.4, increased from prior. May have some level of dehydration. IV fluids. - head CT and CXR showed no acute findings - MR brain: Normal aging brain with moderate scattered nonspecific periventricular predominant white matter T2 hyperintensity consistent with chronic small vessel ischemic disease. No acute intracranial process or abnormally enhancing brain lesions. - US of carotids: 50-69% stenosis in the right internal carotid artery and <50% stenosis in the left internal carotid artery. - echo, previous (01/2024): normal systolic function, EF 60-65%, and grade 1 diastolic dysfunction. no pulmonary hypertension. see report. - orthostatics Q shift - fall precautions - telemetry monitoring - consider cardiology consultation if dysrhythmia or bradycardia observed via telemetry 07/11: Patient endorsing severe back pain and could not tolerate being rolled for further examination. Will obtain a CT of her thoracic and lumbar spine to further evaluate. - TL spine CT: 1. Mild S-shaped scoliosis of the lumbar and lower thoracic spine with moderate thoracic and severe lumbar spondylosis. 2. Chronic compression fracture at T1 and minimal likely physiologic anterior wedging at T12. No acute osseous abnormality. 3. Infrarenal IVC filter. 07/12: Patient stating that she is feeling much better today. - Orthostatic vitals ordered - PT/OT (3) Paroxysmal atrial fibrillation: Code(s): I48.0 - Paroxysmal atrial fibrillation Status: Chronic Assessment and Plan: - initial EKG showing sinus rhythm - continue home medications: Warfarin placed on hold - INR 3.5 - telemetry monitoring (4) Hypothyroidism: Qualifiers: Hypothyroidism type: unspecified Qualified Code(s): E03.9 - Hypothyroidism, unspecified Code(s): E03.9 - Hypothyroidism, unspecified Status: Chronic Assessment and Plan: - TSH 1.53 on 07/10/2024 - continue home medications: levothyroxine 50 mcg daily (5) Type 2 diabetes mellitus: Qualifiers: Chronic kidney disease stage: stage 3 (moderate) Chronic kidney disease stage 3 subtype: stage 3a (GFR 45-59) Diabetes mellitus complication detail: with chronic kidney disease Diabetes mellitus complication status: with kidney complications Diabetes mellitus dedicated intermodal truck driver insulin use: without dedicated intermodal truck driver use Qualified Code(s): E11.22 - Type 2 diabetes mellitus with diabetic chronic kidney disease; N18.31 - Chronic kidney disease, stage 3a Code(s): E11.9 - Type 2 diabetes mellitus without complications Status: Acute Assessment and Plan: - Dexcom in place - hypoglycemia protocol - POC blood glucose ACHS - home medication: hold metformin in case of need for contrast - correct regimen ordered - high dose TIDWM, based off BMI - A1C ordered, previously 6.2% in January of 2024 (6) Chronic kidney disease, stage 3a: Code(s): N18.31 - Chronic kidney disease, stage 3a Status: Chronic Assessment and Plan: - creatinine 0.92 and GFR 57 on admission - BUN/Cr 31/1.32 on am labs - trend renal function - trend electrolytes, correct as needed - avoid nephrotoxic medications - renally dose medications (7) Essential (primary) hypertension: Code(s): I10 - Essential (primary) hypertension Status: Chronic Assessment and Plan: chronic, continue home medications - Amlodipine 5 mg daily - Benazepril 20 mg daily - Imdur 30 mg daily - Blood pressures remain stable, continue to monitor Plan Diet: Heart healthy GI Prophylaxis: Not currently indicated DVT Prophylaxis: Warfarin Lines: Peripheral Code Status: Full code Time Spent With Patient Time with patient: 25 - 35 minutes Subjective Date/time seen: 07/12/24 07:22 Interval history: 88 year old female with past medical history of diastolic dysfunction, DVT, diabetes, chronic idiopathic thrombocytopenia, legally blind, anemia, dementia, depression, CKD stage 3, hypertension, hyperlipidemia, hypothyroidism, and paroxysmal AFib presents to the hospital with syncope and AMS. Patient is pleasant lying comfortably in bed. During assessment she is alert and oriented x2-3 (person, place, and states year is 20 something. She is much more alert today as well. She states that she is feeling better. She has no other complaints denying chest pain, shortness of breath, palpitations, nausea/vomiting and abdominal pain. Review of Systems Review of Systems: All systems reviewed & are unremarkable except as noted in HPI and below Exam Narrative: AF HR 79 RR 16 AdN360 BP 113/51 General: female in no acute respiratory distress who is nontoxic appearing, lying semi recumbent in bed. HEENT: Normocephalic. Atraumatic. Pupils equal round reactive to light. Extraocular movement intact. Sclera clear and anicteric. Patient is legally blind. No facial asymmetry. Chest: Lungs are clear to auscultation bilaterally. No wheezes or crackles. CV: Heart was regular rate and rhythm. S1-S2. No murmurs, gallops, or rubs. Abd: Abdomen was soft. Nontender. Nondistended. Positive bowel sounds. No organomegaly or masses. Ext: No clubbing, cyanosis, or edema. 2+ DP pulses bilaterally. Neuro: Patient is alert and oriented x2-3 (person, place, 20 something). Cranial nerves intact. No upper extremity drift. Speech is clear. Objective Data Vital Signs Vital Signs: Vital Signs - 24 hr 07/11/24 08:04 07/11/24 08:05 07/11/24 09:01 Temperature 98.2 F Pulse Rate 70 64 Respiratory Rate 18 Blood Pressure 166/64 H Pulse Oximetry 100 Oxygen Delivery Room Air 07/11/24 12:42 07/11/24 13:53 07/11/24 14:00 Temperature 96.7 F L 96.7 F L Pulse Rate 69 64 64 Respiratory Rate 16 16 Blood Pressure 120/58 L 120/58 L Pulse Oximetry 97 97 Oxygen Delivery 07/11/24 16:04 07/11/24 20:00 07/11/24 20:00 Temperature Pulse Rate 64 59 L Respiratory Rate Blood Pressure Pulse Oximetry Oxygen Delivery Room Air 07/11/24 20:57 07/11/24 23:47 07/12/24 00:00 Temperature 97.8 F Pulse Rate 61 77 Respiratory Rate 18 Blood Pressure 135/67 Pulse Oximetry 99 99 Oxygen Delivery Room Air 07/12/24 04:00 07/12/24 06:00 Temperature 97.3 F L Pulse Rate 58 L 56 L Respiratory Rate 16 Blood Pressure 103/50 L Pulse Oximetry 97 Oxygen Delivery Intake/Output Intake/Output: Intake & Output 07/09/24 07/10/24 07/11/24 07/12/24 23:59 23:59 23:59 23:59 Intake Total 50 400 Output Total 200 100 Balance 50 200 -100 Meds/Results Medications: Active Medications Generic Name Dose Route Start Last Admin Trade Name Freq PRN Reason Stop Dose Admin Acetaminophen 650 mg 07/10/24 15:51 07/10/24 16:44 Acetaminophen 325 Mg Tablet PO 650 mg Q4H PRN Administration Mild Pain (1-3) or Fever Amlodipine Besylate 5 mg 07/11/24 09:00 07/11/24 08:54 Amlodipine Besylate 5 Mg Tablet PO 5 mg DAILY GAVIN Administration Atorvastatin Calcium 10 mg 07/11/24 09:00 07/11/24 08:53 Atorvastatin 10 Mg Tablet PO 10 mg DAILY GAVIN Administration Buspirone HCl 10 mg 07/10/24 22:25 07/11/24 16:54 Buspirone Hcl 10 Mg Tablet PO 10 mg BID GAVIN Administration Dextrose 12.5 gm 07/10/24 22:06 Dextrose 50% 25 Gm/50 Ml Syringe IV PUSH PRN PRN Hypoglycemia Protocol Gabapentin 600 mg 07/10/24 22:05 07/11/24 20:13 Gabapentin 300 Mg Capsule PO 600 mg Q12HR GAVIN Administration Glucagon 1 mg 07/10/24 22:06 Glucagon For Inj 1 Mg Vial IM PRN PRN Hypoglycemia Protocol Glucose 15 gm 07/10/24 22:06 Glucose Oral Gel 15 Gm Of Glucse In 37.5 Gm Tube PO PRN PRN Hypoglycemia Protocol Ceftriaxone Sodium 1 gm in 50 mls @ 100 mls/hr 07/10/24 20:00 07/11/24 20:42 Rocephin 1 Gm/Ns 50 Ml IVPB Infused Q24H GAVIN Infusion Dextrose 1,000 mls @ 100 mls/hr 07/10/24 22:06 Dextrose 5% 1,000 Ml IVPB PRN PRN Hypoglycemia Protocol Insulin Aspart 4 - 8 units 07/11/24 08:00 07/11/24 17:57 Insulin Aspart (*Bkc) 100 Units/Ml SUB-Q Not Given TIDWM [facility] Protocol Isosorbide Mononitrate 30 mg 07/11/24 09:00 07/11/24 08:53 Isosorbide Mononitrate 30 Mg Tab.Er.24h PO 30 mg DAILY GAVIN Administration Levothyroxine Sodium 50 mcg 07/11/24 06:30 07/12/24 06:19 Levothyroxine Sodium 50 Mcg Tablet PO 50 mcg DAILY@0630 GAVIN Administration Lisinopril 20 mg 07/11/24 09:00 07/11/24 08:54 Lisinopril 20 Mg Tablet PO 20 mg DAILY GAVIN Administration Memantine 10 mg 07/10/24 22:25 07/11/24 20:13 Memantine 10 Mg Tablet PO 10 mg Q12HR GAVIN Administration Warfarin Sodium 1 mg 07/10/24 22:35 07/10/24 22:50 Warfarin (*Pbkc) 1 Mg Tablet PO 1 mg TuThSa@1700 GAVIN Administration Warfarin Sodium 4 mg 07/10/24 22:35 07/11/24 16:53 Warfarin (*Pbkc) 4 Mg Tablet PO 4 mg DAILY@1700 GAVIN Administration Radiology Results: ITS Impressions Head CT 07/10/24 12:45 IMPRESSION: 1. Stable appearance of age-related changes in the brain. No acute intracranial process. Chest X-Ray 07/10/24 12:58 Impression: 1: No acute cardiopulmonary disease. Carotid Doppler Study 07/10/24 22:01 IMPRESSION: 1. 50-69% stenosis in the right internal carotid artery. 2. <50% stenosis in the left internal carotid artery. Brain MRI 07/11/24 12:35 IMPRESSION: 1. Normal aging brain with moderate scattered nonspecific periventricular predominant white matter T2 hyperintensity consistent with chronic small vessel ischemic disease. No acute intracranial process or abnormally enhancing brain lesions. Labs Labs: Laboratory Results - last 24 hr 07/11/24 07/11/24 07/11/24 07:53 16:50 21:02 POC Capillary Glucose 98 136 H 157 H Quality VTE Prophylaxis VTE prophylaxis: pharmacologic ordered
[2024-07-12 08:23] LABS: Hematocrit 36.4 % (37.0-47.0); Hemoglobin 11.5 g/dL (12.0-15.0); Mean Corpuscular HGB Conc 31.6 g/dl (32-36); Mean Corpuscular Hemoglobin 26.9 pg (26-34); Mean Corpuscular Volume 85.2 fl (80-100); Platelet Count Result 212 k/mm3 (150-375); Red Blood Count 4.27 M/mm3 (4.2-5.4); Red Cell Distribution Width 15.3 % (11.5-14.5); White Blood Count 8.3 K/mm3 (4.5-10.0)
[2024-07-12 08:33] LABS: Alanine Aminotransferase 11 U/L (6-35); Albumin Level 3.4 g/dL (3.5-5.1); Alkaline Phosphatase 90 U/L (38-126); Anion Gap 6 mmol/L (4-12); Aspartate Amino Transferase 18 U/L (14-36); Bilirubin,Total 0.6 mg/dL (0.2-1.3); Blood Urea Nitrogen 31 mg/dL (7-17); Calcium 8.9 mg/dL (8.4-10.2); Carbon Dioxide 26 mmol/L (22-30); Chloride 109 mmol/L (98-107); Estimated CRCL calculation 27 ml/min; Estimated Glomerular Filt Rate 38; Glucose 100 mg/dL (65-110); Potassium 4.1 mmol/L (3.4-5.0); Sodium 141 mmol/L (137-145)
[2024-07-12 08:39] LABS: Glucose Point of Care 89 mg/dl (65-105)
[2024-07-12 08:54] LABS: INR 3.5; Prothrombin Time 35.3 Seconds (11.1-14.7)
[2024-07-12] MEDS: busPIRone HCL 10 MG TABLET PO ×2 (09:49→17:15)
[2024-07-12] MEDS: ISOSORBIDE MONONITRATE 30 MG TAB.ER.24H PO (09:49)
[2024-07-12] MEDS: MEMANTINE 10 MG TABLET PO ×2 (09:49→20:10)
[2024-07-12] MEDS: GABAPENTIN 300 MG CAPSULE 600 MG PO ×2 (09:49→20:10)
[2024-07-12] MEDS: ATORVASTATIN 10 MG TABLET PO (09:49)
[2024-07-12] MEDS: amLODIPine BESYLATE 5 MG TABLET PO (09:49)
[2024-07-12] MEDS: lisinopriL 20 MG TABLET PO (09:49)
[2024-07-12 11:59] LABS: Glucose Point of Care 120 mg/dl (65-105)
[2024-07-12] MEDS: WARFARIN (*PBKC) 1 MG TABLET PO (17:15)
[2024-07-12 17:30] LABS: Glucose Point of Care 128 mg/dl (65-105)
[2024-07-13] VITALS (9 sets, daily range): BP systolic 110–149; BP diastolic 59–62; PULSE 64–76; RESP 18; TEMP 36.3–36.6; O2SAT 96–100; BMI 10.0
[2024-07-13 04:20] LABS: Glucose Point of Care 161 mg/dl (65-105)
[2024-07-13] MEDS: LEVOTHYROXINE SODIUM 50 MCG TABLET PO (06:13)
[2024-07-13 06:53] LABS: Hematocrit 38.3 % (37.0-47.0); Hemoglobin 11.6 g/dL (12.0-15.0); Mean Corpuscular HGB Conc 30.3 g/dl (32-36); Mean Corpuscular Hemoglobin 26.4 pg (26-34); Mean Corpuscular Volume 87.2 fl (80-100); Mean Platelet Volume 11.4 fl (7.4-10.4); Platelet Count Result 197 k/mm3 (150-375); Red Blood Count 4.39 M/mm3 (4.2-5.4); Red Cell Distribution Width 15.3 % (11.5-14.5); White Blood Count 8.1 K/mm3 (4.5-10.0)
[2024-07-13 07:08] LABS: INR 3.3; Prothrombin Time 33.4 Seconds (11.1-14.7)
[2024-07-13 07:13] LABS: Alanine Aminotransferase 11 U/L (6-35); Albumin Level 3.3 g/dL (3.5-5.1); Alkaline Phosphatase 86 U/L (38-126); Anion Gap 10 mmol/L (4-12); Aspartate Amino Transferase 16 U/L (14-36); Bilirubin,Total 0.5 mg/dL (0.2-1.3); Blood Urea Nitrogen 50 mg/dL (7-17); Calcium 8.6 mg/dL (8.4-10.2); Carbon Dioxide 21 mmol/L (22-30); Chloride 108 mmol/L (98-107); Estimated CRCL calculation 18 ml/min; Estimated Glomerular Filt Rate 23; Glucose 102 mg/dL (65-110); Potassium 4.5 mmol/L (3.4-5.0); Sodium 139 mmol/L (137-145)
--- NOTE | 2024-07-13 08:03 | P.PNIM_ITS ---
Progress Note: A&P Assessment and Plan (1) Confusion: Code(s): R41.0 - Disorientation, unspecified Status: Acute Assessment and Plan: Daughter reports that she has been becoming increasingly confused and has had increased syncopal episodes over the past week. At baseline she has moderate dementia and will recognize her family, however may not know the date. On Sunday the patient had a home test indicating a UTI. This report was called to her PCP and she was prescribed Keflex 500 t.i.d. She has received 4 doses with last dose Sunday night. A urine culture was not obtained for this infection. Despite antibiotic use the patient developed hallucinations on 07/09. - head CT: Stable appearance of age related changes in the brain, no acute intracranial process. - UA unremarkable, recently started on Keflex for UTI. Will continue with ceftriaxone to complete the course. - viral PCR negative - Blood cultures obtained on 07/10: gram positive cocci cluster growing in 1 bottle, other bottle NGTD. Possible contaminant, however will start on vancomycin until final culture. - MR brain: Normal aging brain with moderate scattered nonspecific periventricular predominant white matter T2 hyperintensity consistent with chronic small vessel ischemic disease. No acute intracranial process or abnormally enhancing brain lesions. - neurological checks Q4H - telemetry monitoring 07/13: Patient AOx2-3 on assessment. No hallucinations since admission. (2) Bacteremia: Code(s): R78.81 - Bacteremia Status: Acute Assessment and Plan: - Blood cultures obtained on 07/10: gram positive cocci cluster growing in 1 bottle, other bottle NGTD. Possible contaminant, however will start on vancomycin until final culture. Patient given a dose of vancomycin which has since been discontinued as Bcx is growing staph epidermidis which is further suspicious for contamination. Will repeat blood cultures. (3) Syncope and collapse: Code(s): R55 - Syncope and collapse Status: Acute Assessment and Plan: Initially developed syncope in June of 2023. At that time occurrences were every few months -> one every few weeks -> this week she has passed out daily with max of 3 daily. She has a Dexcom in place and a loop recorder in place due to rule out dysrhythmia and hypoglycemia as etiology. The patient's blood sugar has been decreasing over the last week and she has had some readings in the 50s and 60s. The daughter reported that she can tell when the patient is about to pass out because she will become generally weak and her color will change (becomes very pale). The patient has eyes will roll back, she will have a loss of consciousness for anywhere up to a minute, almost as if she went to sleep, and the patient will wake up exhausted. The patient typically does not have any memory of these events and will have increased confusion after. - EKG, initial: Sinus rhythm, rate 67, voltage criteria for LVH, consider inferior infarct age indeterminate, inferior infarct age indeterminate, baseline artifact. When compared to EKG done on 02/18/2024, there are no significant changes. - UDS and viral PCR negative - UA unremarkable, recently started on Keflex on 07/07 for UTI, remains on rocephin to complete the course - troponin negative x2 - hemoglobin 14.4, increased from prior. May have some level of dehydration. IV fluids. - head CT and CXR showed no acute findings - MR brain: Normal aging brain with moderate scattered nonspecific periventricular predominant white matter T2 hyperintensity consistent with chronic small vessel ischemic disease. No acute intracranial process or abnormally enhancing brain lesions. - US of carotids: 50-69% stenosis in the right internal carotid artery and <50% stenosis in the left internal carotid artery. - echo, previous (01/2024): normal systolic function, EF 60-65%, and grade 1 diastolic dysfunction. no pulmonary hypertension. see report. - orthostatics Q shift - fall precautions - telemetry monitoring - consider cardiology consultation if dysrhythmia or bradycardia observed via telemetry 07/11: Patient endorsing severe back pain and could not tolerate being rolled for further examination. Will obtain a CT of her thoracic and lumbar spine to further evaluate. - TL spine CT: 1. Mild S-shaped scoliosis of the lumbar and lower thoracic spine with moderate thoracic and severe lumbar spondylosis. 2. Chronic compression fracture at T1 and minimal likely physiologic anterior wedging at T12. No acute osseous abnormality. 3. Infrarenal IVC filter. 07/13: Patient stating that she is feeling much better today. - Orthostatic vitals ordered - PT/OT Recommending rehab (4) Paroxysmal atrial fibrillation: Code(s): I48.0 - Paroxysmal atrial fibrillation Status: Chronic Assessment and Plan: - initial EKG showing sinus rhythm - continue home medications: Warfarin placed on hold for supratherapeutic INR (goal 2-3) - INR 3.3 - telemetry monitoring (5) Acute kidney injury superimposed on chronic kidney disease: Code(s): N17.9 - Acute kidney failure, unspecified; N18.9 - Chronic kidney disease, unspecified Status: Acute Assessment and Plan: - creatinine 0.92 and GFR 57 on admission, baseline appears to be WNL-1.40 - BUN/Cr 50/2.05 on am labs - Renal US ordered - trend renal function - trend electrolytes, correct as needed - avoid nephrotoxic medications - renally dose medications - monitor I/O showing decreased urine output prn bladder scans (6) Hypothyroidism: Qualifiers: Hypothyroidism type: unspecified Qualified Code(s): E03.9 - Hypothyroidism, unspecified Code(s): E03.9 - Hypothyroidism, unspecified Status: Chronic Assessment and Plan: - TSH 1.53 on 07/10/2024 - continue home medications: levothyroxine 50 mcg daily (7) Type 2 diabetes mellitus: Qualifiers: Chronic kidney disease stage: stage 3 (moderate) Chronic kidney disease stage 3 subtype: stage 3a (GFR 45-59) Diabetes mellitus complication detail: with chronic kidney disease Diabetes mellitus complication status: with kidney complications Diabetes mellitus penitentiary insulin use: without exterminator helper use Qualified Code(s): E11.22 - Type 2 diabetes mellitus with diabetic chronic kidney disease; N18.31 - Chronic kidney disease, stage 3a Code(s): E11.9 - Type 2 diabetes mellitus without complications Status: Acute Assessment and Plan: - Dexcom in place - hypoglycemia protocol - POC blood glucose ACHS - home medication: hold metformin in case of need for contrast - correct regimen ordered - high dose TIDWM, based off BMI - A1C ordered, previously 6.2% in January of 2024 (8) Essential (primary) hypertension: Code(s): I10 - Essential (primary) hypertension Status: Chronic Assessment and Plan: chronic, continue home medications - Amlodipine 5 mg daily - Benazepril 20 mg daily - Imdur 30 mg daily - Blood pressures remain stable, continue to monitor Plan Diet: Heart healthy GI Prophylaxis: Not currently indicated DVT Prophylaxis: Warfarin Lines: Peripheral Code Status: Full code Time Spent With Patient Time with patient: 25 - 35 minutes Subjective Date/time seen: 07/13/24 08:03 Interval history: 88 year old female with past medical history of diastolic dysfunction, DVT, diabetes, chronic idiopathic thrombocytopenia, legally blind, anemia, dementia, depression, CKD stage 3, hypertension, hyperlipidemia, hypothyroidism, and paroxysmal AFib presents to the hospital with syncope and AMS. Patient is pleasant lying in bed. She is AO2-3 (person, place, continues to know the year is 20 something). She states that she is feeling good today. She endorses chronic back pain but denies tingling/numbness or shooting pain to the extremities. She also denies any chest pain, palpitaitons, shortness of breath, nausea/vomiting, abdominal pain, dizziness and lightheadedness. Patient worked with therapy today who is recommending acute rehab. Orthostatics ordered. Review of Systems Review of Systems: All systems reviewed & are unremarkable except as noted in HPI and below Exam Narrative: AF HR 69 RR 18 SPo2 96 BP 110/62 General: female in no acute respiratory distress who is nontoxic appearing, lying semi recumbent in bed. HEENT: Normocephalic. Atraumatic. Extraocular movement intact. Sclera clear and anicteric. Patient is legally blind. No facial asymmetry. Chest: Lungs are clear to auscultation bilaterally. No wheezes or crackles. CV: Heart was regular rate and rhythm. S1-S2. No murmurs, gallops, or rubs. Abd: Abdomen was soft. Nontender. Nondistended. Positive bowel sounds. Ext: No clubbing, cyanosis, or edema. 2+ DP pulses bilaterally. Neuro: Patient is alert and oriented x2-3 (person, place, 20 something). Speech is clear. Objective Data Vital Signs Vital Signs: Vital Signs - 24 hr 07/12/24 09:50 07/12/24 12:00 07/12/24 14:00 Temperature 97.5 F L Pulse Rate 79 80 Respiratory Rate 16 Blood Pressure 93/43 L Pulse Oximetry 98 98 Oxygen Delivery Room Air 07/12/24 16:00 07/12/24 20:00 07/12/24 22:00 Temperature 97.6 F Pulse Rate 75 67 70 Respiratory Rate 18 Blood Pressure 104/51 L Pulse Oximetry 98 Oxygen Delivery 07/13/24 00:00 07/13/24 04:00 Temperature Pulse Rate 75 74 Respiratory Rate Blood Pressure Pulse Oximetry Oxygen Delivery Intake/Output Intake/Output: Intake & Output 07/10/24 07/11/24 07/12/24 07/13/24 23:59 23:59 23:59 23:59 Intake Total 50 400 590 Output Total 200 225 Balance 50 200 365 Meds/Results Medications: Active Medications Generic Name Dose Route Start Last Admin Trade Name Freq PRN Reason Stop Dose Admin Acetaminophen 650 mg 07/10/24 15:51 07/10/24 16:44 Acetaminophen 325 Mg Tablet PO 650 mg Q4H PRN Administration Mild Pain (1-3) or Fever Amlodipine Besylate 5 mg 07/11/24 09:00 07/12/24 09:49 Amlodipine Besylate 5 Mg Tablet PO 5 mg DAILY GAVIN Administration Atorvastatin Calcium 10 mg 07/11/24 09:00 07/12/24 09:49 Atorvastatin 10 Mg Tablet PO 10 mg DAILY GAVIN Administration Buspirone HCl 10 mg 07/10/24 22:25 07/12/24 17:15 Buspirone Hcl 10 Mg Tablet PO 10 mg BID GAVIN Administration Dextrose 12.5 gm 07/10/24 22:06 Dextrose 50% 25 Gm/50 Ml Syringe IV PUSH PRN PRN Hypoglycemia Protocol Gabapentin 600 mg 07/10/24 22:05 07/12/24 20:10 Gabapentin 300 Mg Capsule PO 600 mg Q12HR GAVIN Administration Glucagon 1 mg 07/10/24 22:06 Glucagon For Inj 1 Mg Vial IM PRN PRN Hypoglycemia Protocol Glucose 15 gm 07/10/24 22:06 Glucose Oral Gel 15 Gm Of Glucse In 37.5 Gm Tube PO PRN PRN Hypoglycemia Protocol Ceftriaxone Sodium 1 gm in 50 mls @ 100 mls/hr 07/10/24 20:00 07/12/24 20:40 Rocephin 1 Gm/Ns 50 Ml IVPB Infused Q24H GAVIN Infusion Dextrose 1,000 mls @ 100 mls/hr 07/10/24 22:06 Dextrose 5% 1,000 Ml IVPB PRN PRN Hypoglycemia Protocol Insulin Aspart 4 - 8 units 07/11/24 08:00 07/12/24 17:38 Insulin Aspart (*Bkc) 100 Units/Ml SUB-Q Not Given TIDWM GAVIN Protocol Isosorbide Mononitrate 30 mg 07/11/24 09:00 07/12/24 09:49 Isosorbide Mononitrate 30 Mg Tab.Er.24h PO 30 mg DAILY GAVIN Administration Levothyroxine Sodium 50 mcg 07/11/24 06:30 07/13/24 06:13 Levothyroxine Sodium 50 Mcg Tablet PO 50 mcg DAILY@0630 [facility] Administration Lisinopril 20 mg 07/11/24 09:00 07/12/24 09:49 Lisinopril 20 Mg Tablet PO 20 mg DAILY GAVIN Administration Memantine 10 mg 07/10/24 22:25 07/12/24 20:10 Memantine 10 Mg Tablet PO 10 mg Q12HR GAVIN Administration Warfarin Sodium 1 mg 07/10/24 22:35 07/12/24 17:15 Warfarin (*Pbkc) 1 Mg Tablet PO 1 mg TuThSa@1700 GAVIN Administration Warfarin Sodium 4 mg 07/10/24 22:35 07/11/24 16:53 Warfarin (*Pbkc) 4 Mg Tablet PO 4 mg DAILY@1700 [facility] Administration Radiology Results: ITS Impressions Head CT 07/10/24 12:45 IMPRESSION: 1. Stable appearance of age-related changes in the brain. No acute intracranial process. Chest X-Ray 07/10/24 12:58 Impression: 1: No acute cardiopulmonary disease. Carotid Doppler Study 07/10/24 22:01 IMPRESSION: 1. 50-69% stenosis in the right internal carotid artery. 2. <50% stenosis in the left internal carotid artery. Brain MRI 07/11/24 12:35 IMPRESSION: 1. Normal aging brain with moderate scattered nonspecific periventricular predominant white matter T2 hyperintensity consistent with chronic small vessel ischemic disease. No acute intracranial process or abnormally enhancing brain lesions. Thoracic/Lumbar Spine CT 07/12/24 07:30 IMPRESSION: 1. Mild S-shaped scoliosis of the lumbar and lower thoracic spine with moderate thoracic and severe lumbar spondylosis. 2. Chronic compression fracture at T1 and minimal likely physiologic anterior wedging at T12. No acute osseous abnormality. 3. Infrarenal IVC filter. Labs Labs: Laboratory Results - last 24 hr 07/12/24 07/12/24 07/12/24 08:15 08:33 11:53 WBC 8.3 RBC 4.27 Hgb 11.5 L Hct 36.4 L MCV 85.2 MCH 26.9 MCHC 31.6 L RDW 15.3 H Plt Count 212 MPV 11.0 H PT 35.3 H D INR 3.5 Sodium 141 Potassium 4.1 Chloride 109 H Carbon Dioxide 26 Anion Gap 6 BUN 31 H Creatinine 1.32 H Estim Creat Clear Calc 27 Estimated GFR 38 L Glucose 100 POC Capillary Glucose 89 120 H Calcium 8.9 Total Bilirubin 0.6 AST 18 ALT 11 Alkaline Phosphatase 90 Total Protein 6.0 L Albumin 3.4 L 07/12/24 07/12/24 07/13/24 17:27 20:40 06:29 WBC 8.1 RBC 4.39 Hgb 11.6 L Hct 38.3 MCV 87.2 MCH 26.4 MCHC 30.3 L RDW 15.3 H Plt Count 197 MPV 11.4 H PT 33.4 H INR 3.3 Sodium 139 Potassium 4.5 Chloride 108 H Carbon Dioxide 21 L Anion Gap 10 BUN 50 H D Creatinine 2.05 H Estim Creat Clear Calc 18 Estimated GFR 23 L Glucose 102 POC Capillary Glucose 128 H 161 H Calcium 8.6 Total Bilirubin 0.5 AST 16 ALT 11 Alkaline Phosphatase 86 Total Protein 6.0 L Albumin 3.3 L Quality VTE Prophylaxis VTE prophylaxis: pharmacologic ordered
[2024-07-13 08:35] LABS: Glucose Point of Care 98 mg/dl (65-105)
[2024-07-13] MEDS: SODIUM CHLORIDE 0.9% IV 1,000 ML 100 ML IV CONT (10:00)
[2024-07-13] MEDS: VANCOMYCIN 1,250 MG/NS 250 ML 1,250 MG/250 ML BAG 166.67 MG IVPB (10:00)
[2024-07-13] MEDS: busPIRone HCL 10 MG TABLET PO ×2 (10:01→17:19)
[2024-07-13] MEDS: ISOSORBIDE MONONITRATE 30 MG TAB.ER.24H PO (10:01)
[2024-07-13] MEDS: ATORVASTATIN 10 MG TABLET PO (10:01)
[2024-07-13] MEDS: MEMANTINE 10 MG TABLET PO ×2 (10:01→20:04)
[2024-07-13] MEDS: lisinopriL 20 MG TABLET PO (10:01)
[2024-07-13] MEDS: GABAPENTIN 300 MG CAPSULE 600 MG PO ×2 (10:01→20:04)
[2024-07-13] MEDS: amLODIPine BESYLATE 5 MG TABLET PO (10:02)
[2024-07-13 12:38] LABS: Glucose Point of Care 194 mg/dl (65-105)
[2024-07-13 17:37] LABS: Glucose Point of Care 130 mg/dl (65-105)
[2024-07-13] MEDS: ACETAMINOPHEN 325 MG TABLET 650 MG PO (20:14)
[2024-07-14] VITALS (10 sets, daily range): BP systolic 132–141; BP diastolic 46–59; PULSE 60–77; RESP 16–20; TEMP 36.2–36.8; O2SAT 1–100; BMI 10.0
[2024-07-14 03:14] LABS: Glucose Point of Care 179 mg/dl (65-105)
[2024-07-14] MEDS: LEVOTHYROXINE SODIUM 50 MCG TABLET PO (05:31)
[2024-07-14 06:31] LABS: Hematocrit 32.8 % (37.0-47.0); Hemoglobin 10.3 g/dL (12.0-15.0); Mean Corpuscular HGB Conc 31.4 g/dl (32-36); Mean Corpuscular Hemoglobin 27.1 pg (26-34); Mean Corpuscular Volume 86.3 fl (80-100); Mean Platelet Volume 11.8 fl (7.4-10.4); Platelet Count Result 216 k/mm3 (150-375); Red Cell Distribution Width 15.1 % (11.5-14.5); White Blood Count 7.6 K/mm3 (4.5-10.0)
[2024-07-14 06:41] LABS: Alanine Aminotransferase 12 U/L (6-35); Albumin Level 3.1 g/dL (3.5-5.1); Alkaline Phosphatase 84 U/L (38-126); Anion Gap 12 mmol/L (4-12); Aspartate Amino Transferase 17 U/L (14-36); Bilirubin,Total 0.4 mg/dL (0.2-1.3); Blood Urea Nitrogen 53 mg/dL (7-17); Calcium 8.7 mg/dL (8.4-10.2); Carbon Dioxide 20 mmol/L (22-30); Chloride 109 mmol/L (98-107); Estimated CRCL calculation 21 ml/min; Estimated Glomerular Filt Rate 28; Glucose 118 mg/dL (65-110); Potassium 4.4 mmol/L (3.4-5.0); Sodium 141 mmol/L (137-145)
[2024-07-14 06:43] LABS: INR 3.2; Prothrombin Time 32.6 Seconds (11.1-14.7)
[2024-07-14 08:55] LABS: Glucose Point of Care 126 mg/dl (65-105)
[2024-07-14 09:05] LABS: Glucose Point of Care 127 mg/dl (65-105)
--- NOTE | 2024-07-14 09:31 | P.PNIM_ITS ---
Progress Note: A&P Assessment and Plan (1) Confusion: Code(s): R41.0 - Disorientation, unspecified Status: Acute Assessment and Plan: Daughter reports that she has been becoming increasingly confused and has had increased syncopal episodes over the past week. At baseline she has moderate dementia and will recognize her family, however may not know the date. On Sunday the patient had a home test indicating a UTI. This report was called to her PCP and she was prescribed Keflex 500 t.i.d. She has received 4 doses with last dose Sunday night. A urine culture was not obtained for this infection. Despite antibiotic use the patient developed hallucinations on 07/09. - head CT: Stable appearance of age related changes in the brain, no acute intracranial process. - UA unremarkable, recently started on Keflex for UTI. Will continue with ceftriaxone to complete the course. - viral PCR negative - Blood cultures obtained on 07/10: gram positive cocci cluster growing in 1 bottle, other bottle NGTD. Possible contaminant, however will start on vancomycin until final culture. - MR brain: Normal aging brain with moderate scattered nonspecific periventricular predominant white matter T2 hyperintensity consistent with chronic small vessel ischemic disease. No acute intracranial process or abnormally enhancing brain lesions. - neurological checks Q4H - telemetry monitoring 07/14: Patient AOx2-3 on assessment. No hallucinations since admission. (2) Bacteremia: Code(s): R78.81 - Bacteremia Status: Acute Assessment and Plan: - Blood cultures obtained on 07/10: gram positive cocci cluster growing in 1 bottle, other bottle NGTD. Possible contaminant, however will start on vancomycin until final culture. Patient given a dose of vancomycin which has since been discontinued as Bcx is growing staph epidermidis which is further suspicious for contamination. Will repeat blood cultures. (3) Syncope and collapse: Code(s): R55 - Syncope and collapse Status: Acute Assessment and Plan: Initially developed syncope in June of 2023. At that time occurrences were every few months -> one every few weeks -> this week she has passed out daily with max of 3 daily. She has a Dexcom in place and a loop recorder in place due to rule out dysrhythmia and hypoglycemia as etiology. The patient's blood sugar has been decreasing over the last week and she has had some readings in the 50s and 60s. The daughter reported that she can tell when the patient is about to pass out because she will become generally weak and her color will change (becomes very pale). The patient has eyes will roll back, she will have a loss of consciousness for anywhere up to a minute, almost as if she went to sleep, and the patient will wake up exhausted. The patient typically does not have any memory of these events and will have increased confusion after. - EKG, initial: Sinus rhythm, rate 67, voltage criteria for LVH, consider inferior infarct age indeterminate, inferior infarct age indeterminate, baseline artifact. When compared to EKG done on 02/18/2024, there are no significant changes. - UDS and viral PCR negative - UA unremarkable, recently started on Keflex on 07/07 for UTI, remains on rocephin to complete the course - troponin negative x2 - hemoglobin 14.4, increased from prior. May have some level of dehydration. IV fluids. - head CT and CXR showed no acute findings - MR brain: Normal aging brain with moderate scattered nonspecific periventricular predominant white matter T2 hyperintensity consistent with chronic small vessel ischemic disease. No acute intracranial process or abnormally enhancing brain lesions. - US of carotids: 50-69% stenosis in the right internal carotid artery and <50% stenosis in the left internal carotid artery. - echo, previous (01/2024): normal systolic function, EF 60-65%, and grade 1 diastolic dysfunction. no pulmonary hypertension. see report. - EEG ordered - orthostatics Q shift - fall precautions - telemetry monitoring - consider cardiology consultation if dysrhythmia or bradycardia observed via telemetry 07/11: Patient endorsing severe back pain and could not tolerate being rolled for further examination. Will obtain a CT of her thoracic and lumbar spine to further evaluate. - TL spine CT: 1. Mild S-shaped scoliosis of the lumbar and lower thoracic spine with moderate thoracic and severe lumbar spondylosis. 2. Chronic compression fracture at T1 and minimal likely physiologic anterior wedging at T12. No acute osseous abnormality. 3. Infrarenal IVC filter. 07/13: Patient stating that she is feeling much better today. - Orthostatic vitals ordered - PT/OT Recommending rehab 07/14: patient states that she continues to feel better each day and that her back pain has improved some however still in pain with slight movement. - Discussed patient with PT and she was able to stand next to the bed today. Continue PT - Discussed with RN that we need to obtain orthostatics now that patient is standing with PT - Continue TLSO brace - Started lidocaine patch and flexaril 2.5 BID for pain (4) Paroxysmal atrial fibrillation: Code(s): I48.0 - Paroxysmal atrial fibrillation Status: Chronic Assessment and Plan: - initial EKG showing sinus rhythm - continue home medications: Warfarin placed on hold for supratherapeutic INR (goal 2-3) - INR 3.1 - telemetry monitoring (5) Acute kidney injury superimposed on chronic kidney disease: Code(s): N17.9 - Acute kidney failure, unspecified; N18.9 - Chronic kidney disease, unspecified Status: Acute Assessment and Plan: - creatinine 0.92 and GFR 57 on admission, baseline appears to be WNL-1.40 - BUN/Cr 53/1.73 on am labs - Renal US ordered - trend renal function - trend electrolytes, correct as needed - avoid nephrotoxic medications - renally dose medications - monitor I/O showing decreased urine output, given 1L NS @ 100 ml/hr and UOP has returned to normal limits prn bladder scans. Patient did retain on bladder scan and a straight cath was done, if retention recurs will place [place] (6) Hypothyroidism: Qualifiers: Hypothyroidism type: unspecified Qualified Code(s): E03.9 - Hypothyroidism, unspecified Code(s): E03.9 - Hypothyroidism, unspecified Status: Chronic Assessment and Plan: - TSH 1.53 on 07/10/2024 - continue home medications: levothyroxine 50 mcg daily (7) Type 2 diabetes mellitus: Qualifiers: Chronic kidney disease stage: stage 3 (moderate) Chronic kidney disease stage 3 subtype: stage 3a (GFR 45-59) Diabetes mellitus complication detail: with chronic kidney disease Diabetes mellitus complication status: with kidney complications Diabetes mellitus keno terminal operator insulin use: without keno terminal operator use Qualified Code(s): E11.22 - Type 2 diabetes mellitus with diabetic chronic kidney disease; N18.31 - Chronic kidney disease, stage 3a Code(s): E11.9 - Type 2 diabetes mellitus without complications Status: Acute Assessment and Plan: - Dexcom in place - hypoglycemia protocol - POC blood glucose ACHS - home medication: hold metformin in case of need for contrast - correct regimen ordered - high dose TIDWM, based off BMI - A1C ordered, previously 6.2% in January of 2024 (8) Essential (primary) hypertension: Code(s): I10 - Essential (primary) hypertension Status: Chronic Assessment and Plan: chronic, continue home medications - Amlodipine 5 mg daily - Benazepril 20 mg daily - Imdur 30 mg daily - Blood pressures remain stable, continue to monitor Plan Diet: Heart healthy GI Prophylaxis: Not currently indicated DVT Prophylaxis: Warfarin Lines: Peripheral Code Status: Full code Time Spent With Patient Time with patient: 25 - 35 minutes Subjective Date/time seen: 07/14/24 09:31 Interval history: 88 year old female with past medical history of diastolic dysfunction, DVT, diabetes, chronic idiopathic thrombocytopenia, legally blind, anemia, dementia, depression, CKD stage 3, hypertension, hyperlipidemia, hypothyroidism, and paroxysmal AFib presents to the hospital with syncope and AMS. Patient is pleasant sitting in bed with TLSO brace in place. Patient states that she continues to feel better each day and that her back pain has improved slightly. Discussed patient with PT and she was able to stand next to the bed today. Per patient she did feel slightly dizzy at that time. Discussed with RN that we need to obtain orthostatics now that patient is standing with PT and continue to ambulate patient to the chair for meals. Review of Systems Review of Systems: All systems reviewed & are unremarkable except as noted in HPI and below Exam Narrative: AF HR 60 RR 16 SPo2 100 BP 132/46 General: female in no acute respiratory distress who is nontoxic appearing, lying semi recumbent in bed. HEENT: Normocephalic. Atraumatic. Extraocular movement intact. Sclera clear and anicteric. Patient is legally blind. No facial asymmetry. Chest: Lungs are clear to auscultation bilaterally. No wheezes or crackles. CV: Heart was regular rate and rhythm. S1-S2. No murmurs, gallops, or rubs. Abd: Abdomen was soft. Nontender. Nondistended. Positive bowel sounds. Ext: No clubbing, cyanosis, or edema. 2+ DP pulses bilaterally. Neuro: Patient is alert and oriented x2-3 (person, place, 20 something). Speech is clear. Objective Data Vital Signs Vital Signs: Vital Signs - 24 hr 07/13/24 10:00 07/13/24 12:00 07/13/24 12:50 Temperature Pulse Rate 76 Respiratory Rate Blood Pressure Pulse Oximetry Oxygen Delivery Room Air Room Air 07/13/24 15:49 07/13/24 16:00 07/13/24 20:00 Temperature 97.8 F Pulse Rate 64 64 68 Respiratory Rate 18 Blood Pressure 149/60 H Pulse Oximetry 100 Oxygen Delivery 07/13/24 22:45 07/14/24 00:00 07/14/24 04:00 Temperature 97.3 F L Pulse Rate 65 65 63 Respiratory Rate 18 Blood Pressure 137/59 L Pulse Oximetry 100 Oxygen Delivery 07/14/24 06:00 07/14/24 08:35 Temperature 98.3 F Pulse Rate 65 Respiratory Rate 18 Blood Pressure 134/49 L Pulse Oximetry 96 Oxygen Delivery Room Air Intake/Output Intake/Output: Intake & Output 07/11/24 07/12/24 07/13/24 07/14/24 23:59 23:59 23:59 23:59 Intake Total 479 612 0688 340 Output Total 200 047 906 7956 Balance 200 365 230 -660 Meds/Results Medications: Active Medications Generic Name Dose Route Start Last Admin Trade Name Freq PRN Reason Stop Dose Admin Acetaminophen 650 mg 07/10/24 15:51 07/13/24 20:14 Acetaminophen 325 Mg Tablet PO 650 mg Q4H PRN Administration Mild Pain (1-3) or Fever Amlodipine Besylate 5 mg 07/11/24 09:00 07/13/24 10:02 Amlodipine Besylate 5 Mg Tablet PO 5 mg DAILY GAVIN Administration Atorvastatin Calcium 10 mg 07/11/24 09:00 07/13/24 10:01 Atorvastatin 10 Mg Tablet PO 10 mg DAILY GAVIN Administration Buspirone HCl 10 mg 07/10/24 22:25 07/13/24 17:19 Buspirone Hcl 10 Mg Tablet PO 10 mg BID GAVIN Administration Dextrose 12.5 gm 07/10/24 22:06 Dextrose 50% 25 Gm/50 Ml Syringe IV PUSH PRN PRN Hypoglycemia Protocol Gabapentin 600 mg 07/10/24 22:05 07/13/24 20:04 Gabapentin 300 Mg Capsule PO 600 mg Q12HR GAVIN Administration Glucagon 1 mg 07/10/24 22:06 Glucagon For Inj 1 Mg Vial IM PRN PRN Hypoglycemia Protocol Glucose 15 gm 07/10/24 22:06 Glucose Oral Gel 15 Gm Of Glucse In 37.5 Gm Tube PO PRN PRN Hypoglycemia Protocol Ceftriaxone Sodium 1 gm in 50 mls @ 100 mls/hr 07/10/24 20:00 07/13/24 20:33 Rocephin 1 Gm/Ns 50 Ml IVPB Infused Q24H GAVIN Infusion Dextrose 1,000 mls @ 100 mls/hr 07/10/24 22:06 Dextrose 5% 1,000 Ml IVPB PRN PRN Hypoglycemia Protocol Insulin Aspart 4 - 8 units 07/11/24 08:00 07/13/24 18:33 Insulin Aspart (*Bkc) 100 Units/Ml SUB-Q Not Given TIDWM [facility] Protocol Isosorbide Mononitrate 30 mg 07/11/24 09:00 07/13/24 10:01 Isosorbide Mononitrate 30 Mg Tab.Er.24h PO 30 mg DAILY [facility] Administration Levothyroxine Sodium 50 mcg 07/11/24 06:30 07/14/24 05:31 Levothyroxine Sodium 50 Mcg Tablet PO 50 mcg DAILY@0630 [facility] Administration Lidocaine 1 patch 07/13/24 09:00 07/13/24 17:19 Lidocaine 5% Patch TRANSDERM Not Given DAILY [facility] Lisinopril 20 mg 07/11/24 09:00 07/13/24 10:01 Lisinopril 20 Mg Tablet PO 20 mg DAILY [facility]IN Administration Memantine 10 mg 07/10/24 22:25 07/13/24 20:04 Memantine 10 Mg Tablet PO 10 mg Q12HR [facility] Administration Warfarin Sodium 1 mg 07/10/24 22:35 07/12/24 17:15 Warfarin (*Pbkc) 1 Mg Tablet PO 1 mg TuThSa@1700 [facility] Administration Warfarin Sodium 4 mg 07/10/24 22:35 07/11/24 16:53 Warfarin (*Pbkc) 4 Mg Tablet PO 4 mg DAILY@1700 [facility] Administration Radiology Results: ITS Impressions Head CT 07/10/24 12:45 IMPRESSION: 1. Stable appearance of age-related changes in the brain. No acute intracranial process. Chest X-Ray 07/10/24 12:58 Impression: 1: No acute cardiopulmonary disease. Carotid Doppler Study 07/10/24 22:01 IMPRESSION: 1. 50-69% stenosis in the right internal carotid artery. 2. <50% stenosis in the left internal carotid artery. Brain MRI 07/11/24 12:35 IMPRESSION: 1. Normal aging brain with moderate scattered nonspecific periventricular predominant white matter T2 hyperintensity consistent with chronic small vessel ischemic disease. No acute intracranial process or abnormally enhancing brain lesions. Thoracic/Lumbar Spine CT 07/12/24 07:30 IMPRESSION: 1. Mild S-shaped scoliosis of the lumbar and lower thoracic spine with moderate thoracic and severe lumbar spondylosis. 2. Chronic compression fracture at T1 and minimal likely physiologic anterior wedging at T12. No acute osseous abnormality. 3. Infrarenal IVC filter. Renal Ultrasound 07/13/24 15:26 IMPRESSION: No hydronephrosis or renal calculi. Findings suggesting medical renal disease. Labs Labs: Laboratory Results - last 24 hr 07/11/24 07/13/24 07/13/24 13:02 12:35 17:32 WBC RBC Hgb Hct MCV MCH MCHC RDW Plt Count MPV PT INR Sodium Potassium Chloride Carbon Dioxide Anion Gap BUN Creatinine Estim Creat Clear Calc Estimated GFR Glucose POC Capillary Glucose 126 H 194 H 130 H Calcium Total Bilirubin AST ALT Alkaline Phosphatase Total Protein Albumin 07/13/24 07/14/24 07/14/24 20:30 05:53 09:01 WBC 7.6 RBC 3.80 L Hgb 10.3 L Hct 32.8 L MCV 86.3 MCH 27.1 MCHC 31.4 L RDW 15.1 H Plt Count 216 MPV 11.8 H PT 32.6 H INR 3.2 Sodium 141 Potassium 4.4 Chloride 109 H Carbon Dioxide 20 L Anion Gap 12 BUN 53 H Creatinine 1.73 H Estim Creat Clear Calc 21 Estimated GFR 28 L Glucose 118 H POC Capillary Glucose 179 H 127 H Calcium 8.7 Total Bilirubin 0.4 AST 17 ALT 12 Alkaline Phosphatase 84 Total Protein 6.0 L Albumin 3.1 L Quality VTE Prophylaxis VTE prophylaxis: pharmacologic ordered
[2024-07-14] MEDS: ACETAMINOPHEN 325 MG TABLET 650 MG PO ×2 (10:47→23:29)
[2024-07-14] MEDS: LIDOCAINE 5% PATCH 1 PATCH TRANSDERM (10:47)
[2024-07-14] MEDS: ATORVASTATIN 10 MG TABLET PO (10:47)
[2024-07-14] MEDS: GABAPENTIN 300 MG CAPSULE 600 MG PO ×2 (10:48→20:10)
[2024-07-14] MEDS: busPIRone HCL 10 MG TABLET PO ×2 (10:48→17:25)
[2024-07-14] MEDS: lisinopriL 20 MG TABLET PO (10:48)
[2024-07-14] MEDS: ISOSORBIDE MONONITRATE 30 MG TAB.ER.24H PO (10:48)
[2024-07-14] MEDS: MEMANTINE 10 MG TABLET PO ×2 (10:49→20:10)
[2024-07-14] MEDS: amLODIPine BESYLATE 5 MG TABLET PO (10:49)
[2024-07-14 12:01] LABS: Glucose Point of Care 140 mg/dl (65-105)
[2024-07-14 17:04] LABS: Glucose Point of Care 140 mg/dl (65-105)
[2024-07-14] MEDS: CYCLOBENZAPRINE HCL 2.5 MG 2.5 EACH PO (20:10)
[2024-07-15] VITALS (9 sets, daily range): BP systolic 122–170; BP diastolic 64–87; PULSE 55–111; RESP 18–20; TEMP 36.2–36.6; O2SAT 95–100
[2024-07-15] MEDS: LEVOTHYROXINE SODIUM 50 MCG TABLET PO (05:35)
[2024-07-15 06:01] LABS: Hematocrit 33.2 % (37.0-47.0); Hemoglobin 10.3 g/dL (12.0-15.0); Mean Corpuscular Hemoglobin 26.8 pg (26-34); Mean Corpuscular Volume 86.5 fl (80-100); Mean Platelet Volume 11.1 fl (7.4-10.4); Platelet Count Result 233 k/mm3 (150-375); Red Blood Count 3.84 M/mm3 (4.2-5.4); Red Cell Distribution Width 15.1 % (11.5-14.5)
[2024-07-15 06:16] LABS: Glucose Point of Care 191 mg/dl (65-105)
[2024-07-15 06:18] LABS: Alanine Aminotransferase 12 U/L (6-35); Albumin Level 3.2 g/dL (3.5-5.1); Alkaline Phosphatase 84 U/L (38-126); Anion Gap 6 mmol/L (4-12); Aspartate Amino Transferase 25 U/L (14-36); Bilirubin,Total 0.4 mg/dL (0.2-1.3); Blood Urea Nitrogen 41 mg/dL (7-17); Calcium 9.1 mg/dL (8.4-10.2); Carbon Dioxide 26 mmol/L (22-30); Chloride 111 mmol/L (98-107); Estimated CRCL calculation 31 ml/min; Estimated Glomerular Filt Rate 44; Glucose 104 mg/dL (65-110); Potassium 4.6 mmol/L (3.4-5.0); Sodium 143 mmol/L (137-145)
[2024-07-15 07:05] LABS: INR 2.4; Prothrombin Time 26.6 Seconds (11.1-14.7)
[2024-07-15 09:02] LABS: Glucose Point of Care 90 mg/dl (65-105)
[2024-07-15] MEDS: LIDOCAINE 5% PATCH 1 PATCH TRANSDERM (09:05)
[2024-07-15] MEDS: MEMANTINE 10 MG TABLET PO ×2 (09:06→20:28)
[2024-07-15] MEDS: lisinopriL 20 MG TABLET PO (09:06)
[2024-07-15] MEDS: GABAPENTIN 300 MG CAPSULE 600 MG PO ×2 (09:06→20:28)
[2024-07-15] MEDS: amLODIPine BESYLATE 5 MG TABLET PO (09:06)
[2024-07-15] MEDS: ISOSORBIDE MONONITRATE 30 MG TAB.ER.24H PO (09:06)
[2024-07-15] MEDS: ATORVASTATIN 10 MG TABLET PO (09:06)
[2024-07-15] MEDS: busPIRone HCL 10 MG TABLET PO ×2 (09:06→17:40)
[2024-07-15] MEDS: ACETAMINOPHEN 325 MG TABLET 650 MG PO ×3 (09:09→20:28)
[2024-07-15] MEDS: CYCLOBENZAPRINE HCL 2.5 MG 2.5 EACH PO ×2 (09:10→20:28)
--- NOTE | 2024-07-15 09:52 | P.PNIM_ITS ---
Progress Note: A&P Assessment and Plan (1) Confusion: Code(s): R41.0 - Disorientation, unspecified Status: Acute Assessment and Plan: Daughter reports that she has been becoming increasingly confused and has had increased syncopal episodes over the past week. At baseline she has moderate dementia and will recognize her family, however may not know the date. On Sunday the patient had a home test indicating a UTI. This report was called to her PCP and she was prescribed Keflex 500 t.i.d. She has received 4 doses with last dose Sunday night. A urine culture was not obtained for this infection. Despite antibiotic use the patient developed hallucinations on 07/09. - head CT: Stable appearance of age related changes in the brain, no acute intracranial process. - UA unremarkable, recently started on Keflex for UTI. Will continue with ceftriaxone to complete the course. - viral PCR negative - Blood cultures obtained on 07/10: gram positive cocci cluster growing in 1 bottle, other bottle NGTD. Possible contaminant, however will start on vancomycin until final culture. - MR brain: Normal aging brain with moderate scattered nonspecific periventricular predominant white matter T2 hyperintensity consistent with chronic small vessel ischemic disease. No acute intracranial process or abnormally enhancing brain lesions. - neurological checks Q4H - telemetry monitoring 07/15: Patient AOx2 on assessment. No hallucinations since admission. (2) Bacteremia: Code(s): R78.81 - Bacteremia Status: Acute Assessment and Plan: - Blood cultures obtained on 07/10: gram positive cocci cluster growing in 1 bottle, other bottle NGTD. Possible contaminant, however will start on vancomycin until final culture. Patient given a dose of vancomycin which has since been discontinued as Bcx is growing staph epidermidis which is further suspicious for contamination. Repeat blood cultures NGTD. (3) Syncope and collapse: Code(s): R55 - Syncope and collapse Status: Acute Assessment and Plan: Initially developed syncope in June of 2023. At that time occurrences were every few months -> one every few weeks -> this week she has passed out daily with max of 3 daily. She has a Dexcom in place and a loop recorder in place due to rule out dysrhythmia and hypoglycemia as etiology. The patient's blood sugar has been decreasing over the last week and she has had some readings in the 50s and 60s. The daughter reported that she can tell when the patient is about to pass out because she will become generally weak and her color will change (becomes very pale). The patient has eyes will roll back, she will have a loss of consciousness for anywhere up to a minute, almost as if she went to sleep, and the patient will wake up exhausted. The patient typically does not have any memory of these events and will have increased confusion after. - EKG, initial: Sinus rhythm, rate 67, voltage criteria for LVH, consider inferior infarct age indeterminate, inferior infarct age indeterminate, baseline artifact. When compared to EKG done on 02/18/2024, there are no significant changes. - UDS and viral PCR negative - UA unremarkable, recently started on Keflex on 07/07 for UTI, remains on rocephin to complete the course - troponin negative x2 - hemoglobin 14.4, increased from prior. May have some level of dehydration. IV fluids. - head CT and CXR showed no acute findings - MR brain: Normal aging brain with moderate scattered nonspecific periventricular predominant white matter T2 hyperintensity consistent with chronic small vessel ischemic disease. No acute intracranial process or abnormally enhancing brain lesions. - US of carotids: 50-69% stenosis in the right internal carotid artery and <50% stenosis in the left internal carotid artery. - echo, previous (01/2024): normal systolic function, EF 60-65%, and grade 1 diastolic dysfunction. no pulmonary hypertension. see report. - EEG ordered - orthostatics Q shift - fall precautions - telemetry monitoring - consider cardiology consultation if dysrhythmia or bradycardia observed via telemetry 07/11: Patient endorsing severe back pain and could not tolerate being rolled for further examination. Will obtain a CT of her thoracic and lumbar spine to further evaluate. - TL spine CT: 1. Mild S-shaped scoliosis of the lumbar and lower thoracic spine with moderate thoracic and severe lumbar spondylosis. 2. Chronic compression fracture at T1 and minimal likely physiologic anterior wedging at T12. No acute osseous abnormality. 3. Infrarenal IVC filter. 07/15: - Continue TLSO brace - Scheduled tylenol - Started lidocaine patch and flexaril 2.5 BID for pain - PT/OT (4) Paroxysmal atrial fibrillation: Code(s): I48.0 - Paroxysmal atrial fibrillation Status: Chronic Assessment and Plan: - initial EKG showing sinus rhythm - continue home medications: Warfarin - INR 3.1 - telemetry monitoring (5) Acute kidney injury superimposed on chronic kidney disease: Code(s): N17.9 - Acute kidney failure, unspecified; N18.9 - Chronic kidney disease, unspecified Status: Acute Assessment and Plan: - creatinine 0.92 and GFR 57 on admission, baseline appears to be WNL-1.40 - BUN/Cr 41/1.16 on am labs - Renal US ordered - trend renal function - trend electrolytes, correct as needed - avoid nephrotoxic medications - renally dose medications - monitor I/O showing decreased urine output, given 1L NS @ 100 ml/hr and UOP has returned to normal limits prn bladder scans. Patient did retain on bladder scan and a straight cath was done, if retention recurs will place oreilly Resolved. (6) Hypothyroidism: Qualifiers: Hypothyroidism type: unspecified Qualified Code(s): E03.9 - Hypot hyroidism, unspecified Code(s): E03.9 - Hypothyroidism, unspecified Status: Chronic Assessment and Plan: - TSH 1.53 on 07/10/2024 - continue home medications: levothyroxine 50 mcg daily (7) Type 2 diabetes mellitus: Qualifiers: Chronic kidney disease stage: stage 3 (moderate) Chronic kidney disease stage 3 subtype: stage 3a (GFR 45-59) Diabetes mellitus complication detail: with chronic kidney disease Diabetes mellitus complication status: with kidney complications Diabetes mellitus terminal operations supervisor insulin use: without terminal operations supervisor use Qualified Code(s): E11.22 - Type 2 diabetes mellitus with diabetic chronic kidney disease; N18.31 - Chronic kidney disease, stage 3a Code(s): E11.9 - Type 2 diabetes mellitus without complications Status: Acute Assessment and Plan: - Dexcom in place - hypoglycemia protocol - POC blood glucose ACHS - home medication: hold metformin in case of need for contrast - correct regimen ordered - high dose TIDWM, based off BMI - A1C ordered, previously 6.2% in January of 2024 (8) Essential (primary) hypertension: Code(s): I10 - Essential (primary) hypertension Status: Chronic Assessment and Plan: chronic, continue home medications - Amlodipine 5 mg daily - Benazepril 20 mg daily - Imdur 30 mg daily - Blood pressures remain stable, continue to monitor Plan Diet: Heart healthy GI Prophylaxis: Not currently indicated DVT Prophylaxis: Warfarin Lines: Peripheral Code Status: Full code Time Spent With Patient Time with patient: 25 - 35 minutes Subjective Date/time seen: 07/15/24 09:52 Interval history: 88 year old female with past medical history of diastolic dysfunction, DVT, diabetes, chronic idiopathic thrombocytopenia, legally blind, anemia, dementia, depression, CKD stage 3, hypertension, hyperlipidemia, hypothyroidism, and paroxysmal AFib presents to the hospital with syncope and AMS. Patient is pleasant sitting up in her chair. She remains alert and oriented x2 not having any hallucinations. She continues to endorse back pain but states that this has improved since admission. She has been working with therapy and unable to stand independently. She has no complaints denyign chest pain, Shortness of breath, palpitations, nausea / vomiting, no abdominal pain. Review of Systems Review of Systems: All systems reviewed & are unremarkable except as noted in HPI and below Exam Narrative: AF HR 55 RR 20 SPO2 98 BP 122/87 General: female in no acute respiratory distress who is nontoxic appearing, lying semi recumbent in bed. HEENT: Normocephalic. Atraumatic. Extraocular movement intact. Sclera clear and anicteric. Patient is legally blind. No facial asymmetry. Chest: Lungs are clear to auscultation bilaterally. No wheezes or crackles. CV: Heart was regular rate and rhythm. S1-S2. No murmurs, gallops, or rubs. Abd: Abdomen was soft. Nontender. Nondistended. Positive bowel sounds. TLSO brace in place. Ext: No clubbing, cyanosis, or edema. 2+ DP pulses bilaterally. Neuro: Patient is alert and oriented x2 (person, place). Speech is clear. Objective Data Vital Signs Vital Signs: Vital Signs - 24 hr 07/14/24 10:00 07/14/24 12:00 07/14/24 14:00 Temperature 97.2 F L Pulse Rate 62 60 Respiratory Rate 16 Blood Pressure 132/46 L Pulse Oximetry 96 100 Oxygen Delivery Room Air 07/14/24 16:00 07/14/24 20:00 07/14/24 20:00 Temperature Pulse Rate 65 77 Respiratory Rate Blood Pressure Pulse Oximetry 1 L Oxygen Delivery Room Air 07/14/24 22:30 07/15/24 00:00 07/15/24 04:00 Temperature 97.3 F L Pulse Rate 65 63 60 Respiratory Rate 20 Blood Pressure 141/59 H Pulse Oximetry 100 Oxygen Delivery 07/15/24 06:00 Temperature 97.1 F L Pulse Rate 55 L Respiratory Rate 20 Blood Pressure 122/87 Pulse Oximetry 98 Oxygen Delivery Intake/Output Intake/Output: Intake & Output 07/12/24 07/13/24 07/14/24 07/15/24 23:59 23:59 23:59 23:59 Intake Total 590 1130 1460 300 Output Total 645 577 5239 1400 Balance 365 230 -1040 -1100 Meds/Results Medications: Active Medications Generic Name Dose Route Start Last Admin Trade Name Freq PRN Reason Stop Dose Admin Acetaminophen 650 mg 07/10/24 15:51 07/15/24 09:09 Acetaminophen 325 Mg Tablet PO 650 mg Q4H PRN Administration Mild Pain (1-3) or Fever Amlodipine Besylate 5 mg 07/11/24 09:00 07/15/24 09:06 Amlodipine Besylate 5 Mg Tablet PO 5 mg DAILY GAVIN Administration Atorvastatin Calcium 10 mg 07/11/24 09:00 07/15/24 09:06 Atorvastatin 10 Mg Tablet PO 10 mg DAILY GAVIN Administration Buspirone HCl 10 mg 07/10/24 22:25 07/15/24 09:06 Buspirone Hcl 10 Mg Tablet PO 10 mg BID GAVIN Administration Dextrose 12.5 gm 07/10/24 22:06 Dextrose 50% 25 Gm/50 Ml Syringe IV PUSH PRN PRN Hypoglycemia Protocol Gabapentin 600 mg 07/10/24 22:05 07/15/24 09:06 Gabapentin 300 Mg Capsule PO 600 mg Q12HR GAVIN Administration Glucagon 1 mg 07/10/24 22:06 Glucagon For Inj 1 Mg Vial IM PRN PRN Hypoglycemia Protocol Glucose 15 gm 07/10/24 22:06 Glucose Oral Gel 15 Gm Of Glucse In 37.5 Gm Tube PO PRN PRN Hypoglycemia Protocol Dextrose 1,000 mls @ 100 mls/hr 07/10/24 22:06 Dextrose 5% 1,000 Ml IVPB PRN PRN Hypoglycemia Protocol Insulin Aspart 4 - 8 units 07/11/24 08:00 07/15/24 09:11 Insulin Aspart (*Bkc) 100 Units/Ml SUB-Q Not Given TIDWM GAVIN Protocol Isosorbide Mononitrate 30 mg 07/11/24 09:00 07/15/24 09:06 Isosorbide Mononitrate 30 Mg Tab.Er.24h PO 30 mg DAILY GAVIN Administration Levothyroxine Sodium 50 mcg 07/11/24 06:30 07/15/24 05:35 Levothyroxine Sodium 50 Mcg Tablet PO 50 mcg DAILY@0630 GAVIN Administration Lidocaine 1 patch 07/13/24 09:00 07/15/24 09:05 Lidocaine 5% Patch TRANSDERM 1 patch DAILY GAVIN Administration Lisinopril 20 mg 07/11/24 09:00 07/15/24 09:06 Lisinopril 20 Mg Tablet PO 20 mg DAILY GAVIN Administration Memantine 10 mg 07/10/24 22:25 07/15/24 09:06 Memantine 10 Mg Tablet PO 10 mg Q12HR GAVIN Administration Cyclobenzaprine Hcl 2.5 each 07/14/24 21:00 07/15/24 09:10 2.5 Mg Tablet PO 08/13/24 20:59 2.5 each Q12HR GAVIN Administration Warfarin Sodium 1 mg 07/10/24 22:35 07/12/24 17:15 Warfarin (*Pbkc) 1 Mg Tablet PO 1 mg TuThSa@1700 GAVIN Administration Warfarin Sodium 4 mg 07/10/24 22:35 07/11/24 16:53 Warfarin (*Pbkc) 4 Mg Tablet PO 4 mg DAILY@1700 [facility] Administration Radiology Results: ITS Impressions Head CT 07/10/24 12:45 IMPRESSION: 1. Stable appearance of age-related changes in the brain. No acute intracranial process. Chest X-Ray 07/10/24 12:58 Impression: 1: No acute cardiopulmonary disease. Carotid Doppler Study 07/10/24 22:01 IMPRESSION: 1. 50-69% stenosis in the right internal carotid artery. 2. <50% stenosis in the left internal carotid artery. Brain MRI 07/11/24 12:35 IMPRESSION: 1. Normal aging brain with moderate scattered nonspecific periventricular predominant white matter T2 hyperintensity consistent with chronic small vessel ischemic disease. No acute intracranial process or abnormally enhancing brain lesions. Thoracic/Lumbar Spine CT 07/12/24 07:30 IMPRESSION: 1. Mild S-shaped scoliosis of the lumbar and lower thoracic spine with moderate thoracic and severe lumbar spondylosis. 2. Chronic compression fracture at T1 and minimal likely physiologic anterior wedging at T12. No acute osseous abnormality. 3. Infrarenal IVC filter. Renal Ultrasound 07/13/24 15:26 IMPRESSION: No hydronephrosis or renal calculi. Findings suggesting medical renal disease. Labs Labs: Laboratory Results - last 24 hr 07/14/24 07/14/24 07/14/24 11:43 16:58 20:09 WBC RBC Hgb Hct MCV MCH MCHC RDW Plt Count MPV PT INR Sodium Potassium Chloride Carbon Dioxide Anion Gap BUN Creatinine Estim Creat Clear Calc Estimated GFR Glucose POC Capillary Glucose 140 H 140 H 191 H Calcium Total Bilirubin AST ALT Alkaline Phosphatase Total Protein Albumin 07/15/24 07/15/24 07/15/24 05:33 06:38 08:55 WBC 6.0 RBC 3.84 L Hgb 10.3 L Hct 33.2 L MCV 86.5 MCH 26.8 MCHC 31.0 L RDW 15.1 H Plt Count 233 MPV 11.1 H PT 26.6 H INR 2.4 Sodium 143 Potassium 4.6 Chloride 111 H Carbon Dioxide 26 Anion Gap 6 BUN 41 H D Creatinine 1.16 H Estim Creat Clear Calc 31 Estimated GFR 44 L Glucose 104 POC Capillary Glucose 90 Calcium 9.1 Total Bilirubin 0.4 AST 25 ALT 12 Alkaline Phosphatase 84 Total Protein 6.0 L Albumin 3.2 L
[2024-07-15 12:30] LABS: Glucose Point of Care 135 mg/dl (65-105)
[2024-07-15 17:28] LABS: Glucose Point of Care 93 mg/dl (65-105)
[2024-07-15] MEDS: WARFARIN (*PBKC) 4 MG TABLET PO (17:40)
[2024-07-15] MEDS: WARFARIN (*PBKC) 1 MG TABLET PO (17:41)
[2024-07-15 22:38] LABS: Glucose Point of Care 155 mg/dl (65-105)
[2024-07-16] VITALS (7 sets, daily range): BP systolic 160–167; BP diastolic 73–81; PULSE 65–80; RESP 16–18; TEMP 36.4–36.8; O2SAT 95–100
[2024-07-16] MEDS: ACETAMINOPHEN 325 MG TABLET 650 MG PO ×4 (03:07→20:00)
[2024-07-16] MEDS: LEVOTHYROXINE SODIUM 50 MCG TABLET PO (05:16)
[2024-07-16 05:59] LABS: Hematocrit 37.2 % (37.0-47.0); Hemoglobin 11.7 g/dL (12.0-15.0); Mean Corpuscular HGB Conc 31.5 g/dl (32-36); Mean Corpuscular Hemoglobin 26.8 pg (26-34); Mean Corpuscular Volume 85.3 fl (80-100); Mean Platelet Volume 11.2 fl (7.4-10.4); Platelet Count Result 264 k/mm3 (150-375); Red Blood Count 4.36 M/mm3 (4.2-5.4); Red Cell Distribution Width 14.6 % (11.5-14.5); White Blood Count 8.1 K/mm3 (4.5-10.0)
[2024-07-16 06:13] LABS: Prothrombin Time 23.6 Seconds (11.1-14.7)
[2024-07-16 06:18] LABS: Alanine Aminotransferase 14 U/L (6-35); Albumin Level 3.3 g/dL (3.5-5.1); Alkaline Phosphatase 105 U/L (38-126); Anion Gap 10 mmol/L (4-12); Aspartate Amino Transferase 21 U/L (14-36); Bilirubin,Total 0.5 mg/dL (0.2-1.3); Blood Urea Nitrogen 41 mg/dL (7-17); Calcium 9.9 mg/dL (8.4-10.2); Carbon Dioxide 24 mmol/L (22-30); Chloride 109 mmol/L (98-107); Estimated CRCL calculation 31 ml/min; Estimated Glomerular Filt Rate 44; Glucose 115 mg/dL (65-110); Potassium 4.7 mmol/L (3.4-5.0); Sodium 143 mmol/L (137-145)
[2024-07-16] MEDS: amLODIPine BESYLATE 5 MG TABLET PO (08:40)
[2024-07-16] MEDS: ISOSORBIDE MONONITRATE 30 MG TAB.ER.24H PO (08:44)
[2024-07-16] MEDS: LIDOCAINE 5% PATCH 1 PATCH TRANSDERM (08:44)
[2024-07-16] MEDS: MEMANTINE 10 MG TABLET PO ×2 (08:45→20:00)
[2024-07-16] MEDS: lisinopriL 20 MG TABLET PO (08:45)
[2024-07-16] MEDS: busPIRone HCL 10 MG TABLET PO ×2 (08:45→17:08)
[2024-07-16] MEDS: GABAPENTIN 300 MG CAPSULE 600 MG PO ×2 (08:45→20:00)
[2024-07-16] MEDS: ATORVASTATIN 10 MG TABLET PO (08:45)
[2024-07-16] MEDS: CYCLOBENZAPRINE HCL 2.5 MG 2.5 EACH PO ×2 (08:46→20:01)
[2024-07-16 09:11] LABS: Glucose Point of Care 98 mg/dl (65-105)
--- NOTE | 2024-07-16 11:11 | WPDNEUROLOGY ---
Neurology EEG Report General Information Date of Study: 07/16/24 TEST Eeg DIAGNOSIS syncopal episode with collapse. CONDITION OF RECORDING Drowsy and asleep. EEG NUMBER [id number] CLINICAL HISTORY Patient is confused and unable to provide any particular history. EEG DESCRIPTION Whole record consist of diffuse low-voltage 15 to 21 hertz per 2nd beta activity with poor background and multiple movement artifacts. Low-voltage fast Beta activity seen during drowsiness and sleep as well. IMPRESSION No significant abnormalities noted in this tracing which mainly consists of fast activity. Clinical correlation recommended. Possibility of seizure cannot be ruled out with this tracing.
--- NOTE | 2024-07-16 11:46 | P.PNIM_ITS ---
Progress Note: A&P Assessment and Plan (1) Confusion: Code(s): R41.0 - Disorientation, unspecified Status: Acute Assessment and Plan: Daughter reports that she has been becoming increasingly confused and has had increased syncopal episodes over the past week. At baseline she has moderate dementia and will recognize her family, however may not know the date. On Sunday the patient had a home test indicating a UTI. This report was called to her PCP and she was prescribed Keflex 500 t.i.d. She has received 4 doses with last dose Sunday night. A urine culture was not obtained for this infection. Despite antibiotic use the patient developed hallucinations on 07/09. - head CT: Stable appearance of age related changes in the brain, no acute intracranial process. - UA unremarkable, recently started on Keflex for UTI. Will continue with ceftriaxone to complete the course. - viral PCR negative - Blood cultures obtained on 07/10: gram positive cocci cluster growing in 1 bottle, other bottle NGTD. Possible contaminant, however will start on vancomycin until final culture. - MR brain: Normal aging brain with moderate scattered nonspecific periventricular predominant white matter T2 hyperintensity consistent with chronic small vessel ischemic disease. No acute intracranial process or abnormally enhancing brain lesions. - neurological checks Q4H - telemetry monitoring 07/15: Patient AOx2 on assessment. No hallucinations since admission. 07/16- stable- working with care coordination for placement (2) Bacteremia: Code(s): R78.81 - Bacteremia Status: Acute Assessment and Plan: - Blood cultures obtained on 07/10: gram positive cocci cluster growing in 1 bottle, other bottle NGTD. Possible contaminant, however will start on vancomycin until final culture. Patient given a dose of vancomycin which has since been discontinued as Bcx i s growing staph epidermidis which is further suspicious for contamination. Repeat blood cultures NGTD. (3) Syncope and collapse: Code(s): R55 - Syncope and collapse Status: Acute Assessment and Plan: Initially developed syncope in June of 2023. At that time occurrences were every few months -> one every few weeks -> this week she has passed out daily with max of 3 daily. She has a Dexcom in place and a loop recorder in place due to rule out dysrhythmia and hypoglycemia as etiology. The patient's blood sugar has been decreasing over the last week and she has had some readings in the 50s and 60s. The daughter reported that she can tell when the patient is about to pass out because she will become generally weak and her color will change (becomes very pale). The patient has eyes will roll back, she will have a loss of consciousn ess for anywhere up to a minute, almost as if she went to sleep, and the patient will wake up exhausted. The patient typically does not have any memory of these events and will have increased confusion after. - EKG, initial: Sinus rhythm, rate 67, voltage criteria for LVH, consider inferior infarct age indeterminate, inferior infarct age indeterminate, baseline artifact. When compared to EKG done on 02/18/2024, there are no significant changes. - UDS and viral PCR negative - UA unremarkable, recently started on Keflex on 07/07 for UTI, remains on rocephin to complete the course - troponin negative x2 - hemoglobin 14.4, increased from prior. May have some level of dehydration. IV fluids. - head CT and CXR showed no acute findings - MR brain: Normal aging brain with moderate scattered nonspecific periventricular predominant white matter T2 hyperintensity consistent with chronic small vessel ischemic disease. No acute intracranial process or abnormally enhancing brain lesions. - US of carotids: 50-69% stenosis in the right internal carotid artery and <50% stenosis in the left internal carotid artery. - echo, previous (01/2024): normal systolic function, EF 60-65%, and grade 1 di astolic dysfunction. no pulmonary hypertension. see report. - EEG ordered - orthostatics Q shift - fall precautions - telemetry monitoring - consider cardiology consultation if dysrhythmia or bradycardia observed via telemetry 07/11: Patient endorsing severe back pain and could not tolerate being rolled for further examination. Will obtain a CT of her thoracic and lumbar spine to further evaluate. - TL spine CT: 1. Mild S-shaped scoliosis of the lumbar and lower thoracic spine with moderate thoracic and severe lumbar spondylosis. 2. Chronic compression fracture at T1 and minimal likely physiologic anterior wedging at T12. No acute osseous abnormality. 3. Infrarenal IVC filter. 07/15: - Continue TLSO brace - Scheduled tylenol - Started lidocaine patch and flexaril 2.5 BID for pain - PT/OT 07/16 stable- working with pt/ot, placement (4) Paroxysmal atrial fibrillation: Code(s): I48.0 - Paroxysmal atrial fibrillation Status: Chronic Assessment and Plan: - initial EKG showing sinus rhythm - continue home medications: Warfarin - INR 3.1 - telemetry monitoring (5) Acute kidney injury superimposed on chronic kidney disease: Code(s): N17.9 - Acute kidney failure, unspecified; N18.9 - Chronic kidney disease, unspecified Status: Acute Assessment and Plan: - creatinine 0.92 and GFR 57 on admission, baseline appears to be WNL-1.40 - BUN/Cr 41/1.16 on am labs - Renal US ordered - trend renal function - trend electrolytes, correct as needed - avoid nephrotoxic medications - renally dose medications - monitor I/O showing decreased urine output, given 1L NS @ 100 ml/hr and UOP has returned to normal limits prn bladder scans. Patient did retain on bladder scan and a straight cath was done, if retention recurs will place oreilly Resolved. (6) Hypothyroidism: Qualifiers: Hypothyroidism type: unspecified Qualified Code(s): E03.9 - Hypothyroidism, unspecified Code(s): E03.9 - Hypothyroidism, unspecified Status: Chronic Assessment and Plan: - TSH 1.53 on 07/10/2024 - continue home medications: levothyroxine 50 mcg daily (7) Type 2 diabetes mellitus: Qualifiers: Chronic kidney disease stage: stage 3 (moderate) Chronic kidney disease stage 3 subtype: stage 3a (GFR 45-59) Diabetes mellitus complication detail: with chronic kidney disease Diabetes mellitus complication status: with kidney complications Diabetes mellitus intermediate designer insulin use: without long-term use Qualified Code(s): E11.22 - Type 2 diabetes mellitus with diabetic chronic kidney disease; N18.31 - Chronic kidney disease, stage 3a Code(s): E11.9 - Type 2 diabetes mellitus without complications Status: Acute Assessment and Plan: - Dexcom in place - hypoglycemia protocol - POC blood glucose ACHS - home medication: hold metformin in case of need for contrast - correct regimen ordered - high dose TIDWM, based off BMI - A1C ordered, previously 6.2% in January of 2024 (8) Essential (primary) hypertension: Code(s): I10 - Essential (primary) hypertension Status: Chronic Assessment and Plan: chronic, continue home medications - Amlodipine 5 mg daily - Benazepril 20 mg daily - Imdur 30 mg daily - Blood pressures remain stable, continue to monitor Plan Diet: Heart healthy GI Prophylaxis: Not currently indicated DVT Prophylaxis: Warfarin Lines: Peripheral Code Status: Full code Time Spent With Patient Time with patient: 25 - 35 minutes Subjective Date/time seen: 07/16/24 11:46 Interval history: 88 year old female with past medical history of diastolic dysfunction, DVT, diabetes, chronic idiopathic thrombocytopenia, legally blind, anemia, dementia, depression, CKD stage 3, hypertension, hyperlipidemia, hypothyroidism, and paroxysmal AFib presents to the hospital with syncope and AMS. Assuming care- recommendations were for placement but until now family were insisting on home discharge. However, care coordination today states that family is ok with [facility] [placement. Pt is seen and examined. She is a/o x 2- baseline, pleasant, in no distress. Awaiting placement approval. Review of Systems Review of Systems: All systems reviewed & are unremarkable except as noted in HPI and below ROS unobtainable: Yes unobtainable due to mental status (Limited, A&O x1) Exam Narrative: General: female in no acute respiratory distress who is nontoxic appearing, lying semi recumbent in bed. HEENT: Normocephalic. Atraumatic. Extraocular movement intact. Sclera clear and anicteric. Patient is legally blind. No facial asymmetry. Chest: Lungs are clear to auscultation bilaterally. No wheezes or crackles. CV: Heart was regular rate and rhythm. S1-S2. No murmurs, gallops, or rubs. Abd: Abdomen was soft. Nontender. Nondistended. Positive bowel sounds. TLSO brace in place. Ext: No clubbing, cyanosis, or edema. 2+ DP pulses bilaterally. Neuro: Patient is alert and oriented x2 (person, place). Speech is clear. Const: General: comfortable and no acute distress Other: , female, elderly, nontoxic appearance HENMT: Face/Nose/Sinus: Normal nares present Mouth: Yes moist mucous membranes Other: +[place] Eyes: General: appearance normal, both eyes and all related structures Sclera: sclerae normal Pupils: Equal, round and reactive pupils present EOM: EOMs intact bilaterally Other: Legally blind Resp: Effort & Inspection: normal respiratory effort Auscultation: clear to auscultation bilaterally Cardio: Rate: regular rate Rhythm: regular rhythm Other: S1-S2 present without murmur, rub, ectopy GI: Other: Abdomen soft, nondistended, and no particular expression or grimace with palpation. Skin: General skin exam: normal color and no rashes or lesions noted Wounds: no wounds Neuro: Cranial nerves: Yes Equal, round and reactive pupils present Other: A&Ox0. Does not answer questions correctly, will discuss people who are not present. Does not appear to be interacting with visual hallucinations. Moving all extremities. Unable to follow simple commands (example: Police Judge fingers, pedal pushes). Fine tremor to bilateral hands, symmetric in amplitude, with movements (wringing towel) Extrem: General: normal to inspection Psych: Other: Poor insight and judgment. Restless. Objective Data Vital Signs Vital Signs: Vital Signs - 24 hr 07/15/24 12:06 07/15/24 14:00 07/15/24 16:04 Temperature Pulse Rate 59 L 70 62 Respiratory Rate 20 Blood Pressure 170/64 H Pulse Oximetry 100 Oxygen Delivery 07/15/24 20:00 07/15/24 20:00 07/15/24 20:37 Temperature 97.8 F Pulse Rate 73 111 H Respiratory Rate 18 Blood Pressure 157/82 H Pulse Oximetry 95 Oxygen Delivery Room Air 07/16/24 00:00 07/16/24 04:00 07/16/24 05:15 Temperature 97.7 F Pulse Rate 65 67 78 Respiratory Rate 18 Blood Pressure 167/73 H Pulse Oximetry 100 Oxygen Delivery Intake/Output Intake/Output: Intake & Output 07/13/24 07/14/24 07/15/24 07/16/24 23:59 23:59 23:59 23:59 Intake Total 1130 1460 1370 120 Output Total 900 2500 1800 500 Balance 230 -1040 -430 -380 Meds/Results Medications: Active Medications Generic Name Dose Route Start Last Admin Trade Name Freq PRN Reason Stop Dose Admin Acetaminophen 650 mg 07/15/24 15:00 07/16/24 08:44 Acetaminophen 325 Mg Tablet PO 650 mg Q6H GAVIN Administration Amlodipine Besylate 5 mg 07/11/24 09:00 07/16/24 08:40 Amlodipine Besylate 5 Mg Tablet PO 5 mg DAILY GAVIN Administration Atorvastatin Calcium 10 mg 07/11/24 09:00 07/16/24 08:45 Atorvastatin 10 Mg Tablet PO 10 mg DAILY GAVIN Administration Buspirone HCl 10 mg 07/10/24 22:25 07/16/24 08:45 Buspirone Hcl 10 Mg Tablet PO 10 mg BID GAVIN Administration Dextrose 12.5 gm 07/10/24 22:06 Dextrose 50% 25 Gm/50 Ml Syringe IV PUSH PRN PRN Hypoglycemia Protocol Gabapentin 600 mg 07/10/24 22:05 07/16/24 08:45 Gabapentin 300 Mg Capsule PO 600 mg Q12HR GAVIN Administration Glucagon 1 mg 07/10/24 22:06 Glucagon For Inj 1 Mg Vial IM PRN PRN Hypoglycemia Protocol Glucose 15 gm 07/10/24 22:06 Glucose Oral Gel 15 Gm Of Glucse In 37.5 Gm Tube PO PRN PRN Hypoglycemia Protocol Dextrose 1,000 mls @ 100 mls/hr 07/10/24 22:06 Dextrose 5% 1,000 Ml IVPB PRN PRN Hypoglycemia Protocol Insulin Aspart 4 - 8 units 07/11/24 08:00 07/15/24 17:40 Insulin Aspart (*Bkc) 100 Units/Ml SUB-Q Not Given TIDWM GAVIN Protocol Isosorbide Mononitrate 30 mg 07/11/24 09:00 07/16/24 08:44 Isosorbide Mononitrate 30 Mg Tab.Er.24h PO 30 mg DAILY GAVIN Administration Levothyroxine Sodium 50 mcg 07/11/24 06:30 07/16/24 05:16 Levothyroxine Sodium 50 Mcg Tablet PO 50 mcg DAILY@0630 GAVIN Administration Lidocaine 1 patch 07/13/24 09:00 07/15/24 09:05 Lidocaine 5% Patch TRANSDERM 1 patch DAILY GAVIN Administration Lisinopril 20 mg 07/11/24 09:00 07/16/24 08:45 Lisinopril 20 Mg Tablet PO 20 mg DAILY GAVIN Administration Memantine 10 mg 07/10/24 22:25 07/16/24 08:45 Memantine 10 Mg Tablet PO 10 mg Q12HR GAVIN Administration Cyclobenzaprine Hcl 2.5 each 07/14/24 21:00 07/16/24 08:46 2.5 Mg Tablet PO 08/13/24 20:59 2.5 each Q12HR GAVIN Administration Warfarin Sodium 1 mg 07/10/24 22:35 07/15/24 17:41 Warfarin (*Pbkc) 1 Mg Tablet PO 1 mg TuThSa@1700 GAVIN Administration Warfarin Sodium 4 mg 07/10/24 22:35 07/15/24 17:40 Warfarin (*Pbkc) 4 Mg Tablet PO 4 mg DAILY@1700 [facility] Administration Radiology Results: ITS Impressions Head CT 07/10/24 12:45 IMPRESSION: 1. Stable appearance of age-related changes in the brain. No acute intracranial process. Chest X-Ray 07/10/24 12:58 Impression: 1: No acute cardiopulmonary disease. Carotid Doppler Study 07/10/24 22:01 IMPRESSION: 1. 50-69% stenosis in the right internal carotid artery. 2. <50% stenosis in the left internal carotid artery. Brain MRI 07/11/24 12:35 IMPRESSION: 1. Normal aging brain with moderate scattered nonspecific periventricular pred ominant white matter T2 hyperintensity consistent with chronic small vessel ischemic disease. No acute intracranial process or abnormally enhancing brain lesions. Thoracic/Lumbar Spine CT 07/12/24 07:30 IMPRESSION: 1. Mild S-shaped scoliosis of the lumbar and lower thoracic spine with moderate thoracic and severe lumbar spondylosis. 2. Chronic compression fracture at T1 and minimal likely physiologic anterior wedging at T12. No acute osseous abnormality. 3. Infrarenal IVC filter. Renal Ultrasound 07/13/24 15:26 IMPRESSION: No hydronephrosis or renal calculi. Findings suggesting medical renal disease. Labs Labs: Laboratory Results - last 24 hr 07/15/24 07/15/24 07/15/24 12:28 17:25 20:41 WBC RBC Hgb Hct MCV MCH MCHC RDW Plt Count MPV PT INR Sodium Potassium Chloride Carbon Dioxide Anion Gap BUN Creatinine Estim Creat Clear Calc Estimated GFR Glucose POC Capillary Glucose 135 H 93 155 H Calcium Total Bilirubin AST ALT Alkaline Phosphatase Total Protein Albumin 07/16/24 07/16/24 05:33 09:04 WBC 8.1 RBC 4.36 Hgb 11.7 L Hct 37.2 MCV 85.3 MCH 26.8 MCHC 31.5 L RDW 14.6 H Plt Count 264 MPV 11.2 H PT 23.6 H INR 2.0 Sodium 143 Potassium 4.7 Chloride 109 H Carbon Dioxide 24 Anion Gap 10 BUN 41 H Creatinine 1.17 H Estim Creat Clear Calc 31 Estimated GFR 44 L Glucose 115 H POC Capillary Glucose 98 Calcium 9.9 Total Bilirubin 0.5 AST 21 ALT 14 Alkaline Phosphatase 105 Total Protein 7.0 Albumin 3.3 L Quality VTE Prophylaxis VTE prophylaxis: pharmacologic ordered
[2024-07-16 12:14] LABS: Glucose Point of Care 119 mg/dl (65-105)
[2024-07-16] MEDS: WARFARIN (*PBKC) 4 MG TABLET PO (17:08)
[2024-07-16 17:15] LABS: Glucose Point of Care 127 mg/dl (65-105)
--- NOTE | 2024-07-16 18:28 | PC.NURSE ---
On 07/16/24, the student, Kristi Ramey, provided care and completed [facility] documentation on this patient. I have reviewed the student's documentation and agree with the findings.
[2024-07-16 20:39] LABS: Glucose Point of Care 128 mg/dl (65-105)
[2024-07-17] MEDS: ACETAMINOPHEN 325 MG TABLET 650 MG PO ×4 (02:22→20:23)
[2024-07-17 05:22] VITALS: BP 112/70; PULSE 70; RESP 16; TEMP 36.3; O2SAT 97
[2024-07-17 06:17] LABS: INR 2.2; Prothrombin Time 25.4 Seconds (11.1-14.7)
[2024-07-17] MEDS: LEVOTHYROXINE SODIUM 50 MCG TABLET PO (06:29)
[2024-07-17 08:39] LABS: Glucose Point of Care 115 mg/dl (65-105)
[2024-07-17] MEDS: ISOSORBIDE MONONITRATE 30 MG TAB.ER.24H PO (09:05)
[2024-07-17] MEDS: busPIRone HCL 10 MG TABLET PO ×2 (09:05→16:14)
[2024-07-17] MEDS: ATORVASTATIN 10 MG TABLET PO (09:05)
[2024-07-17] MEDS: MEMANTINE 10 MG TABLET PO ×2 (09:05→20:23)
[2024-07-17] MEDS: amLODIPine BESYLATE 5 MG TABLET PO (09:05)
[2024-07-17] MEDS: lisinopriL 20 MG TABLET PO (09:05)
[2024-07-17] MEDS: LIDOCAINE 5% PATCH 1 PATCH TRANSDERM (09:06)
[2024-07-17] MEDS: GABAPENTIN 300 MG CAPSULE 600 MG PO ×2 (09:06→20:23)
[2024-07-17] MEDS: CYCLOBENZAPRINE HCL 2.5 MG 2.5 EACH PO ×2 (09:08→20:33)
[2024-07-17 10:31] VITALS: BMI 11.0
[2024-07-17] MEDS: SODIUM CHLORIDE 0.9% IV 500 ML 250 ML IV CONT (11:56)
[2024-07-17 11:59] VITALS: BP 125/80
[2024-07-17 12:34] LABS: Glucose Point of Care 111 mg/dl (65-105)
[2024-07-17 13:50] VITALS: BMI 11.0
[2024-07-17 14:00] VITALS: BP 116/94; PULSE 65; RESP 12; TEMP 36.7; O2SAT 90
[2024-07-17 14:24] VITALS: BP 122/69
[2024-07-17 14:35] VITALS: BP 218/166
--- NOTE | 2024-07-17 15:03 | PM.IMPN ---
Progress Note: A&P Assessment and Plan (1) Confusion: Code(s): R41.0 - Disorientation, unspecified Status: Acute Assessment and Plan: Daughter reports that she has been becoming increasingly confused and has had increased syncopal episodes over the past week. At baseline she has moderate dementia and will recognize her family, however may not know the date. On Sunday the patient had a home test indicating a UTI. This report was called to her PCP and she was prescribed Keflex 500 t.i.d. She has received 4 doses with last dose Sunday night. A urine culture was not obtained for this infection. Despite antibiotic use the patient developed hallucinations on 07/09. - head CT: Stable appearance of age related changes in the brain, no acute intracranial process. - UA unremarkable, recently started on Keflex for UTI. Will continue with ceftriaxone to complete the course. - viral PCR negative - Blood cultures obtained on 07/10: gram positive cocci cluster growing in 1 bottle, other bottle NGTD. Possible contaminant, however will start on vancomycin until final culture. - MR brain: Normal aging brain with moderate scattered nonspecific periventricular predominant white matter T2 hyperintensity consistent with chronic small vessel ischemic disease. No acute intracranial process or abnormally enhancing brain lesions. - neurological checks Q4H - telemetry monitoring 07/15: Patient AOx2 on assessment. No hallucinations since admission. 07/16- stable- working with care coordination for placement 07/17-reported overnight was a little bit more confused. this am when i examined her, she was back to her baseline (2) Bacteremia: Code(s): R78.81 - Bacteremia Status: Acute Assessment and Plan: - Blood cultures obtained on 07/10: gram positive cocci cluster growing in 1 bottle, other bottle NGTD. Possible contaminant, however will start on vancomycin until final culture. Patient given a dose of vancomycin which has since been discontinued as Bcx is growing staph epidermidis which is further suspicious for contamination. Repeat blood cultures NGTD. (3) Syncope and collapse: Code(s): R55 - Syncope and collapse Status: Acute Assessment and Plan: Initially developed syncope in June of 2023. At that time occurrences were every few months -> one every few weeks -> this week she has passed out daily with max of 3 daily. She has a Dexcom in place and a loop recorder in place due to rule out dysrhythmia and hypoglycemia as etiology. The patient's blood sugar has been decreasing over the last week and she has had some readings in the 50s and 60s. The daughter reported that she can tell when the patient is about to pass out because she will become generally weak and her color will change (becomes very pale). The patient has eyes will roll back, she will have a loss of consciousness for anywhere up to a minute, almost as if she went to sleep, and the patient will wake up exhausted. The patient typically does not have any memory of these events and will have increased confusion after. - EKG, initial: Sinus rhythm, rate 67, voltage criteria for LVH, consider inferior infarct age indeterminate, inferior infarct age indeterminate, baseline artifact. When compared to EKG done on 02/18/2024, there are no significant changes. - UDS and viral PCR negative - UA unremarkable, recently started on Keflex on 07/07 for UTI, remains on rocephin to complete the course - troponin negative x2 - hemoglobin 14.4, increased from prior. May have some level of dehydration. IV fluids. - head CT and CXR showed no acute findings - MR brain: Normal aging brain with moderate scattered nonspecific periventricular predominant white matter T2 hyperintensity consistent with chronic small vessel ischemic disease. No acute intracranial process or abnormally enhancing brain lesions. - US of carotids: 50-69% stenosis in the right internal carotid artery and <50% stenosis in the left internal carotid artery. - echo, previous (01/2024): normal systolic function, EF 60-65%, and grade 1 diastolic dysfunction. no pulmonary hypertension. see report. - EEG ordered - orthostatics Q shift - fall precautions - telemetry monitoring - consider cardiology consultation if dysrhythmia or bradycardia observed via telemetry 07/11: Patient endorsing severe back pain and could not tolerate being rolled for further examination. Will obtain a CT of her thoracic and lumbar spine to further evaluate. - TL spine CT: 1. Mild S-shaped scoliosis of the lumbar and lower thoracic spine with moderate thoracic and severe lumbar spondylosis. 2. Chronic compression fracture at T1 and minimal likely physiologic anterior wedging at T12. No acute osseous abnormality. 3. Infrarenal IVC filter. 07/15: - Continue TLSO brace - Scheduled tylenol - Started lidocaine patch and flexaril 2.5 BID for pain - PT/OT 07/16 stable- working with pt/ot, placement 07/17 near syncope episode -likely vasovagal episode after BM. Will add cardiology as well neurology. EEG is done. (4) Paroxysmal atrial fibrillation: Code(s): I48.0 - Paroxysmal atrial fibrillation Status: Chronic Assessment and Plan: - initial EKG showing sinus rhythm - continue home medications: Warfarin - INR 3.1 - telemetry monitoring (5) Acute kidney injury superimposed on chronic kidney disease: Code(s): N17.9 - Acute kidney failure, unspecified; N18.9 - Chronic kidney disease, unspecified Status: Acute Assessment and Plan: - creatinine 0.92 and GFR 57 on admission, baseline appears to be WNL-1.40 - BUN/Cr 41/1.16 on am labs - Renal US ordered - trend renal function - trend electrolytes, correct as needed - avoid nephrotoxic medications - renally dose medications - monitor I/O showing decreased urine output, given 1L NS @ 100 ml/hr and UOP has returned to normal limits prn bladder scans. Patient did retain on bladder scan and a straight cath was done, if retention recurs will place oreilly Resolved. (6) Hypothyroidism: Qualifiers: Hypothyroidism type: unspecified Qualified Code(s): E03.9 - Hypothyroidism, unspecified Code(s): E03.9 - Hypothyroidism, unspecified Status: Chronic Assessment and Plan: - TSH 1.53 on 07/10/2024 - continue home medications: levothyroxine 50 mcg daily (7) Type 2 diabetes mellitus: Qualifiers: Chronic kidney disease stage: stage 3 (moderate) Chronic kidney disease stage 3 subtype: stage 3a (GFR 45-59) Diabetes mellitus complication detail: with chronic kidney disease Diabetes mellitus complication status: with kidney complications Diabetes mellitus detention insulin use: without detention use Qualified Code(s): E11.22 - Type 2 diabetes mellitus with diabetic chronic kidney disease; N18.31 - Chronic kidney disease, stage 3a Code(s): E11.9 - Type 2 diabetes mellitus without complications Status: Acute Assessment and Plan: - Dexcom in place - hypoglycemia protocol - POC blood glucose ACHS - home medication: hold metformin in case of need for contrast - correct regimen ordered - high dose TIDWM, based off BMI - A1C ordered, previously 6.2% in January of 2024 (8) Essential (primary) hypertension: Code(s): I10 - Essential (primary) hypertension Status: Chronic Assessment and Plan: chronic, continue home medications - Amlodipine 5 mg daily - Benazepril 20 mg daily - Imdur 30 mg daily - Blood pressures remain stable, continue to monitor Plan Diet: Heart healthy GI Prophylaxis: Not currently indicated DVT Prophylaxis: Warfarin Lines: Peripheral Code Status: Full code Time Spent With Patient Time with patient: 25 - 35 minutes Subjective Date/time seen: 07/17/24 15:03 Interval history: 88 year old female with past medical history of diastolic dysfunction, DVT, diabetes, chronic idiopathic thrombocytopenia, legally blind, anemia, dementia, depression, CKD stage 3, hypertension, hyperlipidemia, hypothyroidism, and paroxysmal AFib presents to the hospital with syncope and AMS. Assuming care- recommendations were for placement but until now family were insisting on home discharge. However, care coordination today states that family is ok with [facility] [placement. Pt is seen and examined. She is a/o x 2- baseline, pleasant, in no distress. Awaiting placement approval. 07/17 was getting up to go the bathroom and felt like she was going to pass out. Neurology is following. card consulted. daughter updated. Review of Systems Review of Systems: pt is pleasant this am but her baseline confused All systems reviewed & are unremarkable except as noted in HPI and below ROS unobtainable: Yes unobtainable due to mental status (Limited, A&O x1) Exam Narrative: General: female in no acute respiratory distress who is nontoxic appearing, lying semi recumbent in bed. HEENT: Normocephalic. Atraumatic. Extraocular movement intact. Sclera clear and anicteric. Patient is legally blind. No facial asymmetry. Chest: Lungs are clear to auscultation bilaterally. No wheezes or crackles. CV: Heart was regular rate and rhythm. S1-S2. No murmurs, gallops, or rubs. Abd: Abdomen was soft. Nontender. Nondistended. Positive bowel sounds. TLSO brace in place. Ext: No clubbing, cyanosis, or edema. 2+ DP pulses bilaterally. Neuro: Patient is alert and oriented x2 (person, place). Speech is clear. Const: General: comfortable and no acute distress Other: , female, elderly, nontoxic appearance HENMT: Face/Nose/Sinus: Normal nares present Mouth: Yes moist mucous membranes Other: +[place] Eyes: General: appearance normal, both eyes and all related structures Sclera: sclerae normal Pupils: Equal, round and reactive pupils present EOM: EOMs intact bilaterally Other: Legally blind Resp: Effort & Inspection: normal respiratory effort Auscultation: clear to auscultation bilaterally Cardio: Rate: regular rate Rhythm: regular rhythm Other: S1-S2 present without murmur, rub, ectopy GI: Other: Abdomen soft, nondistended, and no particular expression or grimace with palpation. Skin: General skin exam: normal color and no rashes or lesions noted Wounds: no wounds Neuro: Cranial nerves: Yes Equal, round and reactive pupils present Other: A&Ox0. Does not answer questions correctly, will discuss people who are not present. Does not appear to be interacting with visual hallucinations. Moving all extremities. Unable to follow simple commands (example: Dust Box Worker fingers, pedal pushes). Fine tremor to bilateral hands, symmetric in amplitude, with movements (wringing towel) Extrem: General: normal to inspection Psych: Other: Poor insight and judgment. Restless. Objective Data Vital Signs Vital Signs: Vital Signs - 24 hr 07/16/24 20:00 07/16/24 20:42 07/17/24 05:22 Temperature 97.6 F 97.3 F L Pulse Rate 73 70 Respiratory Rate 18 16 Blood Pressure 160/77 H 112/70 Pulse Oximetry 99 97 Oxygen Delivery Room Air 07/17/24 08:00 07/17/24 11:59 07/17/24 14:00 Temperature 98.0 F Pulse Rate 65 Respiratory Rate 12 Blood Pressure 125/80 116/94 H Pulse Oximetry 90 Oxygen Delivery Room Air Intake/Output Intake/Output: Intake & Output 07/14/24 07/15/24 07/16/24 07/17/24 23:59 23:59 23:59 23:59 Intake Total 1460 1370 1030 340 Output Total 2500 1800 1700 300 Balance -1040 -430 -670 40 Meds/Results Medications: Active Medications Generic Name Dose Route Start Last Admin Trade Name Freq PRN Reason Stop Dose Admin Acetaminophen 650 mg 07/15/24 15:00 07/17/24 09:06 Acetaminophen 325 Mg Tablet PO 650 mg Q6H GAVIN Administration Amlodipine Besylate 5 mg 07/11/24 09:00 07/17/24 09:05 Amlodipine Besylate 5 Mg Tablet PO 5 mg DAILY GAVIN Administration Atorvastatin Calcium 10 mg 07/11/24 09:00 07/17/24 09:05 Atorvastatin 10 Mg Tablet PO 10 mg DAILY GAVIN Administration Buspirone HCl 10 mg 07/10/24 22:25 07/17/24 09:05 Buspirone Hcl 10 Mg Tablet PO 10 mg BID GAVIN Administration Dextrose 12.5 gm 07/10/24 22:06 Dextrose 50% 25 Gm/50 Ml Syringe IV PUSH PRN PRN Hypoglycemia Protocol Gabapentin 600 mg 07/10/24 22:05 07/17/24 09:06 Gabapentin 300 Mg Capsule PO 600 mg Q12HR GAVIN Administration Glucagon 1 mg 07/10/24 22:06 Glucagon For Inj 1 Mg Vial IM PRN PRN Hypoglycemia Protocol Glucose 15 gm 07/10/24 22:06 Glucose Oral Gel 15 Gm Of Glucse In 37.5 Gm Tube PO PRN PRN Hypoglycemia Protocol Dextrose 1,000 mls @ 100 mls/hr 07/10/24 22:06 Dextrose 5% 1,000 Ml IVPB PRN PRN Hypoglycemia Protocol Insulin Aspart 4 - 8 units 07/11/24 08:00 07/17/24 13:50 Insulin Aspart (*Bkc) 100 Units/Ml SUB-Q Not Given TIDWM GAVIN Protocol Isosorbide Mononitrate 30 mg 07/11/24 09:00 07/17/24 09:05 Isosorbide Mononitrate 30 Mg Tab.Er.24h PO 30 mg DAILY GAVIN Administration Levothyroxine Sodium 50 mcg 07/11/24 06:30 07/17/24 06:29 Levothyroxine Sodium 50 Mcg Tablet PO 50 mcg DAILY@0630 GAVIN Administration Lidocaine 1 patch 07/13/24 09:00 07/17/24 09:06 Lidocaine 5% Patch TRANSDERM 1 patch DAILY GAVIN Administration Lisinopril 20 mg 07/11/24 09:00 07/17/24 09:05 Lisinopril 20 Mg Tablet PO 20 mg DAILY GAVIN Administration Memantine 10 mg 07/10/24 22:25 07/17/24 09:05 Memantine 10 Mg Tablet PO 10 mg Q12HR GAVIN Administration Cyclobenzaprine Hcl 2.5 each 07/14/24 21:00 07/17/24 09:08 2.5 Mg Tablet PO 08/13/24 20:59 2.5 each Q12HR GAVIN Administration Warfarin Sodium 1 mg 07/10/24 22:35 07/15/24 17:41 Warfarin (*Pbkc) 1 Mg Tablet PO 1 mg TuThSa@1700 GAIVN Administration Warfarin Sodium 4 mg 07/10/24 22:35 07/16/24 17:08 Warfarin (*Pbkc) 4 Mg Tablet PO 4 mg DAILY@1700 GAVIN Administration Radiology Results: ITS Impressions Head CT 07/10/24 12:45 IMPRESSION: 1. Stable appearance of age-related changes in the brain. No acute intracranial process. Chest X-Ray 07/10/24 12:58 Impression: 1: No acute cardiopulmonary disease. Carotid Doppler Study 07/10/24 22:01 IMPRESSION: 1. 50-69% stenosis in the right internal carotid artery. 2. <50% stenosis in the left internal carotid artery. Brain MRI 07/11/24 12:35 IMPRESSION: 1. Normal aging brain with moderate scattered nonspecific periventricular predominant white matter T2 hyperintensity consistent with chronic small vessel ischemic disease. No acute intracranial process or abnormally enhancing brain lesions. Thoracic/Lumbar Spine CT 07/12/24 07:30 IMPRESSION: 1. Mild S-shaped scoliosis of the lumbar and lower thoracic spine with moderate thoracic and severe lumbar spondylosis. 2. Chronic compression fracture at T1 and minimal likely physiologic anterior wedging at T12. No acute osseous abnormality. 3. Infrarenal IVC filter. Renal Ultrasound 07/13/24 15:26 IMPRESSION: No hydronephrosis or renal calculi. Findings suggesting medical renal disease. Labs Labs: Laboratory Results - last 24 hr 07/16/24 07/16/24 07/17/24 17:08 20:06 05:45 PT 25.4 H INR 2.2 POC Capillary Glucose 127 H 128 H 07/17/24 07/17/24 08:35 12:29 PT INR POC Capillary Glucose 115 H 111 H Quality VTE Prophylaxis VTE prophylaxis: pharmacologic ordered
[2024-07-17] MEDS: WARFARIN (*PBKC) 4 MG TABLET PO (16:14)
[2024-07-17] MEDS: WARFARIN (*PBKC) 1 MG TABLET PO (16:15)
[2024-07-17 16:58] LABS: Glucose Point of Care 123 mg/dl (65-105)
--- NOTE | 2024-07-17 18:12 | PC.NURSE ---
Discussed code status with family. They want her to be a DNR. Beverly Seay verified DNR wishes. Order received from Dr. Diaz for DNR and they want to discuss hospice for the patient.
--- NOTE | 2024-07-17 19:21 | PC.NURSE ---
On 07/17/24, the student, Kristi Ramey, provided care and completed [facility] documentation on this patient. I have reviewed the student's documentation and agree with the findings.
[2024-07-17 20:23] LABS: Glucose Point of Care 120 mg/dl (65-105)
[2024-07-17 21:50] VITALS: BP 123/78; PULSE 83; RESP 22; TEMP 36.3; O2SAT 99
[2024-07-18 06:00] VITALS: BP 128/52; PULSE 84; RESP 12; TEMP 36.4; O2SAT 96
[2024-07-18 06:04] LABS: INR 2.6; Prothrombin Time 28.5 Seconds (11.1-14.7)
--- NOTE | 2024-07-18 08:06 | PCNWS ---
Weekly nutritional screen. Patient is tolerating Soft and Bite Sized, Level 6/Heart Healthy. Spoke with nursing today plans for hospice consult, more confusion noted. No weight loss reported. No nutritional needs at this time.
[2024-07-18 08:18] LABS: Glucose Point of Care 106 mg/dl (65-105)
[2024-07-18 09:50] VITALS: RESP 12; O2SAT 97
--- NOTE | 2024-07-18 10:45 | PM.CNCAR ---
Assessment and Plan Assessment and plan (1) Atypical syncope: Code(s): R55 - Syncope and collapse Status: Acute Assessment and Plan: Unable to obtain any history from patient regarding syncopal events. She does have a loop recorder in place which I have ordered to be interrogated and will review when available. The last remote device check in our office did not show any arrhythmias. If her device interrogation here is free from any arrhythmias cardiology will sign off of her case. History of Present Illness History of Present Illness Consult date/time: 07/18/24 10:45 Requesting physician: Carolann Goodrich APRN Consult reason: Other (pre syncope) Reason For Visit: Confusion/Syncopes Narrative: Maria Luna is an 88 year old female with paroxysmal atrial fibrillation, mild aortic stenosis, coronary artery disease, and syncope. This is a patient who follows in our office with Dr. Mosley. She had a [employer] LINQ device placed last year because of syncope. She comes to the hospital now with syncope and altered mental status. Patient is unable to give me any history. She is not on telemetry monitoring currently. Review of Systems Review of Systems: ROS unobtainable: Yes unobtainable due to mental status PMFSH Past Medical History Medical History Lymphedema Peripheral artery disease Type 2 diabetes mellitus Head trauma COVID Diastolic dysfunction Echocardiogram 02/08/2024 showed normal LV function with an EF estimated at 60 to 65% and grade 1 diastolic dysfunction. Bilateral carotid artery stenosis 70% right and 40% left internal carotid artery stenosis on CTA of the neck on 02/18/2024. Deep venous thrombosis (2010) Degenerative disc disease Chronic idiopathic thrombocytopenia Anemia Dementia Depression Aphasia Diabetic neuropathy Anticoagulant long-term use Onychomycosis Chronic kidney disease, stage 3 (moderate) Essential (primary) hypertension Mixed hyperlipidemia Hypothyroidism Paroxysmal atrial fibrillation Surgical History Surgical History History of cataract extraction History of hysterectomy History of cholecystectomy Family History Family History Mother Cerebrovascular accident Family history of coronary artery disease Heart disease Father Cancer Tobacco abuse Sibling Acute myocardial infarction Heart disease Tobacco abuse Alcohol abuse Other Family history of cardiovascular disease Social History Social History Social History: Surrogate medical decision maker: Maria T Luna, daughter Code status: Full code. Smoking packs per day: 0 Smoking cigarettes per day: 0.0 Smoking status: Never smoker Second hand tobacco smoke exposure: Yes Alcohol intake: never Substance use: never Substance use type: does not use Do You Feel Safe in your Home?: Yes Lack of Transportation: No Lack of Food: Never True Current Housing: I Have Housing Concerned About Future Housing: No Difficulty Paying Gas/Electric Bills: No Difficulty Paying for Meds: No Currently Unemployed: No Education: High School Diploma/GED Difficulty w/ Childcare or Family Care: No Living arrangements: alone Additional living arrangements comments: in rehab stay currently. Lives next to daughter. 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 Spiritual care concerns: No Meds Home Medications and Allergies Home Medications ?Medication ?Instructions ?Recorded ?Confirmed ?Type levothyroxine 50 mcg tablet 50 mcg PO DAILY #90 tabs 08/30/23 07/10/24 Rx atorvastatin 10 mg tablet 10 mg PO DAILY #90 tabs 10/23/23 07/10/24 Rx isosorbide mononitrate 30 mg 30 mg PO DAILY #90 tabs 10/30/23 07/10/24 Rx tablet,extended release 24 hr buspirone 10 mg tablet 10 mg PO BID #180 tabs 12/20/23 07/10/24 Rx benazepril 20 mg tablet 20 mg PO DAILY #90 tabs 01/28/24 07/10/24 Rx gabapentin 300 mg capsule 600 mg PO Q12H 02/03/24 07/10/24 History amlodipine 5 mg tablet (Norvasc) 5 mg PO DAILY #90 tabs 04/04/24 07/10/24 Rx warfarin 1 mg tablet (Jantoven) See Rx Instructions .Route 05/19/24 07/10/24 Rx .COMPLEX #90 tabs metformin 500 mg tablet,extended See Rx Instructions .Route 06/09/24 07/10/24 Rx release 24 hr .COMPLEX #90 tabs warfarin 4 mg tablet (Jantoven) 4 mg PO DAILY #90 tabs 06/20/24 07/10/24 Rx memantine 10 mg tablet 10 mg PO BID #180 tabs 06/28/24 07/10/24 Rx cephalexin 500 mg tablet 500 mg PO TID 7 days #21 tabs 07/08/24 07/10/24 Rx Allergies Allergy/AdvReac Type Severity Reaction Status Date / Time nitrofurantoin Allergy Intermediate Rash Verified 03/11/24 18:26 aspirin AdvReac Other Verified 03/11/24 19:17 Vital Signs Vital Signs - 24 hr 07/17/24 11:59 07/17/24 14:00 07/17/24 14:24 Temperature 36.7 C Pulse Rate 65 Respiratory Rate 12 Blood Pressure 125/80 116/94 H 122/69 Pulse Oximetry 90 Oxygen Delivery 07/17/24 14:35 07/17/24 20:00 07/17/24 21:50 Temperature 36.3 C L Pulse Rate 83 Respiratory Rate 22 H Blood Pressure 218/166 H 123/78 Pulse Oximetry 99 Oxygen Delivery Room Air 07/18/24 06:00 Temperature 36.4 C Pulse Rate 84 Respiratory Rate 12 Blood Pressure 128/52 L Pulse Oximetry 96 Oxygen Delivery Exam Const: General: comfortable, no acute distress and alert (drowsy but arouses to stimulation) Orientation/consciousness: No patient oriented x3 HENMT: Head: normal to inspection Eyes: General: appearance normal, both eyes and all related structures Pupils: Equal, round and reactive pupils present Neck: Neck: normal visual inspection, supple and no JVD Carotids: normal carotid upstroke Resp: Effort & Inspection: normal respiratory effort Auscultation: clear to auscultation bilaterally Cardio: Rate: regular rate Rhythm: regular rhythm Heart sounds: S1 normal heart sound present, S2 normal heart sound present and Murmur heart sound present systolic GI: Auscultation: normal bowel sounds Skin: General skin exam: normal color Neuro: General: No patient oriented x3 Cranial nerves: Yes Equal, round and reactive pupils present Extrem: General: normal to inspection Psych: Appearance: grossly normal Mental Status: mental status grossly normal Results Labs and Meds 07/18/24 05:33 07/16/24 05:33 Lab results: Coagulation 07/18/24 Range/Units 05:33 PT 28.5 H (11.1-14.7) Seconds Intake and Output 02/07/18/24 07/18/24 23:59 07:59 15:59 Intake Total 380 150 Balance 380 150 Intake: Oral 380 150 Other: # Incontinent Voids 4 1 # Urine Diapers 1 Number of Bowel Movements Today 7 2
[2024-07-18 12:33] LABS: Glucose Point of Care 101 mg/dl (65-105)
--- NOTE | 2024-07-18 13:34 | PM.IMPN ---
Progress Note: A&P Assessment and Plan (1) Confusion: Code(s): R41.0 - Disorientation, unspecified Status: Acute Assessment and Plan: Daughter reports that she has been becoming increasingly confused and has had increased syncopal episodes over the past week. At baseline she has moderate dementia and will recognize her family, however may not know the date. On Sunday the patient had a home test indicating a UTI. This report was called to her PCP and she was prescribed Keflex 500 t.i.d. She has received 4 doses with last dose Sunday night. A urine culture was not obtained for this infection. Despite antibiotic use the patient developed hallucinations on 07/09. - head CT: Stable appearance of age related changes in the brain, no acute intracranial process. - UA unremarkable, recently started on Keflex for UTI. Will continue with ceftriaxone to complete the course. - viral PCR negative - Blood cultures obtained on 07/10: gram positive cocci cluster growing in 1 bottle, other bottle NGTD. Possible contaminant, however will start on vancomycin until final culture. - MR brain: Normal aging brain with moderate scattered nonspecific periventricular predominant white matter T2 hyperintensity consistent with chronic small vessel ischemic disease. No acute intracranial process or abnormally enhancing brain lesions. - neurological checks Q4H - telemetry monitoring 07/15: Patient AOx2 on assessment. No hallucinations since admission. 07/16- stable- working with care coordination for placement 07/17-reported overnight was a little bit more confused. this am when i examined her, she was back to her baseline 07/18resting with eyes closed when examed (2) Syncope and collapse: Code(s): R55 - Syncope and collapse Status: Acute Assessment and Plan: Initially developed syncope in June of 2023. At that time occurrences were every few months -> one every few weeks -> this week she has passed out daily with max of 3 daily. She has a Dexcom in place and a loop recorder in place due to rule out dysrhythmia and hypoglycemia as etiology. The patient's blood sugar has been decreasing over the last week and she has had some readings in the 50s and 60s. The daughter reported that she can tell when the patient is about to pass out because she will become generally weak and her color will change (becomes very pale). The patient has eyes will roll back, she will have a loss of consciousness for anywhere up to a minute, almost as if she went to sleep, and the patient will wake up exhausted. The patient typically does not have any memory of these events and will have increased confusion after. - EKG, initial: Sinus rhythm, rate 67, voltage criteria for LVH, consider inferior infarct age indeterminate, inferior infarct age indeterminate, baseline artifact. When compared to EKG done on 02/18/2024, there are no significant changes. - UDS and viral PCR negative - UA unremarkable, recently started on Keflex on 07/07 for UTI, remains on rocephin to complete the course - troponin negative x2 - hemoglobin 14.4, increased from prior. May have some level of dehydration. IV fluids. - head CT and CXR showed no acute findings - MR brain: Normal aging brain with moderate scattered nonspecific periventricular predominant white matter T2 hyperintensity consistent with chronic small vessel ischemic disease. No acute intracranial process or abnormally enhancing brain lesions. - US of carotids: 50-69% stenosis in the right internal carotid artery and <50% stenosis in the left internal carotid artery. - echo, previous (01/2024): normal systolic function, EF 60-65%, and grade 1 diastolic dysfunction. no pulmonary hypertension. see report. - EEG ordered - orthostatics Q shift - fall precautions - telemetry monitoring - consider cardiology consultation if dysrhythmia or bradycardia observed via telemetry 07/11: Patient endorsing severe back pain and could not tolerate being rolled for further examination. Will obtain a CT of her thoracic and lumbar spine to further evaluate. - TL spine CT: 1. Mild S-shaped scoliosis of the lumbar and lower thoracic spine with moderate thoracic and severe lumbar spondylosis. 2. Chronic compression fracture at T1 and minimal likely physiologic anterior wedging at T12. No acute osseous abnormality. 3. Infrarenal IVC filter. 07/15: - Continue TLSO brace - Scheduled tylenol - Started lidocaine patch and flexaril 2.5 BID for pain - PT/OT 07/16 stable- working with pt/ot, placement 07/17 near syncope episode -likely vasovagal episode after BM. Will add cardiology as well neurology. EEG is done. 07/18 card and neurology consulted. awaiting recommendations (3) Paroxysmal atrial fibrillation: Code(s): I48.0 - Paroxysmal atrial fibrillation Status: Chronic Assessment and Plan: - initial EKG showing sinus rhythm - continue home medications: Warfarin - INR 3.1 - telemetry monitoring (4) Acute kidney injury superimposed on chronic kidney disease: Code(s): N17.9 - Acute kidney failure, unspecified; N18.9 - Chronic kidney disease, unspecified Status: Acute Assessment and Plan: - creatinine 0.92 and GFR 57 on admission, baseline appears to be WNL-1.40 - BUN/Cr 41/1.16 on am labs - Renal US ordered - trend renal function - trend electrolytes, correct as needed - avoid nephrotoxic medications - renally dose medications - monitor I/O showing decreased urine output, given 1L NS @ 100 ml/hr and UOP has returned to normal limits prn bladder scans. Patient did retain on bladder scan and a straight cath was done, if retention recurs will place oreilly Resolved. (5) Hypothyroidism: Qualifiers: Hypothyroidism type: unspecified Qualified Code(s): E03.9 - Hypothyroidism, unspecified Code(s): E03.9 - Hypothyroidism, unspecified Status: Chronic Assessment and Plan: - TSH 1.53 on 07/10/2024 - continue home medications: levothyroxine 50 mcg daily (6) Type 2 diabetes mellitus: Qualifiers: Diabetes mellitus care home insulin use: without care home use Diabetes mellitus complication status: with kidney complications Diabetes mellitus complication detail: with chronic kidney disease Chronic kidney disease stage: stage 3 (moderate) Chronic kidney disease stage 3 subtype: stage 3a (GFR 45-59) Qualified Code(s): E11.22 - Type 2 diabetes mellitus with diabetic chronic kidney disease; N18.31 - Chronic kidney disease, stage 3a Code(s): E11.9 - Type 2 diabetes mellitus without complications Status: Acute Assessment and Plan: - Dexcom in place - hypoglycemia protocol - POC blood glucose ACHS - home medication: hold metformin in case of need for contrast - correct regimen ordered - high dose TIDWM, based off BMI - A1C ordered, previously 6.2% in January of 2024 - stable reviewed (7) Essential (primary) hypertension: Code(s): I10 - Essential (primary) hypertension Status: Chronic Assessment and Plan: chronic, continue home medications - Amlodipine 5 mg daily - Benazepril 20 mg daily - Imdur 30 mg daily - Blood pressures remain stable, continue to monitor Plan Diet: Heart healthy GI Prophylaxis: Not currently indicated DVT Prophylaxis: Warfarin Lines: Peripheral Code Status: Full code Time Spent With Patient Time with patient: 25 - 35 minutes Subjective Date/time seen: 07/18/24 13:34 Interval history: 88 year old female with past medical history of diastolic dysfunction, DVT, diabetes, chronic idiopathic thrombocytopenia, legally blind, anemia, dementia, depression, CKD stage 3, hypertension, hyperlipidemia, hypothyroidism, and paroxysmal AFib presents to the hospital with syncope and AMS. Assuming care- recommendations were for placement but until now family were insisting on home discharge. However, care coordination today states that family is ok with [facility] [placement. Pt is seen and examined. She is a/o x 2- baseline, pleasant, in no distress. Awaiting placement approval. 07/17 was getting up to go the bathroom and felt like she was going to pass out. Neurology is following. card consulted. daughter updated. 07/18- neurology and card consulted. pt is a bit more drowsy and confused. Review of Systems Review of Systems: pt is pleasant this am but her baseline confused All systems reviewed & are unremarkable except as noted in HPI and below ROS unobtainable: Yes unobtainable due to mental status (Limited, A&O x1) Exam Narrative: General: female in no acute respiratory distress who is nontoxic appearing, lying semi recumbent in bed. HEENT: Normocephalic. Atraumatic. Extraocular movement intact. Sclera clear and anicteric. Patient is legally blind. No facial asymmetry. Chest: Lungs are clear to auscultation bilaterally. No wheezes or crackles. CV: Heart was regular rate and rhythm. S1-S2. No murmurs, gallops, or rubs. Abd: Abdomen was soft. Nontender. Nondistended. Positive bowel sounds. TLSO brace in place. Ext: No clubbing, cyanosis, or edema. 2+ DP pulses bilaterally. Neuro: Patient is alert and oriented x2 (person, place). Speech is clear. Const: General: comfortable and no acute distress Other: , female, elderly, nontoxic appearance HENMT: Face/Nose/Sinus: Normal nares present Mouth: Yes moist mucous membranes Other: +[place] Eyes: General: appearance normal, both eyes and all related structures Sclera: sclerae normal Pupils: Equal, round and reactive pupils present EOM: EOMs intact bilaterally Other: Legally blind Resp: Effort & Inspection: normal respiratory effort Auscultation: clear to auscultation bilaterally Cardio: Rate: regular rate Rhythm: regular rhythm Other: S1-S2 present without murmur, rub, ectopy GI: Other: Abdomen soft, nondistended, and no particular expression or grimace with palpation. Skin: General skin exam: normal color and no rashes or lesions noted Wounds: no wounds Neuro: Cranial nerves: Yes Equal, round and reactive pupils present Other: A&Ox0. Does not answer questions correctly, will discuss people who are not present. Does not appear to be interacting with visual hallucinations. Moving all extremities. Unable to follow simple commands (example: Wig [employer]er fingers, pedal pushes). Fine tremor to bilateral hands, symmetric in amplitude, with movements (wringing towel) Extrem: General: normal to inspection Psych: Other: Poor insight and judgment. Restless. Objective Data Vital Signs Vital Signs: Vital Signs - 24 hr 07/17/24 14:00 07/17/24 14:24 07/17/24 14:35 Temperature 98.0 F Pulse Rate 65 Respiratory Rate 12 Blood Pressure 116/94 H 122/69 218/166 H Pulse Oximetry 90 Oxygen Delivery 07/17/24 20:00 07/17/24 21:50 07/18/24 06:00 Temperature 97.4 F L 97.6 F Pulse Rate 83 84 Respiratory Rate 22 H 12 Blood Pressure 123/78 128/52 L Pulse Oximetry 99 96 Oxygen Delivery Room Air 07/18/24 09:50 Temperature Pulse Rate Respiratory Rate 12 Blood Pressure Pulse Oximetry 97 Oxygen Delivery Room Air Intake/Output Intake/Output: Intake & Output 07/15/24 07/16/24 07/17/24 07/18/24 23:59 23:59 23:59 23:59 Intake Total 1370 1030 720 150 Output Total 1800 1700 300 Balance -430 -670 420 150 Meds/Results Medications: Active Medications Generic Name Dose Route Start Last Admin Trade Name Freq PRN Reason Stop Dose Admin Acetaminophen 650 mg 07/15/24 15:00 07/18/24 11:04 Acetaminophen 325 Mg Tablet PO Not Given Q6H [facility] Amlodipine Besylate 5 mg 07/11/24 09:00 07/18/24 11:04 Amlodipine Besylate 5 Mg Tablet PO Not Given DAILY [facility] Atorvastatin Calcium 10 mg 07/11/24 09:00 07/18/24 11:05 Atorvastatin 10 Mg Tablet PO Not Given DAILY [facility] Buspirone HCl 10 mg 07/10/24 22:25 07/18/24 11:05 Buspirone Hcl 10 Mg Tablet PO Not Given BID [facility] Dextrose 12.5 gm 07/10/24 22:06 Dextrose 50% 25 Gm/50 Ml Syringe IV PUSH PRN PRN Hypoglycemia Protocol Gabapentin 600 mg 07/10/24 22:05 07/18/24 11:05 Gabapentin 300 Mg Capsule PO Not Given Q12HR [facility] Glucagon 1 mg 07/10/24 22:06 Glucagon For Inj 1 Mg Vial IM PRN PRN Hypoglycemia Protocol Glucose 15 gm 07/10/24 22:06 Glucose Oral Gel 15 Gm Of Glucse In 37.5 Gm Tube PO PRN PRN Hypoglycemia Protocol Dextrose 1,000 mls @ 100 mls/hr 07/10/24 22:06 Dextrose 5% 1,000 Ml IVPB PRN PRN Hypoglycemia Protocol Insulin Aspart 4 - 8 units 07/11/24 08:00 07/18/24 08:11 Insulin Aspart (*Bkc) 100 Units/Ml SUB-Q Not Given TIDWM [facility] Protocol Isosorbide Mononitrate 30 mg 07/11/24 09:00 07/18/24 11:05 Isosorbide Mononitrate 30 Mg Tab.Er.24h PO Not Given DAILY [facility] Levothyroxine Sodium 50 mcg 07/11/24 06:30 07/18/24 06:17 Levothyroxine Sodium 50 Mcg Tablet PO Not Given DAILY@0630 [facility] Lidocaine 1 patch 07/13/24 09:00 07/17/24 09:06 Lidocaine 5% Patch TRANSDERM 1 patch DAILY [facility] Administration Lisinopril 20 mg 07/11/24 09:00 07/18/24 11:05 Lisinopril 20 Mg Tablet PO Not Given DAILY [facility] Memantine 10 mg 07/10/24 22:25 07/18/24 11:05 Memantine 10 Mg Tablet PO Not Given Q12HR [facility] Cyclobenzaprine Hcl 2.5 each 07/14/24 21:00 07/18/24 11:05 2.5 Mg Tablet PO 08/13/24 20:59 Not Given Q12HR [facility] Warfarin Sodium 1 mg 07/10/24 22:35 07/17/24 16:15 Warfarin (*Pbkc) 1 Mg Tablet PO 1 mg TuThSa@1700 [facility] Administration Warfarin Sodium 4 mg 07/10/24 22:35 07/17/24 16:14 Warfarin (*Pbkc) 4 Mg Tablet PO 4 mg DAILY@1700 [facility] Administration Radiology Results: ITS Impressions Head CT 07/10/24 12:45 IMPRESSION: 1. Stable appearance of age-related changes in the brain. No acute intracranial process. Chest X-Ray 07/10/24 12:58 Impression: 1: No acute cardiopulmonary disease. Carotid Doppler Study 07/10/24 22:01 IMPRESSION: 1. 50-69% stenosis in the right internal carotid artery. 2. <50% stenosis in the left internal carotid artery. Brain MRI 07/11/24 12:35 IMPRESSION: 1. Normal aging brain with moderate scattered nonspecific periventricular predominant white matter T2 hyperintensity consistent with chronic small vessel ischemic disease. No acute intracranial process or abnormally enhancing brain lesions. Thoracic/Lumbar Spine CT 07/12/24 07:30 IMPRESSION: 1. Mild S-shaped scoliosis of the lumbar and lower thoracic spine with moderate thoracic and severe lumbar spondylosis. 2. Chronic compression fracture at T1 and minimal likely physiologic anterior wedging at T12. No acute osseous abnormality. 3. Infrarenal IVC filter. Renal Ultrasound 07/13/24 15:26 IMPRESSION: No hydronephrosis or renal calculi. Findings suggesting medical renal disease. Labs Labs: Laboratory Results - last 24 hr 07/17/24 07/17/24 07/18/24 16:51 20:11 05:33 PT 28.5 H INR 2.6 POC Capillary Glucose 123 H 120 H 07/18/24 07/18/24 08:11 12:25 PT INR POC Capillary Glucose 106 H 101 Quality VTE Prophylaxis VTE prophylaxis: pharmacologic ordered
[2024-07-18 14:00] VITALS: BP 139/59; PULSE 60; RESP 16; O2SAT 87
[2024-07-18 14:03] LABS: Hematocrit 35.5 % (37.0-47.0); Hemoglobin 10.7 g/dL (12.0-15.0); Mean Corpuscular HGB Conc 30.1 g/dl (32-36); Mean Corpuscular Volume 89.4 fl (80-100); Mean Platelet Volume 11.9 fl (7.4-10.4); Platelet Count Result 249 k/mm3 (150-375); Red Blood Count 3.97 M/mm3 (4.2-5.4); Red Cell Distribution Width 15.6 % (11.5-14.5); White Blood Count 6.2 K/mm3 (4.5-10.0)
[2024-07-18 14:53] LABS: Anion Gap 10 mmol/L (4-12); Blood Urea Nitrogen 50 mg/dL (7-17); Calcium 9.1 mg/dL (8.4-10.2); Carbon Dioxide 24 mmol/L (22-30); Chloride 111 mmol/L (98-107); Estimated CRCL calculation 27 ml/min; Estimated Glomerular Filt Rate 37; Glucose 126 mg/dL (65-110); Potassium 4.6 mmol/L (3.4-5.0); Sodium 145 mmol/L (137-145)
[2024-07-18 17:00] LABS: Glucose Point of Care 81 mg/dl (65-105)
[2024-07-18 20:00] VITALS: PULSE 58; RESP 18; O2SAT 97
[2024-07-18 21:14] VITALS: BP 155/78; PULSE 58; RESP 18; TEMP 36.4; O2SAT 97
[2024-07-18] MEDS: DEXTROSE 50% 25 GM/50 ML SYRINGE IV PUSH (21:51)
[2024-07-18 22:32] LABS: Glucose Point of Care 79 mg/dl (65-105)
[2024-07-19 05:54] VITALS: BP 153/66; PULSE 63; RESP 18; TEMP 36.1; O2SAT 100
[2024-07-19 06:16] LABS: INR 2.5; Prothrombin Time 27.6 Seconds (11.1-14.7)
[2024-07-19 09:19] LABS: Glucose Point of Care 120 mg/dl (65-105)
[2024-07-19 09:48] LABS: Glucose Point of Care 74 mg/dl (65-105)
--- NOTE | 2024-07-19 10:14 | PM.IMPN ---
Progress Note: A&P Assessment and Plan (1) Confusion: Code(s): R41.0 - Disorientation, unspecified Status: Acute Assessment and Plan: Daughter reports that she has been becoming increasingly confused and has had increased syncopal episodes over the past week. At baseline she has moderate dementia and will recognize her family, however may not know the date. On Sunday the patient had a home test indicating a UTI. This report was called to her PCP and she was prescribed Keflex 500 t.i.d. She has received 4 doses with last dose Sunday night. A urine culture was not obtained for this infection. Despite antibiotic use the patient developed hallucinations on 07/09. - head CT: Stable appearance of age related changes in the brain, no acute intracranial process. - UA unremarkable, recently started on Keflex for UTI. Will continue with ceftriaxone to complete the course. - viral PCR negative - Blood cultures obtained on 07/10: gram positive cocci cluster growing in 1 bottle, other bottle NGTD. Possible contaminant, however will start on vancomycin until final culture. - MR brain: Normal aging brain with moderate scattered nonspecific periventricular predominant white matter T2 hyperintensity consistent with chronic small vessel ischemic disease. No acute intracranial process or abnormally enhancing brain lesions. - neurological checks Q4H - telemetry monitoring 07/15: Patient AOx2 on assessment. No hallucinations since admission. 07/16- stable- working with care coordination for placement 07/17-reported overnight was a little bit more confused. this am when i examined her, she was back to her baseline 07/18resting with eyes closed when examined 07/19 more alert today but still would not take her meds or eat breakfast posible transition to comfort measures/hospice today- family meeting at 2 pm (2) Syncope and collapse: Code(s): R55 - Syncope and collapse Status: Acute Assessment and Plan: Initially developed syncope in June of 2023. At that time occurrences were every few months -> one every few weeks -> this week she has passed out daily with max of 3 daily. She has a Dexcom in place and a loop recorder in place due to rule out dysrhythmia and hypoglycemia as etiology. The patient's blood sugar has been decreasing over the last week and she has had some readings in the 50s and 60s. The daughter reported that she can tell when the patient is about to pass out because she will become generally weak and her color will change (becomes very pale). The patient has eyes will roll back, she will have a loss of consciousness for anywhere up to a minute, almost as if she went to sleep, and the patient will wake up exhausted. The patient typically does not have any memory of these events and will have increased confusion after. - EKG, initial: Sinus rhythm, rate 67, voltage criteria for LVH, consider inferior infarct age indeterminate, inferior infarct age indeterminate, baseline artifact. When compared to EKG done on 02/18/2024, there are no significant changes. - UDS and viral PCR negative - UA unremarkable, recently started on Keflex on 07/07 for UTI, remains on rocephin to complete the course - troponin negative x2 - hemoglobin 14.4, increased from prior. May have some level of dehydration. IV fluids. - head CT and CXR showed no acute findings - MR brain: Normal aging brain with moderate scattered nonspecific periventricular predominant white matter T2 hyperintensity consistent with chronic small vessel ischemic disease. No acute intracranial process or abnormally enhancing brain lesions. - US of carotids: 50-69% stenosis in the right internal carotid artery and <50% stenosis in the left internal carotid artery. - echo, previous (01/2024): normal systolic function, EF 60-65%, and grade 1 diastolic dysfunction. no pulmonary hypertension. see report. - EEG ordered - orthostatics Q shift - fall precautions - telemetry monitoring - consider cardiology consultation if dysrhythmia or bradycardia observed via telemetry 07/11: Patient endorsing severe back pain and could not tolerate being rolled for further examination. Will obtain a CT of her thoracic and lumbar spine to further evaluate. - TL spine CT: 1. Mild S-shaped scoliosis of the lumbar and lower thoracic spine with moderate thoracic and severe lumbar spondylosis. 2. Chronic compression fracture at T1 and minimal likely physiologic anterior wedging at T12. No acute osseous abnormality. 3. Infrarenal IVC filter. 07/15: - Continue TLSO brace - Scheduled tylenol - Started lidocaine patch and flexaril 2.5 BID for pain - PT/OT 07/16 stable- working with pt/ot, placement 07/17 near syncope episode -likely vasovagal episode after BM. Will add cardiology as well neurology. EEG is done. 07/18 card and neurology consulted. awaiting recommendations (3) Paroxysmal atrial fibrillation: Code(s): I48.0 - Paroxysmal atrial fibrillation Status: Chronic Assessment and Plan: - initial EKG showing sinus rhythm - continue home medications: Warfarin - INR 3.1 - telemetry monitoring (4) Acute kidney injury superimposed on chronic kidney disease: Code(s): N17.9 - Acute kidney failure, unspecified; N18.9 - Chronic kidney disease, unspecified Status: Acute Assessment and Plan: - creatinine 0.92 and GFR 57 on admission, baseline appears to be WNL-1.40 - BUN/Cr 41/1.16 on am labs - Renal US ordered - trend renal function - trend electrolytes, correct as needed - avoid nephrotoxic medications - renally dose medications - monitor I/O showing decreased urine output, given 1L NS @ 100 ml/hr and UOP has returned to normal limits prn bladder scans. Patient did retain on bladder scan and a straight cath was done, if retention recurs will place oreilly Resolved. (5) Hypothyroidism: Qualifiers: Hypothyroidism type: unspecified Qualified Code(s): E03.9 - Hypothyroidism, unspecified Code(s): E03.9 - Hypothyroidism, unspecified Status: Chronic Assessment and Plan: - TSH 1.53 on 07/10/2024 - continue home medications: levothyroxine 50 mcg daily (6) Type 2 diabetes mellitus: Qualifiers: Chronic kidney disease stage: stage 3 (moderate) Chronic kidney disease stage 3 subtype: stage 3a (GFR 45-59) Diabetes mellitus complication detail: with chronic kidney disease Diabetes mellitus complication status: with kidney complications Diabetes mellitus long term acute care registered nurse insulin use: without long term acute care registered nurse use Qualified Code(s): E11.22 - Type 2 diabetes mellitus with diabetic chronic kidney disease; N18.31 - Chronic kidney disease, stage 3a Code(s): E11.9 - Type 2 diabetes mellitus without complications Status: Acute Assessment and Plan: - Dexcom in place - hypoglycemia protocol - POC blood glucose ACHS - home medication: hold metformin in case of need for contrast - correct regimen ordered - high dose TIDWM, based off BMI - A1C ordered, previously 6.2% in January of 2024 - stable reviewed (7) Essential (primary) hypertension: Code(s): I10 - Essential (primary) hypertension Status: Chronic Assessment and Plan: chronic, continue home medications - Amlodipine 5 mg daily - Benazepril 20 mg daily - Imdur 30 mg daily - Blood pressures remain stable, continue to monitor Plan Diet: Heart healthy GI Prophylaxis: Not currently indicated DVT Prophylaxis: Warfarin Lines: Peripheral Code Status: Full code Time Spent With Patient Time with patient: 25 - 35 minutes Subjective Date/time seen: 07/19/24 10:14 Interval history: 88 year old female with past medical history of diastolic dysfunction, DVT, diabetes, chronic idiopathic thrombocytopenia, legally blind, anemia, dementia, depression, CKD stage 3, hypertension, hyperlipidemia, hypothyroidism, and paroxysmal AFib presents to the hospital with syncope and AMS. Assuming care- recommendations were for placement but until now family were insisting on home discharge. However, care coordination today states that family is ok with [facility] [placement. Pt is seen and examined. She is a/o x 2- baseline, pleasant, in no distress. Awaiting placement approval. 07/17 was getting up to go the bathroom and felt like she was going to pass out. Neurology is following. card consulted. daughter updated. 07/18- neurology and card consulted. pt is a bit more drowsy and confused. 07/19- card saw pt yesterday- interrogate loop recorder. other than that- offering no other recommendation. more alert today but would not eat or take her meds. family meeting with hospice at 2 pm today Review of Systems Review of Systems: All systems reviewed & are unremarkable except as noted in HPI and below ROS unobtainable: Yes unobtainable due to mental status (Limited, A&O x1) Exam Narrative: General: female in no acute respiratory distress who is nontoxic appearing HEENT: Normocephalic. Atraumatic. Extraocular movement intact. Sclera clear and anicteric. Patient is legally blind. No facial asymmetry. Chest: Lungs are clear to auscultation bilaterally. No wheezes or crackles. CV: Heart was regular rate and rhythm. S1-S2. No murmurs, gallops, or rubs. Abd: Abdomen was soft. Nontender. Nondistended. Positive bowel sounds. TLSO brace in place. Ext: No clubbing, cyanosis, or edema. 2+ DP pulses bilaterally. Neuro: Patient is alert and oriented x2 (person, place). Speech is clear. Const: General: comfortable and no acute distress Other: , female, elderly, nontoxic appearance HENMT: Face/Nose/Sinus: Normal nares present Mouth: Yes moist mucous membranes Other: +WASHOE Eyes: General: appearance normal, both eyes and all related structures Sclera: sclerae normal Pupils: Equal, round and reactive pupils present EOM: EOMs intact bilaterally Other: Legally blind Resp: Effort & Inspection: normal respiratory effort Auscultation: clear to auscultation bilaterally Cardio: Rate: regular rate Rhythm: regular rhythm Other: S1-S2 present without murmur, rub, ectopy GI: Other: Abdomen soft, nondistended, and no particular expression or grimace with palpation. Skin: General skin exam: normal color and no rashes or lesions noted Wounds: no wounds Neuro: Cranial nerves: Yes Equal, round and reactive pupils present Other: A&Ox0. Does not answer questions correctly, will discuss people who are not present. Does not appear to be interacting with visual hallucinations. Moving all extremities. Unable to follow simple commands (example: Outreach Liaison fingers, pedal pushes). Fine tremor to bilateral hands, symmetric in amplitude, with movements (wringing towel) Extrem: General: normal to inspection Psych: Other: Poor insight and judgment. Restless. Objective Data Vital Signs Vital Signs: Vital Signs - 24 hr 07/18/24 14:00 07/18/24 20:00 07/18/24 21:14 Temperature 97.6 F Pulse Rate 60 58 L 58 L Respiratory Rate 16 18 18 Blood Pressure 139/59 L 155/78 H Pulse Oximetry 87 L 97 97 Oxygen Delivery Room Air 07/19/24 05:54 07/19/24 07:45 Temperature 97 F L Pulse Rate 63 Respiratory Rate 18 Blood Pressure 153/66 H Pulse Oximetry 100 Oxygen Delivery Room Air Intake/Output Intake/Output: Intake & Output 07/16/24 07/17/24 07/18/24 07/19/24 23:59 23:59 23:59 23:59 Intake Total 1030 720 150 Output Total 1700 300 150 Balance -670 420 150 -150 Meds/Results Medications: Active Medications Generic Name Dose Route Start Last Admin Trade Name Freq PRN Reason Stop Dose Admin Acetaminophen 650 mg 07/15/24 15:00 07/19/24 09:01 Acetaminophen 325 Mg Tablet PO Not Given Q6H [facility] Amlodipine Besylate 5 mg 07/11/24 09:00 07/19/24 09:02 Amlodipine Besylate 5 Mg Tablet PO Not Given DAILY [facility] Atorvastatin Calcium 10 mg 07/11/24 09:00 07/19/24 09:02 Atorvastatin 10 Mg Tablet PO Not Given DAILY [facility] Buspirone HCl 10 mg 07/10/24 22:25 07/19/24 09:02 Buspirone Hcl 10 Mg Tablet PO Not Given BID [facility] Dextrose 12.5 gm 07/10/24 22:06 07/18/24 21:51 Dextrose 50% 25 Gm/50 Ml Syringe IV PUSH 12.5 gm PRN PRN Administration Hypoglycemia Protocol Gabapentin 600 mg 07/10/24 22:05 07/19/24 09:02 Gabapentin 300 Mg Capsule PO Not Given Q12HR [facility] Glucagon 1 mg 07/10/24 22:06 Glucagon For Inj 1 Mg Vial IM PRN PRN Hypoglycemia Protocol Glucose 15 gm 07/10/24 22:06 Glucose Oral Gel 15 Gm Of Glucse In 37.5 Gm Tube PO PRN PRN Hypoglycemia Protocol Dextrose 1,000 mls @ 100 mls/hr 07/10/24 22:06 Dextrose 5% 1,000 Ml IVPB PRN PRN Hypoglycemia Protocol Sodium Chloride 1,000 mls @ 75 mls/hr 07/19/24 10:15 Normal Saline Iv IV CONT .[id number] [facility] Insulin Aspart 4 - 8 units 07/11/24 08:00 07/18/24 18:52 Insulin Aspart (*Bkc) 100 Units/Ml SUB-Q Not Given TIDWM [facility] Protocol Isosorbide Mononitrate 30 mg 07/11/24 09:00 07/19/24 09:02 Isosorbide Mononitrate 30 Mg Tab.Er.24h PO Not Given DAILY [facility] Levothyroxine Sodium 50 mcg 07/11/24 06:30 07/19/24 06:22 Levothyroxine Sodium 50 Mcg Tablet PO Not Given DAILY@0630 [facility] Lidocaine 1 patch 07/13/24 09:00 07/19/24 09:02 Lidocaine 5% Patch TRANSDERM Not Given DAILY [facility] Lisinopril 20 mg 07/11/24 09:00 07/19/24 09:03 Lisinopril 20 Mg Tablet PO Not Given DAILY [facility] Memantine 10 mg 07/10/24 22:25 07/19/24 09:03 Memantine 10 Mg Tablet PO Not Given Q12HR [facility] Cyclobenzaprine Hcl 2.5 each 07/14/24 21:00 07/19/24 09:03 2.5 Mg Tablet PO 08/13/24 20:59 Not Given Q12HR [facility] Warfarin Sodium 1 mg 07/10/24 22:35 07/17/24 16:15 Warfarin (*Pbkc) 1 Mg Tablet PO 1 mg TuThSa@1700 [facility] Administration Warfarin Sodium 4 mg 07/10/24 22:35 07/18/24 18:53 Warfarin (*Pbkc) 4 Mg Tablet PO Not Given DAILY@1700 [facility] Radiology Results: ITS Impressions Head CT 07/10/24 12:45 IMPRESSION: 1. Stable appearance of age-related changes in the brain. No acute intracranial process. Chest X-Ray 07/10/24 12:58 Impression: 1: No acute cardiopulmonary disease. Carotid Doppler Study 07/10/24 22:01 IMPRESSION: 1. 50-69% stenosis in the right internal carotid artery. 2. <50% stenosis in the left internal carotid artery. Brain MRI 07/11/24 12:35 IMPRESSION: 1. Normal aging brain with moderate scattered nonspecific periventricular predominant white matter T2 hyperintensity consistent with chronic small vessel ischemic disease. No acute intracranial process or abnormally enhancing brain lesions. Thoracic/Lumbar Spine CT 07/12/24 07:30 IMPRESSION: 1. Mild S-shaped scoliosis of the lumbar and lower thoracic spine with moderate thoracic and severe lumbar spondylosis. 2. Chronic compression fracture at T1 and minimal likely physiologic anterior wedging at T12. No acute osseous abnormality. 3. Infrarenal IVC filter. Renal Ultrasound 07/13/24 15:26 IMPRESSION: No hydronephrosis or renal calculi. Findings suggesting medical renal disease. Labs Labs: Laboratory Results - last 24 hr 07/18/24 07/18/24 07/18/24 05:33 12:25 16:49 WBC 6.2 RBC 3.97 L Hgb 10.7 L Hct 35.5 L MCV 89.4 MCH 27.0 MCHC 30.1 L RDW 15.6 H Plt Count 249 MPV 11.9 H PT INR Sodium 145 Potassium 4.6 Chloride 111 H Carbon Dioxide 24 Anion Gap 10 BUN 50 H Creatinine 1.36 H Estim Creat Clear Calc 27 Estimated GFR 37 L Glucose 126 H POC Capillary Glucose 101 81 Calcium 9.1 07/18/24 07/19/24 07/19/24 21:16 00:25 05:44 WBC RBC Hgb Hct MCV MCH MCHC RDW Plt Count MPV PT 27.6 H INR 2.5 Sodium Potassium Chloride Carbon Dioxide Anion Gap BUN Creatinine Estim Creat Clear Calc Estimated GFR Glucose POC Capillary Glucose 79 120 H Calcium 07/19/24 09:41 WBC RBC Hgb Hct MCV MCH MCHC RDW Plt Count MPV PT INR Sodium Potassium Chloride Carbon Dioxide Anion Gap BUN Creatinine Estim Creat Clear Calc Estimated GFR Glucose POC Capillary Glucose 74 Calcium Quality VTE Prophylaxis VTE prophylaxis: pharmacologic ordered
[2024-07-19] MEDS: SODIUM CHLORIDE 0.9% IV 1,000 ML 75 ML IV CONT (11:26)
--- NOTE | 2024-07-19 11:29 | WPDNEURCNPN ---
Assessment and Plan Assessment and plan (1) Confusion: Code(s): R41.0 - Disorientation, unspecified Status: Acute (2) Paroxysmal atrial fibrillation: Code(s): I48.0 - Paroxysmal atrial fibrillation Status: Chronic (3) Diabetes with neurologic complications: Qualifiers: Diabetes mellitus type: type 2 Diabetes mellitus watcher automat long goods insulin use: without mcfp use Diabetes mellitus complication detail: with polyneuropathy Qualified Code(s): E11.42 - Type 2 diabetes mellitus with diabetic polyneuropathy Code(s): E11.49 - Type 2 diabetes mellitus with other diabetic neurological complication Status: Acute Plan 1. Dementia multifactorial age related along with chronic small vessel ischemic disease. 2. Scoliosis 3. Right internal carotid artery stenosis of 70% on the right side and 40% on the left side but no Intracranial disease. 4. Paroxysmal atrial fibrillation with Medtronic LINQ and follow-up by Dr. Rodgers 5. Normal EEG in June of 2024 no evidence of paroxysmal activity 6. TIA multifactorial. Plan is to continue the treatment as such Consult date: 07/19/24 HPI: Maria Luna is a 88 year old female Admitted to the hospital for the complaints of change in the mental status through the emergency room where she was brought from her home by ambulance She was called by her daughter for the complaints of change in the mental status in addition to the history of recent UTI, generalized weakness, multiple syncopal episodes, patient reportedly hard to hear and legally blind, and was complaining of feeling weak all over also reporting to the ER physician that she has been passing out since last spring, has had a loop recorder but again the passing-out has become more worse recently along with the complaints of confusion hallucination and restlessness. Her medications at home were only gabapentin 300mg each 2 tablets q.12 hours, and in the past she has had the echocardiogram in February 11 which revealed only grade 1 diastolic dysfunction, she has been documented to have bilateral carotid artery stenosis 70% on the right and 40% on the left ICA in January of 2024, she is known to have type 2 diabetes mellitus, chronic idiopathic thrombocytopenia, diabetes mellitus with secondary complications of neuropathy, and also depression she is never a smoker, never alcohol intake or, on initial exam there was limited range of motion of the right knee because of chronic pain but she was oriented to her name age and name of the president. Vital signs is blood pressure of 160/89 with respiration 28, CBC normal, BMP normal, routine screening for the viral infections negative, initial CT scan of the head negative for the bleed, on the floor subsequently she she had an EEG which was normal, she has been seen by the jet handler and as per the information available she does have paroxysmal atrial fibrillation with mild aortic stenosis coronary artery disease, and she is being followed by Dr. Grey in the office has a Medtronic LINQ placed last year. patient has moderate dementia at the baseline the daughter has been concerned about the increasing confusion, increasing syncopal episodes, previous blood cultures were growing gram-positive cocci in cluster in only 1 bottle with the statement about possible contaminant but patient was started on vancomycin until the final cultures are obtained he repeat MRI of the brain consistent with T2 hyper intensity consistent with the chronic small-vessel ischemic disease but no acute intracranial process. She has moderate scattered areas of nonspecific increased T2 weighted signal intensity in the cerebral white matter involving the deep) trigger white matter, tickles are normal there is no abnormal extra-axial fluid, there is chronic 8x7mm likely complex nonenhancing cystic lesion in the right carotid dating back to 2024 present since 02/07 6 to 16 with no enhancement [facility] Past Medical History Medical History Lymphedema Peripheral artery disease Type 2 diabetes mellitus Head trauma COVID Diastolic dysfunction Echocardiogram 02/08/2024 showed normal LV function with an EF estimated at 60 to 65% and grade 1 diastolic dysfunction. Bilateral carotid artery stenosis 70% right and 40% left internal carotid artery stenosis on CTA of the neck on 02/18/2024. Deep venous thrombosis (2010) Degenerative disc disease Chronic idiopathic thrombocytopenia Anemia Dementia Depression Aphasia Diabetic neuropathy Anticoagulant long-term use Onychomycosis Chronic kidney disease, stage 3 (moderate) Essential (primary) hypertension Mixed hyperlipidemia Hypothyroidism Paroxysmal atrial fibrillation Surgical History Surgical History History of cataract extraction History of hysterectomy History of cholecystectomy Family History Family History Mother Cerebrovascular accident Family history of coronary artery disease Heart disease Father Cancer Tobacco abuse Sibling Acute myocardial infarction Heart disease Tobacco abuse Alcohol abuse Other Family history of cardiovascular disease Social History Social History Social History: Surrogate medical decision maker: Maria T Luna, daughter Code status: Full code. Smoking packs per day: 0 Smoking cigarettes per day: 0.0 Smoking status: Never smoker Second hand tobacco smoke exposure: Yes Alcohol intake: never Substance use: never Substance use type: does not use Do You Feel Safe in your Home?: Yes Lack of Transportation: No Lack of Food: Never True Current Housing: I Have Housing Concerned About Future Housing: No Difficulty Paying Gas/Electric Bills: No Difficulty Paying for Meds: No Currently Unemployed: No Education: High School Diploma/GED Difficulty w/ Childcare or Family Care: No Living arrangements: alone Additional living arrangements comments: in rehab stay currently. Lives next to daughter. 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 Spiritual care concerns: No Meds Home Medications and Allergies Home Medications ?Medication ?Instructions ?Recorded ?Confirmed ?Type levothyroxine 50 mcg tablet 50 mcg PO DAILY #90 tabs 08/30/23 07/10/24 Rx atorvastatin 10 mg tablet 10 mg PO DAILY #90 tabs 10/23/23 07/10/24 Rx isosorbide mononitrate 30 mg 30 mg PO DAILY #90 tabs 10/30/23 07/10/24 Rx tablet,extended release 24 hr buspirone 10 mg tablet 10 mg PO BID #180 tabs 12/20/23 07/10/24 Rx benazepril 20 mg tablet 20 mg PO DAILY #90 tabs 01/28/24 07/10/24 Rx gabapentin 300 mg capsule 600 mg PO Q12H 02/03/24 07/10/24 History amlodipine 5 mg tablet (Norvasc) 5 mg PO DAILY #90 tabs 04/04/24 07/10/24 Rx warfarin 1 mg tablet (Jantoven) See Rx Instructions .Route 05/19/24 07/10/24 Rx .COMPLEX #90 tabs metformin 500 mg tablet,extended See Rx Instructions .Route 06/09/24 07/10/24 Rx release 24 hr .COMPLEX #90 tabs warfarin 4 mg tablet (Jantoven) 4 mg PO DAILY #90 tabs 06/20/24 07/10/24 Rx memantine 10 mg tablet 10 mg PO BID #180 tabs 06/28/24 07/10/24 Rx cephalexin 500 mg tablet 500 mg PO TID 7 days #21 tabs 07/08/24 07/10/24 Rx Allergies Allergy/AdvReac Type Severity Reaction Status Date / Time nitrofurantoin Allergy Intermediate Rash Verified 03/11/24 18:26 aspirin AdvReac Other Verified 03/11/24 19:17 Vital Signs Vital Signs - 24 hr 07/18/24 14:00 07/18/24 20:00 07/18/24 21:14 Temperature 36.4 C Pulse Rate 60 58 L 58 L Respiratory Rate 16 18 18 Blood Pressure 139/59 L 155/78 H Pulse Oximetry 87 L 97 97 Oxygen Delivery Room Air 07/19/24 05:54 07/19/24 07:45 Temperature 36.1 C L Pulse Rate 63 Respiratory Rate 18 Blood Pressure 153/66 H Pulse Oximetry 100 Oxygen Delivery Room Air Exam Narrative: Examination revealed her to be awake alert cooperative in no obvious acute distress, head normocephalic with no cranial bruit, ear nose throat examination normal, neck supple with no meningeal signs no cervical bruit heart regular with no murmur lungs clear to auscultation no rhonchi or crepitations abdomen flat be nontender normal bowel sounds. Neurologically she is awake alert she knows she is in the hospital the 1st thing she asked me MRI dad his speech was not dysphasic not dysarthric not dysphonic she follow the verbal commands appropriately extraocular movements are spontaneously full face symmetrical tongue in the oral cavity motor examination revealed her to have ability to move and reflexes were sluggish plantar were downgoing Results Labs 07/19/24 05:41 07/19/24 05:42 Labs: Short CBC 07/18/24 Range/Units 05:33 WBC 6.2 (4.5-10.0) K/mm3 Hgb 10.7 L (12.0-15.0) g/dL Hct 35.5 L (37.0-47.0) % Plt Count 249 (150-375) k/mm3 BMP 07/18/24 05:33 Sodium 145 Potassium 4.6 Chloride 111 H Carbon Dioxide 24 BUN 50 H Creatinine 1.36 H Glucose 126 H Calcium 9.1
[2024-07-19 12:31] LABS: Glucose Point of Care 98 mg/dl (65-105)
[2024-07-19 12:49] LABS: Hematocrit 35.7 % (37.0-47.0); Hemoglobin 10.9 g/dL (12.0-15.0); Mean Corpuscular HGB Conc 30.5 g/dl (32-36); Mean Corpuscular Hemoglobin 27.1 pg (26-34); Mean Corpuscular Volume 88.8 fl (80-100); Platelet Count Result 224 k/mm3 (150-375); Red Blood Count 4.02 M/mm3 (4.2-5.4); Red Cell Distribution Width 15.4 % (11.5-14.5); White Blood Count 4.5 K/mm3 (4.5-10.0)
[2024-07-19 13:36] LABS: Anion Gap 7 mmol/L (4-12); Blood Urea Nitrogen 46 mg/dL (7-17); Calcium 9.1 mg/dL (8.4-10.2); Carbon Dioxide 25 mmol/L (22-30); Chloride 113 mmol/L (98-107); Estimated CRCL calculation 32 ml/min; Estimated Glomerular Filt Rate 46; Glucose 80 mg/dL (65-110); Potassium 4.5 mmol/L (3.4-5.0); Sodium 145 mmol/L (137-145)
[2024-07-19 14:00] VITALS: PULSE 88; RESP 20; TEMP 36.6; O2SAT 99
[2024-07-19 16:54] LABS: Glucose Point of Care 82 mg/dl (65-105)
[2024-07-19] MEDS: busPIRone HCL 10 MG TABLET PO (17:14)
[2024-07-19] MEDS: WARFARIN (*PBKC) 4 MG TABLET PO (17:14)
[2024-07-19] MEDS: ACETAMINOPHEN 325 MG TABLET 650 MG PO ×2 (17:14→20:26)
[2024-07-19] MEDS: WARFARIN (*PBKC) 1 MG TABLET PO (17:18)
[2024-07-19] MEDS: MEMANTINE 10 MG TABLET PO (20:26)
[2024-07-19] MEDS: GABAPENTIN 300 MG CAPSULE 600 MG PO (20:26)
[2024-07-19] MEDS: CYCLOBENZAPRINE HCL 2.5 MG 2.5 EACH PO (20:28)
[2024-07-19 20:37] VITALS: BP 126/80; PULSE 66; RESP 18; TEMP 36.8; O2SAT 99
[2024-07-20] MEDS: SODIUM CHLORIDE 0.9% IV 1,000 ML 75 ML IV CONT (00:08)
[2024-07-20] MEDS: ACETAMINOPHEN 325 MG TABLET 650 MG PO ×4 (02:03→20:06)
[2024-07-20 05:51] VITALS: BP 140/70; PULSE 65; RESP 18; TEMP 36.6; O2SAT 100
[2024-07-20] MEDS: LEVOTHYROXINE SODIUM 50 MCG TABLET PO (05:52)
[2024-07-20 06:51] LABS: Glucose Point of Care 89 mg/dl (65-105)
[2024-07-20 07:33] LABS: INR 2.3; Prothrombin Time 25.7 Seconds (11.1-14.7)
[2024-07-20 09:05] LABS: Glucose Point of Care 75 mg/dl (65-105)
[2024-07-20] MEDS: LIDOCAINE 5% PATCH 1 PATCH TRANSDERM (09:28)
[2024-07-20] MEDS: busPIRone HCL 10 MG TABLET PO ×2 (09:28→17:00)
[2024-07-20] MEDS: amLODIPine BESYLATE 5 MG TABLET PO (09:29)
[2024-07-20] MEDS: lisinopriL 20 MG TABLET PO (09:29)
[2024-07-20] MEDS: ATORVASTATIN 10 MG TABLET PO (09:29)
[2024-07-20] MEDS: GABAPENTIN 300 MG CAPSULE 600 MG PO ×2 (09:29→20:06)
[2024-07-20] MEDS: ISOSORBIDE MONONITRATE 30 MG TAB.ER.24H PO (09:29)
[2024-07-20] MEDS: MEMANTINE 10 MG TABLET PO ×2 (09:29→20:06)
[2024-07-20 09:30] VITALS: O2SAT 100
[2024-07-20] MEDS: CYCLOBENZAPRINE HCL 2.5 MG 2.5 EACH PO ×2 (09:30→20:06)
--- NOTE | 2024-07-20 13:06 | PM.IMPN ---
Progress Note: A&P Assessment and Plan (1) Confusion: Code(s): R41.0 - Disorientation, unspecified Status: Acute Assessment and Plan: Daughter reports that she has been becoming increasingly confused and has had increased syncopal episodes over the past week. At baseline she has moderate dementia and will recognize her family, however may not know the date. On Sunday the patient had a home test indicating a UTI. This report was called to her PCP and she was prescribed Keflex 500 t.i.d. She has received 4 doses with last dose Sunday night. A urine culture was not obtained for this infection. Despite antibiotic use the patient developed hallucinations on 07/09. - head CT: Stable appearance of age related changes in the brain, no acute intracranial process. - UA unremarkable, recently started on Keflex for UTI. Will continue with ceftriaxone to complete the course. - viral PCR negative - Blood cultures obtained on 07/10: gram positive cocci cluster growing in 1 bottle, other bottle NGTD. Possible contaminant, however will start on vancomycin until final culture. - MR brain: Normal aging brain with moderate scattered nonspecific periventricular predominant white matter T2 hyperintensity consistent with chronic small vessel ischemic disease. No acute intracranial process or abnormally enhancing brain lesions. - neurological checks Q4H - telemetry monitoring 07/15: Patient AOx2 on assessment. No hallucinations since admission. 07/16- stable- working with care coordination for placement 07/17-reported overnight was a little bit more confused. this am when i examined her, she was back to her baseline 07/18resting with eyes closed when examined 07/19 more alert today but still would not take her meds or eat breakfast posible transition to comfort measures/hospice today- family meeting at 2 pm (2) Syncope and collapse: Code(s): R55 - Syncope and collapse Status: Acute Assessment and Plan: Initially developed syncope in June of 2023. At that time occurrences were every few months -> one every few weeks -> this week she has passed out daily with max of 3 daily. She has a Dexcom in place and a loop recorder in place due to rule out dysrhythmia and hypoglycemia as etiology. The patient's blood sugar has been decreasing over the last week and she has had some readings in the 50s and 60s. The daughter reported that she can tell when the patient is about to pass out because she will become generally weak and her color will change (becomes very pale). The patient has eyes will roll back, she will have a loss of consciousness for anywhere up to a minute, almost as if she went to sleep, and the patient will wake up exhausted. The patient typically does not have any memory of these events and will have increased confusion after. - EKG, initial: Sinus rhythm, rate 67, voltage criteria for LVH, consider inferior infarct age indeterminate, inferior infarct age indeterminate, baseline artifact. When compared to EKG done on 02/18/2024, there are no significant changes. - UDS and viral PCR negative - UA unremarkable, recently started on Keflex on 07/07 for UTI, remains on rocephin to complete the course - troponin negative x2 - hemoglobin 14.4, increased from prior. May have some level of dehydration. IV fluids. - head CT and CXR showed no acute findings - MR brain: Normal aging brain with moderate scattered nonspecific periventricular predominant white matter T2 hyperintensity consistent with chronic small vessel ischemic disease. No acute intracranial process or abnormally enhancing brain lesions. - US of carotids: 50-69% stenosis in the right internal carotid artery and <50% stenosis in the left internal carotid artery. - echo, previous (01/2024): normal systolic function, EF 60-65%, and grade 1 diastolic dysfunction. no pulmonary hypertension. see report. - EEG ordered - orthostatics Q shift - fall precautions - telemetry monitoring - consider cardiology consultation if dysrhythmia or bradycardia observed via telemetry 07/11: Patient endorsing severe back pain and could not tolerate being rolled for further examination. Will obtain a CT of her thoracic and lumbar spine to further evaluate. - TL spine CT: 1. Mild S-shaped scoliosis of the lumbar and lower thoracic spine with moderate thoracic and severe lumbar spondylosis. 2. Chronic compression fracture at T1 and minimal likely physiologic anterior wedging at T12. No acute osseous abnormality. 3. Infrarenal IVC filter. 07/15: - Continue TLSO brace - Scheduled tylenol - Started lidocaine patch and flexaril 2.5 BID for pain - PT/OT 07/16 stable- working with pt/ot, placement 07/17 near syncope episode -likely vasovagal episode after BM. Will add cardiology as well neurology. EEG is done. 07/18 card and neurology consulted. awaiting recommendations (3) Paroxysmal atrial fibrillation: Code(s): I48.0 - Paroxysmal atrial fibrillation Status: Chronic Assessment and Plan: - initial EKG showing sinus rhythm - continue home medications: Warfarin - INR 3.1 - telemetry monitoring (4) Acute kidney injury superimposed on chronic kidney disease: Code(s): N17.9 - Acute kidney failure, unspecified; N18.9 - Chronic kidney disease, unspecified Status: Acute Assessment and Plan: - creatinine 0.92 and GFR 57 on admission, baseline appears to be WNL-1.40 - BUN/Cr 41/1.16 on am labs - Renal US ordered - trend renal function - trend electrolytes, correct as needed - avoid nephrotoxic medications - renally dose medications - monitor I/O showing decreased urine output, given 1L NS @ 100 ml/hr and UOP has returned to normal limits prn bladder scans. Patient did retain on bladder scan and a straight cath was done, if retention recurs will place oreilly Resolved. (5) Hypothyroidism: Qualifiers: Hypothyroidism type: unspecified Qualified Code(s): E03.9 - Hypothyroidism, unspecified Code(s): E03.9 - Hypothyroidism, unspecified Status: Chronic Assessment and Plan: - TSH 1.53 on 07/10/2024 - continue home medications: levothyroxine 50 mcg daily (6) Type 2 diabetes mellitus: Qualifiers: Diabetes mellitus assisted insulin use: without petroleum terminal plant operator use Diabetes mellitus complication status: with kidney complications Diabetes mellitus complication detail: with chronic kidney disease Chronic kidney disease stage: stage 3 (moderate) Chronic kidney disease stage 3 subtype: stage 3a (GFR 45-59) Qualified Code(s): E11.22 - Type 2 diabetes mellitus with diabetic chronic kidney disease; N18.31 - Chronic kidney disease, stage 3a Code(s): E11.9 - Type 2 diabetes mellitus without complications Status: Acute Assessment and Plan: - Dexcom in place - hypoglycemia protocol - POC blood glucose ACHS - home medication: hold metformin in case of need for contrast - correct regimen ordered - high dose TIDWM, based off BMI - A1C ordered, previously 6.2% in January of 2024 - stable reviewed (7) Essential (primary) hypertension: Code(s): I10 - Essential (primary) hypertension Status: Chronic Assessment and Plan: chronic, continue home medications - Amlodipine 5 mg daily - Benazepril 20 mg daily - Imdur 30 mg daily - Blood pressures remain stable, continue to monitor Plan Diet: Heart healthy GI Prophylaxis: Not currently indicated DVT Prophylaxis: Warfarin Lines: Peripheral Code Status: Full code Subjective Date/time seen: 07/20/24 13:06 Interval history: 88 year old female with past medical history of diastolic dysfunction, DVT, diabetes, chronic idiopathic thrombocytopenia, legally blind, anemia, dementia, depression, CKD stage 3, hypertension, hyperlipidemia, hypothyroidism, and paroxysmal AFib presents to the hospital with syncope and AMS. Assuming care- recommendations were for placement but until now family were insisting on home discharge. However, care coordination today states that family is ok with [facility] [placement. Pt is seen and examined. She is a/o x 2- baseline, pleasant, in no distress. Awaiting placement approval. 07/17 was getting up to go the bathroom and felt like she was going to pass out. Neurology is following. card consulted. daughter updated. 07/18- neurology and card consulted. pt is a bit more drowsy and confused. 07/19- card saw pt yesterday- interrogate loop recorder. other than that- offering no other recommendation. more alert today but would not eat or take her meds. family meeting with hospice at 2 pm today 07/20 family leaning toward SNF now as pt is more alert, so they don't want to go with hospice. Care coordination is working with family for SNF placement. cardiology and neurology both were consulted and offer no new recommendations or treatments. Review of Systems Review of Systems: pt is pleasant this am but her baseline confused All systems reviewed & are unremarkable except as noted in HPI and below ROS unobtainable: Yes unobtainable due to mental status (Limited, A&O x1) Exam Narrative: General: female in no acute respiratory distress who is nontoxic appearing. more alert today HEENT: Normocephalic. Atraumatic. Extraocular movement intact. Sclera clear and anicteric. Patient is legally blind. No facial asymmetry. Chest: Lungs are clear to auscultation bilaterally. No wheezes or crackles. CV: Heart was regular rate and rhythm. S1-S2. No murmurs, gallops, or rubs. Abd: Abdomen was soft. Nontender. Nondistended. Positive bowel sounds. TLSO brace in place. Ext: No clubbing, cyanosis, or edema. 2+ DP pulses bilaterally. Neuro: Patient is alert and oriented x2 (person, place). Speech is clear. Const: General: comfortable and no acute distress Other: , female, elderly, nontoxic appearance HENMT: Face/Nose/Sinus: Normal nares present Mouth: Yes moist mucous membranes Other: +FORT MCDERMITT Eyes: General: appearance normal, both eyes and all related structures Sclera: sclerae normal Pupils: Equal, round and reactive pupils present EOM: EOMs intact bilaterally Other: Legally blind Resp: Effort & Inspection: normal respiratory effort Auscultation: clear to auscultation bilaterally Cardio: Rate: regular rate Rhythm: regular rhythm Other: S1-S2 present without murmur, rub, ectopy GI: Other: Abdomen soft, nondistended, and no particular expression or grimace with palpation. Skin: General skin exam: normal color and no rashes or lesions noted Wounds: no wounds Neuro: Cranial nerves: Yes Equal, round and reactive pupils present Other: A&Ox0. Does not answer questions correctly, will discuss people who are not present. Fine tremor to bilateral hands, symmetric in amplitude, with movements (wringing towel) Extrem: General: normal to inspection Psych: Other: Poor insight and judgment. Restless. Objective Data Vital Signs Vital Signs: Vital Signs - 24 hr 07/19/24 14:00 07/19/24 20:00 07/19/24 20:37 Temperature 97.9 F 98.2 F Pulse Rate 88 66 Respiratory Rate 20 18 Blood Pressure 126/80 Pulse Oximetry 99 99 Oxygen Delivery Room Air 07/20/24 05:51 07/20/24 09:30 Temperature 97.9 F Pulse Rate 65 Respiratory Rate 18 Blood Pressure 140/70 Pulse Oximetry 100 100 Oxygen Delivery Room Air Intake/Output Intake/Output: Intake & Output 07/17/24 07/18/24 07/19/24 07/20/24 23:59 23:59 23:59 23:59 Intake Total 720 355 873 4784.5 Output Total 300 1000 200 Balance 420 150 -580 1422.5 Meds/Results Medications: Active Medications Generic Name Dose Route Start Last Admin Trade Name Freq PRN Reason Stop Dose Admin Acetaminophen 650 mg 07/15/24 15:00 07/20/24 09:30 Acetaminophen 325 Mg Tablet PO 650 mg Q6H GAVIN Administration Amlodipine Besylate 5 mg 07/11/24 09:00 07/20/24 09:29 Amlodipine Besylate 5 Mg Tablet PO 5 mg DAILY GAVIN Administration Atorvastatin Calcium 10 mg 07/11/24 09:00 07/20/24 09:29 Atorvastatin 10 Mg Tablet PO 10 mg DAILY GAVIN Administration Buspirone HCl 10 mg 07/10/24 22:25 07/20/24 09:28 Buspirone Hcl 10 Mg Tablet PO 10 mg BID GAVIN Administration Dextrose 12.5 gm 07/10/24 22:06 07/18/24 21:51 Dextrose 50% 25 Gm/50 Ml Syringe IV PUSH 12.5 gm PRN PRN Administration Hypoglycemia Protocol Gabapentin 600 mg 07/10/24 22:05 07/20/24 09:29 Gabapentin 300 Mg Capsule PO 600 mg Q12HR GAVIN Administration Glucagon 1 mg 07/10/24 22:06 Glucagon For Inj 1 Mg Vial IM PRN PRN Hypoglycemia Protocol Glucose 15 gm 07/10/24 22:06 Glucose Oral Gel 15 Gm Of Glucse In 37.5 Gm Tube PO PRN PRN Hypoglycemia Protocol Dextrose 1,000 mls @ 100 mls/hr 07/10/24 22:06 Dextrose 5% 1,000 Ml IVPB PRN PRN Hypoglycemia Protocol Sodium Chloride 1,000 mls @ 75 mls/hr 07/19/24 10:15 07/20/24 00:08 Normal Saline Iv IV CONT 75 mls/hr .[id number] GAVIN Administration Insulin Aspart 4 - 8 units 07/11/24 08:00 07/20/24 09:11 Insulin Aspart (*Bkc) 100 Units/Ml SUB-Q Not Given TIDWM GAVIN Protocol Isosorbide Mononitrate 30 mg 07/11/24 09:00 07/20/24 09:29 Isosorbide Mononitrate 30 Mg Tab.Er.24h PO 30 mg DAILY GAVIN Administration Levothyroxine Sodium 50 mcg 07/11/24 06:30 07/20/24 05:52 Levothyroxine Sodium 50 Mcg Tablet PO 50 mcg DAILY@0630 GAVIN Administration Lidocaine 1 patch 07/13/24 09:00 07/20/24 09:28 Lidocaine 5% Patch TRANSDERM 1 patch DAILY GAVIN Administration Lisinopril 20 mg 07/11/24 09:00 07/20/24 09:29 Lisinopril 20 Mg Tablet PO 20 mg DAILY GAVIN Administration Memantine 10 mg 07/10/24 22:25 07/20/24 09:29 Memantine 10 Mg Tablet PO 10 mg Q12HR GAVIN Administration Cyclobenzaprine Hcl 2.5 each 07/14/24 21:00 07/20/24 09:30 2.5 Mg Tablet PO 08/13/24 20:59 2.5 each Q12HR GAVIN Administration Warfarin Sodium 1 mg 07/10/24 22:35 07/19/24 17:18 Warfarin (*Pbkc) 1 Mg Tablet PO 1 mg TuThSa@1700 GAVIN Administration Warfarin Sodium 4 mg 07/10/24 22:35 07/19/24 17:14 Warfarin (*Pbkc) 4 Mg Tablet PO 4 mg DAILY@1700 GAVIN Administration Radiology Results: ITS Impressions Head CT 07/10/24 12:45 IMPRESSION: 1. Stable appearance of age-related changes in the brain. No acute intracranial process. Chest X-Ray 07/10/24 12:58 Impression: 1: No acute cardiopulmonary disease. Carotid Doppler Study 07/10/24 22:01 IMPRESSION: 1. 50-69% stenosis in the right internal carotid artery. 2. <50% stenosis in the left internal carotid artery. Brain MRI 07/11/24 12:35 IMPRESSION: 1. Normal aging brain with moderate scattered nonspecific periventricular predominant white matter T2 hyperintensity consistent with chronic small vessel ischemic disease. No acute intracranial process or abnormally enhancing brain lesions. Thoracic/Lumbar Spine CT 07/12/24 07:30 IMPRESSION: 1. Mild S-shaped scoliosis of the lumbar and lower thoracic spine with moderate thoracic and severe lumbar spondylosis. 2. Chronic compression fracture at T1 and minimal likely physiologic anterior wedging at T12. No acute osseous abnormality. 3. Infrarenal IVC filter. Renal Ultrasound 07/13/24 15:26 IMPRESSION: No hydronephrosis or renal calculi. Findings suggesting medical renal disease. Labs Labs: Laboratory Results - last 24 hr 07/19/24 07/19/24 07/19/24 05:42 16:44 20:49 PT INR Sodium 145 Potassium 4.5 Chloride 113 H Carbon Dioxide 25 Anion Gap 7 BUN 46 H Creatinine 1.11 H Estim Creat Clear Calc 32 Estimated GFR 46 L Glucose 80 POC Capillary Glucose 82 89 Calcium 9.1 03/02/25 03/02/25 06:57 09:03 PT 25.7 H INR 2.3 Sodium Potassium Chloride Carbon Dioxide Anion Gap BUN Creatinine Estim Creat Clear Calc Estimated GFR Glucose POC Capillary Glucose 75 Calcium Quality VTE Prophylaxis VTE prophylaxis: pharmacologic ordered
[2024-07-20 13:32] LABS: Glucose Point of Care 105 mg/dl (65-105)
[2024-07-20 14:30] VITALS: BP 111/58; PULSE 75; RESP 18; TEMP 36.2; O2SAT 99
[2024-07-20] MEDS: WARFARIN (*PBKC) 4 MG TABLET PO (17:01)
[2024-07-20 17:33] LABS: Glucose Point of Care 93 mg/dl (65-105)
[2024-07-20 21:55] VITALS: BP 143/66; PULSE 68; RESP 18; TEMP 36.4; O2SAT 99
[2024-07-21] MEDS: LEVOTHYROXINE SODIUM 50 MCG TABLET PO (05:55)
[2024-07-21 06:20] VITALS: BP 144/57; PULSE 61; RESP 18; TEMP 36.2; O2SAT 98
[2024-07-21 08:40] LABS: Glucose Point of Care 109 mg/dl (65-105)
[2024-07-21 09:06] LABS: Glucose Point of Care 96 mg/dl (65-105)
[2024-07-21 09:50] VITALS: O2SAT 98
[2024-07-21] MEDS: GABAPENTIN 300 MG CAPSULE 600 MG PO ×2 (09:50→20:56)
[2024-07-21] MEDS: LIDOCAINE 5% PATCH 1 PATCH TRANSDERM (09:50)
[2024-07-21] MEDS: lisinopriL 20 MG TABLET PO (09:50)
[2024-07-21] MEDS: amLODIPine BESYLATE 5 MG TABLET PO (09:51)
[2024-07-21] MEDS: ATORVASTATIN 10 MG TABLET PO (09:51)
[2024-07-21] MEDS: busPIRone HCL 10 MG TABLET PO ×2 (09:51→16:56)
[2024-07-21] MEDS: MEMANTINE 10 MG TABLET PO ×2 (09:51→20:56)
[2024-07-21] MEDS: ISOSORBIDE MONONITRATE 30 MG TAB.ER.24H PO (09:51)
[2024-07-21] MEDS: CYCLOBENZAPRINE HCL 2.5 MG 2.5 EACH PO ×2 (09:51→20:56)
[2024-07-21] MEDS: ACETAMINOPHEN 325 MG TABLET 650 MG PO ×3 (09:51→20:56)
--- NOTE | 2024-07-21 09:57 | PM.IMPN ---
Progress Note: A&P Assessment and Plan (1) Confusion: Code(s): R41.0 - Disorientation, unspecified Status: Acute Assessment and Plan: Daughter reports that she has been becoming increasingly confused and has had increased syncopal episodes over the past week. At baseline she has moderate dementia and will recognize her family, however may not know the date. On Sunday the patient had a home test indicating a UTI. This report was called to her PCP and she was prescribed Keflex 500 t.i.d. She has received 4 doses with last dose Sunday night. A urine culture was not obtained for this infection. Despite antibiotic use the patient developed hallucinations on 07/09. - head CT: Stable appearance of age related changes in the brain, no acute intracranial process. - UA unremarkable, recently started on Keflex for UTI. Will continue with ceftriaxone to complete the course. - viral PCR negative - Blood cultures obtained on 07/10: gram positive cocci cluster growing in 1 bottle, other bottle NGTD. Possible contaminant, however will start on vancomycin until final culture. - MR brain: Normal aging brain with moderate scattered nonspecific periventricular predominant white matter T2 hyperintensity consistent with chronic small vessel ischemic disease. No acute intracranial process or abnormally enhancing brain lesions. - neurological checks Q4H - telemetry monitoring 07/15: Patient AOx2 on assessment. No hallucinations since admission. 07/16- stable- working with care coordination for placement 07/17-reported overnight was a little bit more confused. this am when i examined her, she was back to her baseline 07/18resting with eyes closed when examined 07/19 more alert today but still would not take her meds or eat breakfast possibly transition to comfort measures/hospice today- family meeting at 2 pm Family wanting to discharge to hospice tomorrow (2) Syncope and collapse: Code(s): R55 - Syncope and collapse Status: Acute Assessment and Plan: Initially developed syncope in June of 2023. At that time occurrences were every few months -> one every few weeks -> this week she has passed out daily with max of 3 daily. She has a Dexcom in place and a loop recorder in place due to rule out dysrhythmia and hypoglycemia as etiology. The patient's blood sugar has been decreasing over the last week and she has had some readings in the 50s and 60s. The daughter reported that she can tell when the patient is about to pass out because she will become generally weak and her color will change (becomes very pale). The patient has eyes will roll back, she will have a loss of consciousness for anywhere up to a minute, almost as if she went to sleep, and the patient will wake up exhausted. The patient typically does not have any memory of these events and will have increased confusion after. - EKG, initial: Sinus rhythm, rate 67, voltage criteria for LVH, consider inferior infarct age indeterminate, inferior infarct age indeterminate, baseline artifact. When compared to EKG done on 02/18/2024, there are no significant changes. - UDS and viral PCR negative - UA unremarkable, recently started on Keflex on 07/07 for UTI, remains on rocephin to complete the course - troponin negative x2 - hemoglobin 14.4, increased from prior. May have some level of dehydration. IV fluids. - head CT and CXR showed no acute findings - MR brain: Normal aging brain with moderate scattered nonspecific periventricular predominant white matter T2 hyperintensity consistent with chronic small vessel ischemic disease. No acute intracranial process or abnormally enhancing brain lesions. - US of carotids: 50-69% stenosis in the right internal carotid artery and <50% stenosis in the left internal carotid artery. - echo, previous (01/2024): normal systolic function, EF 60-65%, and grade 1 diastolic dysfunction. no pulmonary hypertension. see report. - EEG ordered - orthostatics Q shift - fall precautions - telemetry monitoring - consider cardiology consultation if dysrhythmia or bradycardia observed via telemetry 07/11: Patient endorsing severe back pain and could not tolerate being rolled for further examination. Will obtain a CT of her thoracic and lumbar spine to further evaluate. - TL spine CT: 1. Mild S-shaped scoliosis of the lumbar and lower thoracic spine with moderate thoracic and severe lumbar spondylosis. 2. Chronic compression fracture at T1 and minimal likely physiologic anterior wedging at T12. No acute osseous abnormality. 3. Infrarenal IVC filter. 07/15: - Continue TLSO brace - Scheduled tylenol - Started lidocaine patch and flexaril 2.5 BID for pain - PT/OT 07/16 stable- working with pt/ot, placement 07/17 near syncope episode -likely vasovagal episode after BM. Will add cardiology as well neurology. EEG is done. 07/18 card and neurology consulted. awaiting recommendations 07/21 cardiology and Neurology no new recommendations., can be discharged from their standpoint (3) Paroxysmal atrial fibrillation: Code(s): I48.0 - Paroxysmal atrial fibrillation Status: Chronic Assessment and Plan: - initial EKG showing sinus rhythm - continue home medications: Warfarin - INR 2.3 (4) Acute kidney injury superimposed on chronic kidney disease: Code(s): N17.9 - Acute kidney failure, unspecified; N18.9 - Chronic kidney disease, unspecified Status: Acute Assessment and Plan: Resolved. - creatinine 0.92 and GFR 57 on admission, baseline appears to be WNL-1.40 - BUN/Cr 41/1.16 on am labs - Renal US ordered - trend renal function - trend electrolytes, correct as needed - avoid nephrotoxic medications - renally dose medications - monitor I/O showing decreased urine output, given 1L NS @ 100 ml/hr and UOP has returned to normal limits prn bladder scans. Patient did retain on bladder scan and a straight cath was done, if retention recurs will place [place] (5) Hypothyroidism: Qualifiers: Hypothyroidism type: unspecified Qualified Code(s): E03.9 - Hypothyroidism, unspecified Code(s): E03.9 - Hypothyroidism, unspecified Status: Chronic Assessment and Plan: Stable - TSH 1.53 on 07/10/2024 - continue home medications: levothyroxine 50 mcg daily (6) Type 2 diabetes mellitus: Qualifiers: Chronic kidney disease stage: stage 3 (moderate) Chronic kidney disease stage 3 subtype: stage 3a (GFR 45-59) Diabetes mellitus complication detail: with chronic kidney disease Diabetes mellitus complication status: with kidney complications Diabetes mellitus prison insulin use: without termite exterminator helper use Qualified Code(s): E11.22 - Type 2 diabetes mellitus with diabetic chronic kidney disease; N18.31 - Chronic kidney disease, stage 3a Code(s): E11.9 - Type 2 diabetes mellitus without complications Status: Acute Assessment and Plan: Stable - Dexcom in place - hypoglycemia protocol - POC blood glucose ACHS - home medication: hold metformin in case of need for contrast - correct regimen ordered - high dose TIDWM, based off BMI - A1C ordered, previously 6.2% in January of 2024 (7) Essential (primary) hypertension: Code(s): I10 - Essential (primary) hypertension Status: Chronic Assessment and Plan: chronic, continue home medications - Amlodipine 5 mg daily - Benazepril 20 mg daily - Imdur 30 mg daily - Blood pressures remain stable, continue to monitor Plan Diarrhea will test for C diff, if C diff is negative patient have Imodium Diet: Heart healthy GI Prophylaxis: Not currently indicated DVT Prophylaxis: Warfarin Lines: Peripheral Code Status: Do not resuscitate Time Spent With Patient Time with patient: Greater than 35 minutes Subjective Date/time seen: 07/21/24 09:57 Interval history: 88 year old female with past medical history of diastolic dysfunction, DVT, diabetes, chronic idiopathic thrombocytopenia, legally blind, anemia, dementia, depression, CKD stage 3, hypertension, hyperlipidemia, hypothyroidism, and paroxysmal AFib presents to the hospital with syncope and AMS. Family wishing to discharge on hospice tomorrow. Patient with liquidy mucous stools will test for C diff. cardiology and neurology both were consulted and offer no new recommendations or treatments. Review of Systems Review of Systems: ROS unobtainable: Yes unobtainable due to mental status (Limited, A&O x1) Exam Narrative: General: well appearing, appears stated age. HEENT: normocephalic, atraumatic. Mucous membranes moist. EOMI, PERRLA, bilateral sclera anicteric, no conjunctival injection. Neck supple without JVD, lymphadenopathy, or bruit. Respiratory: clear to ascultation bilaterally. No rales/rhonic/wheezes. Cardiovascular: Regular rate and rhythm, normal S1-S2 upon ascultation. No murmurs, rubs, or clicks. PMI is nondisplaced, capillary refill less than 3 second. Abdomen: Soft, round, no pulsatile masses, nondistended and nontender. No rebound, no guarding. No CVA tenderness, no hepatosplenomegaly. Bowel sounds present to all four quadrants. No high pitch or tinkling sounds, resonant to percussion. Extremities: No cyanosis, clubbing, or edema present. Pulses are palpable 2/2. Active ROM to all four extremities. Neuro: Alert and orientated x 1. PERRLA. Cranial nerves 2-12 intact without focal deficit. Skin: Warm, dry, and intact, without rash, erythema, or lesion. Psych: pleasant, cooperative, normal speech, normal affect, no hallucinations, no dysarthia Objective Data Vital Signs Vital Signs: Vital Signs - 24 hr 07/20/24 14:30 07/20/24 20:00 07/20/24 21:55 Temperature 97.1 F L 97.6 F Pulse Rate 75 68 Respiratory Rate 18 18 Blood Pressure 111/58 L 143/66 H Pulse Oximetry 99 99 Oxygen Delivery Room Air 07/21/24 06:20 Temperature 97.2 F L Pulse Rate 61 Respiratory Rate 18 Blood Pressure 144/57 H Pulse Oximetry 98 Oxygen Delivery Intake/Output Intake/Output: Intake & Output 07/18/24 07/19/24 07/20/24 07/21/24 23:59 23:59 23:59 23:59 Intake Total 205 745 5580.5 300 Output Total 1000 200 Balance 150 -580 2142.5 300 Meds/Results Medications: Active Medications Generic Name Dose Route Start Last Admin Trade Name Freq PRN Reason Stop Dose Admin Acetaminophen 650 mg 07/15/24 15:00 07/21/24 09:51 Acetaminophen 325 Mg Tablet PO 650 mg Q6H GAVIN Administration Amlodipine Besylate 5 mg 07/11/24 09:00 07/21/24 09:51 Amlodipine Besylate 5 Mg Tablet PO 5 mg DAILY GAVIN Administration Atorvastatin Calcium 10 mg 07/11/24 09:00 07/21/24 09:51 Atorvastatin 10 Mg Tablet PO 10 mg DAILY GAVIN Administration Buspirone HCl 10 mg 07/10/24 22:25 07/21/24 09:51 Buspirone Hcl 10 Mg Tablet PO 10 mg BID GAVIN Administration Dextrose 12.5 gm 07/10/24 22:06 07/18/24 21:51 Dextrose 50% 25 Gm/50 Ml Syringe IV PUSH 12.5 gm PRN PRN Administration Hypoglycemia Protocol Gabapentin 600 mg 07/10/24 22:05 07/21/24 09:50 Gabapentin 300 Mg Capsule PO 600 mg Q12HR GAVIN Administration Glucagon 1 mg 07/10/24 22:06 Glucagon For Inj 1 Mg Vial IM PRN PRN Hypoglycemia Protocol Glucose 15 gm 07/10/24 22:06 Glucose Oral Gel 15 Gm Of Glucse In 37.5 Gm Tube PO PRN PRN Hypoglycemia Protocol Dextrose 1,000 mls @ 100 mls/hr 07/10/24 22:06 Dextrose 5% 1,000 Ml IVPB PRN PRN Hypoglycemia Protocol Insulin Aspart 4 - 8 units 07/11/24 08:00 07/21/24 09:49 Insulin Aspart (*Bkc) 100 Units/Ml SUB-Q Not Given TIDWM [facility] Protocol Isosorbide Mononitrate 30 mg 07/11/24 09:00 07/21/24 09:51 Isosorbide Mononitrate 30 Mg Tab.Er.24h PO 30 mg DAILY GAVIN Administration Levothyroxine Sodium 50 mcg 07/11/24 06:30 07/21/24 05:55 Levothyroxine Sodium 50 Mcg Tablet PO 50 mcg DAILY@0630 G[facility]IN Administration Lidocaine 1 patch 07/13/24 09:00 07/21/24 09:50 Lidocaine 5% Patch TRANSDERM 1 patch DAILY GAVIN Administration Lisinopril 20 mg 07/11/24 09:00 07/21/24 09:50 Lisinopril 20 Mg Tablet PO 20 mg DAILY GAVIN Administration Memantine 10 mg 07/10/24 22:25 07/21/24 09:51 Memantine 10 Mg Tablet PO 10 mg Q12HR GAVIN Administration Cyclobenzaprine Hcl 2.5 each 07/14/24 21:00 07/21/24 09:51 2.5 Mg Tablet PO 08/13/24 20:59 2.5 each Q12HR GAVIN Administration Warfarin Sodium 1 mg 07/10/24 22:35 07/19/24 17:18 Warfarin (*Pbkc) 1 Mg Tablet PO 1 mg TuThSa@1700 [facility] Administration Warfarin Sodium 4 mg 07/10/24 22:35 07/20/24 17:01 Warfarin (*Pbkc) 4 Mg Tablet PO 4 mg DAILY@1700 [facility] Administration Radiology Results: ITS Impressions Head CT 07/10/24 12:45 IMPRESSION: 1. Stable appearance of age-related changes in the brain. No acute intracranial process. Chest X-Ray 07/10/24 12:58 Impression: 1: No acute cardiopulmonary disease. Carotid Doppler Study 07/10/24 22:01 IMPRESSION: 1. 50-69% stenosis in the right internal carotid artery. 2. <50% stenosis in the left internal carotid artery. Brain MRI 07/11/24 12:35 IMPRESSION: 1. Normal aging brain with moderate scattered nonspecific periventricular predominant white matter T2 hyperintensity consistent with chronic small vessel ischemic disease. No acute intracranial process or abnormally enhancing brain lesions. Thoracic/Lumbar Spine CT 07/12/24 07:30 IMPRESSION: 1. Mild S-shaped scoliosis of the lumbar and lower thoracic spine with moderate thoracic and severe lumbar spondylosis. 2. Chronic compression fracture at T1 and minimal likely physiologic anterior wedging at T12. No acute osseous abnormality. 3. Infrarenal IVC filter. Renal Ultrasound 07/13/24 15:26 IMPRESSION: No hydronephrosis or renal calculi. Findings suggesting medical renal disease. Labs Labs: Laboratory Results - last 24 hr 07/20/24 07/20/24 07/20/24 13:29 17:31 20:59 POC Capillary Glucose 105 93 109 H 07/21/24 08:53 POC Capillary Glucose 96 Quality VTE Prophylaxis VTE prophylaxis: pharmacologic ordered Hospitalist [facility] Advance Care Plan I have confirmed that the patient's Advanced Care Plan is present, code status is documented, or surrogate decision maker is listed in patient medical record.: Yes
--- NOTE | 2024-07-21 11:08 | PM.PNCARD ---
Progress Note: A&P Assessment and Plan (1) Atypical syncope: Code(s): R55 - Syncope and collapse Status: Acute Assessment and Plan: Unable to obtain any history from patient regarding syncopal events. She does have a loop recorder in place which I have ordered to be interrogated and will review when available. The last remote device check in our office did not show any arrhythmias. Device interrogation performed this morning also did not show any arrhythmias. Workup for non-cardiac causes of syncope per hospitalist Cardiology will sign off please call with questions. Subjective Date/time seen: 07/21/24 11:08 Interval history: Cardiology follow up visit She is alert and awake eating lunch with the assistance of [employer]. She denies chest pain and shortness of breath. Unable to provide any other history. Review of Systems Review of Systems: ROS unobtainable: Yes unobtainable due to mental status Exam Const: General: comfortable, no acute distress and alert (drowsy but arouses to stimulation) Orientation/consciousness: No patient oriented x3 HENMT: Head: normal to inspection Eyes: General: appearance normal, both eyes and all related structures Pupils: Equal, round and reactive pupils present Neck: Neck: normal visual inspection, supple and no JVD Carotids: normal carotid upstroke Resp: Effort & Inspection: normal respiratory effort Auscultation: clear to auscultation bilaterally Cardio: Rate: regular rate Rhythm: regular rhythm Heart sounds: S1 normal heart sound present, S2 normal heart sound present and Murmur heart sound present systolic GI: Auscultation: normal bowel sounds Skin: General skin exam: normal color Neuro: General: No patient oriented x3 Cranial nerves: Yes Equal, round and reactive pupils present Extrem: General: normal to inspection Psych: Appearance: grossly normal Mental Status: mental status grossly normal Objective Data Vital Signs Vital Signs: Vital Signs - 24 hr 07/20/24 14:30 07/20/24 20:00 07/20/24 21:55 Temperature 36.2 C L 36.4 C Pulse Rate 75 68 Respiratory Rate 18 18 Blood Pressure 111/58 L 143/66 H Pulse Oximetry 99 99 Oxygen Delivery Room Air 07/21/24 06:20 Temperature 36.2 C L Pulse Rate 61 Respiratory Rate 18 Blood Pressure 144/57 H Pulse Oximetry 98 Oxygen Delivery Intake/Output Intake/Output: Intake & Output 02/07/19/24 07/20/24 07/21/24 23:59 23:59 23:59 23:59 Intake Total 974 780 5214.5 540 Output Total 1000 200 Balance 150 -580 2142.5 540 Meds/Results Medications: Active Medications Generic Name Dose Route Start Last Admin Trade Name Freq PRN Reason Stop Dose Admin Acetaminophen 650 mg 07/15/24 15:00 07/21/24 09:51 Acetaminophen 325 Mg Tablet PO 650 mg Q6H GAVIN Administration Amlodipine Besylate 5 mg 07/11/24 09:00 07/21/24 09:51 Amlodipine Besylate 5 Mg Tablet PO 5 mg DAILY GAVIN Administration Atorvastatin Calcium 10 mg 07/11/24 09:00 07/21/24 09:51 Atorvastatin 10 Mg Tablet PO 10 mg DAILY GAVIN Administration Buspirone HCl 10 mg 07/10/24 22:25 07/21/24 09:51 Buspirone Hcl 10 Mg Tablet PO 10 mg BID GAVIN Administration Dextrose 12.5 gm 07/10/24 22:06 07/18/24 21:51 Dextrose 50% 25 Gm/50 Ml Syringe IV PUSH 12.5 gm PRN PRN Administration Hypoglycemia Protocol Gabapentin 600 mg 07/10/24 22:05 07/21/24 09:50 Gabapentin 300 Mg Capsule PO 600 mg Q12HR GAVIN Administration Glucagon 1 mg 07/10/24 22:06 Glucagon For Inj 1 Mg Vial IM PRN PRN Hypoglycemia Protocol Glucose 15 gm 07/10/24 22:06 Glucose Oral Gel 15 Gm Of Glucse In 37.5 Gm Tube PO PRN PRN Hypoglycemia Protocol Dextrose 1,000 mls @ 100 mls/hr 07/10/24 22:06 Dextrose 5% 1,000 Ml IVPB PRN PRN Hypoglycemia Protocol Insulin Aspart 4 - 8 units 07/11/24 08:00 07/21/24 09:49 Insulin Aspart (*Bkc) 100 Units/Ml SUB-Q Not Given TIDWM [facility] Protocol Isosorbide Mononitrate 30 mg 07/11/24 09:00 07/21/24 09:51 Isosorbide Mononitrate 30 Mg Tab.Er.24h PO 30 mg DAILY GAVIN Administration Levothyroxine Sodium 50 mcg 07/11/24 06:30 07/21/24 05:55 Levothyroxine Sodium 50 Mcg Tablet PO 50 mcg DAILY@0630 [facility]IN Administration Lidocaine 1 patch 07/13/24 09:00 07/21/24 09:50 Lidocaine 5% Patch TRANSDERM 1 patch DAILY GAVIN Administration Lisinopril 20 mg 07/11/24 09:00 07/21/24 09:50 Lisinopril 20 Mg Tablet PO 20 mg DAILY GAVIN Administration Memantine 10 mg 07/10/24 22:25 07/21/24 09:51 Memantine 10 Mg Tablet PO 10 mg Q12HR GAVIN Administration Cyclobenzaprine Hcl 2.5 each 07/14/24 21:00 07/21/24 09:51 2.5 Mg Tablet PO 08/13/24 20:59 2.5 each Q12HR GAVIN Administration Warfarin Sodium 1 mg 07/10/24 22:35 07/19/24 17:18 Warfarin (*Pbkc) 1 Mg Tablet PO 1 mg TuThSa@1700 [facility]IN Administration Warfarin Sodium 4 mg 07/10/24 22:35 07/20/24 17:01 Warfarin (*Pbkc) 4 Mg Tablet PO 4 mg DAILY@1700 [facility] Administration Radiology Results: ITS Impressions Head CT 07/10/24 12:45 IMPRESSION: 1. Stable appearance of age-related changes in the brain. No acute intracranial process. Chest X-Ray 07/10/24 12:58 Impression: 1: No acute cardiopulmonary disease. Carotid Doppler Study 07/10/24 22:01 IMPRESSION: 1. 50-69% stenosis in the right internal carotid artery. 2. <50% stenosis in the left internal carotid artery. Brain MRI 07/11/24 12:35 IMPRESSION: 1. Normal aging brain with moderate scattered nonspecific periventricular predominant white matter T2 hyperintensity consistent with chronic small vessel ischemic disease. No acute intracranial process or abnormally enhancing brain lesions. Thoracic/Lumbar Spine CT 07/12/24 07:30 IMPRESSION: 1. Mild S-shaped scoliosis of the lumbar and lower thoracic spine with moderate thoracic and severe lumbar spondylosis. 2. Chronic compression fracture at T1 and minimal likely physiologic anterior wedging at T12. No acute osseous abnormality. 3. Infrarenal IVC filter. Renal Ultrasound 07/13/24 15:26 IMPRESSION: No hydronephrosis or renal calculi. Findings suggesting medical renal disease. Labs Labs: Laboratory Results - last 24 hr 07/20/24 07/20/24 07/20/24 13:29 17:31 20:59 POC Capillary Glucose 105 93 109 H 03/03/25 08:53 POC Capillary Glucose 96 Quality VTE Prophylaxis VTE prophylaxis: pharmacologic ordered
[2024-07-21 11:53] LABS: Glucose Point of Care 103 mg/dl (65-105)
[2024-07-21 14:00] VITALS: BP 119/57; PULSE 60; RESP 16; TEMP 36.1; O2SAT 100
[2024-07-21] MEDS: WARFARIN (*PBKC) 4 MG TABLET PO (16:56)
[2024-07-21 17:08] LABS: Glucose Point of Care 94 mg/dl (65-105)
[2024-07-21 21:48] VITALS: BP 163/65; PULSE 57; RESP 18; TEMP 36.1; O2SAT 99
[2024-07-22 03:07] LABS: Glucose Point of Care 109 mg/dl (65-105)
[2024-07-22 06:00] VITALS: BP 169/59; PULSE 56; RESP 18; TEMP 36.6; O2SAT 99
[2024-07-22] MEDS: LEVOTHYROXINE SODIUM 50 MCG TABLET PO (06:02)
[2024-07-22 08:27] LABS: Glucose Point of Care 89 mg/dl (65-105)
[2024-07-22 09:14] LABS: INR 4.5; Prothrombin Time 42.8 Seconds (11.1-14.7)
[2024-07-22] MEDS: ISOSORBIDE MONONITRATE 30 MG TAB.ER.24H PO (09:20)
[2024-07-22] MEDS: busPIRone HCL 10 MG TABLET PO ×2 (09:20→17:30)
[2024-07-22] MEDS: GABAPENTIN 300 MG CAPSULE 600 MG PO (09:20)
[2024-07-22] MEDS: ATORVASTATIN 10 MG TABLET PO (09:20)
[2024-07-22] MEDS: MEMANTINE 10 MG TABLET PO (09:21)
[2024-07-22] MEDS: LIDOCAINE 5% PATCH 1 PATCH TRANSDERM (09:21)
[2024-07-22] MEDS: lisinopriL 20 MG TABLET PO (09:21)
[2024-07-22] MEDS: ACETAMINOPHEN 325 MG TABLET 650 MG PO ×2 (09:21→14:24)
[2024-07-22] MEDS: amLODIPine BESYLATE 5 MG TABLET PO (09:21)
[2024-07-22] MEDS: CYCLOBENZAPRINE HCL 2.5 MG 2.5 EACH PO (09:25)
--- NOTE | 2024-07-22 09:28 | PM.IMPN ---
Progress Note: A&P Assessment and Plan (1) Confusion: Code(s): R41.0 - Disorientation, unspecified Status: Acute Assessment and Plan: Daughter reports that she has been becoming increasingly confused and has had increased syncopal episodes over the past week. At baseline she has moderate dementia and will recognize her family, however may not know the date. On Sunday the patient had a home test indicating a UTI. This report was called to her PCP and she was prescribed Keflex 500 t.i.d. She has received 4 doses with last dose Sunday night. A urine culture was not obtained for this infection. Despite antibiotic use the patient developed hallucinations on 07/09. - head CT: Stable appearance of age related changes in the brain, no acute intracranial process. - UA unremarkable, recently started on Keflex for UTI. Will continue with ceftriaxone to complete the course. - viral PCR negative - Blood cultures obtained on 07/10: gram positive cocci cluster growing in 1 bottle, other bottle NGTD. Possible contaminant, however will start on vancomycin until final culture. - MR brain: Normal aging brain with moderate scattered nonspecific periventricular predominant white matter T2 hyperintensity consistent with chronic small vessel ischemic disease. No acute intracranial process or abnormally enhancing brain lesions. - neurological checks Q4H - telemetry monitoring 07/15: Patient AOx2 on assessment. No hallucinations since admission. 07/16- stable- working with care coordination for placement 07/17-reported overnight was a little bit more confused. this am when i examined her, she was back to her baseline 07/18resting with eyes closed when examined 07/19 more alert today but still would not take her meds or eat breakfast possibly transition to comfort measures/hospice today- family meeting at 2 pm Family wanting to discharge to hospice tomorrow (2) Syncope and collapse: Code(s): R55 - Syncope and collapse Status: Acute Assessment and Plan: Initially developed syncope in June of 2023. At that time occurrences were every few months -> one every few weeks -> this week she has passed out daily with max of 3 daily. She has a Dexcom in place and a loop recorder in place due to rule out dysrhythmia and hypoglycemia as etiology. The patient's blood sugar has been decreasing over the last week and she has had some readings in the 50s and 60s. The daughter reported that she can tell when the patient is about to pass out because she will become generally weak and her color will change (becomes very pale). The patient has eyes will roll back, she will have a loss of consciousness for anywhere up to a minute, almost as if she went to sleep, and the patient will wake up exhausted. The patient typically does not have any memory of these events and will have increased confusion after. - EKG, initial: Sinus rhythm, rate 67, voltage criteria for LVH, consider inferior infarct age indeterminate, inferior infarct age indeterminate, baseline artifact. When compared to EKG done on 02/18/2024, there are no significant changes. - UDS and viral PCR negative - UA unremarkable, recently started on Keflex on 07/07 for UTI, remains on rocephin to complete the course - troponin negative x2 - hemoglobin 14.4, increased from prior. May have some level of dehydration. IV fluids. - head CT and CXR showed no acute findings - MR brain: Normal aging brain with moderate scattered nonspecific periventricular predominant white matter T2 hyperintensity consistent with chronic small vessel ischemic disease. No acute intracranial process or abnormally enhancing brain lesions. - US of carotids: 50-69% stenosis in the right internal carotid artery and <50% stenosis in the left internal carotid artery. - echo, previous (01/2024): normal systolic function, EF 60-65%, and grade 1 diastolic dysfunction. no pulmonary hypertension. see report. - EEG ordered - orthostatics Q shift - fall precautions - telemetry monitoring - consider cardiology consultation if dysrhythmia or bradycardia observed via telemetry 07/11: Patient endorsing severe back pain and could not tolerate being rolled for further examination. Will obtain a CT of her thoracic and lumbar spine to further evaluate. - TL spine CT: 1. Mild S-shaped scoliosis of the lumbar and lower thoracic spine with moderate thoracic and severe lumbar spondylosis. 2. Chronic compression fracture at T1 and minimal likely physiologic anterior wedging at T12. No acute osseous abnormality. 3. Infrarenal IVC filter. 07/15: - Continue TLSO brace - Scheduled tylenol - Started lidocaine patch and flexaril 2.5 BID for pain - PT/OT 07/16 stable- working with pt/ot, placement 07/17 near syncope episode -likely vasovagal episode after BM. Will add cardiology as well neurology. EEG is done. 07/18 card and neurology consulted. awaiting recommendations 07/21 cardiology and Neurology no new recommendations., can be discharged from their standpoint (3) Paroxysmal atrial fibrillation: Code(s): I48.0 - Paroxysmal atrial fibrillation Status: Chronic Assessment and Plan: - initial EKG showing sinus rhythm - continue home medications: Warfarin - INR 2.3 (4) Acute kidney injury superimposed on chronic kidney disease: Code(s): N17.9 - Acute kidney failure, unspecified; N18.9 - Chronic kidney disease, unspecified Status: Acute Assessment and Plan: Resolved. - creatinine 0.92 and GFR 57 on admission, baseline appears to be WNL-1.40 - BUN/Cr 41/1.16 on am labs - Renal US ordered - trend renal function - trend electrolytes, correct as needed - avoid nephrotoxic medications - renally dose medications - monitor I/O showing decreased urine output, given 1L NS @ 100 ml/hr and UOP has returned to normal limits prn bladder scans. Patient did retain on bladder scan and a straight cath was done, if retention recurs will place [place] (5) Hypothyroidism: Qualifiers: Hypothyroidism type: unspecified Qualified Code(s): E03.9 - Hypothyroidism, unspecified Code(s): E03.9 - Hypothyroidism, unspecified Status: Chronic Assessment and Plan: Stable - TSH 1.53 on 07/10/2024 - continue home medications: levothyroxine 50 mcg daily (6) Type 2 diabetes mellitus: Qualifiers: Diabetes mellitus long chain beamer insulin use: without penitentiary use Diabetes mellitus complication status: with kidney complications Diabetes mellitus complication detail: with chronic kidney disease Chronic kidney disease stage: stage 3 (moderate) Chronic kidney disease stage 3 subtype: stage 3a (GFR 45-59) Qualified Code(s): E11.22 - Type 2 diabetes mellitus with diabetic chronic kidney disease; N18.31 - Chronic kidney disease, stage 3a Code(s): E11.9 - Type 2 diabetes mellitus without complications Status: Acute Assessment and Plan: Stable - Dexcom in place - hypoglycemia protocol - POC blood glucose ACHS - home medication: hold metformin in case of need for contrast - correct regimen ordered - high dose TIDWM, based off BMI - A1C ordered, previously 6.2% in January of 2024 (7) Essential (primary) hypertension: Code(s): I10 - Essential (primary) hypertension Status: Chronic Assessment and Plan: chronic, continue home medications - Amlodipine 5 mg daily - Benazepril 20 mg daily - Imdur 30 mg daily - Blood pressures remain stable, continue to monitor Plan Diarrhea will test for C diff, if C diff is negative patient have Imodium Diet: Heart healthy GI Prophylaxis: Not currently indicated DVT Prophylaxis: Warfarin Lines: Peripheral Code Status: Do not resuscitate Subjective Date/time seen: 07/22/24 09:28 Interval history: 88 year old female with past medical history of diastolic dysfunction, DVT, diabetes, chronic idiopathic thrombocytopenia, legally blind, anemia, dementia, depression, CKD stage 3, hypertension, hyperlipidemia, hypothyroidism, and paroxysmal AFib presents to the hospital with syncope and AMS. Family wishing to discharge on hospice tomorrow. Patient with liquidy mucous stools will test for C diff. cardiology and neurology both were consulted and offer no new recommendations or treatments. Review of Systems Review of Systems: pt is pleasant this am but her baseline confused All systems reviewed & are unremarkable except as noted in HPI and below ROS unobtainable: Yes unobtainable due to mental status (Limited, A&O x1) Exam Narrative: General: well appearing, appears stated age. HEENT: normocephalic, atraumatic. Mucous membranes moist. EOMI, PERRLA, bilateral sclera anicteric, no conjunctival injection. Neck supple without JVD, lymphadenopathy, or bruit. Respiratory: clear to ascultation bilaterally. No rales/rhonic/wheezes. Cardiovascular: Regular rate and rhythm, normal S1-S2 upon ascultation. No murmurs, rubs, or clicks. PMI is nondisplaced, capillary refill less than 3 second. Abdomen: Soft, round, no pulsatile masses, nondistended and nontender. No rebound, no guarding. No CVA tenderness, no hepatosplenomegaly. Bowel sounds present to all four quadrants. No high pitch or tinkling sounds, resonant to percussion. Extremities: No cyanosis, clubbing, or edema present. Pulses are palpable 2/2. Active ROM to all four extremities. Neuro: Alert and orientated x 1. PERRLA. Cranial nerves 2-12 intact without focal deficit. Skin: Warm, dry, and intact, without rash, erythema, or lesion. Psych: pleasant, cooperative, normal speech, normal affect, no hallucinations, no dysarthia Objective Data Vital Signs Vital Signs: Vital Signs - 24 hr 07/21/24 09:50 07/21/24 14:00 07/21/24 20:00 Temperature 97.0 F L Pulse Rate 60 Respiratory Rate 16 Blood Pressure 119/57 L Pulse Oximetry 98 100 Oxygen Delivery Room Air Room Air 07/21/24 21:48 07/22/24 06:00 Temperature 97.0 F L 97.8 F Pulse Rate 57 L 56 L Respiratory Rate 18 18 Blood Pressure 163/65 H 169/59 H Pulse Oximetry 99 99 Oxygen Delivery Intake/Output Intake/Output: Intake & Output 07/19/24 07/20/24 07/21/24 07/22/24 23:59 23:59 23:59 23:59 Intake Total 420 2342.5 1020 300 Output Total 1000 766 181 6066 Balance -580 2142.5 820 -700 Meds/Results Medications: Active Medications Generic Name Dose Route Start Last Admin Trade Name Freq PRN Reason Stop Dose Admin Acetaminophen 650 mg 07/15/24 15:00 07/22/24 09:21 Acetaminophen 325 Mg Tablet PO 650 mg Q6H GAVIN Administration Amlodipine Besylate 5 mg 07/11/24 09:00 07/22/24 09:21 Amlodipine Besylate 5 Mg Tablet PO 5 mg DAILY GAVIN Administration Atorvastatin Calcium 10 mg 07/11/24 09:00 07/22/24 09:20 Atorvastatin 10 Mg Tablet PO 10 mg DAILY GAVIN Administration Buspirone HCl 10 mg 07/10/24 22:25 07/22/24 09:20 Buspirone Hcl 10 Mg Tablet PO 10 mg BID GAVIN Administration Dextrose 12.5 gm 07/10/24 22:06 07/18/24 21:51 Dextrose 50% 25 Gm/50 Ml Syringe IV PUSH 12.5 gm PRN PRN Administration Hypoglycemia Protocol Gabapentin 600 mg 07/10/24 22:05 07/22/24 09:20 Gabapentin 300 Mg Capsule PO 600 mg Q12HR GAVIN Administration Glucagon 1 mg 07/10/24 22:06 Glucagon For Inj 1 Mg Vial IM PRN PRN Hypoglycemia Protocol Glucose 15 gm 07/10/24 22:06 Glucose Oral Gel 15 Gm Of Glucse In 37.5 Gm Tube PO PRN PRN Hypoglycemia Protocol Dextrose 1,000 mls @ 100 mls/hr 07/10/24 22:06 Dextrose 5% 1,000 Ml IVPB PRN PRN Hypoglycemia Protocol Insulin Aspart 4 - 8 units 07/11/24 08:00 07/21/24 18:11 Insulin Aspart (*Bkc) 100 Units/Ml SUB-Q Not Given TIDWM [facility] Protocol Isosorbide Mononitrate 30 mg 07/11/24 09:00 07/22/24 09:20 Isosorbide Mononitrate 30 Mg Tab.Er.24h PO 30 mg DAILY GAVIN Administration Levothyroxine Sodium 50 mcg 07/11/24 06:30 07/22/24 06:02 Levothyroxine Sodium 50 Mcg Tablet PO 50 mcg DAILY@0630 [facility] Administration Lidocaine 1 patch 07/13/24 09:00 07/22/24 09:21 Lidocaine 5% Patch TRANSDERM 1 patch DAILY GAVIN Administration Lisinopril 20 mg 07/11/24 09:00 07/22/24 09:21 Lisinopril 20 Mg Tablet PO 20 mg DAILY GAVIN Administration Memantine 10 mg 07/10/24 22:25 07/22/24 09:21 Memantine 10 Mg Tablet PO 10 mg Q12HR GAVIN Administration Cyclobenzaprine Hcl 2.5 each 07/14/24 21:00 07/22/24 09:25 2.5 Mg Tablet PO 08/13/24 20:59 2.5 each Q12HR GAVIN Administration Warfarin Sodium 1 mg 07/10/24 22:35 07/19/24 17:18 Warfarin (*Pbkc) 1 Mg Tablet PO 1 mg TuThSa@1700 GAVIN Administration Warfarin Sodium 4 mg 07/10/24 22:35 07/21/24 16:56 Warfarin (*Pbkc) 4 Mg Tablet PO 4 mg DAILY@1700 GAVIN Administration Radiology Results: ITS Impressions Head CT 07/10/24 12:45 IMPRESSION: 1. Stable appearance of age-related changes in the brain. No acute intracranial process. Chest X-Ray 07/10/24 12:58 Impression: 1: No acute cardiopulmonary disease. Carotid Doppler Study 07/10/24 22:01 IMPRESSION: 1. 50-69% stenosis in the right internal carotid artery. 2. <50% stenosis in the left internal carotid artery. Brain MRI 07/11/24 12:35 IMPRESSION: 1. Normal aging brain with moderate scattered nonspecific periventricular predominant white matter T2 hyperintensity consistent with chronic small vessel ischemic disease. No acute intracranial process or abnormally enhancing brain lesions. Thoracic/Lumbar Spine CT 07/12/24 07:30 IMPRESSION: 1. Mild S-shaped scoliosis of the lumbar and lower thoracic spine with moderate thoracic and severe lumbar spondylosis. 2. Chronic compression fracture at T1 and minimal likely physiologic anterior wedging at T12. No acute osseous abnormality. 3. Infrarenal IVC filter. Renal Ultrasound 07/13/24 15:26 IMPRESSION: No hydronephrosis or renal calculi. Findings suggesting medical renal disease. Labs Labs: Laboratory Results - last 24 hr 07/21/24 07/21/24 07/21/24 11:47 16:56 20:54 PT INR POC Capillary Glucose 103 94 109 H 07/22/24 07/22/24 08:24 08:56 PT 42.8 H D INR 4.5 POC Capillary Glucose 89 Quality VTE Prophylaxis VTE prophylaxis: pharmacologic ordered
[2024-07-22 12:32] LABS: Glucose Point of Care 119 mg/dl (65-105)
[2024-07-22 14:00] VITALS: BP 137/56; PULSE 62; RESP 62; TEMP 36.2; O2SAT 99
[2024-07-22 14:26] LABS: SARS-CoV-2 RNA PCR Negative (Negative)
--- NOTE | 2024-07-22 15:18 | PM.DS ---
DS: Admitting Diagnosis Discharge Date 07/22/2024 Admitting Diagnosis Altered mental status DS: Discharge Diagnosis Discharge Diagnosis (1) Confusion: Code(s): R41.0 - Disorientation, unspecified Status: Acute Assessment and Plan: Daughter reports that she has been becoming increasingly confused and has had increased syncopal episodes over the past week. At baseline she has moderate dementia and will recognize her family, however may not know the date. On Sunday the patient had a home test indicating a UTI. This report was called to her PCP and she was prescribed Keflex 500 t.i.d. She has received 4 doses with last dose Sunday night. A urine culture was not obtained for this infection. Despite antibiotic use the patient developed hallucinations on 07/09. - head CT: Stable appearance of age related changes in the brain, no acute intracranial process. - UA unremarkable, recently started on Keflex for UTI. Will continue with ceftriaxone to complete the course. - viral PCR negative - Blood cultures obtained on 07/10: gram positive cocci cluster growing in 1 bottle, other bottle NGTD. Possible contaminant, however will start on vancomycin until final culture. - MR brain: Normal aging brain with moderate scattered nonspecific periventricular predominant white matter T2 hyperintensity consistent with chronic small vessel ischemic disease. No acute intracranial process or abnormally enhancing brain lesions. - neurological checks Q4H - telemetry monitoring 07/15: Patient AOx2 on assessment. No hallucinations since admission. 07/16- stable- working with care coordination for placement 07/17-reported overnight was a little bit more confused. this am when i examined her, she was back to her baseline 07/18resting with eyes closed when examined 07/19 more alert today but still would not take her meds or eat breakfast possibly transition to comfort measures/hospice today- family meeting at 2 pm Family wanting to discharge to hospice (2) Syncope and collapse: Code(s): R55 - Syncope and collapse Status: Acute Assessment and Plan: Initially developed syncope in June of 2023. At that time occurrences were every few months -> one every few weeks -> this week she has passed out daily with max of 3 daily. She has a Dexcom in place and a loop recorder in place due to rule out dysrhythmia and hypoglycemia as etiology. The patient's blood sugar has been decreasing over the last week and she has had some readings in the 50s and 60s. The daughter reported that she can tell when the patient is about to pass out because she will become generally weak and her color will change (becomes very pale). The patient has eyes will roll back, she will have a loss of consciousness for anywhere up to a minute, almost as if she went to sleep, and the patient will wake up exhausted. The patient typically does not have any memory of these events and will have increased confusion after. - EKG, initial: Sinus rhythm, rate 67, voltage criteria for LVH, consider inferior infarct age indeterminate, inferior infarct age indeterminate, baseline artifact. When compared to EKG done on 02/18/2024, there are no significant changes. - UDS and viral PCR negative - UA unremarkable, recently started on Keflex on 07/07 for UTI, remains on rocephin to complete the course - troponin negative x2 - hemoglobin 14.4, increased from prior. May have some level of dehydration. IV fluids. - head CT and CXR showed no acute findings - MR brain: Normal aging brain with moderate scattered nonspecific periventricular predominant white matter T2 hyperintensity consistent with chronic small vessel ischemic disease. No acute intracranial process or abnormally enhancing brain lesions. - US of carotids: 50-69% stenosis in the right internal carotid artery and <50% stenosis in the left internal carotid artery. - echo, previous (01/2024): normal systolic function, EF 60-65%, and grade 1 diastolic dysfunction. no pulmonary hypertension. see report. - EEG ordered - orthostatics Q shift - fall precautions - telemetry monitoring - consider cardiology consultation if dysrhythmia or bradycardia observed via telemetry 07/11: Patient endorsing severe back pain and could not tolerate being rolled for further examination. Will obtain a CT of her thoracic and lumbar spine to further evaluate. - TL spine CT: 1. Mild S-shaped scoliosis of the lumbar and lower thoracic spine with moderate thoracic and severe lumbar spondylosis. 2. Chronic compression fracture at T1 and minimal likely physiologic anterior wedging at T12. No acute osseous abnormality. 3. Infrarenal IVC filter. 07/15: - Continue TLSO brace - Scheduled tylenol - Started lidocaine patch and flexaril 2.5 BID for pain - PT/OT 07/16 stable- working with pt/ot, placement 07/17 near syncope episode -likely vasovagal episode after BM. Will add cardiology as well neurology. EEG is done. 07/18 card and neurology consulted. awaiting recommendations 07/21 cardiology and Neurology no new recommendations., can be discharged from their standpoint (3) Paroxysmal atrial fibrillation: Code(s): I48.0 - Paroxysmal atrial fibrillation Status: Chronic Assessment and Plan: - initial EKG showing sinus rhythm - continue home medications: Warfarin - INR 2.3 (4) Acute kidney injury superimposed on chronic kidney disease: Code(s): N17.9 - Acute kidney failure, unspecified; N18.9 - Chronic kidney disease, unspecified Status: Acute Assessment and Plan: Resolved. - creatinine 0.92 and GFR 57 on admission, baseline appears to be WNL-1.40 - BUN/Cr 41/1.16 on am labs - Renal US ordered - trend renal function - trend electrolytes, correct as needed - avoid nephrotoxic medications - renally dose medications - monitor I/O showing decreased urine output, given 1L NS @ 100 ml/hr and UOP has returned to normal limits prn bladder scans. Patient did retain on bladder scan and a straight cath was done, if retention recurs will place [place] (5) Hypothyroidism: Qualifiers: Hypothyroidism type: unspecified Qualified Code(s): E03.9 - Hypothyroidism, unspecified Code(s): E03.9 - Hypothyroidism, unspecified Status: Chronic Assessment and Plan: Stable - TSH 1.53 on 07/10/2024 - continue home medications: levothyroxine 50 mcg daily (6) Type 2 diabetes mellitus: Qualifiers: Diabetes mellitus terminal press operator insulin use: without terminal press operator use Diabetes mellitus complication status: with kidney complications Diabetes mellitus complication detail: with chronic kidney disease Chronic kidney disease stage: stage 3 (moderate) Chronic kidney disease stage 3 subtype: stage 3a (GFR 45-59) Qualified Code(s): E11.22 - Type 2 diabetes mellitus with diabetic chronic kidney disease; N18.31 - Chronic kidney disease, stage 3a Code(s): E11.9 - Type 2 diabetes mellitus without complications Status: Acute Assessment and Plan: Stable - Dexcom in place - hypoglycemia protocol - POC blood glucose ACHS - home medication: hold metformin in case of need for contrast - correct regimen ordered - high dose TIDWM, based off BMI - A1C ordered, previously 6.2% in January of 2024 (7) Essential (primary) hypertension: Code(s): I10 - Essential (primary) hypertension Status: Chronic Assessment and Plan: chronic, continue home medications - Amlodipine 5 mg daily - Benazepril 20 mg daily - Imdur 30 mg daily - Blood pressures remain stable, continue to monitor Plan Diarrhea will test for C diff, if C diff is negative patient have Imodium Diet: Heart healthy GI Prophylaxis: Not currently indicated DVT Prophylaxis: Warfarin Lines: Peripheral Code Status: Do not resuscitate DS: Summary Hospital Course Reason for hospitalization: Altered mental status Hospital Course: 88 y/o F presents here with syncope and AMS with PMH of diastolic dysfunction, DVT, diabetes, chronic idiopathic thrombocytopenia, legally blind, anemia, dementia, depression, CKD stage 3, hypertension, hyperlipidemia, hypothyroidism, and paroxysmal AFib. Daughter reports that she has been becoming increasingly confused and has had increased syncopal episodes over the past week. On Sunday the patient had a home test indicating a UTI. This report was called to her PCP and she was prescribed Keflex 500 t.i.d. She has received 4 doses with last dose Sunday night. A urine culture was not obtained for this infection. Despite antibiotic use the patient developed hallucinations on 07/09. She has a Dexcom in place and a loop recorder in place due to rule out dysrhythmia and hypoglycemia as etiology. The patient's blood sugar has been decreasing over the last week and she has had some readings in the 50s and 60s. The daughter reported that she can tell when the patient is about to pass out because she will become generally weak and her color will change (becomes very pale). ED workup showed: No leukocytosis, hemoglobin 14.4 (previously 10.1 in February of 2024), INR 2.1, creatinine 0.92 and GFR 57, lactic 1.3, initial troponin 0.013, CRP <0.5, TSH 1.53. UA unremarkable. UDS negative. Viral PCR negative. CXR showed no acute cardiopulmonary disease. Head CT showed stable appearance of age related changes in the brain, no acute intracranial process. Initial EKG showed sinus rhythm, rate 67, voltage criteria for LVH, consider inferior infarct age indeterminate, anterior infarct age indeterminate. Due to patient's altered mental status not improving neurology was consulted and performed EEG no significant abnormalities however the possibility of seizures cannot be ruled out due to poor tracing. Cardiology had seen the patient for syncope she had a loop recorder which was reviewed and was free from arrhythmias and Cardiology signed off. Patient also had severe back pain while in the hospital was found have a T1 and T12 fracture with recommendations for TLSO brace. On July 16 the patient was stable and ready for placement however on the the patient had a near syncopal episode likely vasovagal. Due to the patient's lack of progress with confusion under workup being negative the family has decided to place her on hospice. Patient is stable for discharge. Status at Discharge Functional status at discharge: wheelchair bound Overall status at discharge: patient is not back to baseline Time Spent with Patient Time attestation: Total time spent providing and/or coordinating discharge services: Time spent: Greater than 30 minutes Exam Narrative: General: Appears comfortable, appears stated age. Hard of hearing HEENT: normocephalic, atraumatic. Mucous membranes moist. EOMI, PERRLA, bilateral sclera anicteric, no conjunctival injection. Neck supple without JVD, lymphadenopathy, or bruit. Respiratory: clear to ascultation bilaterally. No rales/rhonic/wheezes. Cardiovascular: Regular rate and rhythm, normal S1-S2 upon ascultation. No murmurs, rubs, or clicks. PMI is nondisplaced, capillary refill less than 3 second. Abdomen: Soft, round, no pulsatile masses, nondistended and nontender. No rebound, no guarding. No CVA tenderness, no hepatosplenomegaly. Bowel sounds present to all four quadrants. No high pitch or tinkling sounds, resonant to percussion. Extremities: No cyanosis, clubbing, or edema present. Pulses are palpable 2/2. Active ROM to all four extremities. Neuro: Alert and orientated x 1. PERRLA. Cranial nerves 2-12 intact without focal deficit. Skin: Warm, dry, and intact, without rash, erythema, or lesion. Psych: Pleasantly confused, cooperative, normal speech, normal affect, no hallucinations, no dysarthia DS: Data Data Completed and Pending Labs on day of discharge: Labs from last 24 hours 07/22/24 07/22/24 07/22/24 13:07 12:29 08:56 PT 42.8 H D INR 4.5 POC Capillary Glucose 119 H SARS-CoV-2 RNA (RT-PCR) Negative 07/22/24 07/21/24 07/21/24 08:24 20:54 16:56 PT INR POC Capillary Glucose 89 109 H 94 SARS-CoV-2 RNA (RT-PCR) Discharge Plan Discharge Consulting providers: Frida Dunlap; Aminata Miller; Curtis Sinclair; Rosemarie Pichardo; Jerrell Valdez; Belem Pat; Carolann Goodrich; Ty Yepez; Thor Coyne; Wes Camarillo; Isaac Landin V.; Victoria Campbell Discharging Clinician: Sharron Swartz Anticipated Discharge Date/Time: 07/22/24 16:18 Patient Disposition: Hospice - Medical Facility Activity: may shower Diet: regular Discharge Instructions: Discharge instructions: You are on hospice, the goal is to focus on comfort, may continue home medications, however you do not have to take them if he do not want You are activity as tolerated Avoid social areas, you wear a mask when in social settings Follow-up with:, hospice Thank you for [facility] for your healthcare needs Patient Instructions: Antibiotic Form, Warfarin (By mouth) Patient Language: Nigerian Stand Alone Forms: General Discharge Information Follow-up/Referrals: Hospice [Other] Discharge Medications: Continued gabapentin 300 mg capsule 600 mg PO Q12H levothyroxine 50 mcg tablet 50 mcg PO DAILY Qty: 90 3RF isosorbide mononitrate 30 mg tablet extended release 24 hr 30 mg PO DAILY Qty: 90 3RF buspirone 10 mg tablet 10 mg PO BID Qty: 180 1RF benazepril 20 mg tablet 20 mg PO DAILY Qty: 90 3RF amlodipine [Norvasc] 5 mg tablet 5 mg PO DAILY Qty: 90 1RF metformin 500 mg tablet extended release 24 hr See Rx Instructions .ROUTE .COMPLEX Qty: 90 1RF Dose Instruction: TAKE 1 TABLET AT 5:00PM Rx Instructions: TAKE 1 TABLET AT 5:00PM memantine 10 mg tablet 10 mg PO BID Qty: 180 1RF Discontinued atorvastatin 10 mg tablet 10 mg PO DAILY Qty: 90 3RF warfarin [Jantoven] 1 mg tablet See Rx Instructions .ROUTE .COMPLEX Qty: 90 0RF Dose Instruction: TAKE 1 TABLET DAILY; TO BE TAKEN WITH THE 4MG Patient Comments: takes 1 mg with the 4 mg pill on and Sunday Rx Instructions: TAKE 1 TABLET DAILY; TO BE TAKEN WITH THE 4MG warfarin [Maytoven] 4 mg tablet 4 mg PO DAILY Qty: 90 0RF Date of admission: 07/11/24 16:31 Primary Care Provider: Sundeep Sotelo Admitting Provider: Brittany Pruett Attending physician on admission: Sharron Swartz Condition: Stable Quality VTE Prophylaxis VTE prophylaxis: mechanical ordered Hospitalist MIPS Heart Failure (Exclusion) Patient has history of Heart Transplant or Left Ventricular Assistive Device?: No IF YES, STOP HERE Heart Failure (Qualifier) Patient has current or prior documentation of LVEF less than or equal to 40%, or mod/servere depressed LVSF?: No IF NO, STOP HERE
[2024-07-22 17:10] LABS: Glucose Point of Care 116 mg/dl (65-105)
== END 2024-07-22 19:37 | disposition hospice, inpatient (51) | DRG 312 ==
LOC: ANHED 15:08 → ANH3MEDSUR 16:53 → ANH3MED 18:47
PROVIDERS: Emergency Medicine; Nurse Practitioner; Student in an Organized Health Care Education/Training Program; Admitting Provider Internal Medicine; Emergency Provider Emergency Medicine; PCP Family Medicine; Visit Provider Nurse Practitioner Gerontology
DX: R55 Syncope and collapse (principal); N17.9 Acute kidney failure, unspecified; D69.3 Immune thrombocytopenic purpura; N39.0 Urinary tract infection, site not specified; R78.81 Bacteremia; R41.0 Disorientation, unspecified; B95.7 Other staphylococcus as the cause of diseases classified elsewhere; I48.0 Paroxysmal atrial fibrillation; E11.22 Type 2 diabetes mellitus with diabetic chronic kidney disease; I12.9 Hypertensive chronic kidney disease with stage 1 through stage 4 chronic kidney disease, or unspecified chronic kidney disease; N18.31 Chronic kidney disease, stage 3a; E03.9 Hypothyroidism, unspecified; H54.8 Legal blindness, as defined in USA; I65.23 Occlusion and stenosis of bilateral carotid arteries; D64.9 Anemia, unspecified; F03.90 Unspecified dementia, unspecified severity, without behavioral disturbance, psychotic disturbance, mood disturbance, and anxiety; E11.42 Type 2 diabetes mellitus with diabetic polyneuropathy; E78.2 Mixed hyperlipidemia; I25.10 Atherosclerotic heart disease of native coronary artery without angina pectoris; I73.9 Peripheral vascular disease, unspecified; M41.9 Scoliosis, unspecified; Z86.718 Personal history of other venous thrombosis and embolism; Z86.16 Personal history of COVID-19; Z90.49 Acquired absence of other specified parts of digestive tract; Z90.710 Acquired absence of both cervix and uterus; Z98.49 Cataract extraction status, unspecified eye; Z99.3 Dependence on wheelchair
CPT/HCPCS: 36415; 70450; 70553; 71045; 72128; 72131; 76775; 80048; 80053; 80307; 81001; 82948; 83036; 83605; 84443; 84484; 85025; 85027; 85610; 85730; 86140; 87040; 87181; 87635; 87637; 93005; 93880; 95816; 96374; 96375; 97110; 97163; 97167; 97530; 97535; 99285; A9270; A9577; G0378; J0696; J2060; J3370; J7030; J7040; J7120